=== PATIENT | female | born 1945 | race Caucasian/White ===

== ENCOUNTER → 2016-05-03 | Day surgery (SDC) | payer BC ==
[2016-04-20 14:40] VITALS: Ht 162.6 cm; Wt 65.9 kg
[~2016-05-03] VITALS: Ht 162.6 cm; Wt 65.9 kg
[~2016-05-03] MED LIST: ATOR-22 PO; DIPH-437 PO; ESTR10TA PV; LIDOCAINE HCL 2% 2 ML VIAL (20MG/ML) ONE; MIDAZOLAM HCL 1 MG/ML 2ML VIAL ONE; MULT-506 PO; PROPOFOL IV EMULSION 10 MG/ML 20 ML VIAL IV ONE; SODIUM CHLORIDE 0.9% 500ML 500 ML IV ONE
[2016-05-03 09:54] VITALS: TEMP 36.5
--- NOTE | 2016-05-03 10:01 | Endo History and Physical ---
History & Physical Date of Service: May 03, 2016. Chief Complaint: Hx of benign neoplasm Referring Physician: Dr Jules Velarde History of Present Illness 71 yo CF who presents for colonoscopy secondary to history of colon polyps. Past Surgical History Hx Cardiac Surgery: No Hx Internal Defibrillator: No Hx Pacemaker: No Hx Abdominal Surgery: Yes (TUBAL LIGATION) Hx of Implantable Prosthesis: No Hx Post-Op Nausea and Vomiting: No Hx Cancer Surgery: No Hx Thoracic Surgery: No Hx Orthopedic: Yes (LEFT KNEE SX) Hx Urinary Tract Surgery: No Family History Polyp Social History Smoking Status: Former Smoker Hx Substance Use: No Hx Alcohol Use: Yes (OCCASSIONALLY) Allergies Coded Allergies: No Known Allergies (Unverified , 04/20/16) Current Medications Reported Home Medications Medications Dose Route/Sig Max Daily Dose Days Date Category Tylenol Pm (Acetaminophen/Diphenhydramine HCl) 500 Mg/25 Mg Tab 2 Tab PO HS 04/20/16 Reported Multivitamin (Multivitamins) Tab 1 Tab PO QAM 04/20/16 Reported Lipitor (Atorvastatin Calcium) 20 Mg Tab 20 Mg PO QPM 04/20/16 Reported Vagifem (Estradiol Vaginal) 10 Mcg Tab 1 Tab PV 2XWK 28 04/20/16 Reported Vital Signs Weight (Kilograms): 65.91 Height (Feet): 5 Height (Inches): 4 Date Time Temp Pulse Resp B/P Pulse Ox O2 Delivery O2 Flow Rate FiO2 05/03/16 09:54 36.5 78 22 167/107 98 Room Air Physical Exam General Appearance: WD/WN, no apparent distress Respiratory/Chest: Auscultation: breath sounds normal Cardiovascular: Heart Auscultation: RRR Abdomen: Bowel Sounds: normal Inspection & Palpation: soft, non-distended, no tenderness, guarding & rebound Assessment and Plan Assessment: 71 yo CF who presents for colonoscopy secondary to history of colon polyps. Plan: Proceed with colonoscopy.
--- NOTE | 2016-05-03 10:37 | GI REPORT ---
Procedure Date: 05/03/2016 9:50 AM Procedure: Colonoscopy Indications: High risk colon cancer surveillance: Personal history of colonic polyps Medicines: Monitored Anesthesia Care Complications: No immediate complications. Estimated Blood Loss: Estimated blood loss: none. Procedure: Pre-Anesthesia Assessment: - Prior to the procedure, a History and Physical was performed, and patient medications and allergies were reviewed. The patient's tolerance of previous anesthesia was also reviewed. The risks and benefits of the procedure and the sedation options and risks were discussed with the patient. All questions were answered, and informed consent was obtained. Prior Anticoagulants: The patient has taken no previous anticoagulant or antiplatelet agents. ASA Grade Assessment: II - A patient with mild systemic disease. After reviewing the risks and benefits, the patient was deemed in satisfactory condition to undergo the procedure. After I obtained informed consent, the scope was passed under direct vision. Throughout the procedure, the patient's blood pressure, pulse, and oxygen saturations were monitored continuously. The scope was introduced through the anus and advanced to the terminal ileum. The colonoscopy was performed without difficulty. The patient tolerated the procedure well. The quality of the bowel preparation was good. The terminal ileum, ileocecal valve, appendiceal orifice, and rectum were photographed. Findings: Two sessile polyps were found in the ascending colon. The polyps were 5 to 7 mm in size. These polyps were removed with a hot snare. Resection and retrieval were complete. Non-bleeding internal hemorrhoids were found during retroflexion. The hemorrhoids were small. Impression: - Two 5 to 7 mm polyps in the ascending colon, removed with a hot snare. Resected and retrieved. - Non-bleeding internal hemorrhoids. Recommendation: - Resume previous diet. - Continue present medications. - Await pathology results. - Repeat colonoscopy for surveillance based on pathology results. - Return to primary care physician as previously scheduled. Nick Sánchez DO 05/03/2016 10:36:11 AM This report has been signed electronically. Note Initiated On: 05/03/2016 9:50 AM I attest to the content of the Intraoperative Record and orders documented therein, exceptions below
[2016-05-03 10:49] VITALS: BP 133/63; PULSE 58; O2SAT 100
--- NOTE | 2016-05-03 11:08 | Discharge Instructions ---
Endoscopy Patient Instructions Date / Procedure(s) Performed May 03, 2016. Colonoscopy Allergy Information Coded Allergies: No Known Allergies (Unverified , 04/20/16) Discharge Date / Findings May 03, 2016. Colon polyps Internal hemorrhoids Medication Instructions OK to resume all medications today as prescribed. Reported Home Medications Medications Dose Route/Sig Max Daily Dose Days Date Category Tylenol Pm (Acetaminophen/Diphenhydramine HCl) 500 Mg/25 Mg Tab 2 Tab PO HS 04/20/16 Reported Multivitamin (Multivitamins) Tab 1 Tab PO QAM 04/20/16 Reported Lipitor (Atorvastatin Calcium) 20 Mg Tab 20 Mg PO QPM 04/20/16 Reported Vagifem (Estradiol Vaginal) 10 Mcg Tab 1 Tab PV 2XWK 28 04/20/16 Reported Provider Instructions Activity Restrictions - No exercising or heavy lifting for 24 hours. - Do not drink alcohol the day of the procedure. - Do not drive a car or operate machinery until the day after the procedure. - Do not make any important decisions or sign important papers in 24 hours after the procedure. Following Day: - Return to full activity which may include returning to work/school. Diet Start your diet with liquids and light foods (jello, soup, juice, toast). Then eat your usual diet if not nauseated. Treatment For Common After Affects For mild abdominal pain, bloating, or excessive gas: - Rest - Eat lightly - Lie on right side Follow-Up Information Follow-up with Dr Jules Velarde as scheduled Anesthesia Information What You Should Know You have had a procedure that required some medicine to reduce anxiety and discomfort. This treatment is called moderate sedation. After receiving the treatment, you may be sleepy, but you will be able to breathe on your own. The effects of the treatment may last for several hours. Follow these instructions along with Activity/Diet recommendations noted above: * Do NOT do anything where dizziness or clumsiness would be dangerous. * Rest quietly at home today, then you can be up and about tomorrow. * Have a responsible person stay with you the rest of today. * You may have had an I.V. today. If so, you may take the dressing off later today. Recommendations Call your doctor if: * Trouble breathing * Continuous vomiting for more than 24 hours * Temperature above 101 degrees * Severe abdominal pain or bloating * Pain not relieved by pain medicine ordered * There is increased drainage or redness from any incision * A large amount of rectal bleeding greater than 2-3 tablespoons. (If you had a polyp/s removed or have hemorrhoids, a small amount of blood - from the rectum is to be expected.) * You have any unanswered questions or concerns. IN THE EVENT OF A SERIOUS EMERGENCY, GO TO THE NEAREST EMERGENCY ROOM Your discharge instructions were prepared by provider Nick Sánchez. Patient Instructions Signature Page Anni Gore Patient (or Guardian) Signature/Date: I have read and understand the instructions given to me by my caregivers. Caregiver/RN/Doctor Signature/Date: The above-named patient and/or guardian has received patient instructions on this date. + Original Patient Signature Page (only) stays with chart. Please make copy for patient.
--- NOTE | 2016-05-03 15:23 | Anesthesiology Progress Note ---
Anesthesia Post Op Note Date & Time May 03, 2016 at 15:22 Vital Signs Pain Intensity: 0 Vital Signs Past 12 Hours Date Time Temp Pulse Resp B/P Pulse Ox O2 Delivery O2 Flow Rate FiO2 05/03/16 10:49 58 20 133/63 100 Room Air 05/03/16 10:35 53 20 94/55 100 Room Air 05/03/16 09:54 36.5 78 22 167/107 98 Room Air Notes Mental Status: alert / awake / arousable, participated in evaluation Pt Amnestic to Procedure: Yes Nausea / Vomiting: adequately controlled Pain: adequately controlled Airway Patency, RR, SpO2: stable & adequate BP & HR: stable & adequate Hydration State: stable & adequate Anesthetic Complications: no major complications apparent
== END | disposition home or self-care (01) ==
LOC: C.GI 09:31
PROVIDERS: ATTEND Internal Medicine
DX: Z12.11 Encounter for screening for malignant neoplasm of colon (principal); Z86.010 Personal history of colon polyps; D12.2 Benign neoplasm of ascending colon; K64.8 Other hemorrhoids; Z98.51 Tubal ligation status; Z87.891 Personal history of nicotine dependence

== ENCOUNTER → 2016-09-15 | Outpatient (CLI) | payer BC ==
[~2016-09-15] MED LIST changes: -LIDOCAINE HCL 2% 2 ML VIAL (20MG/ML) ONE; -MIDAZOLAM HCL 1 MG/ML 2ML VIAL ONE; -PROPOFOL IV EMULSION 10 MG/ML 20 ML VIAL IV ONE; -SODIUM CHLORIDE 0.9% 500ML 500 ML IV ONE
[2016-09-15 10:53] LABS: BASO % 0.2 %; BASO ABS # 0.01 K/uL (0-0.2); COMPLETE YES; EOS % 1.2 %; HEMATOCRIT 45.1 % (37-47); IG% 0.2 %; LYMPH % 48.2 %; LYMPH ABS # 2.89 K/uL (1.2-3.4); MEAN CELL VOLUME 93.4 fL (80-100); MEAN CORPUSCULAR HEMOGLOBIN 31.3 pg (25-34); MEAN CORPUSCULAR HGB CONC 33.5 g/dl (32-36); MEAN PLATELET VOLUME 10.4 fL (7.4-10.4); MONO % 7.8 %; NEUT % 42.4 %; PLATELET COUNT 239 K/uL (130-400); RED BLOOD COUNT 4.83 M/uL (4.2-5.4); WHITE BLOOD COUNT 5.99 K/uL (4.8-10.8)
[2016-09-15 11:06] LABS: ALKALINE PHOSPHATASE 90 U/L (45-117); ALT/SGPT 57 U/L (12-78); AST/SGOT 32 U/L (15-37); BLOOD UREA NITROGEN 16 mg/dl (7-18); CALCIUM 8.9 mg/dl (8.5-10.1); CARBON DIOXIDE 27 mmol/L (21-32); CHLORIDE 109 mmol/L (98-107); CREATININE 0.78 mg/dl (0.60-1.20); GLUCOSE 91 mg/dl (70-99); HDL CHOLESTEROL 33 mg/dl; POTASSIUM 4.2 mmol/L (3.5-5.1); SODIUM 141 mmol/L (136-145)
[2016-09-15 11:08] LABS: ALB/GLOB RATIO 0.9 (0.9-2); CHOLESTEROL 191 mg/dl (0-200); CHOLESTEROL/HDL RATIO 5.8; LDL CHOLESTEROL CALCULATED 81 mg/dl; TRIGLYCERIDES 387 mg/dl (0-150); VERY LOW DENSITY LIPOPROT CALC 77 mg/dl
== END | disposition home or self-care (01) ==
LOC: C.LABBC 07:40
PROVIDERS: ATTEND Internal Medicine
DX: Z01.419 Encounter for gynecological examination (general) (routine) without abnormal findings (principal)

== ENCOUNTER → 2016-12-01 | Outpatient (CLI) | payer BC ==
--- NOTE | 2016-12-06 13:25 | CODING QUERY MEDICAL NECESSITY ---
SUPPORTING DIAGNOSIS NEEDED Dr. Velarde, A supporting diagnosis is required for the test/procedure performed on this patient in order for us to be reimbursed by the patient's insurance. Please provide a supporting diagnosis for the following test/procedure listed below next to the test name along with your signature. *If there is no additional diagnosis for this patient that would support the following test/procedure please document that below next to the test/procedure. Test(s)/Procedure(s) that require a supporting diagnosis: * ([id number]) DXA BONE DENSITY, AXIAL DIAGNOSIS: DATE OF SERVICE: 12/01/16 Provider Signature: Date: Thank you Rachid Hays [facility] Information Management Once completed, please kindly fax back to [phone] For questions please call [phone]
== END | disposition home or self-care (01) ==
LOC: C.MAMM 10:17
PROVIDERS: ATTEND Internal Medicine
DX: Z00.00 Encounter for general adult medical examination without abnormal findings (principal); M85.80 Other specified disorders of bone density and structure, unspecified site

== ENCOUNTER → 2016-12-22 | Outpatient (CLI) | payer BC ==
--- NOTE | 2016-12-22 14:35 | MAMMOGRAPHY REPORT ---
BILATERAL DIGITAL SCREENING MAMMOGRAM TOMOSYNTHESIS WITH CAD: 12/22/2016 CLINICAL HISTORY: Routine screening. Patient has no complaints. TECHNIQUE: Breast tomosynthesis in addition to standard 2D mammography was performed. Current study was also evaluated with a Computer Aided Detection (CAD) system. COMPARISON: Comparison is made to exams dated: 12/22/2015 mammogram, 12/18/2014 mammogram, 4 mammogram, 12/14/2012 mammogram, 12/14/2011 mammogram, and 12/10/2010 mammogram - [facility]. BREAST COMPOSITION: There are scattered areas of fibroglandular density in both breasts. FINDINGS: No suspicious masses, calcifications, or areas of architectural distortion are noted in ei ther breast. There has been no significant interval change compared to prior exams. Scattered bilater al benign-appearing calcifications are not significantly changed. IMPRESSION: ACR BI-RADS CATEGORY 2: BENIGN There is no mammographic evidence of malignancy. A 1 year screening mammogram is recommended. The pa tient will receive written notification of the results. Approximately 10% of breast cancers are not detected with mammography. A negative mammographic report should not delay biopsy if a clinically suggestive mass is present. Danni Feldman M.D. ah/:12/22/2016 12:01:54 Straw Baler: Mana SANTANA)(M), [facility] letter sent: Normal 1/2 BI-RADS Code: ACR BI-RADS Category 2: Benign
== END | disposition home or self-care (01) ==
LOC: C.MAMM 09:29
PROVIDERS: ATTEND Obstetrics & Gynecology
DX: Z12.31 Encounter for screening mammogram for malignant neoplasm of breast (principal)

== ENCOUNTER 2017-04-20 17:44 | Inpatient (IN) | payer BC, OTHER ==
[~2017-04-20] VITALS: Ht 162.6 cm; Wt 70.1 kg
--- NOTE | 2017-04-20 17:58 | EMERGENCY ROOM VISIT NOTE ---
History Report prepared by Kelly: Ubaldo Tran Under the Supervision of: Dr. Les oD D.O. First contact with patient: 17:45 Stated Complaint: CHEST PAIN History of Present Illness The patient is a 72 year old female who presents to the Emergency Room via EMS with complaints of resolving centralized chest pain that started prior to arrival today. The patient states that she felt weird yesterday with pain above her left eye, which usually indicates that she has high blood pressure. She notes that she took her blood pressure yesterday and it was high. The patient says that she felt fine last night before bed, and felt fine earlier this morning. She notes that she went to [facility] earlier today for the high blood pressure because Dr. Velarde told the patient to go there for evaluation of the high blood pressure, and while there, she started to have chest pain that she describes as a pressure. She rated the pain as a 7 or 8 out of 10 in severity. The patient was given Aspirin and Nitro at [facility], and was given 2 Nitro by EMS. The patient noted that her chest pain went down to a 2 out of 10. She says that she currently does not have the headache. The patient denies any shortness of breath. She states that she has a history of a stress test but no history of heart catheterizations. The patient adds that she does not take any medications for the high blood pressure, but follows up with Dr. Velarde for it. 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 Review of Systems See HPI for pertinent positives & negatives. A total of 10 systems reviewed and were otherwise negative. Past Medical & Surgical Medical Problems: (1) Kidney stone Family History Cancer Heart disease Hypertension Kidney disease Social History Smoking Status: Former Smoker Marital Status: Housing Status: lives with significant other Occupation Status: retired Current/Historical Medications Scheduled Acetaminophen/Diphenhydramine (Tylenol Pm), 2 TAB PO HS Atorvastatin (Lipitor), 20 MG PO QPM Estradiol Vaginal (Vagifem), 1 TAB PV 2XWK Multivitamin (Multivitamin), 1 TAB PO QAM Allergies Coded Allergies: No Known Allergies (Unverified , 04/20/17) Physical Exam Vital Signs Date Time Temp Pulse Resp B/P (MAP) Pulse Ox O2 Delivery O2 Flow Rate FiO2 04/20/17 20:15 74 18 160/94 97 Room Air 04/20/17 19:48 76 18 154/79 98 Room Air 04/20/17 19:45 87 163/102 04/20/17 18:42 83 04/20/17 18:09 98 Room Air 04/20/17 18:09 36.7 82 19 166/100 99 Room Air 04/20/17 18:07 166/100 04/20/17 18:04 80 20 98 04/20/17 17:59 84 17 98 04/20/17 17:58 97 Room Air 04/20/17 17:57 174/89 Physical Exam GENERAL: Patient is awake, alert, and in no acute distress. Patient is resting comfortably and showing no signs of anxiety EYES: The conjunctivae are clear. The pupils are round and reactive. EARS, NOSE, MOUTH AND THROAT: The nose is without any evidence of any deformity. Mucous membranes are moist tongue is midline NECK: The neck is nontender and supple. RESPIRATORY: Normal respiratory effort is noted there is no evidence of wheezing rhonchi or rales CARDIOVASCULAR: Regular rate and rhythm noted there no murmurs rubs or gallops normal S1 normal S2 GASTROINTESTINAL: The abdomen is soft. Bowel sounds are present in all quadrants. Abdomen is nontender MUSCULOSKELETAL/EXTREMITIES: There is no evidence of gross deformity full range of motion is noted in the hips and shoulders SKIN: There is no obvious evidence of any rash. There are no petechiae, pallor or cyanosis noted. NEUROLOGIC: Patient is awake alert and oriented x3. Medical Decision & Procedures ER Provider Diagnostic Interpretation: X-ray results as stated below per interpretation by me and the radiologist. CHEST ONE VIEW PORTABLE CLINICAL HISTORY: CHEST PAIN dyspnea COMPARISON STUDY: No previous studies for comparison. FINDINGS: The bones soft tissues and hemidiaphragms are normal. The cardiomediastinal silhouette is normal. The lungs are clear. The pulmonary vasculature is normal. IMPRESSION: Negative chest. The above report was generated using voice recognition software. It may contain grammatical, syntax or spelling errors. Electronically signed by: Rivera Ogden M.D. 04/20/2017 6:23 PM Dictated Date/Time: 04/20/2017 6:18 PM Laboratory Results Test 04/20/17 18:00 Prothrombin Time 10.3 SECONDS (9.0-12.0) Prothromb Time International Ratio 1.0 (0.9-1.1) Activated Partial Thromboplast Time 28.3 SECONDS (21.0-31.0) Partial Thromboplastin Ratio 1.1 Direct Bilirubin 0.1 mg/dl (0-0.2) Total Creatine Kinase 154 U/L (26-192) Creatine Kinase MB 2.7 ng/ml (0.5-3.6) Creatine Kinase MB Ratio 1.8 (0-3.0) Lipase 222 U/L (73-393) Laboratory results per my review. Medications Administered Medications (Trade) Dose Ordered Sig/Eb Route Start Time Stop Time Status Last Admin Dose Admin Nitroglycerin (Nitroglycerin 2% Oint) 0.5 inch NOW ONCE EXT 04/20/17 18:00 04/20/17 23:28 DC 04/20/17 18:09 0.5 INCH Metoprolol Tartrate (Lopressor Iv) 5 mg NOW STAT IV 04/20/17 19:37 04/20/17 19:38 DC 04/20/17 19:45 5 MG Nitroglycerin/ Dextrose 500 ml @ 0 mls/hr Q0M STAT IV 04/20/17 20:35 04/21/17 13:20 DC 04/20/17 21:06 3 MLS/HR Ondansetron HCl (Zofran Inj) 4 mg NOW STAT IV 04/20/17 20:35 04/20/17 20:36 DC 04/20/17 21:13 4 MG Acetaminophen (Tylenol Tab) 650 mg Q4H PRN PO 04/20/17 20:45 04/21/17 00:20 DC 04/20/17 23:57 650 MG ECG Per My Interpretation Indication: chest pain Rate (beats per minute): 85 Rhythm: normal sinus Findings: LBBB, no ectopy Comparison ECG Date: no prior available Change: ECG from [facility]: Sinus rhythm 92 bpm, frequent PVC's noted, underlying LBBB pattern noted, diffuse ST segment abnormalities. Prehospital 12-Lead: Normal sinus rhythm 88 bpm, LBBB pattern noted, resolution of previously noted PVC's, no previous for comparison. ED Course 1746: The patient was evaluated in room A3. A complete history and physical examination were performed. 1800: Ordered Nitroglycerin 2% Oint 0.5 inch EXT. 1935: Upon reevaluation, the patient is resting comfortably. I discussed results and treatment plan with her. She verbalizes agreement and understanding. The patient will be evaluated for further management and care. 1936: Ordered Lopressor IV 5 mg. 1950: I discussed the patient with Dr. Kalina Thompson [facility] resident hospitalist. The patient will be evaluated for further treatment. 2032: I discussed the [facility] - he recommended Morphine, Nitro drip, and some Lovenox, and treating symptomatically with pain. 2044: Ordered Levenox Inj 80 mg SQ, Morphine Sulfate Inj 4 mg IV PRN. Medical Decision Differential diagnosis: Etiologies such as cardiac ischemia, aortic dissection, pulmonary embolism, pneumonia, pneumothorax, musculoskeletal, infections, pericarditis, myocarditis , esophageal rupture, gastrointestinal, as well as others were entertained. Nursing notes reviewed. Additional history was obtained from the prehospital personnel. The patient is a 72-year-old female who presented to the emergency department for chest pain and an abnormal EKG. The patient started having headache and elevated blood pressure recently. She went to follow up with her primary care physician but was instructed to either go to the emergency department or to the [facility]. The patient went [facility] while she was very developed chest pain. She had an EKG which appeared to show a left bundle branch block pattern. She was given aspirin and nitroglycerin with some resolution of her pain. The patient was further treated with nitroglycerin prior to arrival by the prehospital personnel. The patient was reevaluated multiple times. I discussed the patient's laboratory and radiographic studies with her. I also discussed the limitations of the emergency department workup for chest pain especially with a left bundle branch block pattern. I discussed her case with the on-call [facility] home therapy clinician. I also discussed this case with the on- call [facility] hospitalist. They recommended that the patient be evaluated by the interventionalist. He recommended cardiac catheterization. A CT of the chest was also obtained to rule out dissection. The patient was treated with nitroglycerin in the emergency department. She was also ordered heparin but this was held until after the CT was obtained. Medication Reconcilliation Current Medication List: was personally reviewed by me Blood Pressure Screening Patient's blood pressure: Elevated blood pressure Treated. Consults Time Called: 1939 Consulting Physician: Dr. Kalina LINDSEY resident hospitalist Returned Call: 1950 I discussed the patient with Dr. Kalina LINDSEY resident hospitalist. The patient will be evaluated for further treatment. Additional Consults: Time Called: 2029 Consulted Physician: Dr. Grace LINDSEY cardiology Returned Call: 2032 Additional Comments: I discussed the patient with Dr. Grace LINDSEY cardiology - he recommended Morphine, Nitro drip, and some Lovenox, and treating symptomatically with pain. Impression Primary Impression: Chest pain Additional Impressions: EKG, abnormal Elevated troponin Ang[facility] Critical Care I have personally spent greater than 45 minutes of critical care time in the direct management of this patient. This includes bedside care, interpretation of diagnostic studies, and testing, discussion with consultants, patient, and family members, and other required patient management activities. This 45 minutes is in excess of all separately billable procedures. Scribe Attestation The scribe's documentation has been prepared under my direction and personally reviewed by me in its entirety. I confirm that the note above accurately reflects all work, treatment, procedures, and medical decision making performed by me. Departure Information Dispostion Being Evaluated By Hospitalist Referrals Jules Velarde M.D. (PCP) Problem Qualifiers Primary Impression: Chest pain Chest pain type: unspecified Qualified Codes: R07.9 - Chest pain, unspecified
[2017-04-20] MEDS ORDERED: NITROGLYCERIN 2% OINTMENT 30GM TUBE EXT ONE (18:00)
[2017-04-20 18:19] LABS: BASO % 0.2 %; BASO ABS # 0.02 K/uL (0-0.2); EOS % 0.1 %; EOS ABS # 0.01 K/uL (0-0.5); HEMOGLOBIN 15.4 g/dL (12.0-16.0); IG# 0.02 K/uL (0.00-0.02); LYMPH % 26.8 %; LYMPH ABS # 2.39 K/uL (1.2-3.4); MEAN CELL VOLUME 91.9 fL (80-100); MEAN CORPUSCULAR HEMOGLOBIN 32.9 pg (25-34); MEAN CORPUSCULAR HGB CONC 35.8 g/dl (32-36); MEAN PLATELET VOLUME 10.4 fL (7.4-10.4); MONO % 4.9 %; MONO ABS # 0.44 K/uL (0.11-0.59); NEUT % 67.8 %; NEUT ABS # 6.03 K/uL (1.4-6.5); PLATELET COUNT 225 K/uL (130-400); RED CELL DISTRIBUTION WIDTH CV 13.4 % (11.5-14.5); RED CELL DISTRIBUTION WIDTH SD 44.8 fL (36.4-46.3); WHITE BLOOD COUNT 8.91 K/uL (4.8-10.8)
--- NOTE | 2017-04-20 18:24 | DIAGNOSTIC IMAGING REPORT ---
CHEST ONE VIEW PORTABLE CLINICAL HISTORY: CHEST PAIN dyspnea COMPARISON STUDY: No previous studies for comparison. FINDINGS: The bones soft tissues and hemidiaphragms are normal. The cardiomediastinal silhouette is normal. The lungs are clear. The pulmonary vasculature is normal. IMPRESSION: Negative chest. The above report was generated using voice recognition software. It may contain grammatical, syntax or spelling errors. Electronically signed by: Rivera Ogden M.D. 04/20/2017 6:23 PM Dictated Date/Time: 04/20/2017 6:18 PM
[2017-04-20 18:32] LABS: PTT PATIENT 28.3 SECONDS (21.0-31.0)
[2017-04-20 19:04] LABS: ALBUMIN 3.9 gm/dl (3.4-5.0); CALCIUM 9.4 mg/dl (8.5-10.1); CREATININE 0.82 mg/dl (0.60-1.20); POTASSIUM 3.9 mmol/L (3.5-5.1)
[2017-04-20 19:14] LABS: CKMB 2.7 ng/ml (0.5-3.6)
[2017-04-20] MEDS ORDERED: METOPROLOL TARTRATE 1 MG/ML VIAL IV STA (19:37)
[2017-04-20] MEDS ORDERED: ONDANSETRON INJ 2 MG/ML 2 ML VIAL IV STA (20:35)
[2017-04-20] MEDS ORDERED: NITROGLYCERIN/D5W 100 MCG/ML 500 ML IV STA (20:35)
[2017-04-20] MEDS ORDERED: POLYETHYLENE (MIRALAX) 17 GM PACK PO PRN (20:45)
[2017-04-20] MEDS ORDERED: MoRPHine SULFATE 4 MG/ML 1 ML CARP\\VIAL IV PRN (20:45)
[2017-04-20] MEDS ORDERED: NITROGLYCERIN 0.4 MG SL PER TAB CHARGE SL PRN (20:45)
[2017-04-20] MEDS ORDERED: ONDANSETRON INJ 2 MG/ML 2 ML VIAL IV PRN (20:45)
[2017-04-20] MEDS ORDERED: ALUMINUM/MAGNESIUM/SIMETH (MAALOX MAX) 30 ML UDC PO PRN (20:45)
[2017-04-20] MEDS ORDERED: ACETAMINOPHEN 325 MG TAB PO PRN ×2 (20:45→23:30)
[2017-04-20] MEDS ORDERED: ENOXAPARIN 80 MG/0.8 ML SYR SQ ONE (20:45)
[2017-04-20] MEDS ORDERED: MAGNESIUM HYDROXIDE SUSP 30 ML UDC PO PRN (20:45)
[2017-04-20] MEDS ORDERED: MoRPHine SULFATE 4 MG/ML 1 ML CARP\\VIAL IV STA (20:57)
--- NOTE | 2017-04-20 20:57 | History and Physical ---
History & Physical Date & Time of Service: Apr 20, 2017 at 20:33 Chief Complaint: Chest Pain Primary Care Physician: Jules Velarde M.D. History of Present Illness Source: patient 72 yo F yesterday had Left sided ROBLES, BP at home was 197/101. She had no history of HTN. Today she took her BP today at it was 213/127. She denies visual changes. She called PCP and was subsequently sent to Urgent care. At [facility], she felt new onset chest pain. Chest was non-exertional, Left sided pressure sensation radiating to shoulder. Pain has been intermittent since then and typically lasts minutes and goes away. She reports no aggravating factors. Pain was relieved by Nitro at ASA 81 mg x 4 at [facility] prior to coming to ED. She reports no previous non-exertional chest pain. She has says she has has chest pain with exertion. She denies SOB, paroxysmal nocturnal dyspnea, orthopnea, palpitation. In the ED, Troponin was elevated at .169 . EKG showed LBBB however no previous EKG was available. Cardiology was alerted Past Medical/Surgical History Medical Problems: (1) Kidney stone Status: Chronic Family History Cancer Heart disease Hypertension Kidney disease Father SD, at 78 Mother : of CVA at 80 Brother: cancer Social History Smoking Status: Former Smoker Alcohol Use: occasionally Drug Use: none Marital Status: Housing status: lives with family Occupational Status: retired Multi-Drug Resistant Organisms History of MDRO: No Allergies Coded Allergies: No Known Allergies (Unverified , 04/20/17) Home Medications Scheduled Acetaminophen/Diphenhydramine (Tylenol Pm), 2 TAB PO HS Atorvastatin (Lipitor), 20 MG PO QPM Estradiol Vaginal (Vagifem), 1 TAB PV 2XWK Multivitamin (Multivitamin), 1 TAB PO QAM Review of Systems Constitutional: No fever, No chills Respiratory: No cough, No shortness of breath Cardiovascular: + chest pain, No edema, No claudication, No palpitations Abdomen: No pain, No nausea, No vomiting Genitourinary - Female: No dysuria, No urinary urgency, No hematuria Integumentary: No rash, No itch Physical Exam Vital Signs Date Time Temp Pulse Resp B/P (MAP) Pulse Ox O2 Delivery O2 Flow Rate FiO2 04/20/17 20:15 74 18 160/94 97 Room Air 2/15/18 19:48 76 18 154/79 98 Room Air 04/20/17 19:45 87 163/102 04/20/17 18:42 83 04/20/17 18:09 98 Room Air 04/20/17 18:09 36.7 82 19 166/100 99 Room Air 04/20/17 18:07 166/100 04/20/17 18:04 80 20 98 04/20/17 17:59 84 17 98 04/20/17 17:58 97 Room Air 04/20/17 17:57 174/89 GENERAL: alert, well appearing, no distress EYE EXAM: normal conjunctiva, PERRL and EOM's grossly intact OROPHARYNX: no exudate, no erythema, lips, buccal mucosa, and tongue normal and mucous membranes are moist NECK: supple no adenopathy, non-tender LUNGS: Clear to auscultation. Normal chest wall mechanics HEART: no murmurs, S1 normal and S2 normal ABDOMEN: abdomen soft, non-tender, normo-active bowel sounds, no masses, no rebound or guarding. UPPER EXTREMITIES: upper extremities are grossly normal. LOWER EXTREMITIES: No pitting edema. NEURO EXAM: Normal sensorium, cranial nerves II-XII grossly intact, normal speech Diagnostics Laboratory Results Results Past 24 Hours Test 04/20/17 18:00 Range/Units White Blood Count 8.91 4.8-10.8 K/uL Red Blood Count 4.68 4.2-5.4 M/uL Hemoglobin 15.4 12.0-16.0 g/dL Hematocrit 43.0 37-47 % Mean Corpuscular Volume 91.9 80-100 fL Mean Corpuscular Hemoglobin 32.9 25-34 pg Mean Corpuscular Hemoglobin Concent 35.8 32-36 g/dl Platelet Count 225 130-400 K/uL Mean Platelet Volume 10.4 7.4-10.4 fL Neutrophils (%) (Auto) 67.8 % Lymphocytes (%) (Auto) 26.8 % Monocytes (%) (Auto) 4.9 % Eosinophils (%) (Auto) 0.1 % Basophils (%) (Auto) 0.2 % Neutrophils # (Auto) 6.03 1.4-6.5 K/uL Lymphocytes # (Auto) 2.39 1.2-3.4 K/uL Monocytes # (Auto) 0.44 0.11-0.59 K/uL Eosinophils # (Auto) 0.01 0-0.5 K/uL Basophils # (Auto) 0.02 0-0.2 K/uL RDW Standard Deviation 44.8 36.4-46.3 fL RDW Coefficient of Variation 13.4 11.5-14.5 % Immature Granulocyte % (Auto) 0.2 % Immature Granulocyte # (Auto) 0.02 0.00-0.02 K/uL Prothrombin Time 10.3 9.0-12.0 SECONDS Prothromb Time International Ratio 1.0 0.9-1.1 Activated Partial Thromboplast Time 28.3 21.0-31.0 SECONDS Partial Thromboplastin Ratio 1.1 Sodium Level 139 136-145 mmol/L Potassium Level 3.9 3.5-5.1 mmol/L Chloride Level 105 98-107 mmol/L Carbon Dioxide Level 24 21-32 mmol/L Anion Gap 10.0 3-11 mmol/L Blood Urea Nitrogen 14 7-18 mg/dl Creatinine 0.82 0.60-1.20 mg/dl Est Creatinine Clear Calc Drug Dose 62.1 ml/min Estimated GFR () 83.4 Estimated GFR (Non- 72.0 BUN/Creatinine Ratio 17.4 10-20 Random Glucose 138 70-99 mg/dl Calcium Level 9.4 8.5-10.1 mg/dl Total Bilirubin 0.4 0.2-1 mg/dl Direct Bilirubin 0.1 0-0.2 mg/dl Aspartate Amino Transf (AST/SGOT) 27 15-37 U/L Alanine Aminotransferase (ALT/SGPT) 52 12-78 U/L Alkaline Phosphatase 100 45-117 U/L Total Creatine Kinase 154 26-192 U/L Creatine Kinase MB 2.7 0.5-3.6 ng/ml Creatine Kinase MB Ratio 1.8 0-3.0 Troponin I 0.169 0-0.045 ng/ml Total Protein 8.0 6.4-8.2 gm/dl Albumin 3.9 3.4-5.0 gm/dl Lipase 222 73-393 U/L Diagnostic Radiology CHEST ONE VIEW PORTABLE CLINICAL HISTORY: CHEST PAIN dyspnea COMPARISON STUDY: No previous studies for comparison. FINDINGS: The bones soft tissues and hemidiaphragms are normal. The cardiomediastinal silhouette is normal. The lungs are clear. The pulmonary vasculature is normal. IMPRESSION: Negative chest. EKG EKG: My interpretation of the EKG is the following: Indication: Chest Pain. See EKG tracing for digital print out of ventricular rate, AL interval, QRS duration and P-R-T axes. I have reviewed these measurements and agree with them. Rhythm: Normal sinus rhythm Other findings: LBBB No prior EKG available Impression Assessment and Plan 72 yo F presenting with history of elevated BP x 2 days and new onset chest pain to day radiating to left shoulder, troponin elevated at .169 with ekg showing new LBBB Chest pain, new LBBB, Elevated Troponin - Differential diagnoses includes but is not limited to acute coronary syndrome , myocardial infarction, pericarditis, pulmonary embolus, aortic dissection - new onset chest pain with new onset EKG changes (LBBB) concerning for acute SD and elevated troponin - Discussed case with Cardiology, Dr Jara - CT Angio to rule out Dissection, possibly followed by seed laboratory technician Elevated Blood Pressure -no history of diagnosed HTN -elevated BP x 2 days with Headaches -BP 174/89 on arrival to ED -Given 5 mg Metoprolol x2 - Placed on Nitroglycerine drip DVT Prophylaxis - Hold anticoagulation until CT Angio rules out Aortic Dissection Disposition: Admit to Tele Code status Full Resus Resident Physician Supervision Note: I was present with Dr. Gilman during the history and exam. I discussed the case with the resident and agree with the findings and plan as documented in the note. Any exceptions or clarifications are listed here: 72 y/o F with no significant medical Hx. Over the past few days she developed a ROBLES and noted that her BP was exceptionally high. She presented to an urgent care center where she developed CP and was referred directly to the hospital. Initial trop was marginally elevated and an EKG showed a LBBB of indeterminate age. No EKGs were available for comparison. She denied any history of abnormal EKGs. OE AAO x 3 S1,2 R CTAB NT, ND No CCE No deficits P: As the pts CP was ongoing, her EKG was abnormal and her trop was elevated, she was referred to the boarding machine operator concession supervisor. She underwent a CTA to R/O a dissection and then proceeded to the catheter builder. She is in the catheter builder at the time of this amendment to the resident note. Her HTN was relatively controlled after she received NTG and Cardene. Full-dose anticoagulation was ordered. We await the results of the catheterization. I have discussed the above personally with the boarding machine operator, resident and the pt and at bedside. Documented By: Kris Jacques Level of Care Telemetry Resuscitation Status FULL RESUSCITATION VTE Prophylaxis VTE Risk Assessment Done? Y/N: Yes Risk Level: Moderate Given or contraindicated: Other Anticoagulation Note Total Time: Critical Care 30 - 74 minutes Resident Tracking Resident Involvement: Resident Care Provided Care Provided: Adult Hospital Medicine
[2017-04-20] MEDS ORDERED: NURSING VERBAL MED ORDER ONE (21:26)
[2017-04-20] MEDS ORDERED: OPTIRAY 320 IV PRN (21:30)
--- NOTE | 2017-04-20 22:02 | DIAGNOSTIC IMAGING REPORT ---
CHEST CTA for AORTIC DISSECTION CT DOSE: 543.17 mGy.cm HISTORY: Atypical chest pain. TECHNIQUE: Multiaxial CT images of the chest were performed both before and after the intravenous administration of contrast to evaluate the aorta. Maximal intensity projection images were also obtained. A dose lowering technique was utilized adhering to the principles of ALARA. COMPARISON STUDY: Chest 04/20/2017. FINDINGS: Noncontrast imaging through the thoracic aorta shows no evidence for an intramural hematoma. The aorta is normal in course and caliber with no evidence for dissection. No filling defects within the central pulmonary arteries. The heart is normal in size. No pleural or pericardial effusions. No fractures within the visualized osseous structures. Mild nodular thickening within the bilateral adrenal glands. The visualized liver and spleen are unremarkable. No significant mediastinal or hilar lymphadenopathy. No pneumothorax. The central airways are patent. Subtle groundglass nodule within the left lung apex on image 46 which measures 1.3 cm. There are approximately 3 subtle groundglass nodules within the right upper lobe with the largest measuring 5 mm. IMPRESSION: 1. No evidence for an aortic dissection. 2. The central pulmonary arteries are patent. 3. Subtle groundglass nodules within the lung apices as described above with the largest on the left measuring 1.3 cm. This could be due to mild inflammatory/infectious change. However, recommend [address] follow-up to ensure resolution and to exclude the possibility of a low-grade neoplasm. Electronically signed by: Heber Castellano M.D. 04/20/2017 10:00 PM Dictated Date/Time: 04/20/2017 9:52 PM
[2017-04-20] MEDS ORDERED: HEPARIN SOD (PORCINE) 1000 UNIT/ML 10 ML VIAL ONE (22:07)
[2017-04-20] MEDS ORDERED: MIDAZOLAM HCL 1 MG/ML 2ML VIAL ONE (22:07)
[2017-04-20] MEDS ORDERED: FENTANYL CITRATE INJ 50 MCG/1 ML 2 ML VIAL ONE (22:07)
[2017-04-20] MEDS ORDERED: NiCARDipine HCL INJ 2.5 MG/ML 10 ML AMP ONE (22:07)
--- NOTE | 2017-04-20 23:28 | Pre Sedation Assessment ---
Pre Sedation Assessment General Date of Sedation: Apr 20, 2017. Vital Signs Past 12 Hours Date Time Temp Pulse Resp B/P (MAP) Pulse Ox O2 Delivery O2 Flow Rate FiO2 04/20/17 23:08 71 16 121/72 (88) 96 Room Air 04/20/17 22:15 81 151/99 96 Room Air 04/20/17 21:42 75 18 158/109 96 Room Air 04/20/17 21:20 87 18 173/96 95 Room Air 04/20/17 20:15 74 18 160/94 97 Room Air 04/20/17 19:48 76 18 154/79 98 Room Air 04/20/17 19:45 87 163/102 04/20/17 18:42 83 04/20/17 18:09 98 Room Air 04/20/17 18:09 36.7 82 19 166/100 99 Room Air 04/20/17 18:07 166/100 04/20/17 18:04 80 20 98 04/20/17 17:59 84 17 98 04/20/17 17:58 97 Room Air 04/20/17 17:57 174/89 Review Cardiovascular: regular rate, rhythm, no edema Lungs: chest non-tender, lungs clear Pre-Sedation Airway Assessment Smoking Status: Former Smoker Hx of Sleep Apnea: No Hx of difficult intubation: No Short Thick Neck: No Thyro-mental Distance: > 3 Finger Breadths Oral Cavity: WNL Mallampati Classification: Class II Procedure Planning Contraindications for Sedation: None Current Medications Reviewed: Yes Notes The planned sedation has been discussed with the patient. Informed Consent was obtained. I have identified the patient, determined the appropriateness of sedation and have assessed the patient immediately prior to the procedure. All medicine(s) and interventions are by my order.
--- NOTE | 2017-04-20 23:28 | Post Sedation Assessment ---
Post Sedation Assessment General Date of Sedation Apr 20, 2017. Vital Signs: Vital Signs Past 12 Hours Date Time Temp Pulse Resp B/P (MAP) Pulse Ox O2 Delivery O2 Flow Rate FiO2 04/20/17 23:08 71 16 121/72 (88) 96 Room Air 04/20/17 22:15 81 151/99 96 Room Air 04/20/17 21:42 75 18 158/109 96 Room Air 04/20/17 21:20 87 18 173/96 95 Room Air 04/20/17 20:15 74 18 160/94 97 Room Air 04/20/17 19:48 76 18 154/79 98 Room Air 04/20/17 19:45 87 163/102 04/20/17 18:42 83 04/20/17 18:09 98 Room Air 04/20/17 18:09 36.7 82 19 166/100 99 Room Air 04/20/17 18:07 166/100 04/20/17 18:04 80 20 98 04/20/17 17:59 84 17 98 04/20/17 17:58 97 Room Air 04/20/17 17:57 174/89 Post Procedure Recovery Score Activity: (2) Moves 4 extremities * Respiration: (2) Deep breath/cough Circulation: (2) +/-20% PreAnes Value Consciousness: (2) Fully Awake Oxygen Saturation: (2) > 92% On Room Air Post Anesthesia Score: 10 Discharge Sedation Level of Care: Fast Track Phase II Post Sedation Plan On clinical assessment, the patient appears to have tolerated the sedation without complications. Patient is recovering as anticipated. Patient will continue to be monitored by nursing and may be discharged when sedation discharge criteria are met per below protocol. Upon Completions of procedure and additional 15 minutes continue every 5 minute vital signs and the P.A.R. score; then discharge to a Phase I or Fast Track to Phase II per the following guidelines: * Discharge Patient to appropriate Phase II area if PAR is 8 or greater or return to pre- procedure baseline. The post - procedure orders will be as directed. * If PAR score is less than 8 or not return to pre-procedure baseline then patient will follow Phase I monitoring till PAR is reached for Phase II. The Phase I may be done in procedure room or may call to secure a Phase I area. * If naloxone or flumazenil are used for reversal, hold in Phase I for an additional 60 -120 minutes before discharge to Phase II. Please call the Sedation Physician to re-evaluate and complete post-note for discharge to Phase II area. Do NOT discharge from procedure sedation or Phase 1 until post- sedation evaluation note is complete by procedure /sedation MD Sedation Discharge Instructions to be given to the patient at discharge to home.
[2017-04-20] MEDS ORDERED: NITROGLYCERIN/D5W 100 MCG/ML IV PRN (23:30)
[2017-04-20 23:32] VITALS: BP 129/83; PULSE 74; TEMP 36.5; O2SAT 96; Ht 162.6 cm; Wt 70.1 kg
[2017-04-20 23:43] VITALS: BP 129/83; PULSE 71; O2SAT 96
--- NOTE | 2017-04-20 23:43 | Cardiac Catheterization ---
Procedure Note Procedure Date Apr 20, 2017. Pre-Procedure Diagnosis Non STEMI AUC Score 8 Post-Procedure Diagnosis Moderate CAD, Decreased LV Systolic Function, Normal Intracardiac Pressures Procedure(s) Performed Coronary Angiography, Left Heart Cath, LV Angiography Comptometer Operator Marek Lens Cementer(s) David Estimated Blood Loss 10 Medication(s) Fentanyl, Heparin, Nitroglycerin, Versed, Lidocaine 1% Summary of Findings Indication: High-risk NSTEMI Access: 6Fr right radial artery Catheters: [place]; pigtail Findings: LM - 20% distal stenosis LAD - Moderately calcified, 20-30% ostial stenosis; diffuse 20% proximal disease ; 40-50% focal mid stenosis after take-off of 2nd diagonal; small distal vessel tapers to apex. - 1st diagonal small with diffuse disease; 2nd diagonal with 20% ostial stenosis Circumflex - 30-40% ostial stenosis; gives off large angiographically normal OM2 RCA - Dominant, 20% diffuse proximal disease, distal luminal irregularities. LVEDP - 16 LV gram - LVEF 30% with hyperdynamic basal segments; akinetic mid-apical anterior, apex and apical inferior armstrong consistent with takotsubo cardiomyopathy. Arterial Closure: TR band Summary: 1. Mild to moderate non-obstructive coronary artery disease 2. Moderate to severe LV dysfunction. LVEF 30% with apical akinesis consistent with takotsubo cardiomyopathy 3. Borderline intracardiac filling pressure Recommendations: Admit to telemetry Trend troponins until peak, check Echo in AM Start MONICA/Beta-jean pierre and wean off nitroglycerin drip ASCVD risk factor modification including ASA, and high-intensity statin. Hemodynamics Rest Ao: 159/96 Final Ao: 150/80 LV: 108/16 Recommendations Medical therapy and/or Counseling Specimens None Radiation Exposure (mGy) 1009 Contrast (mls) 55 Fluids (cc crystalloids) 69 Drains None Anesthesia Moderate Procedural Complication(s) None Disposition PCU ACC Data Cardiac Status Clinical evaluation leading to the procedure CAD Presntation: Non STEMI Anginal Classification: CCS IV Heart Failure: No, NYHA Class: CCS I Cardiogenic Shock w/in 24Hrs: No Cardiac Arrest w/in 24Hrs: No Imaging studies past 6 months: No Stress studies past 6 months: No Left Ventricular Angiography EF (%): 30 Wall Motion: Apical (Akinetic) Closure Device Percutaneous Entry Location: Radial Closure Device: Radial Band Recommendations: Medical therapy and/or Counseling Intraprocedure Events Significant Dissection: No Perforation: No
[2017-04-20 23:55] VITALS: BP 132/80; PULSE 71; O2SAT 96
[2017-04-21] VITALS (27 sets, daily range): BP systolic 89–139; BP diastolic 43–77; PULSE 59–76; TEMP 36.4–37.1; O2SAT 90–97
[2017-04-21] MEDS ORDERED: NURSING VERBAL MED ORDER ONE ×2 (00:15→05:30)
[2017-04-21] MEDS ORDERED: SODIUM CHLORIDE 0.9% 500ML 500 ML IV SCH (00:15)
[2017-04-21] MEDS ORDERED: LISINOPRIL 10 MG TAB PO ONE (00:15)
[2017-04-21] MEDS: METOPROLOL TARTRATE 25 MG TAB PO SCH ×3 (00:37→20:25)
[2017-04-21 02:36] LABS: BASO % 0.1 %; BASO ABS # 0.01 K/uL (0-0.2); EOS % 0.1 %; EOS ABS # 0.01 K/uL (0-0.5); HEMATOCRIT 37.4 % (37-47); HEMOGLOBIN 13.5 g/dL (12.0-16.0); IG# 0.02 K/uL (0.00-0.02); LYMPH % 16.1 %; LYMPH ABS # 1.85 K/uL (1.2-3.4); MEAN CELL VOLUME 90.8 fL (80-100); MEAN CORPUSCULAR HEMOGLOBIN 32.8 pg (25-34); MEAN CORPUSCULAR HGB CONC 36.1 g/dl (32-36); MEAN PLATELET VOLUME 9.7 fL (7.4-10.4); MONO % 5.3 %; MONO ABS # 0.61 K/uL (0.11-0.59); NEUT % 78.2 %; NEUT ABS # 8.98 K/uL (1.4-6.5); PLATELET COUNT 202 K/uL (130-400); RED CELL DISTRIBUTION WIDTH CV 13.5 % (11.5-14.5); RED CELL DISTRIBUTION WIDTH SD 44.7 fL (36.4-46.3); WHITE BLOOD COUNT 11.48 K/uL (4.8-10.8)
[2017-04-21 02:55] LABS: ALBUMIN 3.2 gm/dl (3.4-5.0); CALCIUM 8.5 mg/dl (8.5-10.1); CREATININE 0.76 mg/dl (0.60-1.20); POTASSIUM 3.9 mmol/L (3.5-5.1)
--- NOTE | 2017-04-21 03:50 | CARDIOLOGY CONSULTATION ---
DATE OF CONSULTATION: 04/20/2017 CONSULTATION REQUESTED BY: Dr. Jacques. REASON FOR CONSULTATION: NSTEMI. HISTORY OF PRESENT ILLNESS: Mrs. Gore is a very pleasant 72-year-old woman with a history of hyperlipidemia but no other significant cardiac risk factors, who was in her usual state of health up until the last several days when developed new high blood pressure up into the 190s to 200s. The patient has no prior history of hypertension. These elevated blood pressures were initially associated with headaches and then later this afternoon she developed chest pain which she described as a dull ache intermittently radiating to her back. Denies any significant shortness of breath. Denies any palpitations or presyncope. She has never had chest pain like this in the past. She presented to the Emergency Department where initial pressures were up into the 180s. Her initial EKG showed left bundle-branch block for which no prior EKG was available for comparison. Her initial [id number] troponin was positive at 0.169. Plan was for admission to telemetry. However, in the setting of active chest pain, interventional cardiology was contacted. At time of interview, the patient was still having dull chest pressure which she rated at 3/10. PAST MEDICAL HISTORY: 1. Dyslipidemia. 2. Osteoarthritis. 3. Pancreatic cyst. 4. Nephrolithiasis. SURGICAL HISTORY: Prior history of knee surgery and tubal ligation. FAMILY HISTORY: No prior history of coronary artery disease or sudden cardiac . SOCIAL HISTORY: She is a rare drinker. Denies ever smoking tobacco. She exercises regularly including frequent skiing. She is , with 2 grown children. HOME MEDICATIONS: Include atorvastatin 20 mg, biotin caps, multivitamin, nystatin/triamcinolone cream, Tylenol and estradiol vaginal tablet. ALLERGIES: No known drug allergies. REVIEW OF SYSTEMS: Ten-point review of systems is completed and otherwise negative unless stated in HPI. PHYSICAL EXAMINATION: VITAL SIGNS: Blood pressure initially was 174/89, at the time of interview was 173/96, she was satting 95% on room air, heart rate was 87, temperature is 36.7. GENERAL: The patient appears comfortable, in no acute distress. HEENT: Sclerae are anicteric. Oropharynx is clear. Mucous membranes are moist. NECK: Supple with no lymphadenopathy. She has no jugular venous distention. LUNGS: Clear to auscultation bilaterally. CARDIAC: Regular rate and rhythm with no murmurs, rubs or gallops. ABDOMEN: Soft, nontender, nondistended, with positive bowel sounds. EXTREMITIES: Warm with no significant lower extremity edema. SKIN: Shows no rashes or lesions. NEUROLOGIC: Nonfocal. LABORATORY DATA: White blood cell count was 8.9, hemoglobin was 15.4, platelets of 225. Sodium was 139, potassium of 3.9, BUN 14, creatinine of 0.8. LFTs within normal limits. Initial troponin was 0.169. Her lipase was 222. Chest x-ray showed no acute cardiopulmonary process. EKG showed sinus rhythm at a ventricular rate of 85. She had left bundle-branch block. There were subtle concordant ST-segment elevations in aVL but no other criteria for acute infarct. IMPRESSION AND PLAN: 1. [id number] elevation myocardial infarction. 2. Hypertension. 3. Dyslipidemia. Mrs. Gore is here with new hypertensive urgency with blood pressures up into the 180s to 200s at home. With this, she has mildly elevated troponin and left bundle-branch block which is not known to be old. Her chest pain is remarkable for radiation to her back, and in that setting we will rule out aortic dissection. Assuming no evidence of dissection, would plan to take urgently to the cardiac catheterization lab to evaluate for acute coronary disease. In the interim, recommend improved blood pressure control. She has been started on nitroglycerin drip which we will titrate up. We will give 5 of IV metoprolol. Hold heparin infusion until after CT scan and has been given aspirin already. Thank you for allowing us to participate in the care of this patient. JOSE M
[2017-04-21] MEDS ORDERED: ASPIRIN 325 MG ECTAB PO SCH (09:00)
[2017-04-21] MEDS ORDERED: LISINOPRIL 10 MG TAB PO SCH (09:00)
[2017-04-21] MEDS: ATORVASTATIN 40 MG TAB PO SCH (09:16)
[2017-04-21] MEDS: ASPIRIN 81 MG ECTAB PO SCH (09:16)
[2017-04-21] MEDS ORDERED: PERFLUTREN LIPID MICROSPHERE (DEFINITY) IV ONE (10:39)
--- NOTE | 2017-04-21 14:40 | ECHOCARDIOGRAM REPORT ---
*NOTICE TO RECEIVING LIBERTARIAN AGENCY This information is strictly Confidential and protected under [place] law. [place] law prohibits you from making any further disclosure of this information unless further disclosure is expressly permitted by the written consent of the person to whom it pertains or is authorized by law. A general authorization for the release of medical or other information is not sufficient for this purpose. Hospital accepts no responsibility if the information is made available to any other person, INCLUDING THE PATIENT. Interpretation Summary * Name: PARAMJIT SIMEON Study Date: 04/21/2017 09:24 AM BP: 100/52 mmHg * Patient Location: .MSICU\S\E108\S\1 HR: 61 * : 1945 (M/d/yyyy) Gender: Female Height: 64 in * Age: 72 yrs Ethnicity: [place] Weight: 158 lb * Ordering Physician: William Jara * Referring Physician: Self, Referred * Performed By: Abi Tavares RDCS * * Reason For Study: Acute Myocardial Infarction * BSA: 1.8 m2 * -- Conclusions -- * Left ventricular systolic function is moderately reduced. * Grade I diastolic dysfunction, (abnormal relaxation pattern). * There are regional wall motion abnormalities as specified. * There is mild mitral regurgitation. * Right ventricular systolic pressure is elevated at 30-40mmHg. * The inferior vena cava is mildly dilated. * Abnormal wall motion is consistent with takotsubo cardiomyopathy Procedure Details * A complete two-dimensional transthoracic echocardiogram was performed (2D, M-mode, Doppler and color flow Doppler). * A contrast injection of Definity was performed to improve assessment of LV function. * Contrast was injected into an intravenous site in the right arm. * One vial of Definity ultrasound contrast was diluted in normal saline to a total volume of 10 ml. A total of '2' ml of solution was administered during imaging. * Lot # [id number] of Definity utilized for procedure. * Expiration date . * The attending nurse who injected the contrast agent was Katelin Pierce RN. Left Ventricle * The left ventricle is grossly normal size. * There is normal left ventricular wall thickness. * Ejection Fraction = 30-35%. * Left ventricular systolic function is moderately reduced. * Grade I diastolic dysfunction, (abnormal relaxation pattern). * There are regional wall motion abnormalities as specified. * Basal segments contract normally with general akinesis of the entire apex. In some views there is an element of dyskinesis at the apex, more pronounced in the anterolateral wall Right Ventricle * The right ventricle is grossly normal size. * The right ventricular systolic function is normal as assessed by tricuspid annular plane systolic excursion (TAPSE) (normal >1.5 cm). Atria * The left atrial size is normal. * Right atrial size is normal. Mitral Valve * The mitral valve anatomy is normal. * There is mild mitral regurgitation. Tricuspid Valve * The tricuspid valve is not well visualized, but is grossly normal. * There is mild tricuspid regurgitation. * Right ventricular systolic pressure is elevated at 30-40mmHg. Aortic Valve * The aortic valve is not well visualized. * No hemodynamically significant valvular aortic stenosis. * There is no significant aortic regurgitation. Great Vessels * The aortic root is normal size. Pericardium/Pleural * There is no pericardial effusion. Great Vessels * The inferior vena cava is mildly dilated. MMode 2D Measurements and Calculations IVSd 1.1 cm IVSs 1.3 cm LVIDd 4.0 cm LVIDs 2.4 cm LVPWd 0.92 cm LVPWs 1.5 cm IVS/LVPW 1.2 FS 39.9 % EDV(Teich) 71.4 ml ESV(Teich) 20.6 ml EF(Teich) 71.1 % EDV(cubed) 65.6 ml ESV(cubed) 14.2 ml EF(cubed) 78.3 % % IVS thick 18.7 % % LVPW thick 66.4 % LV mass(C)d 132.1 grams LV mass(C)dI 74.6 grams/m\S\2 LV mass(C)s 111.1 grams LV mass(C)sI 62.8 grams/m\S\2 SV(Teich) 50.7 ml SI(Teich) 28.7 ml/m\S\2 SV(cubed) 51.4 ml SI(cubed) 29.0 ml/m\S\2 Ao root diam 2.5 cm Ao root area 5.1 cm\S\2 ACS 1.7 cm LA dimension 2.6 cm LA/Ao 1.0 LVAd ap4 22.8 cm\S\2 LVLd ap4 7.8 cm EDV(MOD-sp4) 55.1 ml EDV(sp4-el) 56.9 ml LVAs ap4 17.2 cm\S\2 LVLs ap4 6.9 cm ESV(MOD-sp4) 34.8 ml ESV(sp4-el) 36.6 ml EF(MOD-sp4) 36.8 % EF(sp4-el) 35.6 % LVAd ap2 27.3 cm\S\2 LVLd ap2 7.8 cm EDV(MOD-sp2) 78.5 ml EDV(sp2-el) 81.2 ml LVAs ap2 21.6 cm\S\2 LVLs ap2 7.2 cm ESV(MOD-sp2) 51.9 ml ESV(sp2-el) 54.9 ml EF(MOD-sp2) 33.9 % EF(sp2-el) 32.4 % LVLd %diff 0.46 % EDV(MOD-bp) 65.9 ml LVLs %diff 4.4 % ESV(MOD-bp) 43.3 ml EF(MOD-bp) 34.2 % SV(MOD-sp4) 20.3 ml SI(MOD-sp4) 11.5 ml/m\S\2 SV(MOD-sp2) 26.6 ml SI(MOD-sp2) 15.0 ml/m\S\2 SV(MOD-bp) 22.5 ml SI(MOD-bp) 12.7 ml/m\S\2 SV(sp4-el) 20.3 ml SI(sp4-el) 11.4 ml/m\S\2 SV(sp2-el) 26.3 ml SI(sp2-el) 14.9 ml/m\S\2 Doppler Measurements and Calculations MV E max gonzalez 59.7 cm/sec MV A max gonzalez 61.6 cm/sec MV E/A 0.97 MV dec time 0.23 sec Ao V2 max 127.6 cm/sec Ao max PG 6.5 mmHg Ao max PG (full) 3.0 mmHg LV V1 max PG 3.5 mmHg LV V1 max 94.1 cm/sec PA V2 max 116.1 cm/sec PA max PG 5.4 mmHg TR max gonzalez 241.2 cm/sec
--- NOTE | 2017-04-21 15:31 | Cardiology Follow-Up ---
Subjective Subjective Date of Service: Apr 21, 2017. Pt evaluation today including: conversation w/ patient, conversation w/ family , physical exam, chart review, lab review, review of studies, review of inpatient medication list Additional Details: Feeling well. No chest pain this morning. No significant shortness of breath. No other new concerns. Tele reviewed -- questionable brief episode of SVT, self-terminating. Problem List Medical Problems: (1) Chest pain Status: Acute (2) EKG, abnormal Status: Acute (3) Elevated troponin Status: Acute Review of Systems Constitutional: No fever, No chills Respiratory: No cough, No sputum Cardiac: No chest pain Abdomen: No pain Heme: No abnormal bleeding/bruising Skin: No rash Objective Vital Signs Last Vital Signs Documentation Date Time Temp Pulse Resp B/P (MAP) Pulse Ox O2 Delivery O2 Flow Rate FiO2 04/21/17 12:31 36.7 59 21 96/43 (60) 96 Room Air Physical Exam: General Appearance: no apparent distress ENT: hearing grossly normal Neck: no JVD Respiratory/Chest: lungs clear Cardiovascular: regular rate, rhythm, no edema, no JVD Abdomen: normal bowel sounds, non tender, soft Extremities: no pedal edema, no calf tenderness, + pertinent finding (right radial artery -- no ecchymosis or hematoma. intact distal sensation) Skin: normal color, warm/dry, no rash Assessment and Plan 1. Takotsubo Cardiomyopathy 2. Non-obstructive coronary artery disease 3. Hypertension 4. Dyslipidemia Chest pain free. Hemodynamically stable overnight. No signs of heart failure on exam. Echo reviewed - again consistent with takotsubo. No apical thrombus. -- Continue to monitor on telemetry overnight. -- Nitro weaned off. -- Plan to titrate up beta-jean pierre as able. Continue current MONICA. -- Continue current aspirin -- continue statin -- Possibly home tomorrow pending clinical course. Medications: Current Inpatient Medications Medications (Trade) Dose Ordered Sig/Eb Route Start Time Stop Time Status Last Admin Dose Admin Al Hydrox/Mg Hydrox/Simethicone (Maalox Max Susp) 15 ml Q4H PRN PO 04/20/17 20:45 05/20/17 20:44 Magnesium Hydroxide (Milk Of Magnesia Susp) 30 ml Q12H PRN PO 04/20/17 20:45 05/20/17 20:44 Ondansetron HCl (Zofran Inj) 4 mg Q6H PRN IV 04/20/17 20:45 05/20/17 20:44 Nitroglycerin (Nitrostat Tab) 0.4 mg UD PRN SL 04/20/17 20:45 05/20/17 20:44 Polyethylene (Miralax Powder Packet) 17 gm DAILY PRN PO 04/20/17 20:45 05/20/17 20:44 Ioversol (Optiray 320) 100 ml UD PRN IV 04/20/17 21:30 04/24/17 21:29 Acetaminophen (Tylenol Tab) 650 mg Q4H PRN PO 04/20/17 23:30 05/20/17 23:29 04/21/17 05:45 650 MG Atorvastatin Calcium (Lipitor Tab) 40 mg QAM PO 04/21/17 09:00 05/21/17 08:59 04/21/17 09:16 40 MG Aspirin (Ecotrin Tab) 81 mg QAM PO 04/21/17 09:00 05/21/17 08:59 04/21/17 09:16 81 MG Metoprolol Tartrate (Lopressor Tab) 25 mg Q12 PO 04/20/17 23:30 05/20/17 23:29 04/21/17 09:16 25 MG Lisinopril (Zestril Tab) 5 mg QAM PO 04/22/17 09:00 05/21/17 08:59 Lab Results: 04/21/17 02:28 Red Blood Count 4.12, Mean Corpuscular Volume 90.8, Mean Corpuscular Hemoglobin 32.8, Mean Corpuscular Hemoglobin Concent 36.1, Mean Platelet Volume 9.7, Neutrophils (%) (Auto) 78.2, Lymphocytes (%) (Auto) 16.1, Monocytes (%) (Auto) 5.3, Eosinophils (%) (Auto) 0.1, Basophils (%) (Auto) 0.1, Neutrophils # (Auto) 8.98, Lymphocytes # (Auto) 1.85, Monocytes # (Auto) 0.61, Eosinophils # (Auto) 0.01, Basophils # (Auto) 0.01 04/21/17 02:28 Test 04/20/17 18:00 04/21/17 02:28 04/21/17 14:43 Prothrombin Time 10.3 SECONDS (9.0-12.0) Prothromb Time International Ratio 1.0 (0.9-1.1) Activated Partial Thromboplast Time 28.3 SECONDS (21.0-31.0) Partial Thromboplastin Ratio 1.1 Direct Bilirubin 0.1 mg/dl (0-0.2) Total Creatine Kinase 154 U/L (26-192) Creatine Kinase MB 2.7 ng/ml (0.5-3.6) Creatine Kinase MB Ratio 1.8 (0-3.0) Lipase 222 U/L (73-393) White Blood Count 11.48 K/uL (4.8-10.8) Red Blood Count 4.12 M/uL (4.2-5.4) Hemoglobin 13.5 g/dL (12.0-16.0) Hematocrit 37.4 % (37-47) Mean Corpuscular Volume 90.8 fL (80-100) Mean Corpuscular Hemoglobin 32.8 pg (25-34) Mean Corpuscular Hemoglobin Concent 36.1 g/dl (32-36) Platelet Count 202 K/uL (130-400) Mean Platelet Volume 9.7 fL (7.4-10.4) Neutrophils (%) (Auto) 78.2 % Lymphocytes (%) (Auto) 16.1 % Monocytes (%) (Auto) 5.3 % Eosinophils (%) (Auto) 0.1 % Basophils (%) (Auto) 0.1 % Neutrophils # (Auto) 8.98 K/uL (1.4-6.5) Lymphocytes # (Auto) 1.85 K/uL (1.2-3.4) Monocytes # (Auto) 0.61 K/uL (0.11-0.59) Eosinophils # (Auto) 0.01 K/uL (0-0.5) Basophils # (Auto) 0.01 K/uL (0-0.2) RDW Standard Deviation 44.7 fL (36.4-46.3) RDW Coefficient of Variation 13.5 % (11.5-14.5) Immature Granulocyte % (Auto) 0.2 % Immature Granulocyte # (Auto) 0.02 K/uL (0.00-0.02) Anion Gap 7.0 mmol/L (3-11) Est Creatinine Clear Calc Drug Dose 65.9 ml/min Estimated GFR () 91.5 Estimated GFR (Non- 78.9 BUN/Creatinine Ratio 15.4 (10-20) Calcium Level 8.5 mg/dl (8.5-10.1) Total Bilirubin 0.6 mg/dl (0.2-1) Aspartate Amino Transf (AST/SGOT) 36 U/L (15-37) Alanine Aminotransferase (ALT/SGPT) 43 U/L (12-78) Alkaline Phosphatase 86 U/L (45-117) Total Protein 7.0 gm/dl (6.4-8.2) Albumin 3.2 gm/dl (3.4-5.0) Globulin 3.8 gm/dl (2.5-4.0) Albumin/Globulin Ratio 0.8 (0.9-2) Triglycerides Level 219 mg/dl (0-150) Cholesterol Level 152 mg/dl (0-200) HDL Cholesterol 38 mg/dl LDL Cholesterol, Calculated 70 mg/dl VLDL Cholesterol, Calculated 44 mg/dl Cholesterol/HDL Ratio 4.0 Troponin I 5.090 ng/ml (0-0.045) Date/Time Source Procedure Growth Status 04/20/17 23:58 Nasal MRSA DNA Surveillance Screen - Final Specimen Negative for MRSA by DNA Probe Complete
--- NOTE | 2017-04-21 19:38 | Family Medicine Progress Note ---
Progress Note Date of Service Apr 21, 2017. Subjective Pt evaluation today including: conversation w/ patient, physical exam, chart review, lab review, review of studies Pain: No pain reported this morning Voiding: no voiding problems, no incontinence Patient resting comfortably in bed this morning after undergoing a cardiac catheterization early this morning. The patient denies any acute complaints this morning, denies any pain in her right wrist, any chest pain, shortness of breath, abdominal pain, fever, chills, or any other acute complaints. Additional Comments: See HPI for pertinent positives and negatives. A total of ten systems were reviewed and were otherwise negative. Medications Current Inpatient Medications Medications (Trade) Dose Ordered Sig/Eb Route Start Time Stop Time Status Last Admin Dose Admin Al Hydrox/Mg Hydrox/Simethicone (Maalox Max Susp) 15 ml Q4H PRN PO 04/20/17 20:45 05/20/17 20:44 Magnesium Hydroxide (Milk Of Magnesia Susp) 30 ml Q12H PRN PO 04/20/17 20:45 05/20/17 20:44 Ondansetron HCl (Zofran Inj) 4 mg Q6H PRN IV 04/20/17 20:45 05/20/17 20:44 Nitroglycerin (Nitrostat Tab) 0.4 mg UD PRN SL 04/20/17 20:45 05/20/17 20:44 Polyethylene (Miralax Powder Packet) 17 gm DAILY PRN PO 04/20/17 20:45 05/20/17 20:44 Ioversol (Optiray 320) 100 ml UD PRN IV 04/20/17 21:30 04/24/17 21:29 Acetaminophen (Tylenol Tab) 650 mg Q4H PRN PO 04/20/17 23:30 05/20/17 23:29 04/21/17 05:45 650 MG Atorvastatin Calcium (Lipitor Tab) 40 mg QAM PO 04/21/17 09:00 05/21/17 08:59 04/21/17 09:16 40 MG Aspirin (Ecotrin Tab) 81 mg QAM PO 04/21/17 09:00 05/21/17 08:59 04/21/17 09:16 81 MG Metoprolol Tartrate (Lopressor Tab) 25 mg Q12 PO 04/20/17 23:30 3/17/18 23:29 04/21/17 09:16 25 MG Lisinopril (Zestril Tab) 5 mg QAM PO 04/22/17 09:00 05/21/17 08:59 Objective Vital Signs Date Time Temp Pulse Resp B/P (MAP) Pulse Ox O2 Delivery O2 Flow Rate FiO2 04/21/17 16:00 95 Room Air 04/21/17 15:38 37.0 62 23 102/59 (73) 95 Room Air 04/21/17 12:31 36.7 59 21 96/43 (60) 96 Room Air 04/21/17 12:00 Room Air 04/21/17 09:17 36.4 61 16 100/52 (68) 97 Room Air 04/21/17 09:01 65 14 92/54 (67) 04/21/17 08:01 59 15 91/52 (65) 04/21/17 08:00 Room Air 04/21/17 07:01 67 14 90/47 (61) 04/21/17 06:02 63 18 99/49 (66) 96 Room Air 04/21/17 05:31 59 18 100/52 (68) 96 04/21/17 05:01 60 13 102/52 (69) 94 04/21/17 05:01 60 13 102/52 (69) 94 04/21/17 04:31 63 18 101/52 (68) 93 04/21/17 04:31 63 18 101/52 (68) 93 04/21/17 04:01 60 15 89/58 (68) 93 04/21/17 04:01 36.8 60 15 89/58 (68) 93 Room Air 04/21/17 04:00 59 16 91 04/21/17 04:00 Room Air 04/21/17 03:31 63 19 121/64 (83) 93 04/21/17 03:31 63 19 121/64 (83) 93 04/21/17 03:01 71 109/58 (75) 94 04/21/17 03:01 71 109/58 (75) 94 04/21/17 03:00 67 15 93 04/21/17 02:01 73 24 125/70 (88) 94 04/21/17 02:01 73 24 125/70 (88) 94 04/21/17 02:00 76 20 94 04/21/17 01:01 69 17 112/61 (78) 92 04/21/17 01:01 69 17 112/61 (78) 92 04/21/17 01:01 69 17 112/61 (78) 92 04/21/17 01:00 66 16 90 04/21/17 00:54 67 15 139/77 (97) 91 04/21/17 00:54 67 15 139/77 (97) 91 Room Air 04/21/17 00:35 76 24 139/77 (97) 96 04/21/17 00:35 76 24 139/77 (97) 96 04/21/17 00:02 73 12 121/62 (81) 96 04/21/17 00:02 73 12 121/62 (81) 96 04/21/17 00:00 70 19 96 04/20/17 23:55 71 18 132/80 (97) 96 04/20/17 23:43 71 15 129/83 (98) 96 Room Air 04/20/17 23:32 36.5 74 14 129/83 96 Room Air 04/20/17 23:08 71 16 121/72 (88) 96 Room Air 04/20/17 22:15 81 151/99 96 Room Air 04/20/17 21:42 75 18 158/109 96 Room Air 04/20/17 21:20 87 18 173/96 95 Room Air 04/20/17 20:15 74 18 160/94 97 Room Air 04/20/17 19:48 76 18 154/79 98 Room Air 04/20/17 19:45 87 163/102 04/20/17 18:42 83 Physical Exam General Appearance: WD/WN, no apparent distress Eyes: normal inspection, sclerae normal Neck: supple, no carotid bruits Respiratory/Chest: chest non-tender, lungs clear, normal breath sounds Cardiovascular: regular rate, rhythm, no edema, no gallop Abdomen: normal bowel sounds, non tender, soft Extremities: non-tender, no calf tenderness, + pertinent finding (Dressing over right wrist clean dry intact, nontender to palpation) Neurologic/Psychiatric: alert, normal mood/affect, oriented x 3 Laboratory Results Results Past 24 Hours Test 04/21/17 02:28 04/21/17 08:32 04/21/17 14:43 Range/Units White Blood Count 11.48 4.8-10.8 K/uL Red Blood Count 4.12 4.2-5.4 M/uL Hemoglobin 13.5 12.0-16.0 g/dL Hematocrit 37.4 37-47 % Mean Corpuscular Volume 90.8 80-100 fL Mean Corpuscular Hemoglobin 32.8 25-34 pg Mean Corpuscular Hemoglobin Concent 36.1 32-36 g/dl Platelet Count 202 130-400 K/uL Mean Platelet Volume 9.7 7.4-10.4 fL Neutrophils (%) (Auto) 78.2 % Lymphocytes (%) (Auto) 16.1 % Monocytes (%) (Auto) 5.3 % Eosinophils (%) (Auto) 0.1 % Basophils (%) (Auto) 0.1 % Neutrophils # (Auto) 8.98 1.4-6.5 K/uL Lymphocytes # (Auto) 1.85 1.2-3.4 K/uL Monocytes # (Auto) 0.61 0.11-0.59 K/uL Eosinophils # (Auto) 0.01 0-0.5 K/uL Basophils # (Auto) 0.01 0-0.2 K/uL RDW Standard Deviation 44.7 36.4-46.3 fL RDW Coefficient of Variation 13.5 11.5-14.5 % Immature Granulocyte % (Auto) 0.2 % Immature Granulocyte # (Auto) 0.02 0.00-0.02 K/uL Sodium Level 137 136-145 mmol/L Potassium Level 3.9 3.5-5.1 mmol/L Chloride Level 106 98-107 mmol/L Carbon Dioxide Level 24 21-32 mmol/L Anion Gap 7.0 3-11 mmol/L Blood Urea Nitrogen 12 7-18 mg/dl Creatinine 0.76 0.60-1.20 mg/dl Est Creatinine Clear Calc Drug Dose 65.9 ml/min Estimated GFR () 91.5 Estimated GFR (Non- 78.9 BUN/Creatinine Ratio 15.4 10-20 Random Glucose 131 70-99 mg/dl Calcium Level 8.5 8.5-10.1 mg/dl Total Bilirubin 0.6 0.2-1 mg/dl Aspartate Amino Transf (AST/SGOT) 36 15-37 U/L Alanine Aminotransferase (ALT/SGPT) 43 12-78 U/L Alkaline Phosphatase 86 45-117 U/L Troponin I 5.790 5.860 5.090 0-0.045 ng/ml Total Protein 7.0 6.4-8.2 gm/dl Albumin 3.2 3.4-5.0 gm/dl Globulin 3.8 2.5-4.0 gm/dl Albumin/Globulin Ratio 0.8 0.9-2 Triglycerides Level 219 0-150 mg/dl Cholesterol Level 152 0-200 mg/dl HDL Cholesterol 38 mg/dl LDL Cholesterol, Calculated 70 mg/dl VLDL Cholesterol, Calculated 44 mg/dl Cholesterol/HDL Ratio 4.0 Microbiology Results 04/20/17 MRSA DNA Surveillance Screen - Final, Complete Specimen Negative for MRSA by DNA Probe Assessment and Plan The patient is a 72-year-old female with a past medical history of hypertension that presented last night with chest pains and elevated blood pressure Takotsubo Cardiomyopathy/ Hypertensive episode - EKG: NSR, new onset LBBB - Troponin now falling 0.169 --> 5.79 --> 5.86 --> 5.09 - Cardiac Catheterization: 1. Mild to moderate non-obstructive coronary artery disease 2. Moderate to severe LV dysfunction. - Lisinopril 5mg - Aspirin 81mg - Metoprolol 25mg BID - Increase Lipitor to 40mg - ECHO: - Left ventricular systolic function is moderately reduced. - Grade I diastolic dysfunction, (abnormal relaxation pattern). - There are regional wall motion abnormalities - Abnormal wall motion is consistent with takotsubo cardiomyopathy - Monitor on Telemetry - Discontinued Nitro Drip this morning Hyperlipidemia - Lipitor DVT - SCDs Code Status - Full Code Resident Tracking Resident Involvement: Resident Care Provided Care Provided: Adult Hospital Medicine
[2017-04-22 04:00] VITALS: BP 84/38; PULSE 67; TEMP 36.8; O2SAT 96
[2017-04-22 05:55] LABS: PTT PATIENT 27.1 SECONDS (21.0-31.0)
[2017-04-22 07:21] VITALS: BP 94/39; PULSE 66; TEMP 36.6; O2SAT 97
[2017-04-22 07:30] VITALS: O2SAT 97
[2017-04-22] MEDS: ATORVASTATIN 40 MG TAB PO SCH (08:36)
[2017-04-22] MEDS: ASPIRIN 81 MG ECTAB PO SCH (08:36)
[2017-04-22] MEDS: METOPROLOL TARTRATE 25 MG TAB PO SCH (08:36)
[2017-04-22] MEDS ORDERED: LISINOPRIL 5 MG TAB PO SCH (09:00)
[2017-04-22] MEDS ORDERED: LSN5 PO (09:27)
[2017-04-22] MEDS ORDERED: LPT40 PO (09:27)
[2017-04-22] MEDS ORDERED: LPR25 PO (09:27)
--- NOTE | 2017-04-22 09:35 | Discharge Instructions ---
Discharge Instructions Date of Service Apr 22, 2017. Admission Reason for Admission: Chest Pain, Elevated Troponin Discharge Discharge Diagnosis / Problem: Chest pain Discharge Goals Goal(s): Decrease discomfort, Learn about illness, Diagnostic testing, Prevent Disease Progression Activity Recommendations Activity Limitations: as noted below Lifting Limitations: gradually increase as tolerated Exercise/Sports Limitations: gradually increase as tolerated May Resume Sexual Activity: when tolerated Shower/Bathe: no limitations Driving or Machine Use: no limitations . Instructions / Follow-Up Instructions / Follow-Up Mrs. Gore You were admitted due to chest pains. 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 You have been started on medications that protect your heart. Please see below for recommendations. Please follow up with your PCP and Cfo Controller in the next 1 week. If you experience any shortness of breath or chest pain, please call your PCP or come back to the ER. DR. MONTERO MEDICATION RECOMMENDATIONS: On discharge weigh yourself daily and record values. Limit salt to less 2000 mg daily Take and record home blood pressures/heart rates every morning. If BP less than 95 --> hold lisinopril If BP less than 90 --> hold lisinopril and toprol xl If HR less than 55 --> hold toprol xl ACTIVITY RECOMMENDATIONS: Limit to light activity around home for next 48 hours. Avoid strenuous activities for next 1 week then resume activities gradually. Excess manipulation of the wrist should be avoided for the next 24-48 hours. * No lifting over 2 pounds (approximately a 1/2 gallon of milk) with the utilized arm for 24 hours. * No strenuous activity such as bowling or tennis for 3 days. * Keep the site of the procedure covered with a bandage for 24 hours. *You may shower the day after the procedure. Do not take a tub bath or submerge the puncture site in water for the next 3 days. SPECIAL CARE INSTRUCTIONS: The site may be slightly bruised and sore following your procedure. Should any of the following occur, contact the DrAddie who performed your procedure. 1. Redness/inflammation, swelling, chills, or fever, or colored drainage at procedure site within 3-7 days after your procedure. 2. Coldness, discoloration, ongoing numbness, severe pain, or swelling. Expect mild tingling of hand and tenderness at the puncture site for up to three days. If this persists beyond three days, or other symptoms develop, notify the Dr. who performed your procedure. BLEEDING: If the procedure site on your wrist begins to bleed, do not panic 1. Place 1 or 2 fingers firmly just slightly above the insertion site to stop the bleeding. You may be able to feel your pulse as you hold pressure. 2. Lift your finger after 5 minutes to see if the bleeding has stopped. 3. Once the bleeding has stopped, gently wipe the wrist area clean with a bandage. * If the bleeding from your wrist does not stop after 10 minutes, or if there is a large amount of bleeding or spurting, call 911 (do not drive yourself to the hospital). SKIN IRRITATION: * You may experience some redness and/or swelling in the area where radiation was administered. If any skin irritation occurs, please contact your family physician. FOLLOW UP VISIT: Keep any scheduled doctor appointments. Current Hospital Diet Patient's current hospital diet: AHA Diet (Heart Healthy) Discharge Diet Recommended Diet: Low Sodium Diet (2gm Na) Pending Studies Studies pending at discharge: no Laboratory Results Lipid Panel Test 04/21/17 02:28 Range/Units Triglycerides Level 219 H 0-150 mg/dl Cholesterol Level 152 0-200 mg/dl HDL Cholesterol 38 mg/dl Cholesterol/HDL Ratio 4.0 LDL Cholesterol, Calculated 70 mg/dl Medical Emergencies . Who to Call and When: Medical Emergencies: If at any time you feel your situation is an emergency, please call 911 immediately. . Non-Emergent Contact Non-Emergency issues call your: Primary Care Provider, Cfo Controller Call Non-Emergent contact if: you have a fever, your pain is worsening . . "Provider Documentation" section prepared by Isidra Evangelista. . VTE Core Measure Inpt VTE Proph given/why not?: Other Anticoagulation
--- NOTE | 2017-04-22 11:01 | Cardiology Follow-Up ---
Subjective Subjective Date of Service: Apr 22, 2017. Pt evaluation today including: conversation w/ patient, conversation w/ family , physical exam, lab review, review of studies, review of inpatient medication list Additional Details: Feeling well. No chest pain, shortness of breath. BP borderline. No dizziness or orthostasis. Tele reviewed -- sinus bradycardia to 40s while sleeping. Problem List Medical Problems: (1) Chest pain Status: Acute (2) EKG, abnormal Status: Acute (3) Elevated troponin Status: Acute Review of Systems Constitutional: No fever, No chills Respiratory: No cough, No sputum Cardiac: No chest pain Abdomen: No pain Heme: No abnormal bleeding/bruising Skin: No rash Objective Vital Signs Last Vital Signs Documentation Date Time Temp Pulse Resp B/P (MAP) Pulse Ox O2 Delivery O2 Flow Rate FiO2 04/22/17 07:30 97 Room Air 04/22/17 07:21 36.6 66 18 94/39 (57) Physical Exam: General Appearance: no apparent distress ENT: hearing grossly normal Neck: supple Respiratory/Chest: chest non-tender, lungs clear, normal breath sounds Cardiovascular: no edema, no gallop, + bradycardia Abdomen: normal bowel sounds, non tender, soft Extremities: no pedal edema, no calf tenderness, + pertinent finding (right radial artery -- no ecchymosis/hematoma; intact distal pulse/sensation) Neurologic/Psychiatric: alert, normal mood/affect, oriented x 3 Skin: normal color, warm/dry, no rash Assessment and Plan 1. Takotsubo Cardiomyopathy 2. Non-obstructive coronary artery disease 3. Hypertension 4. Dyslipidemia Chest pain free. Troponin peaked No signs of heart failure on exam. From a cardiac standpoint OK for discharge to home. CARDIAC MEDS ON DISCHARGE: - TOPROL XL 25 MG DAILY - LISINOPRIL 5 MG DAILY - ATORVASTATIN 40MG DAILY - ASPIRIN 81 MG DAILY On discharge patient instructed to weight herself daily and record values. Take and record home blood pressures/heart rates every morning. If BP less than 95 --> hold lisinopril If BP less than 90 --> hold lisinopril and toprol xl If HR less than 55 --> hold toprol xl Follow-up with Dr. Velarde next week. Follow-up with me in 2-3 weeks. Medications: Current Inpatient Medications Medications (Trade) Dose Ordered Sig/Eb Route Start Time Stop Time Status Last Admin Dose Admin Al Hydrox/Mg Hydrox/Simethicone (Maalox Max Susp) 15 ml Q4H PRN PO 04/20/17 20:45 05/20/17 20:44 Magnesium Hydroxide (Milk Of Magnesia Susp) 30 ml Q12H PRN PO 04/20/17 20:45 05/20/17 20:44 Ondansetron HCl (Zofran Inj) 4 mg Q6H PRN IV 04/20/17 20:45 05/20/17 20:44 Nitroglycerin (Nitrostat Tab) 0.4 mg UD PRN SL 04/20/17 20:45 05/20/17 20:44 Polyethylene (Miralax Powder Packet) 17 gm DAILY PRN PO 04/20/17 20:45 05/20/17 20:44 Ioversol (Optiray 320) 100 ml UD PRN IV 04/20/17 21:30 04/24/17 21:29 Acetaminophen (Tylenol Tab) 650 mg Q4H PRN PO 04/20/17 23:30 05/20/17 23:29 04/21/17 05:45 650 MG Atorvastatin Calcium (Lipitor Tab) 40 mg QAM PO 04/21/17 09:00 05/21/17 08:59 04/22/17 08:36 40 MG Aspirin (Ecotrin Tab) 81 mg QAM PO 04/21/17 09:00 05/21/17 08:59 04/22/17 08:36 81 MG Lisinopril (Zestril Tab) 5 mg QAM PO 04/22/17 09:00 05/21/17 08:59 Metoprolol Tartrate (Lopressor Tab) 12.5 mg Q12 PO 04/22/17 21:00 05/20/17 23:29 UNV Lab Results: Test 04/21/17 20:26 04/22/17 05:04 Troponin I 3.540 ng/ml (0-0.045) Activated Partial Thromboplast Time 27.1 SECONDS (21.0-31.0) Partial Thromboplastin Ratio 1.0
--- NOTE | 2017-04-22 11:05 | Consultant Recommendations ---
Welder Fitter Helper Recommendations Date of Service Apr 22, 2017. Welder Fitter Helper Recommendations DR. MONTERO MEDICATION RECOMMENDATIONS: On discharge weigh yourself daily and record values. Limit salt to less 2000 mg daily Take and record home blood pressures/heart rates every morning. If BP less than 95 --> hold lisinopril If BP less than 90 --> hold lisinopril and toprol xl If HR less than 55 --> hold toprol xl ACTIVITY RECOMMENDATIONS: Limit to light activity around home for next 48 hours. Avoid strenuous activities for next 1 week then resume activities gradually. Excess manipulation of the wrist should be avoided for the next 24-48 hours. * No lifting over 2 pounds (approximately a 1/2 gallon of milk) with the utilized arm for 24 hours. * No strenuous activity such as bowling or tennis for 3 days. * Keep the site of the procedure covered with a bandage for 24 hours. *You may shower the day after the procedure. Do not take a tub bath or submerge the puncture site in water for the next 3 days. SPECIAL CARE INSTRUCTIONS: The site may be slightly bruised and sore following your procedure. Should any of the following occur, contact the Dr. who performed your procedure. 1. Redness/inflammation, swelling, chills, or fever, or colored drainage at procedure site within 3-7 days after your procedure. 2. Coldness, discoloration, ongoing numbness, severe pain, or swelling. Expect mild tingling of hand and tenderness at the puncture site for up to three days. If this persists beyond three days, or other symptoms develop, notify the Dr. who performed your procedure. BLEEDING: If the procedure site on your wrist begins to bleed, do not panic 1. Place 1 or 2 fingers firmly just slightly above the insertion site to stop the bleeding. You may be able to feel your pulse as you hold pressure. 2. Lift your finger after 5 minutes to see if the bleeding has stopped. 3. Once the bleeding has stopped, gently wipe the wrist area clean with a bandage. * If the bleeding from your wrist does not stop after 10 minutes, or if there is a large amount of bleeding or spurting, call 911 (do not drive yourself to the hospital). SKIN IRRITATION: * You may experience some redness and/or swelling in the area where radiation was administered. If any skin irritation occurs, please contact your family physician. FOLLOW UP VISIT: Keep any scheduled doctor appointments.
--- NOTE | 2017-04-22 12:46 | Discharge Summary ---
Discharge Summary Date of Service Apr 22, 2017. Discharge Summary Admission Date: Apr 20, 2017 at 20:47 Discharge Disposition: Home Principal Diagnosis: Takotsubo cardiomyopathy Problems/Secondary Diagnoses: coronary artery disease Procedures: CT chest dissection: 1. No evidence for an aortic dissection. 2. The central pulmonary arteries are patent. 3. Subtle groundglass nodules within the lung apices as described above with the largest on the left measuring 1.3 cm. This could be due to mild inflammatory/infectious change. However, recommend [address] follow-up to ensure resolution and to exclude the possibility of a low-grade neoplasm. Echocardiogram * -- Conclusions -- * Left ventricular systolic function is moderately reduced. * Grade I diastolic dysfunction, (abnormal relaxation pattern). * There are regional wall motion abnormalities as specified. * There is mild mitral regurgitation. * Right ventricular systolic pressure is elevated at 30-40mmHg. * The inferior vena cava is mildly dilated. * Abnormal wall motion is consistent with takotsubo cardiomyopathy Cardiac catheterization Summary: 1. Mild to moderate non-obstructive coronary artery disease 2. Moderate to severe LV dysfunction. LVEF 30% with apical akinesis consistent with takotsubo cardiomyopathy 3. Borderline intracardiac filling pressure Chest Xray: CLINICAL HISTORY: CHEST PAIN dyspnea COMPARISON STUDY: No previous studies for comparison. FINDINGS: The bones soft tissues and hemidiaphragms are normal. The cardiomediastinal silhouette is normal. The lungs are clear. The pulmonary vasculature is normal. IMPRESSION: Negative chest. Consultations: Cardiology Medication Reconciliation New Medications: Atorvastatin (Lipitor) 40 Mg Tab 40 MG PO QAM for 30 Days, #30 TAB Lisinopril (Lisinopril) 5 Mg Tab 5 MG PO QAM for 30 Days, #30 TAB Metoprolol Tartrate (Lopressor) 25 Mg Tab 12.5 MG PO Q12 for 30 Days, #30 TAB Continued Medications: Acetaminophen/Diphenhydramine (Tylenol Pm) 500 Mg/25 Mg Tab 2 TAB PO HS, TAB Estradiol Vaginal (Vagifem) 10 Mcg Tab 1 TAB PV 2XWK for 28 Days, #8 TAB 11 Refills Multivitamin (Multivitamin) Tab 1 TAB PO QAM, TAB Discontinued Medications: Atorvastatin (Lipitor) 20 Mg Tab 20 MG PO QPM, TAB Discharge Exam This is a pleasant 72 y/o F with a h/o of dyslipidemia who presented with elevated blood pressures as well chest pain. Her initial troponin was 0.169 and EKG with [address]. [address] angio was done and ruled out dissection. Interventional cardiology was consulted and the patient was taken for cardiac cath emergently which revealed findings consistent with takotsubo's cardiomyopathy. Troponins trended down. She was started on lisinopril, metoprolol and her atorvastatin was increased to 40 mg. She did become slightly hypotensive. Her medications were adjusted accordingly and she was given hold parameters at discharge. At discharge, the patient was asymptomatic. Review of Systems: Constitutional: No fever, No chills Respiratory: No cough, No sputum, No wheezing, No shortness of breath, No dyspnea on exertion, No dyspnea at rest Cardiovascular: No chest pain Abdomen: No pain, No nausea, No vomiting, No diarrhea, No constipation Genitourinary - Female: No dysuria, No urinary frequency Physical Exam: General Appearance: no apparent distress Eyes: PERRL, EOMI ENT: hearing grossly normal Neck: supple, no JVD Respiratory/Chest: lungs clear, normal breath sounds, no respiratory distress, no accessory muscle use Cardiovascular: regular rate, rhythm, no edema Abdomen / GI: normal bowel sounds, non tender, soft Extremities: no calf tenderness, no pedal edema Neurologic/Psychiatric: no motor/sensory deficits, alert, normal mood/affect , oriented x 3 Hospital Course Total Time Spent: Greater than 30 minutes This includes examination of the patient, discharge planning, medication reconciliation, and communication with other providers. Discharge Instructions Please refer to the electronic Patient Visit Report (Discharge Instructions) for additional information. Follow-Up Cardiology 1 week PCP 3-5 days
[2017-04-22 12:47] VITALS: BP 94/39; PULSE 66; TEMP 36.6; O2SAT 97
[2017-04-22] MEDS ORDERED: METOPROLOL TARTRATE 25 MG TAB PO SCH (21:00)
== END 2017-04-22 13:10 | disposition home or self-care (01) | DRG 287 ==
LOC: EDBD 17:44 → C.EDA 17:45 → C.MSICU 20:47 → CANRESERV 21:05 → ENRESERV 21:05 → CANBEDREQ 22:29
PROVIDERS: ADMIT Internal Medicine; ATTEND Hospitalist
PROC: B201YZZ Plain Radiography of Multiple Coronary Arteries using Other Contrast (ICD-10-PCS; principal; 2017-04-20 22:23)
PROC: 4A023N7 Measurement of Cardiac Sampling and Pressure, Left Heart, Percutaneous Approach (ICD-10-PCS; principal; 2017-04-20 22:23)
DX: I51.81 Takotsubo syndrome (principal); I25.10 Atherosclerotic heart disease of native coronary artery without angina pectoris; I44.7 Left bundle-branch block, unspecified; I11.9 Hypertensive heart disease without heart failure; R51 Headache; E78.5 Hyperlipidemia, unspecified; Z79.899 Other long term (current) drug therapy; Z87.442 Personal history of urinary calculi; Z87.891 Personal history of nicotine dependence; Z82.49 Family history of ischemic heart disease and other diseases of the circulatory system; Z82.3 Family history of stroke

== ENCOUNTER → 2017-07-24 | Outpatient (CLI) | payer BC ==
[~2017-07-24] MED LIST changes: -ATOR-22 PO; +LPR25 PO; +LPT40 PO; +LSN5 PO
--- NOTE | 2017-07-24 13:57 | DIAGNOSTIC IMAGING REPORT ---
(CHEST) THORAX WITHOUT CLINICAL HISTORY: 72 years-old Female presenting with R93.[address] of chestCT. TECHNIQUE: Multidetector CT imaging of the chest was performed without the use of intravenous contrast. IV contrast: None. A dose lowering technique was used consistent with the principles of ALARA (as low as reasonably achievable). COMPARISON: 04/20/2017. CT DOSE (mGy.cm): The estimated cumulative dose is 276.21 mGy.cm. FINDINGS: Tufter topogram: Unremarkable. On soft tissue windows, normal thyroid and thoracic inlet. No axillary, supraclavicular, or mediastinal lymphadenopathy. Evaluation of the omi limited without intravenous contrast. Atherosclerosis of the aorta. Normal heart size. Coronary artery and aortic valve calcification. No pericardial or pleural effusion. Upper abdomen normal. On lung windows, ovoid groundglass poorly delineated nodule at the left apex measures up to 19 mm. Previously this measured 13 mm though measurement is difficult. Multiple groundglass nodules at the right apex, several of these marked on images. Minimal mosaic attenuation at the lung bases. No solid nodule or new infiltrate. On bone windows, degenerative changes of the spine. IMPRESSION: 1. Multiple groundglass nodules in the right upper lobe persist as well as the single dominant groundglass nodule at the left apex. The lesion at the left apex is most concerning for an adenomatous lesion, on the spectrum of adenomatous hyperplasia to adenocarcinoma in situ, which is stable to slightly increased in size from prior. However, the lesions in the lower right upper lobe are more characteristic of respiratory bronchiolitis as manifestation of smoking related lung injury though the asymmetry would be atypical. Follow-up should be obtained as per the most suspicious lesion in the left apex by Neeraj Society 2017 recommendations below. Please refer to below summary of Fleischner Society 2017 recommendations for follow-up of incidental CT nodules (H Bo et al. Guidelines for management of incidental pulmonary nodules detected on CT images: From the Fleischner Society 2017. Radiology 2017; 284: 228-243.) SOLID NODULES Single nodule; size < 6 mm * Low risk patients: No routine follow-up * High risk patients: Optional CT at 12 months Single nodule; size 6-8 mm * Low risk patients: CT at 6-12 months, then consider CT at 18-24 months * High risk patients: CT at 6-12 months, then at 18-24 months Single nodule; size > 8 mm * Either low or high risk patients: Considered CT at 3 months, PET/CT, or tissue sampling Multiple nodules; size < 6 mm * Low risk patients: No routine follow up * High risk patients: Optional CT at 12 months Multiple nodules; size 6-8 mm * Low risk patients: CT at 3-6 months, then consider CT at 18-24 months * High risk patients: CT at 3-6 months, then at 18-24 months Multiple nodules; size > 8 mm * Low risk patients: CT at 3-6 months, then consider at 18-24 months * High risk patients: CT at 3-6 months, then at 18-24 months SUBSOLID NODULES Single ground-glass nodule * Nodule size < 6 mm: No routine follow-up * Nodule size > or = 6 mm: CT at 6-12 months to confirm persistence, then CT every 2 years until 5 years Single part-solid nodule * Nodule size < 6 mm: No routine follow-up * Nodules size > or = 6 mm: CT at 3-6 months to confirm persistence. If unchanged and solid component remains < 6 mm, annual CT should be performed for 5 years Multiple nodules * Nodule size < 6 mm: CT at 3-6 months. If stable, consider CT at 2 and 4 years. * Nodules size > or = 6 mm: CT at 3-6 months. Subsequent management based on the most suspicious nodule(s) NOTE: 1) These guidelines apply to incidental nodules. These guidelines do NOT apply to patients younger than 35 years, immunocompromised patients, or patients with cancer. 2) Risk categories: * Low risk patients: Minimal or absent history of smoking and/or other known risk factors * High risk patients: History of smoking, exposure to other carcinogens, emphysema, fibrosis, upper lobe location, family history of lung cancer, etc. 3) If a nodule up to 8 mm is partly solid or is ground glass, further follow-up is required after 24 months to exclude possible slow growing adenocarcinoma. Electronically signed by: Jules Smith M.D. 07/24/2017 1:56 PM Dictated Date/Time: 07/24/2017 1:45 PM
== END | disposition home or self-care (01) ==
LOC: C.CTS 13:11
PROVIDERS: ATTEND Internal Medicine
DX: R93.8 Abnormal findings on diagnostic imaging of other specified body structures (principal)

== ENCOUNTER → 2017-10-25 | Outpatient (CLI) | payer BC ==
[~2017-10-25] MED LIST changes: +LISI-730 PO; -LSN5 PO
[2017-10-25 10:37] LABS: BASO % 0.8 %; BASO ABS # 0.04 K/uL (0-0.2); EOS % 2.2 %; EOS ABS # 0.11 K/uL (0-0.5); HEMATOCRIT 42.9 % (37-47); HEMOGLOBIN 14.5 g/dL (12.0-16.0); LYMPH % 43.5 %; LYMPH ABS # 2.14 K/uL (1.2-3.4); MEAN CORPUSCULAR HEMOGLOBIN 32.4 pg (25-34); MEAN CORPUSCULAR HGB CONC 33.8 g/dl (32-36); MONO % 7.9 %; MONO ABS # 0.39 K/uL (0.11-0.59); NEUT % 45.6 %; NEUT ABS # 2.24 K/uL (1.4-6.5); PLATELET COUNT 232 K/uL (130-400); RED CELL DISTRIBUTION WIDTH CV 13.4 % (11.5-14.5); RED CELL DISTRIBUTION WIDTH SD 47.7 fL (36.4-46.3); WHITE BLOOD COUNT 4.92 K/uL (4.8-10.8)
[2017-10-25 10:59] LABS: ALBUMIN 3.5 gm/dl (3.4-5.0); ALKALINE PHOSPHATASE 87 U/L (45-117); ALT/SGPT 50 U/L (12-78); AST/SGOT 30 U/L (15-37); BLOOD UREA NITROGEN 16 mg/dl (7-18); CALCIUM 9.1 mg/dl (8.5-10.1); CARBON DIOXIDE 25 mmol/L (21-32); CHOLESTEROL 188 mg/dl (0-200); CREATININE 0.85 mg/dl (0.60-1.20); GLUCOSE 103 mg/dl (70-99); POTASSIUM 4.3 mmol/L (3.5-5.1); SODIUM 141 mmol/L (136-145); TOTAL PROTEIN 7.6 gm/dl (6.4-8.2)
== END | disposition home or self-care (01) ==
LOC: C.LABBC 07:59
PROVIDERS: ATTEND Internal Medicine
DX: N20.0 Calculus of kidney (principal); R03.0 Elevated blood-pressure reading, without diagnosis of hypertension; E78.6 Lipoprotein deficiency; E78.1 Pure hyperglyceridemia; I25.10 Atherosclerotic heart disease of native coronary artery without angina pectoris; R91.1 Solitary pulmonary nodule; R91.8 Other nonspecific abnormal finding of lung field

== ENCOUNTER 2018-08-29 09:28 | Inpatient (IN) ==
--- NOTE | 2018-08-24 11:27 | PAT Medication Instructions ---
Medication Instructions Date of Service August 24, 2018 Home Medications aspirin [Aspir-81] 81 mg PO QPM atorvastatin 40 mg PO PM cholecalciferol (vitamin D3) [Vitamin D3] 1,000 unit PO DAILY [Tylenol PM Extra Strength] 1 tab PO HS PRN estradiol 10 mcg VAGINAL 3XWK losartan 50 mg PO QPM multivitamin 1 cap PO QAM diphenhydramine HCl [Sleep Aid] 50 mg PO HS Continue as directed estradiol 10 mcg VAGINAL 3XWK DO NOT take the morning of surgery cholecalciferol (vitamin D3) [Vitamin D3] 1,000 unit PO DAILY multivitamin 1 cap PO QAM Take evening before surgery aspirin [Aspir-81] 81 mg PO QPM atorvastatin 40 mg PO PM [Tylenol PM Extra Strength] 1 tab PO HS PRN (if needed) losartan 50 mg PO QPM diphenhydramine HCl [Sleep Aid] 50 mg PO HS Other Notes If you have any questions please call us at [phone] or [phone] or [phone] or [phone]
--- NOTE | 2018-08-24 11:40 | Anesthesiology Consultation ---
Date of Service August 24, 2018 Assessment & Plan (1) Encounter for pre-operative examination: Cardiology Office Visit 07/24/2018: "Patient continues to do well from a cardiac standpoint. She remains extremely active with no limiting symptoms. On exam today appears well perfused with no signs of heart failure or any significant peripheral vascular disease. Her blood pressures have been well controlled at home and no change made to current losartan." Chart Review Chart Review: Acceptable Risk for Surgery and Patient seen in Pre Admission Testing Teaching & Discussion Instructed NPO after midnight before surgery, except medications with 15 cc of water. Medication instructions provided according to the PAT guidelines. History Surgery Operation Date: 08/29/18 11:30 Proposed Procedures p Left Robotic Video Assisted Thoracoscopy with Left Upper Lobe Wedge Resection, Possible Left Upper Lobectomy with Mediastinal Lymphadenectomy - Michael Phillips MD, FACS s Navigational Bronchoscopy with ICG Marking - Michael Phillips MD, FACS Height/Weight Height: 5 ft 4 in Weight: 74.4 kg Allergies Allergy/AdvReac Type Severity Reaction Status Date / Time No Known Allergies Allergy Verified 08/29/18 09:50 Medications Home Medications Medication Instructions Recorded Confirmed Last Taken aspirin [Aspir-81] 81 mg PO QPM 02/21/18 08/23/18 08/28/18 22:00 atorvastatin 40 mg PO PM 02/21/18 08/23/18 08/28/18 22:00 cholecalciferol (vitamin D3) 1,000 unit PO DAILY 02/21/18 08/29/18 08/28/18 22:00 [Vitamin D3] estradiol 10 mcg VAGINAL 3XWK 02/21/18 08/29/18 08/26/18 22:00 losartan 50 mg PO QPM 02/21/18 08/23/18 08/28/18 22:00 multivitamin 1 cap PO QAM 02/21/18 08/23/18 08/28/18 08:00 diphenhydramine HCl [Sleep Aid 50 mg PO HS PRN 08/23/18 08/23/18 08/28/18 22:00 (diphenhydramine)] Active Medications Generic Name Dose Route Start Last Admin Trade Name Freq PRN Reason Stop Dose Admin Lactated Ringer's 1,000 mls @ 15 mls/hr 08/29/18 06:00 08/29/18 09:54 Lr IV 08/30/18 05:59 15 mls/hr .Q24H MICHAEL Administration Past Medical History Medical History Chronic cough Lung nodule Incidental finding on chest CT during workup for cardiomyopathy. Now for mong e resection. Torn rotator cuff RIGHT Hyperlipidemia Hypertension Kidney stones hx of Osteoarthritis Takotsubo cardiomyopathy 04/2017, moderate LV dysfunction, now resolved. Follows with [facility] [place] cardiology. Exercise / Class Metabolic Activity 1 > 8 Run/Swim/Ski/Tennis (Rides horses, does elliptical weekly, occasional SOB with activity but no CP) Past Family History Family History Sister Family history of colon cancer Brother Family history of bladder cancer Other Family history of cancer in brother Past Surgical History Surgical History History of arthroscopy of left knee History of right cataract extraction History of tubal ligation History of cardiac cath 04/2017 for Takotsubo cardiomyopathy. Mild-moderate nonobstructive CAD. No intervention. History of colonoscopy History of left cataract extraction Past Anesthesia History No Hx of Anesthesia Complications and No Family Hx of Anesthesia Complications History of PONV No Hx of PONV and Hx of Motion Sickness Social History Smoking Status: Former smoker tobacco type: cigarettes Do You Dip or Chew Tobacco: No Smoking End Date: 1981 Hx Alcohol Use: Yes Alcohol type: wine alcohol intake frequency: a few times a week Hx Substance Use: No substance use type: does not use Review of Systems Pt denies any recent chest pain, shortness of breath, fever or URI. +chronic cough, +palpitations with caffeine intake Physical Exam Vital Signs Last Vital Signs Temp 36.6 C 08/29/18 09:55 Pulse 83 08/29/18 09:55 Resp 20 08/29/18 09:55 BP 185/89 H 08/29/18 09:55 Pulse Ox 97 08/29/18 09:55 BP: 178/80 (pt is visibly anxious, took BP at home this AM and it was 120s systolic) P: 73bpm SPO2: 97% RA T: 97.7 F R: 16 ENMT Mouth: + dental restorations (implants, caps, crowns); no chipped teeth and no loose teeth Thyromental Distance: < 3.5 Finger Breadths (3) Mallampati Class: I Neck normal visual inspection; neck extension not limited Respiratory normal respiratory effort Auscultation: lungs clear to auscultation bilaterally Cardiovascular Rate/Rhythm: regular rate and regular rhythm Heart Sounds: + murmur (I/ systolic) Vessels: no carotid bruit Extremities: no edema Testing Laboratory Results 08/24/18 11:13 08/24/18 11:13 Blood Type A Positive 08/24/18 11:13 Antibody Screen NEGATIVE 08/24/18 11:13 Electrocardiogram Date: 08/24/18 Findings: + NSR @ (78) and + LBBB Echocardiogram Date: 07/13/17 EF: 55-60% Normal LV size. Borderline concentric LVH. Normal LV systolic function with no regional wall motion abnormality's. Normal RV size and function. Mild MR. Normal estimated PA and RA pressures. Grade 1 diastolic dysfunction. Compared to the prior study on 05/01/2017, LV function now normal. Cardiac Catheterization Date: 04/20/17 Intervention: + none Mild to moderate nonobstructive coronary artery disease. Moderate to severe LV dysfunction. LVEF 30% with apical akinesis consistent with Dr. Stephan aleman myopathy. Borderline intracardiac filling pressure.
[2018-08-24 14:16] LABS: Basophils # (auto) 0.03 K/uL (0-0.2); Basophils % (auto) 0.4 %; Eosinophils # (auto) 0.09 K/uL (0-0.5); Eosinophils % (auto) 1.2 %; Hematocrit (blood only) 42.1 % (37-47); Hemoglobin 14.6 g/dL (12.0-16.0); Immature Granulocytes # (auto) 0.01 K/uL (0.00-0.02); Immature Granulocytes % (auto) 0.1 %; Lymphocytes # (auto) 3.06 K/uL (1.2-3.4); Lymphocytes % (auto) 39.7 %; Mean Corpuscular Hgb Conc 34.7 g/dL (32-36); Mean Corpuscular Volume 92.7 fL (80-100); Monocytes # (auto) 0.47 K/uL (0.11-0.59); Monocytes % (auto) 6.1 %; Neutrophils # (auto) 4.04 K/uL (1.4-6.5); Neutrophils % (auto) 52.5 %; Platelet Count 247 K/uL (130-400); RDW Coefficient of Variation 13.8 % (11.5-14.5); RDW Standard Deviation 46.6 fL (36.4-46.3); Red Blood Count 4.54 M/uL (4.2-5.4)
[2018-08-24 14:38] LABS: BUN Creatinine Ratio 18.9 (10-20); Calcium 9.4 mg/dl (8.5-10.1); Creatinine Clr Calc Pharmacy 59.8 ml/min; Est GFR (African American) 80.5; Est GFR (Non-African American) 69.4
[~2018-08-29 09:28] MED LIST changes: -DIPH-437 PO; -ESTR10TA PV; +LIDOCAINE HCL 2% 2 ML VIAL/AMP(20MG/ML) INFIL ONE; -LISI-730 PO; -LPR25 PO; -LPT40 PO; +LR 15ML/HR IV SCH; +MIDAZOLAM HCL 1 MG/ML 2ML VIAL ONE; -MULT-506 PO; +ONDANSETRON INJ 2 MG/ML 2 ML VIAL ONE; +PROPOFOL IV EMULSION 10 MG/ML 20 ML VIAL IV ONE; +ROCURONIUM BROMIDE 10 MG/ML 5 ML VIAL ONE; +fentaNYL citrate 100 MCG/2 ML VIAL ONE
[2018-08-29] MEDS ORDERED: BUPIVACAINE 0.5 % 5 MG/1 ML MPF 30ML VIAL ONE (09:48)
[2018-08-29] MEDS ORDERED: SODIUM CHLORIDE 0.9% PF 50 ML VIAL ONE (09:49)
[2018-08-29] MEDS ORDERED: BUPIVACAINE LIPOSOME 1.3% 266 MG/20 ML VIAL ONE ×2 (09:49→11:28)
--- NOTE | 2018-08-29 09:51 | History & Physical Bridge Note ---
Date of Service August 29, 2018 History & Physical Bridge Note I have examined the patient, reviewed the History & Physical and in the interval since the performance of the History & Physical I have noted the following changes of clinical significance: no changes noted
[2018-08-29] MEDS ORDERED: ATROPINE SULFATE 0.1 MG/ML 10ML SYR IV PRN (10:27)
[2018-08-29] MEDS ORDERED: ONDANSETRON INJ 2 MG/ML 2 ML VIAL IV PRN (10:27)
[2018-08-29] MEDS ORDERED: ePHEDrine sulfate 50 MG/ML AMP IV PRN (10:27)
[2018-08-29] MEDS ORDERED: HYDROmorphone INJ 1 MG/ML SYRINGE IV PRN (10:27)
[2018-08-29] MEDS ORDERED: fentaNYL citrate 100 MCG/2 ML VIAL IV PRN (10:27)
[2018-08-29] MEDS ORDERED: PROMETHAZINE HCL 12.5 MG in SODIUM CHLORIDE 0.9% 50 ML IV PRN (10:27)
[2018-08-29] MEDS ORDERED: CEFAZOLIN 250 MG/ML 1 GM VIAL ONE (10:47)
--- NOTE | 2018-08-29 11:03 | Fluoroscopy Report ---
FL chest 1V frontal CLINICAL HISTORY: NAVIGATIONAL BRONCH IN OR COMPARISON STUDY: 08/01/2018 FLUOROSCOPY TIME: 27 seconds NUMBER OF FLUOROSCOPIC IMAGES: 1 FINDINGS: Image intensifier utilized for navigational bronchoscopy IMPRESSION: Image intensifier support for navigational bronchoscopy. The above report was generated using voice recognition software. It may contain grammatical, syntax or spelling errors. Electronically signed by: Rivera Ogden M.D. 08/29/2018 11:01 AM
[2018-08-29] MEDS ORDERED: fentaNYL citrate 100 MCG/2 ML VIAL ONE (11:45)
[2018-08-29] MEDS ORDERED: ROCURONIUM BROMIDE 10 MG/ML 5 ML VIAL ONE ×2 (11:48→11:49)
[2018-08-29] MEDS ORDERED: ePHEDrine sulfate 50 MG/ML SYR ONE (11:49)
[2018-08-29] MEDS ORDERED: CEFAZOLIN 2000MG 2,000 MG/15 ML SYR IV ONE (12:00)
--- NOTE | 2018-08-29 12:04 | Procedure Note ---
Procedure Note Date of Service August 29, 2018 Radial arterial line placed in OR 11 after induction in preparation for left robotic VATs with Dr. Phillips. Right wrist prepped with chlorhexidine and draped with sterile towels. 20 G angiocath placed under sterile technique utilizing sterile gloves, surgical hats and masks. Catheter threaded using seldinger technique with return of pulsatile, bright red blood. Site covered with occlusive dressing and taped in place. Waveform consistent with correct arterial placement. After placement, fingers of procedural hand had normal perfusion. Patient tolerated procedure well without complications. Coding
--- NOTE | 2018-08-29 13:59 | Post Operative Brief Note ---
Immediate Post Op Note v1 Date of Surgery August 29, 2018 Pre & Post Diagnosis Operation Date: 08/29/18 11:30 Pre-Op Diagnosis: Left Upper Lobe Mass Post-Op Diagnosis: Adenocarcinoma Left Upper Lobe Procedure Operation Date: 08/29/18 11:30 Actual Procedures p Left Robotic Video Assisted Thoracoscopy with Left Upper Lobectomy with Mediastinal Lymphadenectomy(Left) - Michael Phillips MD, FACS s Navigational Bronchoscopy with ICG Marking(Left) - Michael Phillips MD, FACS Surgeon Michael Phillips MD, FACS [employer] Julissa KUNZ Estimated Blood Loss 50 Findings Consistent with Post-Op Diagnosis Drains Chest Tube and Vazquez Catheter (removed at end of procedure)
[2018-08-29] MEDS ORDERED: METOCLOPRAMIDE HCL INJ 5 MG/ML 2 ML VIAL IV ONE (14:15)
--- NOTE | 2018-08-29 15:35 | Anesthesiology Progress Note ---
Date of Service August 29, 2018 Anesthesia Post Procedure Vital Signs Vital Signs: Temp Pulse Pulse Resp BP Pulse Ox 08/29/18 15:25 36.2 C L 85 16 171/89 H 100 08/29/18 15:15 36.2 C L 84 18 164/76 H 100 08/29/18 15:05 36.2 C L 87 15 168/73 H 99 08/29/18 14:55 36.2 C L 88 16 161/93 H 99 08/29/18 14:45 36.2 C L 84 16 162/76 H 100 08/29/18 14:35 36.1 C L 70 23 148/64 H 96 08/29/18 14:25 36.1 C L 78 17 147/80 H 100 08/29/18 14:18 36.1 C L 82 16 160/87 H 98 08/29/18 09:55 36.6 C 83 20 185/89 H 97 Pain Intensity Left Lateral Chest: Pain Intensity: 3 Transfer of Care Handoff Completed per policy Notes Mental Status: alert / awake / arousable and participated in evaluation Patient Amnestic to Procedure: Yes Nausea / Vomiting: adequately controlled Pain: adequately controlled Airway Patency, RR, SpO2: stable & adequate BP & HR: stable & adequate Hydration State: stable & adequate Anesthetic Complications: no major complications apparent and Pt Satisfied with anesthetic care
[2018-08-29] MEDS ORDERED: OXYCODONE HCL IR 5 MG TAB (IMMEDIATE RELEASE) PO PRN (15:40)
[2018-08-29] MEDS: D5W AND 1/2NSS 1,000 ML IV SCH (16:03)
[2018-08-29] MEDS: ACETAMINOPHEN 1,000 MG/100 ML VIAL IV SCH (16:06)
--- NOTE | 2018-08-29 16:41 | XRay Report ---
SINGLE VIEW CHEST CLINICAL HISTORY: Status post left upper lobe resection. FINDINGS: An AP, portable, upright chest radiograph is compared to study dated 04/20/2017 and correlat ed with chest CT dated 07/24/2017. The cardiomediastinal silhouette is unremarkable noting atheroscle rotic calcification of the thoracic aorta. There is volume loss in the left upper lobe consistent wit h left upper lobe resection. A left apical chest tube is in place. Chronic interstitial thickening i s similar to previous. There is bibasilar atelectasis. No airspace consolidation or large pleural eff usion is identified. No pneumothorax is seen. The skeletal structures are osteopenic. The bony thorax is grossly intact. IMPRESSION: 1. There is volume loss in the left lung consistent with the reported history of left upper lobe rese ction. 2. A left apical chest tube is in place. No pneumothorax is seen. Electronically signed by: Raj Virk M.D. 08/29/2018 4:40 PM
[2018-08-29] MEDS: MoRPHine SULFATE 2 MG/ML CARP IV PRN (17:35)
[2018-08-29] MEDS: LOSARTAN POTASSIUM 50 MG TAB PO SCH (20:47)
[2018-08-29] MEDS: ASPIRIN 81 MG ECTAB PO SCH (20:47)
[2018-08-29] MEDS: DOCUSATE SODIUM 100 MG CAP PO SCH (20:47)
[2018-08-29] MEDS: ATORVASTATIN 40 MG TAB PO SCH (20:47)
[2018-08-29] MEDS: METOCLOPRAMIDE HCL INJ 5 MG/ML 2 ML VIAL IV SCH (21:40)
[2018-08-30] MEDS: ACETAMINOPHEN 1,000 MG/100 ML VIAL IV SCH (00:01)
[2018-08-30] MEDS: D5W AND 1/2NSS 1,000 ML IV SCH (01:43)
--- NOTE | 2018-08-30 01:51 | Operative Report ---
DATE OF OPERATION: 08/29/2018 PREOPERATIVE DIAGNOSIS: Ground-glass opacity left upper lobe. 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 PROCEDURES: 1. Electromagnetic navigational bronchoscopy with marking of left upper lobe lesion with indocyanine green dye. 2. Robot-assisted thoracoscopic wedge resection using fluorescence to locate ground-glass opacity and perform a wedge resection. 3. Robot-assisted thoracoscopic left upper lobectomy. 4. Robot-assisted thoracoscopic mediastinal lymphadenectomy. SURGEON: Michael Phillips MD SOLAR ELECTRIC PRACTITIONER: JOAQUINA Choi. ( Sheba was present for the entire case at the patient's bedside while I was at the console). ANESTHESIA: General anesthesia with endotracheal intubation. SPECIFICS OF PROCEDURE AND FINDINGS: This patient is a 73-year-old female is much more youthful in appearance, who has a ground-glass opacity in the superior segment of the left upper lobe. This was persistent although it had not grown much over the last year. She came to see me and I told her that I felt we were probably dealing with an adenocarcinoma. We had a long talk about this and she asked that this be resected with frozen section and possible lobectomy if necessary. On 08/29/2018, the patient was brought to the Operating Room and underwent an uncomplicated electromagnetic navigational bronchoscopy after she had been intubated. We easily came to the mass although we did not see much with our radial ultrasound. We did see that indocyanine green was injected and we wedged this out robotically. Frozen section showed this to be an adenocarcinoma. I performed an uncomplicated thoracoscopic left upper lobectomy with mediastinal lymphadenectomy with the robot. She tolerated it well, was extubated in the room with negligible blood loss. DESCRIPTION OF PROCEDURE: The patient was brought to Operating Room and laid in supine position. General anesthesia induced and endotracheal intubation performed with single lumen tube. After appropriate timeout had been called and prophylactic antibiotics given, the fiberoptic bronchoscope was placed through the endotracheal tube and I closely inspected the airways and saw no evidence of any abnormalities. She had no sputum either. Going into the left upper lobe apically, we came upon the mass quite nicely with the SuperDimension navigational bronchoscopy platform. We had registered the airways and then we used the navigational probe, we went right at the mass although we did not really delineate much of it on a radial ultrasound. Under fluoroscopic guidance, I injected 1 mL of indocyanine green with 1 mL of air into this area. We then removed this and we put the patient in right lateral decubitus position and entered her left chest. Upon entering the left chest, we went ahead and put all of our 4 robotic ports in. These were all done in about the seventh interspace. Just above the diaphragm anteriorly, an assistance port was created immediately upon going into the chest. Exparel 266 mg in 20 mL of solution was mixed with 30 mL of 0.5% Marcaine without epinephrine and 250 mL of normal saline. The solution was used to inject each of 5 port sites. The camera port was 12 mm port and then on either side, we put 8 mm ports and then more posteriorly closer to the spine put 5 mm port. These were all done under thoracoscopic guidance after the initial camera port had been put in. There were no adhesions. We had fairly developed fissures. The robot was then docked and upon using the fluorescence, we could see easily where we had done the injection. A generous wedge resection was performed, removed from the field in a small Endobag. While this was sent for frozen section, I took down the inferior pulmonary ligament and dissected out the level 9, level 8 and level 5 and 6 and multiple 10, 11 and 12 nodes. Frozen sections came back as an adenocarcinoma. We started off by taking the arterial branches actually moving distally to proximally. The lingula was taken as well as the branches to the upper lobe moving in a mediolateral position in the fissure. These arteries were divided sequentially. This freed up things nicely and the fissures were almost developed and we had completed. I then the vein from the artery. The lingual vein was a bit small, so I clipped this with Hemoclips proximally, distally and divided it. This allowed us to get an Endo-TAMMY stapler around the bronchus just after its takeoff from the mainstem bronchus and we divided this. We then were able to divide the vein without difficulty. We delivered this off the field in an Endobag. It should be noted that I searched for level 7 node and came down to the papi nicely and really there was not much there. I went anteriorly and posteriorly and actually identified the mainstem bronchus quite nicely. At any rate, we did biopsy of multiple other lymph nodes. The chest was filled with warm saline. We saw no evidence of a leak. We also performed an intercostal nerve block with Exparel solution, going from 2nd to 11th rib and also I used it for each of our port sites before making an incision. The patient awakened with essentially no pain. She was extubated in the room with negligible blood loss. Our bronchial margins were negative for carcinoma. She tolerated it very well. She was transported to the Postanesthesia Care Unit in a stable condition. I attest to the content of the Intraoperative Record and any orders documented therein. Any exception s are noted below.
[2018-08-30] MEDS: ONDANSETRON INJ 2 MG/ML 2 ML VIAL IV PRN (01:56)
[2018-08-30] MEDS: MoRPHine SULFATE 2 MG/ML CARP IV PRN ×2 (01:56→05:52)
[2018-08-30] MEDS: METOCLOPRAMIDE HCL INJ 5 MG/ML 2 ML VIAL IV SCH (05:52)
[2018-08-30 06:21] LABS: Basophils # (auto) 0.01 K/uL (0-0.2); Basophils % (auto) 0.1 %; Eosinophils # (auto) 0.02 K/uL (0-0.5); Eosinophils % (auto) 0.2 %; Hematocrit (blood only) 37.5 % (37-47); Hemoglobin 13.1 g/dL (12.0-16.0); Immature Granulocytes # (auto) 0.02 K/uL (0.00-0.02); Immature Granulocytes % (auto) 0.2 %; Lymphocytes # (auto) 1.61 K/uL (1.2-3.4); Lymphocytes % (auto) 14.4 %; Mean Platelet Volume 9.9 fL (7.4-10.4); Monocytes # (auto) 0.73 K/uL (0.11-0.59); Monocytes % (auto) 6.5 %; Neutrophils # (auto) 8.82 K/uL (1.4-6.5); Neutrophils % (auto) 78.6 %; Platelet Count 191 K/uL (130-400); RDW Coefficient of Variation 13.9 % (11.5-14.5); RDW Standard Deviation 48.2 fL (36.4-46.3); Red Blood Count 3.99 M/uL (4.2-5.4); White Blood Count 11.21 K/uL (4.8-10.8)
[2018-08-30 06:22] LABS: Mean Corpuscular Hgb Conc 34.9 g/dL (32-36)
[2018-08-30 06:31] LABS: Partial Thromboplastin Time 26.3 Seconds (21.0-31.0); Prothrombin Time 10.7 Seconds (9.0-12.0)
[2018-08-30 06:40] LABS: BUN Creatinine Ratio 14.1 (10-20); Calcium 8.2 mg/dl (8.5-10.1); Creatinine Clr Calc Pharmacy 65.8 ml/min; Est GFR (African American) 90.8; Est GFR (Non-African American) 78.4; Potassium 3.9 mmol/L (3.5-5.1)
--- NOTE | 2018-08-30 06:56 | XRay Report ---
XR chest 1V portable CLINICAL HISTORY: CARTER chest tube position COMPARISON STUDY: 08/29/2018 FINDINGS: Stable postoperative changes left hemithorax. Left-sided chest tube has been pulled back somewhat. No postprocedural pneumothorax. Lungs are grossl y clear. IMPRESSION: 1. No significant postprocedural pneumothorax. 2. Left-sided chest tube has been pulled back several centimeters. The above report was generated using voice recognition software. It may contain grammatical, syntax or spelling errors. Electronically signed by: Rivera Odgen M.D. 08/30/2018 6:54 AM
[2018-08-30] MEDS: CHOLECALCIFEROL 1,000 UNITS TAB PO SCH (07:49)
[2018-08-30] MEDS: DOCUSATE SODIUM 100 MG CAP PO SCH ×2 (07:49→20:07)
[2018-08-30] MEDS: MULTIVITAMIN TAB PO SCH (07:49)
[2018-08-30] MEDS: ENOXAPARIN INJ 40 MG/0.4 ML SYR SQ SCH (07:49)
[2018-08-30] MEDS: ACETAMINOPHEN 325 MG TAB PO SCH ×3 (07:49→20:06)
[2018-08-30] MEDS ORDERED: ESTRADIOL 10 MCG PV SCH (09:00)
[2018-08-30] MEDS ORDERED: HydrALAZINE HCL 20 MG/ML VIAL ONE (11:51)
[2018-08-30] MEDS: HydrALAZINE HCL 20 MG/ML VIAL IV PRN (11:52)
--- NOTE | 2018-08-30 16:03 | Progress Note ---
DATE: 08/30/2018 Anni Gore is 1 day out from her lobectomy for an apparent early stage carcinoma. She has no air leak and has drained very little fluid from her chest tube. A chest tube has rotated back posteriorly a bit. She has no pneumothorax, no effusions. We will remove this chest tube in the morning. The patient and her daughter are both very concerned about her problem with swallowing. She tells me that she has trouble swallowing and chokes for "a long, long time" before surgery. I have explained to her that intubation with a double lumen tube can sometimes exacerbate the problem. I am going to have speech and swallowing see her. They are very concerned about this and I tried to allay their fears. I think she is going to be fine.
--- NOTE | 2018-08-30 17:18 | Cardiology Consultation ---
Date of Consultation August 30, 2018 Assessment & Plan (1) Atrial fibrillation with rapid ventricular response: This may represent postop AFib, however she has had intermittent palpitations as an outpatient. As an outpatient her palpitations have demonstrated heart rates less than 100, and may not represent atrial fibrillation. For now, start amiodarone drip to try to convert her to sinus rhythm during this postoperative phase. Long-term treatment will be determined based on response and if there are recurrent episodes and this will be done by her primary vp information technology, Dr. Jara. Anticoagulation therapy would be optimal, however currently contraindicated as per Dr. Phillips given her recent surgery. Atrial fibrillation was both symptomatic and noted on vitals earlier today and therefore is well within 48 hours. We discussed the diagnosis in detail with the help of a diagram. Treatment strategies were discussed. (2) Chest pain: Likely due to the AFib with RVR. Will check serial troponins however it would not be surprising if there is some low level elevation given her elevated heart rate and blood pressure. Currently no chest pain. (3) CAD (coronary artery disease): Nonobstructive CAD documented. She is on aspirin and high-intensity statin therapy. Chest pain as above but not definitely angina and may be related to the atrial fibrillation verses recent surgical procedure. (4) Hypertension: Blood pressure has been elevated throughout the hospital stay, significantly so at times. Will give additional losartan 25 mg this evening while scheduled to have another 50 mg later this evening. If blood pressure remains elevated, could consider adjusting her outpatient regimen however outpatient records indicate that her blood pressure is better controlled at home. (5) Disposition: Cardiology will continue to follow. Dr. Jara, her primary vp information technology, will resume her cardiology care tomorrow. Patient care discussed with Dr. Phillips. Thank you for allowing me to participate in the care of your patient. Please call for any other questions or concerns. Sincerely, Osiel Mendoza M.D. History of Present Illness Reason for Consultation: Atrial fibrillation Requesting Physician: Dr. Phillips Attending Physician: Michael Phillips MD, [facility] History of Present Illness Mrs. Gore is a very pleasant 73-year-old female with a history significant for nonobstructive CAD, resolved stress induced cardiomyopathy, hypertension, dyslipidemia, and LBBB, who is at [facility] after undergoing robotic assisted thoracoscopic left upper lobectomy and mediastinal lymphadenectomy for suspected adenocarcinoma. Dr. Jara is her primary vp information technology. Dr. Phillips consult Cardiology for new onset atrial fibrillation. She states that earlier this afternoon, after lunch, she felt a left-sided chest pressure and palpitations as though her heart was racing. There was also associated shortness of breath. Since then, she has intermittently felt palpitations. Prior to this, she was feeling well this morning and this was an abrupt change. Her vital signs also changed with abrupt increase in her pulse. She was not on telemetry at that time as she was on the third floor. She was noted to be in atrial fibrillation on ECG and was transferred to PCU. Currently, she is chest pain-free. She denies shortness of breath but continues to have intermittent palpitations. She admits that she was told at the age of 35 that she has irregular heartbeat and sometimes she would notice faster heart rate at home on her blood pressure cuff and her watch. She reports heart rates up to the 90s bpm, but nothing as tachycardic as noted now on telemetry with heart rates in the 130s to 140s. She has felt palpitations at the base of her neck prior to this hospitalization, intermittently. She has not been diagnosed with atrial fibrillation prior to today. She denies abdominal pain, nausea, vomiting, syncope, orthopnea, exertional chest discomfort, edema, or bleeding such as melena, hematochezia, or hematuria. Review of systems: As above. Review of systems otherwise negative/unremarkable. Family history: Father with GA. Mother with stroke and Parkinson's. Social history: She quit smoking in 1982 after 18 years of smoking 1.5-2 packs per day. She has 4 glasses of wine on average per week. She lives at home with her . She has 3 children including a daughter named Sharon who works at [employer] in the [employer], Jackie who works at [employer], and Selwyn who lives in [place]. Her and 2 daughters were present at the bedside. Allergies Allergy/AdvReac Type Severity Reaction Status Date / Time No Known Allergies Allergy Verified 08/29/18 09:50 Home Medications Home Medications Medication Instructions Recorded Confirmed Type aspirin [Aspir-81] 81 mg PO QPM 02/21/18 08/23/18 History atorvastatin 40 mg PO PM 02/21/18 08/23/18 History cholecalciferol (vitamin D3) 1,000 unit PO DAILY 02/21/18 08/29/18 History [Vitamin D3] estradiol 10 mcg VAGINAL 3XWK 02/21/18 08/29/18 History losartan 50 mg PO QPM 02/21/18 08/23/18 History multivitamin 1 cap PO QAM 02/21/18 08/23/18 History diphenhydramine HCl [Sleep Aid 50 mg PO HS PRN 08/23/18 08/23/18 History (diphenhydramine)] Patient History Medical History Chronic cough Lung nodule Incidental finding on chest CT during workup for cardiomyopathy. Now for wedge resection. Torn rotator cuff RIGHT Hyperlipidemia Hypertension Kidney stones hx of Osteoarthritis Takotsubo cardiomyopathy 04/2017, moderate LV dysfunction, now resolved. Follows with [facility] cardiology. Surgical History History of arthroscopy of left knee History of right cataract extraction History of tubal ligation History of cardiac cath 04/2017 for Takotsubo cardiomyopathy. Mild-moderate nonobstructive CAD. No intervention. History of colonoscopy History of left cataract extraction Family History Sister Family history of colon cancer Brother Family history of bladder cancer Other Family history of cancer in brother Social History Preferred Language: Guamanian Communication Ability: Effective Electronics Utility Worker Required: No Beliefs That Will Affect Care: Hoahaoism Hoahaoism Beliefs: CHRISTIAN, ADVENTIST Current Living Situation: Spouse Other Information That Helps Us Care for You: No Feels Safe at Home: Yes Smoking Status: Former smoker Tobacco Type: cigarettes Do You Dip or Chew Tobacco: No Smoking End Date: 1981 Second Hand Exposure: No Hx Alcohol Use: Yes Alcohol type: wine Hx Substance Use: No Physical Exam Physical Exam: Gen.: No acute distress. Alert and oriented. HEENT: Anicteric sclera. Neck: No JVD. No bruits. Normal carotid upstrokes bilaterally. Cardiac: PMI was nonpalpable. No ventricular heave. Irregularly irregular and tachycardic. Normal S1-S2. No murmurs, rubs, or gallops. Pulmonary: Crackles at the right base, otherwise clear. Abdomen: Soft, nontender, nondistended, with normoactive bowel sounds. No bruits noted. Extremities: 2+ radial pulses bilaterally. 2+ posterior tibialis pulses bilaterally. No edema or cyanosis. No palpable cords. Psychiatric: Affect appears appropriate. Results & Data Vital Signs (Past 12 Hours) Vital Signs Temp Pulse Pulse Pulse Resp BP BP 08/30/18 16:06 104 H 131 H 08/30/18 15:50 36.8 C 126 H 18 159/81 H 08/30/18 13:12 36.6 C 76 18 169/76 H 08/30/18 08:40 08/30/18 07:42 36.8 C 81 19 192/77 H Pulse Ox Pulse Ox 08/30/18 16:06 08/30/18 15:50 94 08/30/18 13:12 95 08/30/18 08:40 96 08/30/18 07:42 91 Laboratory Results Laboratory Results - last 24 hr 08/30/18 08/30/18 08/30/18 06:10 06:10 06:10 WBC 11.21 H RBC 3.99 L Hgb 13.1 Hct 37.5 MCV 94.0 MCH 32.8 MCHC 34.9 RDW Std Deviation 48.2 H RDW Coeff of Glen 13.9 Plt Count 191 MPV 9.9 Immature Gran % (Auto) 0.2 Neut % (Auto) 78.6 Lymph % (Auto) 14.4 Stokes % (Auto) 6.5 Eos % (Auto) 0.2 Baso % (Auto) 0.1 Immature Gran # (Auto) 0.02 Neut # (Auto) 8.82 H Lymph # (Auto) 1.61 Stokes # (Auto) 0.73 H Eos # (Auto) 0.02 Baso # (Auto) 0.01 PT 10.7 INR 1.0 APTT 26.3 PTT Ratio 1.0 Sodium 138 Potassium 3.9 Chloride 107 Carbon Dioxide 25 Anion Gap 6.0 BUN 11 Creatinine 0.76 Est Cr Clr Drug Dosing 65.8 Est GFR ( Amer) 90.8 Est GFR (Non-Af Amer) 78.4 BUN/Creatinine Ratio 14.1 Glucose 123 H Calcium 8.2 L Magnesium Pending TSH Pending Urine Color Urine Appearance Urine pH Ur Specific [place] Urine Protein Urine Glucose (UA) Urine Ketones Urine Blood Urine Nitrite Urine Bilirubin Urine Urobilinogen Ur Leukocyte Esterase Urine WBC (Auto) Urine RBC (Auto) U Hyaline Cast (Auto) U Epithel Cells (Auto) Urine Bacteria (Auto) 08/30/18 16:24 WBC RBC Hgb Hct MCV MCH MCHC RDW Std Deviation RDW Coeff of [place] Plt Count MPV Immature Gran % (Auto) Neut % (Auto) Lymph % (Auto) Stokes % (Auto) Eos % (Auto) Baso % (Auto) Immature Gran # (Auto) Neut # (Auto) Lymph # (Auto) Stokes # (Auto) Eos # (Auto) Baso # (Auto) PT INR APTT PTT Ratio Sodium Potassium Chloride Carbon Dioxide Anion Gap BUN Creatinine Est Cr Clr Drug Dosing Est GFR ( Amer) Est GFR (Non-Af Amer) BUN/Creatinine Ratio Glucose Calcium Magnesium TSH Urine Color Yellow Urine Appearance Clear Urine pH 7.0 Ur Specific [place] 1.010 Urine Protein Negative Urine Glucose (UA) Negative Urine Ketones Negative Urine Blood 1+ H Urine Nitrite Negative Urine Bilirubin Negative Urine Urobilinogen Negative Ur Leukocyte Esterase Negative Urine WBC (Auto) 1-5 Urine RBC (Auto) 0-4 U Hyaline Cast (Auto) 0 U Epithel Cells (Auto) 0-5 Urine Bacteria (Auto) Negative Diagnostic Findings Telemetry personally reviewed: Atrial fibrillation with rapid ventricular response. ECG personally reviewed. ECG 08/30/2018: AFib with RVR 149 bpm. LBBB. Echo 07/13/2017: Normal LV size, wall motion, systolic function. EF 55-60%. Mild MR. Medications Administered Current Inpatient Medications Acetaminophen (Tylenol) 650 mg PO Q6H MICHAEL Stop: 09/29/18 07:29 Last Admin: 08/30/18 13:15 Dose: 650 mg Documented by: Aspirin (Ecotrin Ectab) 81 mg PO QPM MICHAEL Stop: 09/28/18 20:59 Last Admin: 08/29/18 20:47 Dose: 81 mg Documented by: Atorvastatin Calcium (Lipitor) 40 mg PO PM MICHAEL Stop: 09/28/18 20:59 Last Admin: 08/29/18 20:47 Dose: 40 mg Documented by: Docusate Sodium (Colace) 100 mg PO BID MICHAEL Stop: 09/28/18 20:59 Last Admin: 08/30/18 07:49 Dose: 100 mg Documented by: Enoxaparin Sodium (Lovenox) 40 mg SQ QAM [facility] Stop: 09/29/18 08:59 Last Admin: 08/30/18 07:49 Dose: 40 mg Documented by: Hydralazine HCl (Hydralazine Hcl) 5 mg IV Q6H PRN PRN Reason: sbp >170 Stop: 09/29/18 11:04 Last Admin: 08/30/18 11:52 Dose: 5 mg Documented by: Amiodarone HCl/Dextrose (Nexterone / D5w) 360 mg in 200 mls @ 33.333 mls/hr IV .Q6H [facility] Stop: 08/30/18 23:59 Last Admin: 08/30/18 18:19 Dose: 1 mg/min, 33.3 mls/hr Documented by: Amiodarone HCl/Dextrose (Nexterone / D5w) 360 mg in 200 mls @ 16.667 mls/hr IV .Q12H [facility] Stop: 09/29/18 23:45 Losartan Potassium (Cozaar) 50 mg PO QPM [facility] Stop: 09/28/18 20:59 Last Admin: 08/29/18 20:47 Dose: 50 mg Documented by: Morphine Sulfate (Morphine Sulfate) 1 - 2 mg IV Q1H PRN PRN Reason: Pain Stop: 09/12/18 15:39 Last Admin: 08/30/18 05:52 Dose: 1 mg Documented by: Multivitamins (Multivitamin Tab) [facility] Stop: 09/29/18 08:59 Last Admin: 08/30/18 07:49 Dose: 1 tab Documented by: Estradiol 10mcg~Non- Formulary Patient's Own Med 1 ea PV Andrew@0900 [facility] Stop: 09/29/18 08:59 Last Admin: 08/30/18 07:49 Dose: 1 dose Documented by: Ondansetron HCl (Zofran) 4 mg IV Q4H PRN PRN Reason: Nausea And Vomiting Stop: 09/28/18 15:39 Last Admin: 08/30/18 01:56 Dose: 4 mg Documented by: Oxycodone HCl (Roxicodone Immediate Rel) 5 mg PO Q6H PRN PRN Reason: Pain Stop: 09/12/18 15:39 Vitamin D (Vitamin D3) 1,000 units PO DAILY MICHAEL Stop: 09/29/18 08:59 Last Admin: 08/30/18 07:49 Dose: 1,000 units Documented by:
[2018-08-30 17:33] LABS: Appearance Urine Clear (Clear); Bacteria Urine Automated Negative (Negative); Bilirubin Urine Negative (Negative); Blood Urine 1+ (Negative); Cast Urine Automated 0 /lpf (0-5); Color Urine Yellow; Epithelial Cell Urine Auto 0-5 /lpf (0-5); Glucose Urine UA Negative (Negative); Ketones Urine Negative (Negative); Leukocyte Esterase Urine Negative (Negative); Nitrite Urine Negative (Negative); Protein Urine Negative (Negative); RBC Urine Automated 0-4 /hpf (0-4); Urobilinogen Urine Negative (Negative)
[2018-08-30] MEDS ORDERED: AMIODARONE / D5W 150 MG/100 ML BAG IV STA (17:46)
[2018-08-30] MEDS ORDERED: AMIODARONE IV BOLUS / DRIP IV STA (17:46)
[2018-08-30] MEDS: AMIODARONE / D5W 360 MG/200 ML BAG IV SCH ×3 (18:19→23:38)
[2018-08-30 19:07] LABS: Magnesium 1.9 mg/dl (1.8-2.4)
[2018-08-30] MEDS: LOSARTAN POTASSIUM 50 MG TAB PO SCH (20:07)
[2018-08-30] MEDS: ASPIRIN 81 MG ECTAB PO SCH (20:07)
[2018-08-30] MEDS: ATORVASTATIN 40 MG TAB PO SCH (20:07)
[2018-08-31] MEDS: ACETAMINOPHEN 325 MG TAB PO SCH ×4 (05:38→20:00)
[2018-08-31] MEDS: AMIODARONE / D5W 360 MG/200 ML BAG IV SCH (05:39)
--- NOTE | 2018-08-31 07:28 | XRay Report ---
XR chest 1V portable CLINICAL HISTORY: CARTER COMPARISON STUDY: Chest radiograph August 30, 2018 FINDINGS: Left chest tube is in place. Lung volumes are normal. Lungs are clear. There is no pneumoth orax or pleural effusion. Cardiac size is normal. Mediastinal contours are normal. There is no eviden ce for pulmonary edema. Minimal left basilar opacity favors atelectasis. IMPRESSION: No pneumothorax. Left chest tube in place. Electronically signed by: Dajuan Suarez M.D. 08/31/2018 7:27 AM
--- NOTE | 2018-08-31 08:44 | XRay Report ---
XR chest 1V portable CLINICAL HISTORY: 73 years-old Female presenting with tube removal. TECHNIQUE: Portable upright AP view of the chest was obtained. COMPARISON: 08/31/2018 at 6:38 AM. FINDINGS: There has been interval removal of the left pleural drain. Atherosclerosis of the aortic arch. Cardia c silhouette normal in size. Minimal left basilar opacity similar to prior. Remainder of the left elizabeth g is clear. No demonstrable pneumothorax for portable technique. No large pleural effusion though a t race left pleural effusion may be present. Degenerative changes of the thoracic spine. Upper abdomen normal. IMPRESSION: 1. Removal of the left pleural drain. No pneumothorax. 2. Minimal left basilar atelectasis or architectural distortion. Electronically signed by: Jules Smith M.D. 08/31/2018 8:43 AM
[2018-08-31] MEDS ORDERED: ESTRADIOL 10 MCG PV SCH (09:00)
[2018-08-31] MEDS ORDERED: PERFLUTREN LIPID MICROSPHERE (DEFINITY) IV ONE (09:25)
--- NOTE | 2018-08-31 09:44 | Progress Note ---
DATE: 08/31/2018 SUBJECTIVE: Ms. Gore was seen today on postop day #2 status post a thoracoscopic lobectomy for an early stage lung cancer. She looks great. We removed her chest tube as she had no air leak and her chest x-ray after removal looks quite good. She is on room air. She developed atrial fibrillation yesterday afternoon. We moved her down to telemetry and Dr. Osiel Mendoza evaluated her yesterday and Dr. Tim Jara today. She is placed on an amiodarone drip. It will be converted to p.o. medications. She has been in a sinus rhythm since 10:30 last night. OBJECTIVE: Her vital signs were stable. Her incisions were clean. Her lungs are clear. ASSESSMENT AND PLAN: I discussed this with the patient's and daughter. She looks quite good. Of course, the pathology is not back yet. I would anticipate that she will be discharged in the next 24-48 hours. She will have to be kept to be monitored for her atrial fib. I will discuss the anticoagulation with Dr. Jara, but I would hold off at least for another couple of days.
[2018-08-31] MEDS: DOCUSATE SODIUM 100 MG CAP PO SCH ×2 (09:45→20:01)
[2018-08-31] MEDS: CHOLECALCIFEROL 1,000 UNITS TAB PO SCH (09:45)
[2018-08-31] MEDS: ENOXAPARIN INJ 40 MG/0.4 ML SYR SQ SCH (09:45)
[2018-08-31] MEDS: MULTIVITAMIN TAB PO SCH (09:45)
--- NOTE | 2018-08-31 10:13 | Cardiology Progress Note ---
Date of Service August 31, 2018 Assessment & Plan (1) Atrial fibrillation with rapid ventricular response: 2. Lung mass post resection 3. Nonobstructive coronary artery disease 4. Hypertension Patient converted to sinus rhythm overnight. Asymptomatic this morning from a cardiac standpoint. Blood pressures remain mildly elevated. Going forward: Transition IV amiodarone to p.o. amiodarone 400 mg twice daily for next week Start low-dose beta-jean pierre, metoprolol 25 twice daily Continue home losartan Continue home aspirin, atorvastatin For now hold off on anticoagulation. We will plan on outpatient ambulatory monitoring to further assess for recurrent atrial fibrillation outside the setting of thoracic surgery. From a cardiac standpoint if remains stable overnight okay for discharge tomorrow. (2) Chest pain: (3) CAD (coronary artery disease): (4) Hypertension: Subjective Patient feeling well this morning. Converted to sinus rhythm at approximately 10 PM last night. This morning denies any chest pain, palpitations or significant shortness of breath. Plan per thoracic surgery for removal of chest tubes later today. Next Telemetry reviewedno recurrent atrial fibrillation since 10 PM last night Review of Systems Review of Systems: All systems reviewed & are unremarkable except as noted in HPI & below Physical Exam Physical Exam: General: Comfortable, no acute distress HEENT: Sclerae anicteric, mucous membranes moist Lungs: Clear to auscultation bilaterally, no rhonchi or wheezes, chest tube in place with serosanguineous fluid Cardiac: Regular rate and rhythm, no murmurs. No JVD. Abdomen: Soft, nontender, nondistended, positive bowel sounds. Extremities: Warm, well perfused, no edema. 2+ radial pulses Skin: No rashes or lesions. Neuro: Nonfocal Psych: Alert orient x3, normal affect and mood Results & Data Vital Signs (Past 12 Hours) Vital Signs Temp Pulse Pulse Pulse Resp BP Pulse Ox 08/31/18 07:35 75 08/31/18 07:23 36.8 C 75 23 166/75 H 92 08/31/18 03:43 37 C 80 16 166/84 H 94 08/31/18 00:00 08/30/18 22:57 37.1 C 84 20 151/80 H 97 Pulse Ox 08/31/18 07:35 08/31/18 07:23 08/31/18 03:43 08/31/18 00:00 97 08/30/18 22:57
[2018-08-31] MEDS: AMIODARONE 200 MG TAB PO SCH ×2 (10:44→19:53)
[2018-08-31] MEDS: HydrALAZINE HCL 20 MG/ML VIAL IV PRN (16:14)
[2018-08-31] MEDS ORDERED: LOSARTAN POTASSIUM 25 MG TAB PO ONE (19:02)
[2018-08-31] MEDS: METOPROLOL TARTRATE 25 MG TAB PO SCH (19:49)
[2018-08-31] MEDS: ATORVASTATIN 40 MG TAB PO SCH (19:52)
[2018-08-31] MEDS: LOSARTAN POTASSIUM 50 MG TAB PO SCH (19:52)
[2018-08-31] MEDS: ASPIRIN 81 MG ECTAB PO SCH (19:52)
[2018-08-31] MEDS ORDERED: AMIODARONE / D5W 150 MG/100 ML BAG IV STA (22:32)
[2018-08-31] MEDS ORDERED: AMIODARONE IV BOLUS / DRIP IV STA (22:32)
[2018-08-31] MEDS ORDERED: AMIODARONE / D5W 360 MG/200 ML BAG IV SCH (22:45)
[2018-09-01] MEDS: ONDANSETRON INJ 2 MG/ML 2 ML VIAL IV PRN (01:38)
[2018-09-01] MEDS: ACETAMINOPHEN 325 MG TAB PO SCH ×2 (04:24→08:47)
[2018-09-01] MEDS ORDERED: AMIODARONE / D5W 360 MG/200 ML BAG IV SCH (04:32)
[2018-09-01] MEDS: MULTIVITAMIN TAB PO SCH (08:47)
[2018-09-01] MEDS: CHOLECALCIFEROL 1,000 UNITS TAB PO SCH (08:47)
[2018-09-01] MEDS: METOPROLOL TARTRATE 25 MG TAB PO SCH (08:47)
[2018-09-01] MEDS: ENOXAPARIN INJ 40 MG/0.4 ML SYR SQ SCH (08:48)
[2018-09-01] MEDS: DOCUSATE SODIUM 100 MG CAP PO SCH (08:49)
--- NOTE | 2018-09-01 09:34 | Cardiology Progress Note ---
Date of Service September 01, 2018 Assessment & Plan (1) Atrial fibrillation with rapid ventricular response: 2. Lung mass post resection 3. Nonobstructive coronary artery disease 4. Hypertension Recurrent AF overnight, reasonably rate controlled. Symptomatic with palpitations. Converted with IV amio. Going forward: Continue PO amiodarone at 400mg BID -- Can discontinue IV infusion after 8 hrs. Increase metoprolol to 50mg bid -- Continue home losartan, atorvastatin -- Would favor starting anticoagulation with eliquis 5 mg BID if OK from a surgical standpoint. -- From a cardiac standpoint Ok with discharge this afternoon or tomorrow with cardiology follow-up in next 1-2 weeks. (2) Chest pain: (3) CAD (coronary artery disease): (4) Hypertension: Subjective Sinus tachycardia yesterday evening. Around 10pm flipped back into AF with HR to 100 to 110s. Patient aware of switch. Mild nausea. No chest pain, shortness of breath, presyncope. Started back on amio infusion. Converted to sinus rhythm around 4 AM. This morning feeling well. No other new complaints. Review of Systems Review of Systems: All systems reviewed & are unremarkable except as noted in HPI & below Physical Exam Constitutional: WD/WN, vitals as above Eyes: + anicteric sclerae Respiratory: normal respiratory effort, lungs clear to auscultation surgical incision dressed. No surrounding erythema/induration Cardiovascular: RRR, no murmur, no edema Gastrointestinal (Abdomen): Inspection/Auscultation: normal bowel sounds Percussion/Palpation: abdomen nontender Skin: no rashes, warm and dry Neurologic: moves all extremities Psychiatric: A+Ox3, euthymic affect Results & Data Vital Signs (Past 12 Hours) Vital Signs Temp Pulse Pulse Resp BP BP Pulse Ox 09/01/18 07:06 36.8 C 62 20 138/69 95 09/01/18 03:14 37.0 C 100 H 19 142/78 H 94 08/31/18 23:50 36.9 C 102 H 19 131/89 95 08/31/18 22:26 114 H 120/91
--- NOTE | 2018-09-01 10:38 | Discharge Summary ---
DISCHARGE DIAGNOSES: 1. Adenocarcinoma of left upper lobe. 2. Postoperative atrial fibrillation. 3. History of cigarette smoking. HOSPITAL COURSE: This is a very nice 73-year-old female who was found to have a ground-glass opacity in her left upper lobe which persisted on subsequent CT scans. For this reason, she was referred to see me and we elected to proceed with a navigational bronchoscopy with marking with indocyanine green dye and then a wedge resection with frozen section. On 08/29/2018, this was done without difficulty and the frozen section came back as an adenocarcinoma. She then had a robot-assisted thoracoscopic left upper lobectomy with mediastinal lymphadenectomy without difficulty. She did not lose blood. She did not have an air leak. We are quite pleased with her. However, on the first postoperative day, the patient developed atrial fibrillation. Her rate was a bit high, but she tolerated it well hemodynamically. We started the amiodarone drip and moved her to the intensive care unit. She converted quickly to a sinus rhythm. We kept her monitor and removed her chest tube on postop day 2 and she was quite stable on room air, ambulating in the hallway, tolerating a house diet. Unfortunately, she developed atrial fibrillation again for a few hours. Again, she tolerated it well and her rate was not quite as high as she was now on Lopressor and amiodarone. We rebolused her and started on amiodarone drip. She is being loaded with amiodarone now at 400 mg p.o. b.i.d. I discussed this with Dr. Tim Jara from cardiology. I am going to start the patient on Eliquis and discharge her today on postop day #3. She will follow up with me in 72 hours with an x-ray. She is to call me if she runs in any problems. We are going to send her home on Lopressor, Eliquis and amiodarone. I discussed this in detail with the patient's and her two daughters as well as the patient. The patient has a stage IA adenocarcinoma of the lung. We are quite pleased with her pathology results and all of her lymph nodes and her margins were negative. She certainly looks quite good on the day of her discharge. I will see her back in the office in 3 days.
== END 2018-09-01 10:43 | disposition home or self-care (01) | DRG 165 ==
LOC: ASU 09:28 → 3W 14:09 → 2E 08-30 16:44

== ENCOUNTER 2018-09-12 22:14 | Observation (INO) ==
[2018-09-12] MEDS ORDERED: LORazepam 1 MG/2 ML VIAL IV STA (22:39)
[2018-09-12 23:37] LABS: Basophils # (auto) 0.03 K/uL (0-0.2); Basophils % (auto) 0.3 %; Eosinophils % (auto) 0.8 %; Hematocrit (blood only) 41.5 % (37-47); Hemoglobin 14.3 g/dL (12.0-16.0); Immature Granulocytes # (auto) 0.03 K/uL (0.00-0.02); Immature Granulocytes % (auto) 0.3 %; Lymphocytes # (auto) 1.71 K/uL (1.2-3.4); Lymphocytes % (auto) 14.5 %; Mean Corpuscular Hgb Conc 34.5 g/dL (32-36); Mean Corpuscular Volume 94.7 fL (80-100); Monocytes # (auto) 0.78 K/uL (0.11-0.59); Monocytes % (auto) 6.6 %; Neutrophils # (auto) 9.12 K/uL (1.4-6.5); Neutrophils % (auto) 77.5 %; Platelet Count 333 K/uL (130-400); RDW Coefficient of Variation 13.3 % (11.5-14.5); Red Blood Count 4.38 M/uL (4.2-5.4); White Blood Count 11.77 K/uL (4.8-10.8)
[2018-09-12 23:54] LABS: Albumin Level 3.2 gm/dl (3.4-5.0); BUN Creatinine Ratio 17.9 (10-20); Calcium 9.6 mg/dl (8.5-10.1); Creatinine Clr Calc Pharmacy 47.1 ml/min; Est GFR (African American) 62.2; Est GFR (Non-African American) 53.6; Potassium 4.1 mmol/L (3.5-5.1)
[2018-09-13 00:04] LABS: Albumin Globulin Ratio 0.8 (0.9-2); Bilirubin,Total 0.4 mg/dl (0.2-1); Total Protein 7.2 gm/dl (6.4-8.2); Troponin I 0.518 ng/ml (0-0.045)
--- NOTE | 2018-09-13 01:24 | Emergency Department Note ---
History of Present Illness General Chief complaint: Hypertension Stated complaint: HTN History of Present Illness This 73-year-old presents to the ER complaining of high blood pressure, headache and feeling shaky Location: Generalized Quality: Shaky Severity: Moderate Duration: Tonight Timing: Started after she checked her blood pressure and was high Context: Patient was concerned and came in Modifying factors: better with nothing; worse with worrying over this Patient texted her director of philanthropy and was advised to go to the ER. Dr. Jara is her director of philanthropy. Patient had a partial lobectomy last week for lung cancer. She was doing fine a week until tonight. Patient states she had a slight head ache and felt kind of shaky and then came in. She noticed her blood pressure was 200/100. Normally is 130/80. She has not missed her blood pressure medicine. Patient denies chest pain, dyspnea, abdominal pain, numbness, tingling, localized weakness. Home Medications Home Medications Medication Instructions Recorded Confirmed Type aspirin [Aspir-81] 81 mg PO QPM 02/21/18 09/12/18 History atorvastatin 40 mg PO PM 02/21/18 09/12/18 History cholecalciferol (vitamin D3) 1,000 unit PO DAILY 02/21/18 09/12/18 History [Vitamin D3] estradiol 10 mcg VAGINAL 3XWK 02/21/18 09/12/18 History diphenhydramine HCl [Sleep Aid 50 mg PO HS PRN 08/23/18 09/12/18 History (diphenhydramine)] apixaban [Eliquis] 5 mg PO Q12H #60 tab MDD 10 09/01/18 09/12/18 Rx ondansetron HCl [Zofran] 4 mg PO Q8H PRN #10 tab 09/01/18 09/12/18 Rx amiodarone 200 mg PO QAM 09/12/18 09/12/18 History losartan 100 mg PO QAM 09/12/18 09/12/18 History metoprolol tartrate 12.5 mg PO BID 09/12/18 09/12/18 History Allergies Allergy/AdvReac Type Severity Reaction Status Date / Time No Known Allergies Allergy Verified 09/12/18 23:38 Past Med/Surg History Medical History Chronic cough Hyperlipidemia Hypertension Kidney stones hx of Lung nodule Incidental finding on chest CT during workup for cardiomyopathy. Now for wedge resection. Osteoarthritis Takotsubo cardiomyopathy 04/2017, moderate LV dysfunction, now resolved. Follows with [facility] [place] cardiology. Torn rotator cuff RIGHT Surgical History History of arthroscopy of left knee History of cardiac cath 04/2017 for Takotsubo cardiomyopathy. Mild-moderate nonobstructive CAD. No intervention. History of colonoscopy History of left cataract extraction History of right cataract extraction History of tubal ligation Family History Sister Family history of colon cancer Brother Family history of bladder cancer Other Family history of cancer in brother Social History Preferred Language: Pashto Communication Ability: Effective Beliefs That Will Affect Care: Shinto Shinto Beliefs: ROMAN CATHOLIC, CHURCH Current Living Situation: Spouse Feels Safe at Home: Yes Smoking Status: Former smoker Tobacco Type: cigarettes Second Hand Exposure: No Hx Alcohol Use: Yes Alcohol type: wine Hx Substance Use: No Review of Systems All systems reviewed & are unremarkable except as noted in HPI & below Physical Exam Vital Signs Vital Signs - 24 hr 09/12/18 22:23 09/12/18 23:31 09/13/18 00:43 Temperature 36.9 C Temperature Source Oral Sepsis Recent Fever Within 48 Hours No Sepsis Action Taken by Nursing No Action Required Pulse Rate 72 Pulse Rate [Left Finger] 63 57 L Pulse Rhythm [Left Finger] Regular Respiratory Rate 18 18 20 Respiratory Effort / Characteristics Non-Labored Non-Labored Respiratory Depth Normal Normal Normal Respiratory Pattern Regular Regular Blood Pressure 221/130 H Blood Pressure [Right Arm] 175/84 H 125/61 Blood Pressure Mean 160 Blood Pressure Mean [Right Arm] 114 82 Pulse Oximetry 96 96 96 Oxygen Delivery Method Room Air Room Air Room Air VITALS: Vitals are noted on the nurse's note and reviewed by myself. Vital signs hypertensive. GENERAL: Pleasant anxious appearing female, in no acute distress, nondiaphoretic, well-developed well-nourished. SKIN: The skin was without rashes, erythema, edema, or bruising. There is no tenting of the skin. Capillary reflex less than 2 seconds. HEAD: Normocephalic atraumatic. EARS: External auditory canals clear, tympanic membranes pearly jasmine without erythema or effusion bilaterally. EYES: Pupils equal round and reactive to light and accommodation. Conjunctivae without injection, sclerae without icterus. Extraocular movements intact. NOSE: Patent, turbinates without inflammation or discharge. MOUTH: Mucous membranes moist. Pharynx without erythema or exudate. Uvula midline. Airway patent. Tongue does not deviate. NECK: Supple without nuchal rigidity. No lymphadenopathy. No thyromegaly. Cervical spine is nontender. No JVD. HEART: Regular rate and rhythm LUNGS: Clear to auscultation bilaterally without wheezes, rales or rhonchi. No retractions or accessory muscle use. ABDOMEN: Positive bowel sounds x 4. Normal tympanic percussion. Soft, nontender, without masses or organomegaly. Puri sign negative. No guarding or rebound tenderness. No CVA tenderness MUSCULOSKELETAL: No muscle atrophy, erythema, or edema noted. NEURO: Patient was alert and oriented to person place and time. Normal sensation to light and sharp touch. No focal neurological deficits. Course Administered Medications Discontinued Medications Lorazepam (Ativan) 1 mg in 2 mls @ 2 mls/min IV NOW STA Stop: 09/12/18 22:40 Last Admin: 09/12/18 23:31 Dose: 2 mls/min Documented by: [id number] Medical Decision Making Medical Records Attestation: I reviewed the patient's medical records. Home Medications Current Medication List: was personally reviewed by me Laboratory Data Attestation: I reviewed the patient's lab results. Result diagrams: 09/12/18 23:25 09/12/18 23:25 Lab Results 09/12/18 09/12/18 Range/Units 23:25 23:25 WBC 11.77 H (4.8-10.8) K/uL RBC 4.38 (4.2-5.4) M/uL Hgb 14.3 (12.0-16.0) g/dL Hct 41.5 (37-47) % MCV 94.7 (80-100) fL MCH 32.6 (25-34) pg MCHC 34.5 (32-36) g/dL RDW Std Deviation 46.0 (36.4-46.3) fL RDW Coeff of Glen 13.3 (11.5-14.5) % Plt Count 333 (130-400) K/uL MPV 10.0 (7.4-10.4) fL Immature Gran % (Auto) 0.3 % Neut % (Auto) 77.5 % Lymph % (Auto) 14.5 % Dickey % (Auto) 6.6 % Eos % (Auto) 0.8 % Baso % (Auto) 0.3 % Immature Gran # (Auto) 0.03 H (0.00-0.02) K/uL Neut # (Auto) 9.12 H (1.4-6.5) K/uL Lymph # (Auto) 1.71 (1.2-3.4) K/uL Dickey # (Auto) 0.78 H (0.11-0.59) K/uL Eos # (Auto) 0.10 (0-0.5) K/uL Baso # (Auto) 0.03 (0-0.2) K/uL Sodium 140 (136-145) mmol/L Potassium 4.1 (3.5-5.1) mmol/L Chloride 108 H (98-107) mmol/L Carbon Dioxide 25 (21-32) mmol/L Anion Gap 7.0 (3-11) BUN 19 H (7-18) mg/dl Creatinine 1.04 (0.6-1.2) mg/dl Est Cr Clr Drug Dosing 47.1 ml/min Est GFR ( Amer) 62.2 Est GFR (Non-Af Amer) 53.6 BUN/Creatinine Ratio 17.9 (10-20) Glucose 133 H (70-99) mg/dl Calcium 9.6 (8.5-10.1) mg/dl Total Bilirubin 0.4 (0.2-1) mg/dl AST 22 (15-37) U/L ALT 39 (12-78) U/L Alkaline Phosphatase 141 H (45-117) U/L Troponin I 0.518 H* (0-0.045) ng/ml Total Protein 7.2 (6.4-8.2) gm/dl Albumin 3.2 L (3.4-5.0) gm/dl Globulin 4.0 (2.5-4.0) gm/dl Albumin/Globulin Ratio 0.8 L (0.9-2) Imaging Data Attestation: I personally reviewed and interpreted this imaging study as follows: Blood Pressure Blood Pressure Findings: Elevated blood pressure Blood Pressure Disposition: Referred to patients primary care provider [facility] Narrative Prior records/ancillary studies reviewed regarding the history above. Triage Nursing notes reviewed. Additional history obtained from the family. The patient's history was concerning for hypertension. Differential diagnosis: Etiologies such as benign hypertension, hypertensive emergency, cardiovascular pathology, pheochromocytoma, electrolyte abnormality, renal disease, endorgan damage, as well as others were entertained. Physical examination: As above. No signs of end organ damage. ER treatment provided: Ativan On reassessment the patient felt better. Diagnostic interpretation by me: The electrocardiogram was Left bundle branch block, no acute ST-T changes, rate of 71. EKG compared to prior EKG with no acute changes noted. Impression left bundle branch block interpreted by myself. Repeat EKG is unchanged I think arrhythmia is unlikely. EKG shows normal sinus rhythm with no interval abnormalities such as QT prolongation or WPW. There are no findings to suggest Brugada syndrome. Cardiac monitoring in the emergency department reveals no tachycardic or bradycardic dysrhythmia. Hypertrophic cardiomyopathy was considered but there are no clear historical elements pointing toward this. EKG is not suggestive. The QRS voltage is not extremely large and there are no suggestive Q waves. The labs revealed elevated troponin. Imaging studies: CT HEAD: No acute intracranial hemorrhage, mass effect, midline shift, hydrocephalus or infarct. Bony structures are intact. Soft tissues are unremarkable. Radiologist: Ari Mchugh MD Consultation: A consultation was placed with Dr. Jara and recommends medical admission and he will evaluate patient in the morning. Dr. Dunham hospitalist was consulted and will evaluate the patient. The case was discussed and diagnostics were reviewed. The patient was evaluated in the ER for further treatment. This appears to be consistent with hypertensive urgency most likely from anxiety with an elevated troponin. Repeat EKG is unchanged. Medicine was consulted and asked to speak to cardiology as he sent the patient in. Dr. Jara recommends medical admission and serial troponins and he will see the patient in the morning. Medicine accepts. By the evaluation outlined above emergent etiologies such as hypertensive emergency, pheochromocytoma, endorgan damage, aortic dissection, pulmonary embolism, pneumonia, pneumothorax, infections, gastrointestinal, as well as others were deemed relatively unlikely. The pt informed about the findings as listed above. All questions were answered and pleased with the treatment. Case reviewed with my attending The chart was completed utilizing [employer] Speech voice recognition software. Grammatical errors, random word insertions, pronoun errors, and incomplete sentences are an occassional consequence of this system due to software limitations, ambient noise, and hardware issues. Any formal questions or concerns about the content, text, or information contained within the body of this dictation should be directly addressed to the physician assistant center director for clarification. Impression & Plan Hypertensive urgency, Elevated troponin Discharge Plan Visit Data Chief Complaint: Hypertension Stated Complaint: HTN ED Provider: Les Do ED Midlevel Provider: Mary Irvin Discharge Problem: Hypertensive urgency, Elevated troponin Patient Disposition: Being Evaluated by Hospitalist Condition: Fair Forms Stand Alone Forms: My [facility] Prescriptions Prescriptions: No Action atorvastatin 40 mg Tablet 40 mg PO PM RF: 0 aspirin [Aspir-81] 81 mg Tablet,Delayed Release (Dr/Ec) 81 mg PO QPM RF: 0 cholecalciferol (vitamin D3) [Vitamin D3] 1,000 unit Capsule 1,000 unit PO DAILY RF: 0 estradiol 10 mcg Tablet 10 mcg vaginal 3XWK RF: 0 diphenhydramine HCl [Sleep Aid (diphenhydramine)] 50 mg Capsule 50 mg PO HS PRN (Reason: Sleep) RF: 0 Eliquis 5 mg tablet 5 mg PO Q12H MDD 10 Qty: 60 RF: 0 ondansetron HCl [Zofran] 4 mg tablet 4 mg PO Q8H PRN (Reason: nausea and vomiting) Qty: 10 RF: 0 amiodarone 200 mg Tablet 200 mg PO QAM RF: 0 losartan 100 mg Tablet 100 mg PO QAM RF: 0 metoprolol tartrate 25 mg tablet 12.5 mg PO BID RF: 0 Referrals Referrals: Jules Velarde MD [Primary Care Provider] -
--- NOTE | 2018-09-13 01:31 | Emergency Department Note ---
ED Visit Note This Patient was discussed with the physician carpenter assistant installer, Mary Irvin PA-C. The pertinent historical and physical exam findings were confirmed. I agree with the studies ordered and with the interpretations of these studies. I agree with the disposition and care plan. .
[2018-09-13] MEDS ORDERED: APIXABAN 5 MG TABLET PO STA (02:19)
--- NOTE | 2018-09-13 02:25 | History & Physical Report ---
Date of Service September 13, 2018 Assessment & Plan (1) Hypertension: 73-year-old female was admitted on 13 September 2018 for transient hypertension and elevated troponin. Hypertension, anxiety, elevated troponin: Patient notes at home BP 209/97 after missing her evening metoprolol dose. Becker quite anxious and tremulous after this. Patient reports she spoke with Dr. Jara (cardiology) who recommended ED evaluation. Transient "slight" headache now resolved. No other concurrent symptoms to include CP or SOB. - In ED, afebrile, borderline bradycardic, highest BP 221/130, with normal room SpO2. WBC 11. TnI 0.518. EKG x2 notes NSR and then sinus bradycardia with known LBBB. CT head shows no acute findings. - In ED, treated with a single dose of Ativan. Blood pressure came down to 125/61. They spoke with Dr. Jara. He recommended serial TnI overnight. - Will keep on home meds. 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 Ongoing medical issues: - Hyperlipidemia, non-obstructive coronary artery disease, postoperative atrial fibrillation, history of Takotsubo's cardiomyopathy: Seen by cardiology on (see related note). Treated with an amiodarone infusion. See echo report that is rather normal. Sent home on amiodarone, Eliquis, and metoprolol. Continue home losartan and atorvastatin as well. - Left upper lobe adenocarcinoma: S/p resection on by Dr. Phillips (thoracic surgery). Has developed a recent cough and was started on Claritin by Dr. Phillips. Will continue here. Code status: Full code. Diet: Heart healthy. DVT prophy: Eliquis. PT/OT: Deferred. Disbo: Admit to [facility] telemetry for observation. (2) Anxiety: (3) Elevated troponin: (4) Hyperlipidemia: (5) CAD (coronary artery disease): (6) Atrial fibrillation: (7) Primary adenocarcinoma of upper lobe of left lung: History of Present Illness Primary Care Provider: Jules Velarde MD 73-year-old female is accompanied by her after EMS arrival for hypertension. Patient states that she successfully underwent a left upper lobe lobectomy (for adenocarcinoma) by Dr. Phillips (thoracic surgery) back on August 29. At that time she developed postoperative atrial fibrillation, seen by cardiology and placed on associated medications, and has since followed up with both Dr. Jara (cardiology) as well as Dr. Phillips in their respective clinics. She says she now takes her blood pressure twice a day. This evening she noted a home blood pressure of 209/97. She says this made her quite nervous and she quickly developed a bilateral hand tremor. She also noticed at that time a "slight headache". EMS was called and per patient's report her blood pressure was 235/109 en route. She denies any chest pain, new shortness of breath, abdominal pain, nausea or vomiting, or any other associated symptoms throughout this time. In the ED, she was noted to be quite anxious and was given a single dose of Ativan. Patient says this completely resolved her anxiousness and tremulousness. At the time of this H&P, patient has no physical concerns, including any headache. She does mention that she missed both her metoprolol and Eliquis doses earlier this evening. - Past medical history includes hypertension, hyperlipidemia, coronary disease, Takotsubo's cardiomyopathy s/p cath, bilateral cataracts, left upper lobe adenocarcinoma, kidney stones. - Past surgical history includes left upper lobe lobectomy and mediastinal lymphadenectomy, bilateral cataract, left knee arthroscopy. - Social history includes smoked 1-1.5 packs/day from age [age] yo. Drinks about 3 glasses of wine per week. Lives at home with . Allergies Allergy/AdvReac Type Severity Reaction Status Date / Time No Known Allergies Allergy Verified 09/12/18 23:38 Home Medications Home Medications Medication Instructions Recorded Confirmed Type aspirin [Aspir-81] 81 mg PO QPM 02/21/18 09/12/18 History atorvastatin 40 mg PO PM 02/21/18 09/12/18 History cholecalciferol (vitamin D3) 1,000 unit PO DAILY 02/21/18 09/12/18 History [Vitamin D3] estradiol 10 mcg VAGINAL 3XWK 02/21/18 09/12/18 History diphenhydramine HCl [Sleep Aid 50 mg PO HS PRN 08/23/18 09/12/18 History (diphenhydramine)] Eliquis 5 mg PO Q12H #60 tab MDD 10 09/01/18 09/12/18 Rx ondansetron HCl [Zofran] 4 mg PO Q8H PRN #10 tab 09/01/18 09/12/18 Rx amiodarone 200 mg PO QAM 09/12/18 09/12/18 History losartan 100 mg PO QAM 09/12/18 09/12/18 History metoprolol succinate [Toprol XL] 25 mg PO DAILY #30 tab 09/13/18 Rx spironolactone 25 mg PO QAM #30 tab 09/13/18 Rx Past Med/Surg History Medical History Chronic cough Hyperlipidemia Hypertension Kidney stones hx of Lung nodule Incidental finding on chest CT during workup for cardiomyopathy. Now for wedge resection. Osteoarthritis Takotsubo cardiomyopathy 04/2017, moderate LV dysfunction, now resolved. [place] [facility] [place] Torn rotator cuff RIGHT Surgical History History of arthroscopy of left knee History of cardiac cath 04/2017 for Takotsubo cardiomyopathy. Mild-moderate nonobstructive CAD. No intervention. History of colonoscopy History of left cataract extraction History of right cataract extraction History of tubal ligation Family History Sister Family history of colon cancer Brother Family history of bladder cancer Other Family history of cancer in brother Social History Preferred Language: Thai Communication Ability: Effective Beliefs That Will Affect Care: None Current Living Situation: Spouse Feels Safe at Home: Yes Smoking Status: Former smoker Tobacco Type: cigarettes Second Hand Exposure: No Hx Alcohol Use: Yes Alcohol type: wine Hx Substance Use: No Review of Systems Review of Systems: Constitutional: Denies fevers, chills, focal weakness Eyes: Denies any visual loss or diplopia ENT: Denies any ear/nose/throat pain or difficulty speaking or swallowing Respiratory: Denies any dyspnea, cough, hemoptysis Cardiovascular: Denies any chest pain or feeling of edema Gastrointestinal: Denies any abdominal pain, nausea/vomiting/diarrhea Musculoskeletal: Denies any acute extremity pains, myalgias, or focal weakness Skin: Denies any known acute rashes or lesions Neuro: Positive transient headache and tremulousness. Denies difficulty with extremity movement Physical Exam Physical Exam: GENERAL: Awake, alert, well-appearing and pleasantly conversational, in no acute distress. HENT: Normocephalic, atraumatic. Oropharynx mildly dry. EYES: Normal conjunctiva. Sclera non-icteric. NECK: Inspection normal. Supple and full ROM. No nuchal rigidity. CARDIAC: +S1S2 regular bradycardia, no murmurs. Multiple well-healing left ch est wall scars consistent with prior laparoscopy. RESPIRATORY: Clear to auscultation. No wheezes or rales. Normal respiratory effort. GI: +BS, soft, non-distended. No tenderness to palpation. No rebound or guarding. EXTREMITIES: No pedal edema or calf tenderness. Moving all extremities naturally and easily. NEURO: No gross neuro deficits. No present tremor. Results & Data Vital Signs (Past 12 Hours) Vital Signs Temp Pulse Pulse Resp BP BP Pulse Ox 09/13/18 02:00 54 L 18 147/67 H 96 09/13/18 00:43 57 L 20 125/61 96 09/12/18 23:31 63 18 175/84 H 96 09/12/18 22:23 36.9 C 72 18 221/130 H 96 Laboratory Results 09/12/18 09/12/18 Range/Units 23:25 23:25 WBC 11.77 H (4.8-10.8) K/uL RBC 4.38 (4.2-5.4) M/uL Hgb 14.3 (12.0-16.0) g/dL Hct 41.5 (37-47) % MCV 94.7 (80-100) fL MCH 32.6 (25-34) pg MCHC 34.5 (32-36) g/dL RDW Std Deviation 46.0 (36.4-46.3) fL RDW Coeff of [place] 13.3 (11.5-14.5) % Plt Count 333 (130-400) K/uL MPV 10.0 (7.4-10.4) fL Immature Gran % (Auto) 0.3 % Neut % (Auto) 77.5 % Lymph % (Auto) 14.5 % [place] % (Auto) 6.6 % Eos % (Auto) 0.8 % Baso % (Auto) 0.3 % Immature Gran # (Auto) 0.03 H (0.00-0.02) K/uL Neut # (Auto) 9.12 H (1.4-6.5) K/uL Lymph # (Auto) 1.71 (1.2-3.4) K/uL [place] # (Auto) 0.78 H (0.11-0.59) K/uL Eos # (Auto) 0.10 (0-0.5) K/uL Baso # (Auto) 0.03 (0-0.2) K/uL Sodium 140 (136-145) mmol/L Potassium 4.1 (3.5-5.1) mmol/L Chloride 108 H (98-107) mmol/L Carbon Dioxide 25 (21-32) mmol/L Anion Gap 7.0 (3-11) BUN 19 H (7-18) mg/dl Creatinine 1.04 (0.6-1.2) mg/dl Est Cr Clr Drug Dosing 47.1 ml/min Est GFR ( Amer) 62.2 Est GFR (Non-Af Amer) 53.6 BUN/Creatinine Ratio 17.9 (10-20) Glucose 133 H (70-99) mg/dl Calcium 9.6 (8.5-10.1) mg/dl Total Bilirubin 0.4 (0.2-1) mg/dl AST 22 (15-37) U/L ALT 39 (12-78) U/L Alkaline Phosphatase 141 H (45-117) U/L Troponin I 0.518 H* (0-0.045) ng/ml Total Protein 7.2 (6.4-8.2) gm/dl Albumin 3.2 L (3.4-5.0) gm/dl Globulin 4.0 (2.5-4.0) gm/dl Albumin/Globulin Ratio 0.8 L (0.9-2) Medications Administered Discontinued Medications Lorazepam (Ativan) 1 mg in 2 mls @ 2 mls/min IV NOW STA Stop: 09/12/18 22:40 Last Admin: 09/12/18 23:31 Dose: 2 mls/min Documented by: [id number] Code Status & VTE Plan Code Status Full code VTE Prophylaxis Plan VTE Prophylaxis will be ordered: Yes Supervising Physician Co-Signing Physician Notes Attending addendum: I have physically seen this patient, have supervised the medical residents activities, and agree with the H&P unless as otherwise noted. Assessment and Plan: NSTEMI/CAD/hypertension/atrial fibrillation- The patient will be admitted to telemetry for serial cardiac enzymes, serial EKG's, cardiac rhythm monitoring and a 2-D echocardiogram with Dopplers. Continue amiodarone, aspirin, Eliquis, metoprolol succinate, losartan and spironolactone. Consult her mica patcher Dr. Jara, who is aware of her present admission. Status post resection left upper lobe adenocarcinoma 08/29/2018- Performed by Dr. Phillips. Consult if needed. Hyperlipidemia- Continue atorvastatin 40 mg every evening. Remainder of orders and notations as noted. PG Care Time/CCT Total # of Minutes Spent Total Time Spent with Patient: Total time spent is greater than 50% in coordination of care (as documented) at patient's floor/unit and/or counseling patient: Resident Activity Tracking Resident Involvement: Resident Care Provided Care Provided: Adult Hospital Medicine
[2018-09-13] MEDS ORDERED: ACETAMINOPHEN 325 MG TAB PO PRN (03:32)
[2018-09-13] MEDS ORDERED: ONDANSETRON 4 MG TAB PO PRN (03:32)
--- NOTE | 2018-09-13 07:20 | CT Scan Report ---
CT SCAN OF THE BRAIN WITHOUT IV CONTRAST CLINICAL HISTORY: Headache. Hypertension. COMPARISON STUDY: No priors. TECHNIQUE: Unenhanced axial CT scan of the brain is performed from the vertex to the skull base. A do se lowering technique was utilized adhering to the principles of ALARA. CT DOSE: 537.48 mGy.cm FINDINGS: Brain parenchyma: There is minimal subcortical and periventricular microangiopathic change. There is no hemorrhage, mass effect, or evidence of acute territorial ischemia by CT criteria. Murphy-white pilo er differentiation is preserved. No extra-axial fluid collection is seen. Ventricles, sulci, cisterns: Normal in configuration. Intracranial vasculature: There is mild atherosclerotic calcification of the cavernous carotid arteri es. Calvarium: Unremarkable. Sinuses and mastoids: The visualized paranasal sinuses are clear. The mastoid air cells are well pneu matized. Orbits: The bony orbits are grossly intact. There are bilateral ocular lens implants. IMPRESSION: There is no hemorrhage, mass effect, or evidence of acute territorial ischemia by CT crit radhaia. Electronically signed by: Raj Virk M.D. 09/13/2018 7:19 AM
[2018-09-13] MEDS: ESTRACE~ORDER AWAITING ACTION SCH ×2 (07:32→16:19)
[2018-09-13] MEDS ORDERED: APIXABAN 5 MG TABLET PO SCH (09:00)
[2018-09-13] MEDS ORDERED: LOSARTAN POTASSIUM 50 MG TAB PO SCH (09:00)
[2018-09-13] MEDS ORDERED: LORATADINE 10 MG TAB PO SCH (09:00)
[2018-09-13] MEDS ORDERED: METOPROLOL TARTRATE 25 MG TAB PO SCH (09:00)
[2018-09-13] MEDS ORDERED: AMIODARONE 200 MG TAB PO SCH (09:00)
[2018-09-13] MEDS ORDERED: CHOLECALCIFEROL 1,000 UNITS TAB PO SCH (09:00)
--- NOTE | 2018-09-13 09:14 | Cardiology Consultation ---
Date of Consultation September 13, 2018 Assessment & Plan (1) Hypertensive urgency: 2. Elevated troponin/suspected recurrent stress-induced heart myopathy 3. Mild to moderate nonobstructive coronary artery disease 4. Recently diagnosed early stages lung adenocarcinoma 5. Postoperative atrial fibrillation 6. Chronic left bundle branch block 7. Anxiety Current presentation very similar to episode of Takotsubo/stress-induced cardiomyopathy back in April 2017. At that time again significantly hypertensive with elevated troponin to 5.8. Reviewed coronary angiography from that time which showed really only mild disease. Suspicion that current troponin elevation represents ACS is relatively low and would defer on further invasive evaluation at this time. Going forward recommend: -- continue to monitor on telemetry -- follow serial troponins until peak. -- Repeat echocardiogramsuspect recurrent apical wall motion abnormality -- Will consider repeat stress test, could potentially be done as an outpatient -- Continue home losartan 100 m -- Switch Toprol tartrate to Toprol-XL 25 mg daily. -- spironolactone 25 mg daily. -- Continue amiodarone 200mg daily -- Continue Eliquis -- Feel anxiety playing a role and recurrent episodes and additional anxiolytics as needed. Will follow History of Present Illness Attending Physician: Troy Pillai, DO History of Present Illness Mrs. Gore is a very pleasant 73-year-old woman with a history of prior stress- induced cardiomyopathy with resolved LV dysfunction, hypertension dyslipidemia, mild to moderate non-obstructive coronary artery disease, recent admission for left upper lobe wedge resection and mediastinal lymphadenectomy complicated by postoperative atrial fibrillation readmitted yesterday in the setting of uncontrolled hypertension and headache. Patient underwent wedge resection on 08/29/2018. Found to have early stage adenocarcinoma without lymph node involvement. Has been managed with amiodarone and started on Eliquis for post procedure atrial fibrillation. Since being home has had intermittent high blood pressures up in the 180s 90s and occasional 200s. Was seen by cardiology 2 days ago and losartan was increased to 100 mg daily, continued on metoprolol 12.5 twice daily. Amiodarone reduced to 200 mg daily. Yesterday states had a normal day. No new symptoms other than slight increase in cough. No fevers or chills. No chest pain. No recurrent palpitations. Checked her blood pressure yesterday evening per routine and noted to have systolic pressures in the 210s. States just felt funny, slightly shaky. Checked her blood pressure half an hour later with systolic pressures in the 230s questionable mild headache and called EMS. Upon arrival again hypertensive to the 210s. Was given 1 of Ativan and blood pressure trended down overnight. EKG/telemetry has shown sinus rhythm, sinus bradycardia with prior left bundle branch block. Troponin elevated at 0.5, up to 2.5 this morning. Allergies Allergy/AdvReac Type Severity Reaction Status Date / Time No Known Allergies Allergy Verified 09/12/18 23:38 Home Medications Home Medications Medication Instructions Recorded Confirmed Type aspirin [Aspir-81] 81 mg PO QPM 02/21/18 09/12/18 History atorvastatin 40 mg PO PM 02/21/18 09/12/18 History cholecalciferol (vitamin D3) 1,000 unit PO DAILY 02/21/18 09/12/18 History [Vitamin D3] estradiol 10 mcg VAGINAL 3XWK 02/21/18 09/12/18 History diphenhydramine HCl [Sleep Aid 50 mg PO HS PRN 08/23/18 09/12/18 History (diphenhydramine)] apixaban [Eliquis] 5 mg PO Q12H #60 tab MDD 10 09/01/18 09/12/18 Rx ondansetron HCl [Zofran] 4 mg PO Q8H PRN #10 tab 09/01/18 09/12/18 Rx amiodarone 200 mg PO QAM 09/12/18 09/12/18 History losartan 100 mg PO QAM 09/12/18 09/12/18 History metoprolol tartrate 12.5 mg PO BID 09/12/18 09/12/18 History Patient History Medical History Chronic cough Hyperlipidemia Hypertension Kidney stones hx of Lung nodule Incidental finding on chest CT during workup for cardiomyopathy. Now for wedge resection. Osteoarthritis Takotsubo cardiomyopathy 04/2017, moderate LV dysfunction, now resolved. Follows with [facility] [place] [place] cardiology. Torn rotator cuff RIGHT Surgical History History of arthroscopy of left knee History of cardiac cath 04/2017 for Takotsubo cardiomyopathy. Mild-moderate nonobstructive CAD. No intervention. History of colonoscopy History of left cataract extraction History of right cataract extraction History of tubal ligation Family History Sister Family history of colon cancer Brother Family history of bladder cancer Other Family history of cancer in brother Social History Preferred Language: Citizen Of [place] Communication Ability: Effective Hvac Tech Required: No Beliefs That Will Affect Care: None Current Living Situation: Spouse Other Information That Helps Us Care for You: No Feels Safe at Home: Yes Safety Concerns: Feels Safe At This Time Smoking Status: Former smoker Tobacco Type: cigarettes Second Hand Exposure: No Hx Alcohol Use: Yes Alcohol type: wine Hx Substance Use: No Review of Systems Review of Systems: All systems reviewed & are unremarkable except as noted in HPI & below Physical Exam Physical Exam: General: Comfortable, no acute distress Eyes: Sclerae anicteric, extraocular movements intact HENT: Oropharynx clear mucous membranes moist Neck: No JVD. Lungs: Clear to auscultation bilaterally, no rhonchi or wheezes. Left chest wall incisions well-healed Cardiac: Regular rate and rhythm, no murmurs, rubs or gallops. Vascular: 2+ radial bilaterally Abdomen: Soft, nontender, nondistended, positive bowel sounds. Extremities: Well perfused, no peripheral edema Skin: No rashes or lesions. Neuro: Nonfocal Psych: Alert orient x3, normal affect and mood Results & Data Vital Signs (Past 12 Hours) Vital Signs Temp Pulse Pulse Resp BP BP BP 09/13/18 07:42 36.5 C 60 18 146/73 H 09/13/18 04:00 36.8 C 56 L 20 121/75 09/13/18 03:18 54 L 20 129/73 09/13/18 03:00 36.9 C 52 L 66 18 123/73 09/13/18 02:00 54 L 18 147/67 H 09/13/18 00:43 57 L 20 125/61 09/12/18 23:31 63 18 175/84 H 09/12/18 22:23 36.9 C 72 18 221/130 H Pulse Ox 09/13/18 07:42 97 09/13/18 04:00 96 09/13/18 03:18 94 09/13/18 03:00 95 09/13/18 02:00 96 09/13/18 00:43 96 09/12/18 23:31 96 09/12/18 22:23 96
[2018-09-13] MEDS ORDERED: PERFLUTREN LIPID MICROSPHERE (DEFINITY) IV ONE (09:31)
[2018-09-13] MEDS ORDERED: SPIRONOLACTONE 25 MG TAB PO SCH (10:00)
--- NOTE | 2018-09-13 11:10 | Family Medicine Progress Note ---
Date of Service September 13, 2018 Assessment & Plan (1) Hypertension: Ms. Gore is a 73-year-old female with a past medical history of left upper lobe adenocarcinoma, hyperlipidemia, non-obstructive coronary artery disease, postoperative atrial fibrillation, history of Takotsubo's cardiomyopath y who was admitted on 13 September 2018 for transient hypertension and elevated troponin. Elevated Troponin, history of Takotsubo's cardiomyopathy -asymptomatic, never had chest pain or SOB. -EKG w/prior known LBBB -trop elevated at 2.5 this AM -Elevated troponin likely secondary to stress response in setting of prior Takotsubo CM and elevated BP causing increased afterload -recent cardiac cath in 04/23 showed mild - moderate nonobstructive CAD -Cardiology consulted, thank you for recommendations -> trend trops q6h until peak -> change metoprolol tartrate to succinate -> addition of spironolactone 25mg daily for optimum BP control -ECHO ordered -> shows new akinesis of mid-distal septum and mid anteroseptum, as well as hypokinesis to akinesis of mid anterior wall segment. New from prior ECHO on August 31, 2018 -will continue to monitor on telemetry overnight HTN/Hyperlipidemia/non-obstructive coronary artery disease -continue home losartan and atorvastatin Postoperative atrial fibrillation - continue home amiodarone, Eliquis, and metoprolol Left upper lobe adenocarcinoma: - S/p resection on by Dr. Phillips (thoracic surgery) - no planned chemo/radiation - Has developed a recent cough and was started on Claritin by Dr. Phillips. Likely allergies given rhinorrhea & post-nasal drip. Symptoms improving on Claritin Code status: Full code. Diet: Heart healthy. DVT prophylaxis: Eliquis. Disposition: Continue to monitor on med/surg with telemetry (2) Anxiety: (3) Elevated troponin: (4) Hyperlipidemia: (5) CAD (coronary artery disease): (6) Atrial fibrillation: (7) Primary adenocarcinoma of upper lobe of left lung: Supervising Physician Co-Signing Physician Notes I personally examined the patient and verified all welch points of history and exam, discussed case, and agree with decision making with Dr Quiros. feeling better, wants to go home vitals noted nad breathing unlabored case discussed with cardiology input appreciated stress cardiomyopathy - stable for home, adjust BP regimen. otherwise as above Subjective See Dr. Gillespie's H&P for details on history and physical examination Results & Data Vital Signs (Past 12 Hours) Vital Signs Temp Pulse Pulse Resp BP BP BP 09/13/18 09:08 51 L 09/13/18 07:42 36.5 C 60 18 146/73 H 09/13/18 04:00 36.8 C 56 L 20 121/75 09/13/18 03:18 54 L 20 129/73 09/13/18 03:00 36.9 C 52 L 66 18 123/73 09/13/18 02:00 54 L 18 147/67 H 09/13/18 00:43 57 L 20 125/61 09/12/18 23:31 63 18 175/84 H Pulse Ox 09/13/18 09:08 09/13/18 07:42 97 09/13/18 04:00 96 09/13/18 03:18 94 09/13/18 03:00 95 09/13/18 02:00 96 09/13/18 00:43 96 09/12/18 23:31 96 PG Care Time/CCT Total # of Minutes Spent Total Time Spent with Patient: Total time spent is greater than 50% in coordination of care (as documented) at patient's floor/unit and/or counseling patient: Resident Activity Tracking Resident Involvement: Resident Care Provided Care Provided: Adult Hospital Medicine
--- NOTE | 2018-09-13 18:50 | Discharge Summary ---
Date of Service September 13, 2018 Admission HPI Per Admitting Provider 73-year-old female is accompanied by her after EMS arrival for hypertension. Patient states that she successfully underwent a left upper lobe lobectomy (for adenocarcinoma) by Dr. Phillips (thoracic surgery) back on August 29. At that time she developed postoperative atrial fibrillation, seen by cardiology and placed on associated medications, and has since followed up with both Dr. Jara (cardiology) as well as Dr. Phillips in their respective clinics. She says she now takes her blood pressure twice a day. This evening she noted a home blood pressure of 209/97. She says this made her quite nervous and she quickly developed a bilateral hand tremor. She also noticed at that time a "slight headache". EMS was called and per patient's report her blood pressure was 235/109 en route. She denies any chest pain, new shortness of breath, abdominal pain, nausea or vomiting, or any other associated symptoms throughout this time. In the ED, she was noted to be quite anxious and was given a single dose of Ativan. Patient says this completely resolved her anxiousness and tremulousness. At the time of this H&P, patient has no physical concerns, including any headache. She does mention that she missed both her metoprolol and Eliquis doses earlier this evening. - Past medical history includes hypertension, hyperlipidemia, coronary disease, Takotsubo's cardiomyopathy s/p cath, bilateral cataracts, left upper lobe adenocarcinoma, kidney stones. - Past surgical history includes left upper lobe lobectomy and mediastinal lymphadenectomy, bilateral cataract, left knee arthroscopy. - Social history includes smoked 1-1.5 packs/day from age [age] yo. Drinks about 3 glasses of wine per week. Lives at home with . Admission Exam Per Admitting Provider GENERAL: Awake, alert, well-appearing and pleasantly conversational, in no acute distress. HENT: Normocephalic, atraumatic. Oropharynx mildly dry. EYES: Normal conjunctiva. Sclera non-icteric. NECK: Inspection normal. Supple and full ROM. No nuchal rigidity. CARDIAC: +S1S2 regular bradycardia, no murmurs. Multiple well-healing left chest wall scars consistent with prior laparoscopy. RESPIRATORY: Clear to auscultation. No wheezes or rales. Normal respiratory effort. GI: +BS, soft, non-distended. No tenderness to palpation. No rebound or guarding. EXTREMITIES: No pedal edema or calf tenderness. Moving all extremities naturally and easily. NEURO: No gross neuro deficits. No present tremor. Principal Diagnosis Takotsubo Cardiomyopathy, HTN Discharge Exam Constitutional WD/WN, vitals as above cooperative and comfortable Eyes PERRL, conjunctivae normal, anicteric sclerae Respiratory normal respiratory effort, lungs clear to auscultation Cardiovascular RRR, no murmur, no edema Gastrointestinal (Abdomen) normal bowel sounds, soft, nontender, no hepatosplenomegaly Skin no rashes, warm and dry Psychiatric A+Ox3, euthymic affect Discharge Data Allergies Allergy/AdvReac Type Severity Reaction Status Date / Time No Known Allergies Allergy Verified 09/12/18 23:38 Consultations 09/13/18 01:17 ED Decision to Admit Stat 09/13/18 06:58 Consult Cardiology Routine Ordered Studies 09/12/18 22:40 CT head/brain wo con Urgent Hospital Course (1) Hypertension: Ms. Gore is a 73-year-old female with a past medical history of left upper lobe adenocarcinoma, hyperlipidemia, non-obstructive coronary artery disease, postoperative atrial fibrillation, history of Takotsubo's cardiomyopathy who was admitted on 13 September 2018 for transient hypertension and elevated troponin. Elevated Troponin, history of Takotsubo's cardiomyopathy -pt took her BP at home, found it to be >200/100 and subsequently called EMS -apart from a mild headache, she was asymptomatic, never had chest pain or SOB. -BP improved to normal with one dose of IV ativan (pt was quite anxious about elevated BP) -EKG w/prior known LBBB -trop peaked at at 2.5 -Elevated troponin likely secondary to stress response in setting of prior Takotsubo CM and elevated BP causing increased afterload -recent cardiac cath in 04/23 showed mild - moderate nonobstructive CAD -Cardiology consulted -> recommended changing metoprolol tartrate to succinate -> addition of spironolactone 25mg daily for optimum BP control -> outpatient stress test -ECHO on 09/13 -> new akinesis of mid-distal septum and mid anteroseptum, as well as hypokinesis to akinesis of mid anterior wall segment. New from prior ECHO on August 31, 2018 -recommend pt have labs drawn w/PCP next week to ensure there are no electrolyte abnormalities w/the addition of spironolactone HTN/Hyperlipidemia/non-obstructive coronary artery disease -continue home losartan and atorvastatin Postoperative atrial fibrillation - continue home amiodarone, Eliquis, and metoprolol Left upper lobe adenocarcinoma: - S/p resection on by Dr. Phillips (thoracic surgery) - no planned chemo/radiation - Has developed a recent cough and was started on Claritin by Dr. Phillips. Likely allergies given rhinorrhea & post-nasal drip. Symptoms improving on Claritin (2) Anxiety: (3) Elevated troponin: (4) Hyperlipidemia: (5) CAD (coronary artery disease): (6) Atrial fibrillation: (7) Primary adenocarcinoma of upper lobe of left lung: Total Time Total Time Spent Total Time Spent (In Minutes): >30 Discharge Plan Discharge Items Patient Disposition: Home - Self-Care Reason For Visit: HYPERTENSION,ELEVATED TROPONIN Discharge Diagnosis: Elevated blood pressure, Takotsubo/stress-induced card iomyopathy Condition: Fair Discharge Goals: Decrease discomfort and Improve disease control Activity: Resume your previous activity Non-emergency contact: Primary Care Provider Call non-emergency contact if: you have any medication questions and your symptoms worsen Follow-up/Referrals: Jules Velarde MD [Primary Care Provider] - 09/20/18 4:15 pm (Please, follow up with Dr. Jules Velarde on September 20 at 4:15 pm. *If you need to change this appointment, call the office at [phone].) Diet: Heart Healthy Add Provider Instructions: Ms. Gore, you were admitted to [facility] due to elevated blood pressure and elevated troponin (enzyme that measures damage to your heart). Your EKG, the electrical tracing of your heart, did not show any abnormalities. You were seen by your usual heart doctor, Dr. Jara, who felt that your elevated troponin was caused by some increased stress. He ordered an ultrasound of your heart, which showed a pattern consistent with a recurrence of Takutsobo's syndrome - where the bottom part of the heart is weaker due to a transient lack of blood flow from spasm of the blood vessels. Because you're feeling good, have shown nothing worrisome on cardiac rhythm monitoring, and cardiac enzymes are trending downward, it is safe to let you go home. We will ask to get you set up with Dr Jara for the near future in the office, and he'll also be having you do a stress test in the near future. Due to the fact that your blood pressure continues to remain elevated despite being on medication for this, he recommended the addition of another medication to treat your blood pressure. This medication is called spironolactone. We will also be changing your metoprolol, which controls your heart rate and blood pressure, to a longer acting once a day medication, instead of twice a day. The spironolactone does a nice job of taking strain off your heart, but can sometimes cause you to retain potassium - because of this, we'd ask that you get labwork (basic metabolic panel, BMP) drawn at either Dr Jara' office or your PCP's office next week. If you have any episodes of chest pain, shortness of breath, palpitations, please seek medical attention. Otherwise, you can follow-up with your family doctor. Continue to take all of your other medications as prescribed. Prescriptions: New spironolactone 25 mg Tablet 25 mg PO QAM Qty: 30 RF: 3 metoprolol succinate [Toprol XL] 25 mg tablet extended release 24 hr 25 mg PO DAILY Qty: 30 RF: 3 Continued atorvastatin 40 mg Tablet 40 mg PO PM RF: 0 aspirin [Aspir-81] 81 mg Tablet,Delayed Release (Dr/Ec) 81 mg PO QPM RF: 0 cholecalciferol (vitamin D3) [Vitamin D3] 1,000 unit Capsule 1,000 unit PO DAILY RF: 0 estradiol 10 mcg Tablet 10 mcg vaginal 3XWK RF: 0 diphenhydramine HCl [Sleep Aid (diphenhydramine)] 50 mg Capsule 50 mg PO HS PRN (Reason: Sleep) RF: 0 Eliquis 5 mg tablet 5 mg PO Q12H MDD 10 Qty: 60 RF: 0 ondansetron HCl [Zofran] 4 mg tablet 4 mg PO Q8H PRN (Reason: nausea and vomiting) Qty: 10 RF: 0 amiodarone 200 mg Tablet 200 mg PO QAM RF: 0 losartan 100 mg Tablet 100 mg PO QAM RF: 0 Discontinued metoprolol tartrate 25 mg tablet 12.5 mg PO BID RF: 0 Stand-Alone Forms: My [facility] Discharge Orders: Discharge Order (Routine); Ordered 09/13/18 Ordered By: Troy Pillai Admission Data Admit Date/Time: 09/13/18 02:18 Attending Provider: Troy Pillai Admit Provider: Brody Gillespie Primary Care Provider: Jules Velarde Other Providers: Lele Forte ; Josiah Jara Service: Telemetry Medical Other Interventions: Discharge Summary Assessment (RN) Last Done: 09/13/18 18:14 DC Date/Time DO NOT enter until pt leaves facility: 09/13/18 18:52 Supervising Physician Co-Signing Physician Notes I personally examined the patient and verified all welch points of history and exam, discussed case, and agree with decision making with Dr Quiros. feeling better would like to go home. cardiology input appreciated. vitals noted nad breathing unlabored echo and troponins noted hypertensive emergency/recurrent takutsobo's - stable for home otherwise as above
[2018-09-13] MEDS ORDERED: ASPIRIN 81 MG ECTAB PO SCH (21:00)
[2018-09-13] MEDS ORDERED: ATORVASTATIN 40 MG TAB PO SCH (21:00)
[2018-09-14] MEDS ORDERED: METOPROLOL SUCC 25MG EXT REL TAB PO SCH (09:00)
== END 2018-09-13 18:52 | disposition home or self-care (01) ==
LOC: ED 22:14 → 2N 22:14 → SUATTDRO 09-13 02:18 → 2N 09-13 03:18

== ENCOUNTER 2023-10-09 08:41 | Observation (INO) ==
[2023-10-09] MEDS: METOPROLOL TARTRATE 1 MG/ML VIAL IV STA (09:18)
[2023-10-09 09:34] LABS: Basophils # (auto) 0.01 K/uL (0.00-0.20); Basophils % (auto) 0.1 %; Eosinophils # (auto) 0.01 K/uL (0.00-0.50); Eosinophils % (auto) 0.1 %; Hematocrit (blood only) 28.8 % (37.0-47.0); Hemoglobin 9.8 g/dl (12.0-16.0); Immature Granulocytes # (auto) 0.03 K/uL (0.01-0.20); Immature Granulocytes % (auto) 0.3 %; Lymphocytes # (auto) 1.61 K/uL (1.20-3.40); Lymphocytes % (auto) 17.6 %; Mean Corpuscular Volume 94.1 fL (80.0-100.0); Mean Platelet Volume 11.2 fL (9.4-12.4); Monocytes # (auto) 0.33 K/uL (0.11-0.59); Monocytes % (auto) 3.6 %; Neutrophils # (auto) 7.17 K/uL (1.40-6.50); Neutrophils % (auto) 78.3 %; Platelet Count 234 K/uL (130-400); RDW Coefficient of Variation 18.1 % (11.5-14.5); RDW Standard Deviation 60.9 fL (36.4-46.3); Red Blood Count 3.06 M/uL (4.20-5.40); White Blood Count 9.16 K/ul (4.8-10.8)
--- NOTE | 2023-10-09 09:48 | Emergency Department Note ---
Impression & Plan Syncope, cardiogenic, Atrial fibrillation with rapid ventricular response, Elevated troponin ED Provider Note NAME: PARAMJIT SIMEON AGE: 78 SEX: F : 1945 ARRIVES VIA: Ambulance INFORMANT: Patient, ED PROVIDER(S): Arturo Mcgrath MD CHIEF COMPLAINT: Syncopal episode HPI: This is a 78-year-old female presenting for syncopal episode. Patient notes that she thought she had to be diagnosed with A-fib about 2 weeks ago. Put on metoprolol but not blood thinners. Patient notes that she has not been sure if he is been in A-fib this entire time as she cannot feel her heart racing at this time. She has been having diarrhea and vomiting over the past few days as well. She has history of bladder cancer and on chemotherapy. She notes that last night she had a syncopal episode while on the toilet. She was urinating when she syncopized. Not hit the ground or injure anything. Today she woke up and attempted to use the bathroom again urinating/now having a bowel movement. She syncopized again was called by her . Her heart rate upon arrival is in the 130s again in A-fib rhythm. She notes no nausea, vomiting at this time. No chest pain at this time. No shortness of breath. ROS: See above HPI for pertinent positives & negatives. A total of 10 systems reviewed and were otherwise negative. PHYSICAL EXAMINATION: General: resting comfortably in no acute distress Head: Normocephalic and atraumatic Eyes: Normal inspection, extraocular muscles intact Ear, nose, throat: Normal external exam Neck: Normal range of motion Respiratory: lungs clear to auscultation bilaterally Cardiovascular: Irregularly irregular rate/rhythm, no murmur GI: soft, nontender, no guarding or rebound Extremities: nontender, moves all extremities Neuro: The patient awake and alert, appropriately conversive, no focal deficits, symmetric faces Skin: Warm, dry, and intact MEDICAL DECISION MAKING: This is a [id number]-year-old female presenting for syncopal episode patient is feeling A-fib with RVR with rates in the 120s to 130s. Blood pressure is stable around 130s to 160s at this time. Will give metoprolol IV to help elucidate. Otherwise patient does have episodes of slight sinus pauses between 2 and [address] patient on monitor as well as crash cart. Will continue observe. With patient's multiple syncopal episodes, A-fib with RVR, no anticoagulation, will require admission ultimately. Will get troponin and EKG in the meantime. -Patient phone is elevated to over 40 at this time -Patient's rhythm has changed to a sinus rhythm after the IV metoprolol. Despite this with patient stable episodes, troponin elevation, will admit for further workup including ischemic cardiac disease -Patient family made aware of this and comfortable with plan Differential diagnosis: ACS, A-fib with RVR, tacky bradycardia syndrome, cardiogenic syncope ER treatment provided: See below Diagnostics interpreted by me: ECG: ECG independently interpreted by me with atrial fibrillation with RVR, rate of 130, normal CA, normal QRS, normal QTc, no ST segment elevations consistent with STEMI criteria Cardiac Monitoring: An order was placed for continuous cardiac monitoring. The monitor shows a rate of 133 with atrial fibrillation rhythm. Laboratory studies: As stated above and show below. Imaging studies: See below. Critical Care Note: I have personally spent 32 minutes of critical care time in the direct management of this patient. This includes bedside care, interpretation of diagnostic studies, and testing, discussion with consultants, patient, and family members, and other required patient management activities. This 32 minutes is in excess of all separately billable procedures. Past Med/Surg History Problem List (Updated 10/09/23 @ 14:11 by Arturo Mcgrath MD) Elevated troponin (Acute) Atrial fibrillation with rapid ventricular response (Acute) Syncope, cardiogenic (Acute) Syncope Shortness of breath Ureteral stent present H/O transurethral resection of bladder tumor (TURBT) Transurethral Resection of Bladder Tumor (medium)- Asim Reynolds MD s Left Retrograde Pyelogram,Left Ureteral Stent Placement (Left) Urothelial carcinoma of bladder s/p TURBT and following with urology for BCG treatments Encounter for pre-operative examination Health care maintenance Hydronephrosis, left Multiple pulmonary nodules determined by computed tomography of lung Seasonal allergies Status post lobectomy of lung Abdominal aortic atherosclerosis History of colon polyps Impaired glucose metabolism PCP monitoring- A1C 6.6 in 04/2023 Postmenopausal atrophic vaginitis Indeterminate pulmonary nodules Arthritis of knee, degenerative (Chronic) Anxiety (Chronic) Chronic cough (Chronic) Pancreatic cyst (Chronic) Takotsubo cardiomyopathy (Chronic) Dyslipidemia (Chronic) HTN (hypertension) (Chronic) Non-occlusive coronary artery disease (Chronic) Per 2018 cath per cardio records Lung nodule Incidental finding on chest CT during workup for cardiomyopathy. Now for wedge resection. Medical History Arthritis Bladder cancer current dx>plans for port for chemo tx Restless leg syndrome History of kidney stones Hx of cancer of lung dx 2018 - s/p left upper lobectomy LBBB (left bundle branch block) History of COVID-19 05/2020--mild symptoms, resolved History of atrial fibrillation 2018- post op lung lobectomy - converted with medication - no known recurrence (cardiac event monitor revealed no a fib) - no longer on AC therapy Anxiety Eczema Takotsubo cardiomyopathy Recurrent per records. 04/2017, moderate LV dysfunction, now resolved. [place] [facility] [place]. Torn rotator cuff RIGHT--per pt "had stem cell injection for this and states it is 99% better" Hyperlipidemia Hypertension Surgical History Port-A-Cath in place (08/09/23) Insertion of Access Port with Fluoroscopy, Right Internal Jugular(Right) - Nick Wood, , FACS H/O transurethral resection of bladder tumor (TURBT) x 3 *last one 06/2023 History of nasal cauterization History of tooth extraction History of cystoscopy History of stem cell transplant 2021 History of lobectomy of lung CARTER History of right cataract extraction History of tubal ligation History of arthroscopy of left knee History of left cataract extraction History of colonoscopy History of cardiac cath 04/2017 for Takotsubo cardiomyopathy. Mild-moderate nonobstructive CAD. No intervention. Family History Sister Family history of colon cancer Colorectal cancer Brother Family history of bladder cancer Unknown Pure hypercholesterolemia Mother Hypertension Father Hypertension Aunt Diabetes Other Allergies Cancer Heart disease No family history of adverse response to anesthesia No family history of bleeding disorder Stroke Denies family history of Ovarian cancer Prostate cancer Myocardial infarction Breast cancer Lung cancer Social History Smoking Status: Unknown if ever smoked Tobacco Type: Cigarettes Age Started Using Tobacco: 19; Age Quit Using Tobacco: 37; packs per day: 1.5; Second Hand Exposure: Yes (father smoked); Do You Dip or Chew Tobacco: No; Hx Alcohol Use: Yes Alcohol type: wine Alcohol Intake Frequency: 4 or More x per/Week Alcohol Intake Frequency Comment: one glass a day Preferred Language: [place]an Communication Ability: Effective Visual Impairment: Limited Hearing Ability: Normal Agile Coach Required: No Beliefs That Will Affect Care: None marital status: Current Living Situation: Spouse current occupational status: retired How many Children do You have: 3 Feels Safe at Home: Yes Childhood Exposure to Second-Hand Smoke: Yes Diet: regular caffeine: Yes during the past year weight has: remained stable Dental Care, Regularly: Yes Physical Activity Frequency: Does not Exercise Seatbelt Use: always Sunscreen Use: Yes Assistive Devices: Glasses Allergies Allergies Allergy/AdvReac Type Severity Reaction Status Date / Time MONICA Inhibitors AdvReac Intermediate Cough Verified 09/28/23 16:09 diltiazem AdvReac Intermediate Cough Verified 09/28/23 16:09 PABA derivatives Allergy Mild Rash Uncoded 09/28/23 16:09 Home Meds Home Medications Medication Instructions Recorded Confirmed cholecalciferol (vitamin D3) 25 1,000 unit PO QPM 02/21/18 10/09/23 mcg (1,000 unit) capsule (Vitamin D3) losartan 25 mg tablet 25 - 50 mg PO BID 12/26/22 10/09/23 cetirizine 10 mg tablet (Zyrtec) 10 mg PO DAILY 10/09/23 10/09/23 Previous Rx's Medication Instructions Recorded albuterol sulfate 90 mcg/actuation 2 inh inhalation QID PRN shortness 12/08/21 aerosol inhaler of breath or wheezing #8.5 grams sertraline 50 mg tablet 50 mg PO HS #90 tabs 03/03/23 estradiol 10 mcg vaginal tablet 10 mcg vaginal 3XWK #36 tabs 06/12/23 (Vagifem) hydralazine 10 mg tablet 10 mg PO TID #270 tabs 08/15/23 lorazepam 0.5 mg tablet 0.5 mg PO Q12H PRN anxiety #30 tabs 08/21/23 atorvastatin 80 mg tablet 80 mg PO HS #90 tabs 09/14/23 metoprolol tartrate 25 mg tablet 25 mg PO BID #60 tabs 09/22/23 Results & Data (ED) Vital Signs Vital Signs - 24 hr 10/09/23 08:36 10/09/23 08:36 10/09/23 08:48 Temperature 36.7 C Temperature Source Oral Pulse Rate 134 H 137 H Pulse Rate [Apical] Pulse Rate from SpO2 Sensor Respiratory Rate 20 23 Respiratory Effort / Characteristics Non-Labored Spontaneous Respiratory Depth Normal Blood Pressure 103/85 Blood Pressure [Right Arm] Blood Pressure Mean 91 Blood Pressure Mean [Right Arm] Pulse Oximetry 96 96 Oxygen Delivery Method Room Air Room Air Sepsis Recent Fever Within 48 Hours No Sepsis New/Unexplained Change in Mental Status N/A Sepsis Action Taken by Nursing No Action Required 10/09/23 08:48 10/09/23 08:50 10/09/23 08:54 Temperature Temperature Source Pulse Rate 136 H 117 H Pulse Rate [Apical] Pulse Rate from SpO2 Sensor 114 H Respiratory Rate 21 Respiratory Effort / Characteristics Respiratory Depth Blood Pressure 103/85 Blood Pressure [Right Arm] Blood Pressure Mean 93 Blood Pressure Mean [Right Arm] Pulse Oximetry 95 Oxygen Delivery Method Sepsis Recent Fever Within 48 Hours Sepsis New/Unexplained Change in Mental Status Sepsis Action Taken by Nursing 10/09/23 08:54 10/09/23 09:00 10/09/23 09:06 Temperature Temperature Source Pulse Rate 113 H 121 H Pulse Rate [Apical] Pulse Rate from SpO2 Sensor 132 H 127 H Respiratory Rate 18 15 Respiratory Effort / Characteristics Respiratory Depth Blood Pressure 161/99 H Blood Pressure [Right Arm] Blood Pressure Mean 136 Blood Pressure Mean [Right Arm] Pulse Oximetry 96 95 Oxygen Delivery Method Sepsis Recent Fever Within 48 Hours Sepsis New/Unexplained Change in Mental Status Sepsis Action Taken by Nursing 10/09/23 09:17 10/09/23 09:18 10/09/23 09:21 Temperature Temperature Source Pulse Rate 122 H 115 H Pulse Rate [Apical] Pulse Rate from SpO2 Sensor 110 H Respiratory Rate 23 Respiratory Effort / Characteristics Respiratory Depth Blood Pressure 138/96 138/96 Blood Pressure [Right Arm] Blood Pressure Mean 106 Blood Pressure Mean [Right Arm] Pulse Oximetry 96 Oxygen Delivery Method Sepsis Recent Fever Within 48 Hours Sepsis New/Unexplained Change in Mental Status Sepsis Action Taken by Nursing 10/09/23 09:33 10/09/23 09:42 10/09/23 09:43 Temperature Temperature Source Pulse Rate 111 H 112 H 104 H Pulse Rate [Apical] Pulse Rate from SpO2 Sensor 107 H 118 H Respiratory Rate 16 18 Respiratory Effort / Characteristics Respiratory Depth Blood Pressure 131/106 H Blood Pressure [Right Arm] Blood Pressure Mean Blood Pressure Mean [Right Arm] Pulse Oximetry 95 95 Oxygen Delivery Method Sepsis Recent Fever Within 48 Hours Sepsis New/Unexplained Change in Mental Status Sepsis Action Taken by Nursing 10/09/23 09:44 10/09/23 10:00 10/09/23 10:15 Temperature Temperature Source Pulse Rate 107 H 80 Pulse Rate [Apical] Pulse Rate from SpO2 Sensor 115 H 74 Respiratory Rate 16 15 Respiratory Effort / Characteristics Respiratory Depth Blood Pressure 131/106 H Blood Pressure [Right Arm] Blood Pressure Mean 122 Blood Pressure Mean [Right Arm] Pulse Oximetry 97 95 Oxygen Delivery Method Sepsis Recent Fever Within 48 Hours Sepsis New/Unexplained Change in Mental Status Sepsis Action Taken by Nursing 10/09/23 10:21 10/09/23 10:27 10/09/23 10:36 Temperature Temperature Source Pulse Rate 70 67 Pulse Rate [Apical] 64 Pulse Rate from SpO2 Sensor 65 69 Respiratory Rate 22 18 20 Respiratory Effort / Characteristics Respiratory Depth Blood Pressure Blood Pressure [Right Arm] 120/57 L Blood Pressure Mean Blood Pressure Mean [Right Arm] 78 Pulse Oximetry 94 94 96 Oxygen Delivery Method Room Air Sepsis Recent Fever Within 48 Hours Sepsis New/Unexplained Change in Mental Status Sepsis Action Taken by Nursing 10/09/23 10:37 10/09/23 10:37 10/09/23 10:39 Temperature Temperature Source Pulse Rate 68 Pulse Rate [Apical] Pulse Rate from SpO2 Sensor 68 Respiratory Rate 23 Respiratory Effort / Characteristics Respiratory Depth Blood Pressure 120/57 L 120/57 L Blood Pressure [Right Arm] Blood Pressure Mean 74 74 Blood Pressure Mean [Right Arm] Pulse Oximetry 95 Oxygen Delivery Method Sepsis Recent Fever Within 48 Hours Sepsis New/Unexplained Change in Mental Status Sepsis Action Taken by Nursing 10/09/23 10:48 10/09/23 10:57 10/09/23 11:00 Temperature Temperature Source Pulse Rate 67 67 Pulse Rate [Apical] Pulse Rate from SpO2 Sensor 65 67 Respiratory Rate 25 H 15 Respiratory Effort / Characteristics Respiratory Depth Blood Pressure 140/70 Blood Pressure [Right Arm] Blood Pressure Mean 112 Blood Pressure Mean [Right Arm] Pulse Oximetry 95 95 Oxygen Delivery Method Sepsis Recent Fever Within 48 Hours Sepsis New/Unexplained Change in Mental Status Sepsis Action Taken by Nursing 10/09/23 11:00 10/09/23 11:06 10/09/23 11:12 Temperature Temperature Source Pulse Rate 70 68 Pulse Rate [Apical] Pulse Rate from SpO2 Sensor 69 68 Respiratory Rate 28 H 19 Respiratory Effort / Characteristics Respiratory Depth Blood Pressure 140/70 Blood Pressure [Right Arm] Blood Pressure Mean 112 Blood Pressure Mean [Right Arm] Pulse Oximetry 96 96 Oxygen Delivery Method Sepsis Recent Fever Within 48 Hours Sepsis New/Unexplained Change in Mental Status Sepsis Action Taken by Nursing 10/09/23 11:36 10/09/23 11:45 10/09/23 11:51 Temperature Temperature Source Pulse Rate 70 68 69 Pulse Rate [Apical] Pulse Rate from SpO2 Sensor 70 68 69 Respiratory Rate 21 22 18 Respiratory Effort / Characteristics Respiratory Depth Blood Pressure Blood Pressure [Right Arm] Blood Pressure Mean Blood Pressure Mean [Right Arm] Pulse Oximetry 95 97 95 Oxygen Delivery Method Sepsis Recent Fever Within 48 Hours Sepsis New/Unexplained Change in Mental Status Sepsis Action Taken by Nursing 10/09/23 12:03 10/09/23 12:12 10/09/23 12:21 Temperature Temperature Source Pulse Rate 69 68 68 Pulse Rate [Apical] Pulse Rate from SpO2 Sensor 69 68 68 Respiratory Rate 18 19 18 Respiratory Effort / Characteristics Respiratory Depth Blood Pressure Blood Pressure [Right Arm] Blood Pressure Mean Blood Pressure Mean [Right Arm] Pulse Oximetry 95 95 94 Oxygen Delivery Method Sepsis Recent Fever Within 48 Hours Sepsis New/Unexplained Change in Mental Status Sepsis Action Taken by Nursing 10/09/23 12:30 10/09/23 12:47 10/09/23 12:48 Temperature Temperature Source Pulse Rate 67 68 Pulse Rate [Apical] 68 Pulse Rate from SpO2 Sensor 67 64 Respiratory Rate 22 20 20 Respiratory Effort / Characteristics Respiratory Depth Blood Pressure Blood Pressure [Right Arm] 150/76 H Blood Pressure Mean Blood Pressure Mean [Right Arm] 100 Pulse Oximetry 94 97 97 Oxygen Delivery Method Room Air Sepsis Recent Fever Within 48 Hours Sepsis New/Unexplained Change in Mental Status Sepsis Action Taken by Nursing 10/09/23 12:48 10/09/23 12:48 10/09/23 12:57 Temperature Temperature Source Pulse Rate 69 Pulse Rate [Apical] Pulse Rate from SpO2 Sensor Respiratory Rate 20 Respiratory Effort / Characteristics Respiratory Depth Blood Pressure 150/76 H 150/76 H Blood Pressure [Right Arm] Blood Pressure Mean 115 115 Blood Pressure Mean [Right Arm] Pulse Oximetry Oxygen Delivery Method Sepsis Recent Fever Within 48 Hours Sepsis New/Unexplained Change in Mental Status Sepsis Action Taken by Nursing 10/09/23 13:03 Temperature Temperature Source Pulse Rate 67 Pulse Rate [Apical] Pulse Rate from SpO2 Sensor Respiratory Rate 18 Respiratory Effort / Characteristics Respiratory Depth Blood Pressure Blood Pressure [Right Arm] Blood Pressure Mean Blood Pressure Mean [Right Arm] Pulse Oximetry Oxygen Delivery Method Sepsis Recent Fever Within 48 Hours Sepsis New/Unexplained Change in Mental Status Sepsis Action Taken by Nursing Laboratory Data 10/09/23 08:50 10/09/23 08:50 Lab Results 10/09/23 Range/Units 08:50 WBC 9.16 (4.8-10.8) K/ul RBC 3.06 L (4.20-5.40) M/uL Hgb 9.8 L (12.0-16.0) g/dl Hct 28.8 L (37.0-47.0) % MCV 94.1 (80.0-100.0) fL MCH 32.0 (25.0-34.0) pg MCHC 34.0 (32.0-36.0) g/dL RDW Std Deviation 60.9 H (36.4-46.3) fL RDW Coeff of [place] 18.1 H (11.5-14.5) % Plt Count 234 (130-400) K/uL MPV 11.2 (9.4-12.4) fL Immature Gran % (Auto) 0.3 % Neut % (Auto) 78.3 % Lymph % (Auto) 17.6 % [place] % (Auto) 3.6 % Eos % (Auto) 0.1 % Baso % (Auto) 0.1 % Neut # (Auto) 7.17 H (1.40-6.50) K/uL Lymph # (Auto) 1.61 (1.20-3.40) K/uL [place] # (Auto) 0.33 (0.11-0.59) K/uL Eos # (Auto) 0.01 (0.00-0.50) K/uL Baso # (Auto) 0.01 (0.00-0.20) K/uL Immature Gran # (Auto) 0.03 (0.01-0.20) K/uL PT 11.3 (9.0-12.0) Seconds INR 1.0 (0.9-1.1) APTT 24 (21-31) Seconds PTT Ratio 0.9 Sodium 136 (136-145) mmol/L Potassium 3.2 L (3.5-5.1) mmol/L Chloride 102 (98-107) mmol/L Carbon Dioxide 24 (21-32) mmol/L Anion Gap 10 (3-11) BUN 26 H (6-23) mg/dl Creatinine 1.15 (0.6-1.2) mg/dl Est Cr Clr Drug Dosing 39.9 ml/min Est GFR ( Amer) 53.2 ml/min Est GFR (Non-Af Amer) 45.9 ml/min BUN/Creatinine Ratio 22.6 H (10-20) Glucose 160 H (70-99(Fasting)) mg/dl Calcium 8.4 L (8.6-10.3) mg/dl Magnesium 1.2 L (1.7-2.4) mg/dl Total Bilirubin 1.0 (0.2-1.0) mg/dl AST 15 (13-39) U/L ALT 19 (7-52) U/L Alkaline Phosphatase 96 (34-104) U/L Troponin I High Sens 40.8 H (0-14) pg/ml Total Protein 6.7 (6.0-8.3) gm/dl Albumin 3.7 (3.4-5.0) gm/dl Globulin 3.0 (2.5-4.0) gm/dl Albumin/Globulin Ratio 1.2 (0.9-2) TSH 2.225 (0.300-4.500) uIu/ml Administered Medications Heparin Sodium/Dextrose (Heparin Sodium/Dextrose) 25,000 units in 500 mls @ 15 mls/hr IV .Q24H [facility]; Protocol Stop: 10/10/23 10:00 Last Admin: 10/09/23 10:26 Dose: 750 units/hr, 15 mls/hr Documented By: NEREYDA Co-signed By: SHANTELL Magnesium Sulfate/Dextrose (Magnesium Sulfate / D5w) 1 gm in 100 mls @ 50 mls/hr IV Q2H MICHAEL Stop: 10/09/23 14:44 Last Infusion: 10/09/23 13:12 Dose: Infused Documented By: Admin: 10/09/23 11:29 Dose: 50 mls/hr Documented By: Infusion: 10/09/23 11:29 Dose: Infused Documented By: Admin: 10/09/23 11:29 Dose: 50 mls/hr Documented By: BARRIE Discontinued Medications Heparin Sodium (Porcine) (Heparin Sod (Porcine) 1000 Unit/Ml) 1 units IV NOW ONE Stop: 10/09/23 09:44 Last Admin: 10/09/23 10:33 Dose: 4,000 units Documented By: NEREYDA Co-signed By: CELESTE Heparin Sodium/Dextrose (Heparin Iv Adult Wt-Based Low-Dose W/ Initial Bolus Protocol) 1 each IV NOW STA; Protocol Stop: 10/09/23 09:29 Last Admin: 10/09/23 10:35 Dose: Not Given Documented By: NEREYDA Metoprolol Tartrate (Metoprolol Tartrate 1 Mg/Ml Vial) 5 mg IV NOW STA Stop: 10/09/23 09:05 Last Admin: 10/09/23 09:18 Dose: 5 mg Documented By: NEREYDA Potassium Chloride (Potassium Chloride Crtab 20 Meq Tabcr) 40 meq PO NOW STA Stop: 10/09/23 11:54 Last Admin: 10/09/23 12:46 Dose: 40 meq Documented By: NEREYDA Imaging Data Radiologist's Impression: Chest X-Ray 10/09/23 11:20 XR chest 1V portable CLINICAL HISTORY: dyspnea, pleural effusions COMPARISON STUDY: Chest radiograph September 14, 2023. Chest CT October 05, 2023. FINDINGS: A right internal jugular [id number] is unchanged in position. Is no pneumothorax. A trace left pleural effusion has decreased in size since prior chest CT. Right pleural effusion is no longer identified. There is no evidence for pulmonary edema. Minimal left basilar opacity persists. Cardiomediastinal silhouette is stable. IMPRESSION: 1. Trace left pleural effusion, decreased in size since prior exam. No right pleural effusion identified by radiography. 2. No significant change in mild left basilar opacity which can be assessed on follow-up exams. ACT 112: Negative or not required by law. Electronically signed by: Dajuan Suarez M.D. 10/09/2023 11:46 AM Discharge Plan Visit Data Chief Complaint: Cardiac Assessment ED Provider: Arturo Mcgrath Discharge Problem: Syncope, cardiogenic, Atrial fibrillation with rapid ventricular response, Elevated troponin Patient Disposition: Admitted As Inpatient Discharge Instructions Interventions: ED Discharge Assessment Last Done: 10/09/23 13:36
[2023-10-09 09:53] LABS: Albumin Level 3.7 gm/dl (3.4-5.0); Calcium 8.4 mg/dl (8.6-10.3); Magnesium 1.2 mg/dl (1.7-2.4); Potassium 3.2 mmol/L (3.5-5.1)
[2023-10-09 09:58] LABS: Troponin I High Sensitivity 40.8 pg/ml (0-14)
[2023-10-09 09:59] LABS: Albumin Globulin Ratio 1.2 (0.9-2); BUN Creatinine Ratio 22.6 (10-20); Creatinine Clr Calc Pharmacy 39.9 ml/min; Est GFR (African American) 53.2 ml/min; Est GFR (Non-African American) 45.9 ml/min; Total Protein 6.7 gm/dl (6.0-8.3)
[2023-10-09 10:07] LABS: Thyroid Stimulating Hormone 2.225 uIu/ml (0.300-4.500)
[2023-10-09 10:09] LABS: Partial Thromboplastin Ratio 0.9; Partial Thromboplastin Time 24 Seconds (21-31); Prothrombin Time 11.3 Seconds (9.0-12.0)
[2023-10-09] MEDS: HEPARIN SODIUM/DEXTROSE 25,000 UNITS/500 ML BAG IV SCH (10:26)
[2023-10-09] MEDS: HEPARIN SOD (PORCINE) 1000 UNIT/ML IV ONE ×2 (10:33→17:05)
[2023-10-09] MEDS: Heparin IV Adult Wt-Based Low-Dose w/ INITIAL Bolus Protocol IV STA (10:35)
--- NOTE | 2023-10-09 11:00 | History & Physical Report ---
Date of Service October 09, 2023 Assessment & Plan (1) Syncope: Plan: Syncope x 2 Both episodes occurred while on the toilet, patient had had a heart rate in the 1001 30s with exertional fatigue and dyspnea the week before suspicious for A-fib recurrence Episodes occurring on the toilet are spacious for vasovagal episode on top of A-fib RVR; however patient did not have any presyncopal symptoms whatsoever and notes that she does not remember passing out at all, her found her slumped over. She did not hit the ground or have head strike. She has had intermittent pauses 2 to 3 seconds on telemetry. Cardiogenic syncope is not excluded. She has a history of bradycardia and poor tolerance to beta-blockers, started on this for tachycardia and bigeminy and they are in a week. Beta- jean pierre has been held on admission. Had not had orthostatic sx, passedout on the toilet while sitting not standing and notes most of her recent sx were exercise intolerance. Converted to NSR following 5 mg metoprolol push mL in the ER. Will follow on telemetry overnight. A-fib management as below including magnesium repletion. Given A-fib recurrence patient has been started on heparin gtt. Will transition to Eliquis for stroke prophylaxis, and may have a 30-day monitor to reassess A-fib burden (2) Atrial fibrillation with rapid ventricular response: Plan: Atrial fibrillation A-fib RVR, with symptoms in the last week. Patient did have an EKG which showed bigeminy last week however is not in bigeminy and is with suspected RVR on presentation to the ER - Converted to sinus after 5mg IV MTP Has been on chemo as noted. Suspect A-fib provoked in the setting of stress, chemotherapy, and hypomagnesemia with levels of 1.2 on admission. Repleted; goal 2.0. She has been hypomagnesic before, will start on oral supplementation as well. Potassium 3.2, optimized to 4.0. 40meq x1, then 20meq TID x3 total doses. BMP daily Patient has had a history of bradycardia with beta-jean pierre therapy in the past. Converted after single dose of metoprolol 5 mg IV push. Patient was recently put on metoprolol 25 mg p.o. twice daily, and had poor tolerance to this in the past. Held due to syncope with short pauses on monitor Did have new pleural effusions on last CTA. This may be related to weight related congestion/cardiomyopathy, exudative process from underlying lung disease noted. Was bilateral, suspect transudative most likely. Chest x-ray ordered on admission to reevaluate. - [id number] 4, +active maliganancy. Anticoagulation is indicated. Hep gtt --> eliquis transition for outpt tomorrow AM (3) Non-occlusive coronary artery disease: Plan: CAD, elevated troponin History of nonobstructive coronary disease on last cath 04/2018 History of recurrent Takotsubo's last 2017, subsequent EF normalized. Mild troponin elevations, subsequently downtrending at 33.9 Suspect elevated troponin due to demand with tachycardia. She has had no chest pain or exertional chest pain at any point Has been undergoing chemotherapy and is with history of Takotsubo's. Limited echo for wall motion ordered - Former smoker quit 1982, previously with around [id number] history tobacco - Last echo 09/2018: EF 60 to 65%. Mid to distal septum and mid anteroseptal akinesis. Hypokinesis to akinesis of the mid anterior wall section. Cardiac catheterization 04/2017: 20% LM distal stenosis, LAD moderately calcified 20 to 30% ostial stenosis, diffuse 20% proximal disease, 40-50% focal mid stenosis after takeoff of second diagonal, small distal vessel. First diagonal small with diffuse disease, second diagonal with 20% ostial stenosis. Circumflex 30-40% ostial stenosis large normal OM 2. RCA dominant, 20% diffuse proximal disease distal luminal irregularities. Overall mild to moderate nonobstructive coronary disease, LVEF 30% at that time consistent with Takotsubo cardiomyopathy rather than ischemic cardiomyopathy. 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 Patient has chronic shortness of breath multifactorial with history of chemotherapy treatment, lung restriction, bladder cancer, and cardiac disease - [id number] CARTER. PET scan 09/06/2023 showed uptake at the deep left pelvis and left aspect of the vagina which could represent residual disease. Left lower lobe subpleural opacity was decreasing, not FDG avid, and was decreasing in size CTA 10/04 with slow enlargement in left lung base density for which underlying mass cannot be excluded. Will have follow-up with pulmonology (5) Urothelial carcinoma of bladder: Plan: Urothelial carcinoma of the bladder - cT2 on gemcitabine/cisplain, started neoadjuvant chemo gemcitabine/cisplatin 08/14/23. S/p TURBT at [facility] which did not show deep invasion. Was started on BCG induction but was unable to complete this due to infection/hematuria. Stent removal and repeat TURBT 06/2023, muscle-invasive high-grade bladder cancer No acute change in management while inpatient Plan Prophylaxis: Anticoagulated Disposition: PCU CODE STATUS: DNR/DNI Diet: Heart healthy History of Present Illness Primary Care Provider: Lj Barbosa MD Anni is a 78yo F with past medical history of lung cancer, bladder cancer, postoperative A-fib, Takotsubo cardiomyopathy, nonocclusive coronary disease, arthritis, hypertension who presents with 2 episodes of syncope and A-fib. Per ER Presented to the ER with 2 episodes of syncope. She had previously been on metoprolol but this was stopped for bradycardia in the past. Had recurrent episode of A-fib around 2 weeks ago and was put back on metoprolol which has not anticoagulated. She does not typically feel her A-fib. Simple episode last night while on the toilet, and again this morning. No head strike. A-fib RVR on arrival to the ER. While on monitor in the ER was having sinus pauses 2-3 seconds, following 1 dose of metoprolol IV patient converted to a regular rhythm rate of 60s. Last EKG: Sinus with bigeminy, left bundle branch block EKG on ER arrival: A-fib RVR, rate 135. Repeat EKG: Poor baseline tracing, regular, sinus Anni is seen at the bedside. Had chemotherapty on Monday for bladder cancer. [place] terrible yesterday and stayed on the couch all day. Luis t to bed and heart rate was 121bmp. At midnight went to the toilet and passed on on the toilet. Passed on while using not after standing. This morning same thing happened. No prodrome, no warning. Did not feel lightheaded or dizzy. Kaley found her slumpted back on the commode. 'Completely out and incoherant'. Lasted about a minute or so. Anni does not remember passing out.Aftering coming back felt normal. NO chest pain at any point. Does not get palpitations. Does have significant increased exercise fatigue in the last week or so. Had dyspnea ~x1 week. Had an EKG which showed bigemey. CTA at that time no PE. Did show enlargement ofpreviously noted density. bilateral pleural effusion Was on eliquis. No afib on 30 day heart monitor Dec 2018, no recurrent so d/sharonda anticoagulation. Medical History: Reviewed Medications: Reviewed Surgical History: Reviewed Family history: Reviewed Allergies: Reviewed Social History: Former tobacco. No ETOH since starting chemo. Had a medical marijuana card, does not use and got rid of the card. Code Status: DNR/DNI Allergies Allergy/AdvReac Type Severity Reaction Status Date / Time MONICA Inhibitors AdvReac Intermediate Cough Verified 09/28/23 16:09 diltiazem AdvReac Intermediate Cough Verified 09/28/23 16:09 PABA derivatives Allergy Mild Rash Uncoded 09/28/23 16:09 Home Medications Medication Instructions Recorded Confirmed Type cholecalciferol (vitamin D3) 25 1,000 unit PO QPM 02/21/18 10/09/23 History mcg (1,000 unit) capsule (Vitamin D3) albuterol sulfate 90 mcg/actuation 2 inh inhalation QID PRN shortness 12/08/21 10/09/23 Rx aerosol inhaler of breath or wheezing #8.5 grams losartan 25 mg tablet 25 - 50 mg PO BID 12/26/22 10/09/23 History sertraline 50 mg tablet 50 mg PO HS #90 tabs 03/03/23 10/09/23 Rx estradiol 10 mcg vaginal tablet 10 mcg vaginal 3XWK #36 tabs 06/12/23 10/09/23 Rx (Vagifem) hydralazine 10 mg tablet 10 mg PO TID #270 tabs 08/15/23 10/09/23 Rx lorazepam 0.5 mg tablet 0.5 mg PO Q12H PRN anxiety #30 tabs 08/21/23 10/09/23 Rx atorvastatin 80 mg tablet 80 mg PO HS #90 tabs 09/14/23 10/09/23 Rx metoprolol tartrate 25 mg tablet 25 mg PO BID #60 tabs 09/22/23 10/09/23 Rx cetirizine 10 mg tablet (Zyrtec) 10 mg PO DAILY 10/09/23 10/09/23 History Past Med/Surg History Problem List (Updated 10/09/23 @ 14:11 by Arturo Mcgrath MD) Elevated troponin (Acute) Atrial fibrillation with rapid ventricular response (Acute) Syncope, cardiogenic (Acute) Syncope Shortness of breath Ureteral stent present H/O transurethral resection of bladder tumor (TURBT) Transurethral Resection of Bladder Tumor (medium)- Asim Reynolds MD s Left Retrograde Pyelogram,Left Ureteral Stent Placement (Left) Urothelial carcinoma of bladder s/p TURBT and following with urology for BCG treatments Encounter for pre-operative examination Health care maintenance Hydronephrosis, left Multiple pulmonary nodules determined by computed tomography of lung Seasonal allergies Status post lobectomy of lung Abdominal aortic atherosclerosis History of colon polyps Impaired glucose metabolism PCP monitoring- A1C 6.6 in 04/2023 Postmenopausal atrophic vaginitis Indeterminate pulmonary nodules Arthritis of knee, degenerative (Chronic) Anxiety (Chronic) Chronic cough (Chronic) Pancreatic cyst (Chronic) Takotsubo cardiomyopathy (Chronic) Dyslipidemia (Chronic) HTN (hypertension) (Chronic) Non-occlusive coronary artery disease (Chronic) Per 2018 cath per cardio records Lung nodule Incidental finding on chest CT during workup for cardiomyopathy. Now for wedge resection. Medical History Arthritis Bladder cancer current dx>plans for port for chemo tx Restless leg syndrome History of kidney stones Hx of cancer of lung dx 2018 - s/p left upper lobectomy LBBB (left bundle branch block) History of COVID-19 05/2020--mild symptoms, resolved History of atrial fibrillation 2018- post op lung lobectomy - converted with medication - no known recurrence (cardiac event monitor revealed no a fib) - no longer on AC therapy Anxiety Eczema Takotsubo cardiomyopathy Recurrent per records. 04/2017, moderate LV dysfunction, now resolved. Follows with [facility] cardiology. Torn rotator cuff RIGHT--per pt "had stem cell injection for this and states it is 99% better" Hyperlipidemia Hypertension Surgical History Port-A-Cath in place (08/09/23) Insertion of Access Port with Fluoroscopy, Right Internal Jugular(Right) - Nick Wood, DO, FACS H/O transurethral resection of bladder tumor (TURBT) x 3 *last one 06/2023 History of nasal cauterization History of tooth extraction History of cystoscopy History of stem cell transplant 2021 History of lobectomy of lung CARTER History of right cataract extraction History of tubal ligation History of arthroscopy of left knee History of left cataract extraction History of colonoscopy History of cardiac cath 04/2017 for Takotsubo cardiomyopathy. Mild-moderate nonobstructive CAD. No intervention. Family History Sister Family history of colon cancer Colorectal cancer Brother Family history of bladder cancer Unknown Pure hypercholesterolemia Mother Hypertension Father Hypertension Aunt Diabetes Other Allergies Cancer Heart disease No family history of adverse response to anesthesia No family history of bleeding disorder Stroke Denies family history of Ovarian cancer Prostate cancer Myocardial infarction Breast cancer Lung cancer Social History Smoking Status: Unknown if ever smoked Tobacco Type: Cigarettes Age Started Using Tobacco: 19; Age Quit Using Tobacco: 37; packs per day: 1.5; Second Hand Exposure: Yes (father smoked); Do You Dip or Chew Tobacco: No; Hx Alcohol Use: Yes Alcohol type: wine Alcohol Intake Frequency: 4 or More x per/Week Alcohol Intake Frequency Comment: one glass a day Preferred Language: Sinhala Communication Ability: Effective Visual Impairment: Limited Hearing Ability: Normal Tube Winder Required: No Beliefs That Will Affect Care: None marital status: Current Living Situation: Spouse current occupational status: retired How many Children do You have: 3 Feels Safe at Home: Yes Childhood Exposure to Second-Hand Smoke: Yes Diet: regular caffeine: Yes during the past year weight has: remained stable Dental Care, Regularly: Yes Physical Activity Frequency: Does not Exercise Seatbelt Use: always Sunscreen Use: Yes Assistive Devices: Glasses Physical Exam Physical Exam: General: A&Ox3. NAD. Cooperative. HEENT: Atraumatic, normocephalic. Vision and hearing grossly intact. Pupils equal and reactive to light. Pulm: Slightly diminished in the bases but otherwise CTAB A&P. -wheezes, -rales, -rhonchi. Symmetrical chest rise. No increased work of breathing. No respiratory distress. No crackles Chest: Right port in place no overlying warmth, tenderness, erythema Cardiac: RRR, -mrg. Radial pulses intact and symmetrical. No JVD Abdominal: Nontender, nondistended, soft. BS present. Extremities: Moves all extremities equally. Warm and dry. No pitting edema of the lower extremities Results & Data Results & Data Vital Signs (Past 12 Hours) Vital Signs Temp Pulse Pulse Resp BP BP Pulse Ox 10/09/23 10:36 64 20 120/57 L 96 10/09/23 09:43 104 H 131/106 H 10/09/23 09:18 122 H 138/96 10/09/23 08:50 136 H 10/09/23 08:36 96 10/09/23 08:36 36.7 C 134 H 20 103/85 96 O2 Del Method 10/09/23 10:36 Room Air 10/09/23 09:43 10/09/23 09:18 10/09/23 08:50 10/09/23 08:36 Room Air 10/09/23 08:36 Room Air PG Care Time/CCT Total # of Minutes Spent Total Time Spent with Patient: Total time spent is greater than 50% in coordination of care (as documented) at patient's floor/unit and/or counseling patient: Coding Level of Care Code 36243 INT INP/OBS CARE 3/75MIN Diagnoses Syncope R55 Atrial fibrillation with rapid ventricular response I48.91 Non-occlusive coronary artery disease I25.10 Hx of cancer of lung Z85.118 Urothelial carcinoma of bladder C67.9
[2023-10-09] MEDS: MAGNESIUM SULFATE / D5W 1 GM/100 ML BAG IV SCH (11:29)
--- NOTE | 2023-10-09 11:47 | XRay Report ---
XR chest 1V portable CLINICAL HISTORY: dyspnea, pleural effusions COMPARISON STUDY: Chest radiograph September 14, 2023. Chest CT October 05, 2023. FINDINGS: A right internal jugular [id number] is unchanged in position. Is no pneumothorax. A trac e left pleural effusion has decreased in size since prior chest CT. Right pleural effusion is no long er identified. There is no evidence for pulmonary edema. Minimal left basilar opacity persists. Cardi omediastinal silhouette is stable. IMPRESSION: 1. Trace left pleural effusion, decreased in size since prior exam. No right pleural effusion identif ied by radiography. 2. No significant change in mild left basilar opacity which can be assessed on follow-up exams. ACT 112: Negative or not required by law. Electronically signed by: Dajuan Suarez M.D. 10/09/2023 11:46 AM
[2023-10-09] MEDS: POTASSIUM CHLORIDE CRTAB 20 MEQ TABCR PO STA (12:46)
[2023-10-09] MEDS ORDERED: ACETAMINOPHEN 325 MG TAB PO PRN (13:35)
[2023-10-09] MEDS ORDERED: ALBUTEROL HFA 8 GM INHALER INH PRN (13:54)
[2023-10-09] MEDS ORDERED: LORazepam 0.5 MG TAB PO PRN (13:54)
[2023-10-09] MEDS: CETIRIZINE HCL 10 MG TABLET PO SCH (14:53)
[2023-10-09] MEDS: hydrALAZINE 10 MG TAB PO SCH (16:16)
[2023-10-09 16:17] LABS: ANTI-Xa, UFH(UnfractionatedHep 0.16 IU/ml (0.3-0.7)
[2023-10-09] MEDS: HEPARIN SOD (PORCINE) 1000 UNIT/ML ONE (17:00)
[2023-10-09] MEDS: MAGNESIUM OXIDE 400 MG TAB PO SCH (20:27)
[2023-10-09] MEDS: CHOLECALCIFEROL 25 MCG (1000 UNITS) TAB PO SCH (20:29)
[2023-10-09] MEDS: ATORVASTATIN 40 MG TAB PO SCH (20:29)
[2023-10-09] MEDS: LOSARTAN POTASSIUM 25 MG TAB PO SCH (20:30)
[2023-10-09] MEDS: SERTRALINE HCL 50 MG TABLET PO SCH (20:30)
[2023-10-09] MEDS: POTASSIUM CHLORIDE CRTAB 20 MEQ TABCR PO SCH (21:04)
[2023-10-09] MEDS: POTASSIUM CHLORIDE 20 MEQ/15 ML UDC PO STA (21:11)
[2023-10-09 23:38] LABS: ANTI-Xa, UFH(UnfractionatedHep 0.15 IU/ml (0.3-0.7)
[2023-10-10] MEDS: HEPARIN SOD (PORCINE) 1000 UNIT/ML IV ONE (00:32)
[2023-10-10 07:55] LABS: Basophils # (auto) 0.02 K/uL (0.00-0.20); Basophils % (auto) 0.4 %; Eosinophils # (auto) 0.03 K/uL (0.00-0.50); Eosinophils % (auto) 0.6 %; Hematocrit (blood only) 25.3 % (37.0-47.0); Hemoglobin 8.6 g/dl (12.0-16.0); Immature Granulocytes # (auto) 0.02 K/uL (0.01-0.20); Immature Granulocytes % (auto) 0.4 %; Lymphocytes # (auto) 1.15 K/uL (1.20-3.40); Lymphocytes % (auto) 23.3 %; Mean Corpuscular Volume 94.1 fL (80.0-100.0); Mean Platelet Volume 10.6 fL (9.4-12.4); Monocytes # (auto) 0.18 K/uL (0.11-0.59); Monocytes % (auto) 3.7 %; Neutrophils # (auto) 3.53 K/uL (1.40-6.50); Neutrophils % (auto) 71.6 %; Platelet Count 162 K/uL (130-400); RDW Coefficient of Variation 18.3 % (11.5-14.5); RDW Standard Deviation 61.7 fL (36.4-46.3); Red Blood Count 2.69 M/uL (4.20-5.40); White Blood Count 4.93 K/ul (4.8-10.8)
[2023-10-10 08:21] LABS: BUN Creatinine Ratio 22.7 (10-20); Calcium 8.3 mg/dl (8.6-10.3); Creatinine Clr Calc Pharmacy 39.9 ml/min; Est GFR (African American) 56.1 ml/min; Est GFR (Non-African American) 48.4 ml/min; Magnesium 1.8 mg/dl (1.7-2.4); Potassium 3.5 mmol/L (3.5-5.1)
[2023-10-10 08:26] LABS: ANTI-Xa, UFH(UnfractionatedHep 0.24 IU/ml (0.3-0.7)
[2023-10-10] MEDS: APIXABAN 5 MG TABLET PO SCH (09:21)
[2023-10-10] MEDS: POTASSIUM CHLORIDE 20 MEQ/15 ML UDC PO STA (09:34)
[2023-10-10] MEDS ORDERED: hydrALAZINE 10 MG TAB PO PRN (09:42)
[2023-10-10 10:44] VITALS: RESP 19
[2023-10-10 15:23] VITALS: BP 158/70; PULSE 57; TEMP 97.9; O2SAT 96
--- NOTE | 2023-10-10 15:52 | Discharge Summary ---
Date of Service October 10, 2023 Admission HPI Per Admitting Provider Anni is a 78yo F with past medical history of lung cancer, bladder cancer, postoperative A-fib, Takotsubo cardiomyopathy, nonocclusive coronary disease, arthritis, hypertension who presents with 2 episodes of syncope and A-fib. Per ER Presented to the ER with 2 episodes of syncope. She had previously been on metoprolol but this was stopped for bradycardia in the past. Had recurrent episode of A-fib around 2 weeks ago and was put back on metoprolol which has not anticoagulated. She does not typically feel her A-fib. Simple episode last night while on the toilet, and again this morning. No head strike. A-fib RVR on arrival to the ER. While on monitor in the ER was having sinus pauses 2-3 seconds, following 1 dose of metoprolol IV patient converted to a regular rhythm rate of 60s. Last EKG: Sinus with bigeminy, left bundle branch block EKG on ER arrival: A-fib RVR, rate 135. Repeat EKG: Poor baseline tracing, regular, sinus Anni is seen at the bedside. Had chemotherapty on Monday for bladder cancer. [place] terrible yesterday and stayed on the couch all day. Luis t to bed and heart rate was 121bmp. At midnight went to the toilet and passed on on the toilet. Passed on while using not after standing. This morning same thing happened. No prodrome, no warning. Did not feel lightheaded or dizzy. [place]n found her slumpted back on the commode. 'Completely out and incoherant'. Lasted about a minute or so. Anni does not remember passing out.Aftering coming back felt normal. NO chest pain at any point. Does not get palpitations. Does have significant increased exercise fatigue in the last week or so. Had dyspnea ~x1 week. Had an EKG which showed bigemey. CTA at that time no PE. Did show enlargement ofpreviously noted density. bilateral pleural effusion Was on eliquis. No afib on 30 day heart monitor Dec 2018, no recurrent so d/sharonda anticoagulation. Medical History: Reviewed Medications: Reviewed Surgical History: Reviewed Family history: Reviewed Allergies: Reviewed Social History: Former tobacco. No ETOH since starting chemo. Had a medical marijuana card, does not use and got rid of the card. Code Status: DNR/DNI Discharge Data Consultations 10/09/23 11:05 ED Decision to Admit Stat Hospital Course (1) Syncope: Anni is a 78-year-old female with an episode of provoked A-fib no longer on anticoagulation,Nonocclusive coronary disease, adenocarcinoma of the left upper lung s/p VATS 2018, urothelial carcinoma of the bladder undergoing chemotherapy who presented to the ER after 2 episodes of syncope while on the toilet. She was noted to be in A-fib RVR on admission. Both episodes of syncope occurred while on the toilet, however patient had had increased fatigue exertional dyspnea for the preceding week and with a heart rate 1001 30s and has likely been in A-fib. She had a minimal troponin elevation which downtrended and was likely due to demand. Magnesium and potassium were both low. Suspect her A-fib was provoked by stress, chemo, and low magnesium/potassium which was contributing to fatigue and orthostasis and likely her syncopal episodes +/- vasovagal effect while toileting. Did also recently been restarted on metoprolol. She has had presyncopal and bradycardic response to this in the past and has poorly tolerated this. This was discontinued during admission. Following magnesium and potassium repletion, and IV fluids, and 1 5 mg metoprolol tartrate IV push in the ER patient felt greatly improved and converted to a normal sinus rhythm. She had no further syncopal or presyncopal events. She was not orthostatic at bedside evaluation. Risk/benefits of ongoing anticoagulation for A-fib prophylaxis were discussed. She is at high [id number] risk, and this does not include active underlying malignancy. Risk of bleeding, increase of bleeding with falls especially given her history of syncope, was reviewed. On shared decision making patient would like to resume Eliquis for prophylaxis and have an outpatient 30-day monitor to reevaluate her A-fib burden. She was started on Eliquis during admission and continued on 5 mg twice daily, and 30-day outpatient monitor was ordered. She has not had any bleeding and tolerated Eliquis well in the past. She was prescribed magnesium and potassium supplementation to help maintain a goal of magnesium 2.0, potassium 4.0. She will have follow-up blood work with her PCP or oncology within 1 week. Case was discussed with oncology while inpatient, she will keep [facility] appointment for 10/12/2023 and may skip her blood work 10/11/2023. She felt well and at her normal baseline at time of discharge, no additional questions or concerns. To do as outpatient: 1. Continue potassium 20 mEq daily, and magnesium oxide 40 mg daily. Recheck BMP and magnesium within 1 week, and adjust supplementation as needed to maintain potassium goal 4.0 and magnesium goal of 2.0 2. Discontinue metoprolol. This should be avoided in the future as patient has very poor tolerance to this. 3. Continue Eliquis 5 mg twice daily for A-fib stroke prophylaxis. Reassess A- fib burden with 30-day monitor, and risk/benefits of ongoing anticoagulation at that time. 4. Follow-up blood pressure checks. Hydralazine was changed from 3 times daily scheduled to as needed for SBP greater than 175. *Additional note: Patient has been followed for pulmonary adenocarcinoma in the past. CT nodule which have been followed as outpatient and was decreasing, and had not been avid on PET scan was initially read and is increasing slowly in size. This was reviewed by pulmonology, and on independent review is not increasing and is low risk. Can continue routine follow-up with pulmonology as outpatient. At time of discharge exam was with a regular rate and rhythm, lungs were slightly diminished in the bases, limbs were warm and well-perfused. No respiratory distress. Patient well-appearing. Time spent day of discharge including direct patient care, counseling, documen tation, and review of labs and images approximately 45 minutes Last progress note copied below for completion Syncope x 2 Both episodes occurred while on the toilet, patient had had a heart rate in the 1001 30s with exertional fatigue and dyspnea the week before suspicious for A-fib recurrence Episodes occurring on the toilet are spacious for vasovagal episode on top of A-fib RVR; however patient did not have any presyncopal symptoms whatsoever and notes that she does not remember passing out at all, her found her slumped over. She did not hit the ground or have head strike. She has had intermittent pauses 2 to 3 seconds on telemetry. Cardiogenic syncope is not excluded. She has a history of bradycardia and poor tolerance to beta-blockers, started on this for tachycardia and bigeminy and they are in a week. Beta- jean pierre has been held on admission. Had not had orthostatic sx, passedout on the toilet while sitting not standing and notes most of her recent sx were exercise intolerance. Converted to NSR following 5 mg metoprolol push mL in the ER. Will follow on telemetry overnight. A-fib management as below including magnesium repletion. Given A-fib recurrence patient has been started on heparin gtt. Will transition to Eliquis for stroke prophylaxis, and may have a 30-day monitor to r eassess A-fib burden (2) Atrial fibrillation with rapid ventricular response: Atrial fibrillation A-fib RVR, with symptoms in the last week. Patient did have an EKG which showed bigeminy last week however is not in bigeminy and is with suspected RVR on presentation to the ER - Converted to sinus after 5mg IV MTP Has been on chemo as noted. Suspect A-fib provoked in the setting of stress, chemotherapy, and hypomagnesemia with levels of 1.2 on admission. Repleted; goal 2.0. She has been hypomagnesic before, will start on oral supplementation as well. Potassium 3.2, optimized to 4.0. 40meq x1, then 20meq TID x3 total doses. BMP daily Patient has had a history of bradycardia with beta-jean pierre therapy in the past. Converted after single dose of metoprolol 5 mg IV push. Patient was recently put on metoprolol 25 mg p.o. twice daily, and had poor tolerance to this in the past. Held due to syncope with short pauses on monitor Did have new pleural effusions on last CTA. This may be related to weight related congestion/cardiomyopathy, exudative process from underlying lung disease noted. Was bilateral, suspect transudative most likely. Chest x-ray ordered on admission to reevaluate. - [id number], +active maliganancy. Anticoagulation is indicated. Hep gtt --> eliquis transition for outpt tomorrow AM (3) Non-occlusive coronary artery disease: CAD, elevated troponin History of nonobstructive coronary disease on last cath 04/2018 History of recurrent Takotsubo's last 2017, subsequent EF normalized. Mild troponin elevations, subsequently downtrending at 33.9 Suspect elevated troponin due to demand with tachycardia. She has had no chest pain or exertional chest pain at any point Has been undergoing chemotherapy and is with history of Takotsubo's. Limited echo for wall motion ordered - Former smoker quit 1982, previously with around [id number] history tobacco - Last echo 09/2018: EF 60 to 65%. Mid to distal septum and mid anteroseptal akinesis. Hypokinesis to akinesis of the mid anterior wall section. Cardiac catheterization 04/2017: 20% LM distal stenosis, LAD moderately calcified 20 to 30% ostial stenosis, diffuse 20% proximal disease, 40-50% focal mid stenosis after takeoff of second diagonal, small distal vessel. First diagonal small with diffuse disease, second diagonal with 20% ostial stenosis. Circumflex 30-40% ostial stenosis large normal OM 2. RCA dominant, 20% diffuse proximal disease distal luminal irregularities. Overall mild to moderate nonobstructive coronary disease, LVEF 30% at that time consistent with Takotsubo cardiomyopathy rather than ischemic cardiomyopathy. HTN Continue amlodipinecontinue losartan Continue hydralazine Beta-jean pierre held as noted (4) Hx of cancer of lung: Stage Ia adenocarcinoma of left upper lung -s/p VATS left upper lobe 2019 Q every [address] scans, last PET/CT 09/2023showed left lower lobe subpleural opacity was not avid. Patient has chronic shortness of breath multifactorial with history of chemotherapy treatment, lung restriction, bladder cancer, and cardiac disease - [id number] CARTER. PET scan 09/06/2023 showed uptake at the deep left pelvis and left aspect of the vagina which could represent residual disease. Left lower lobe subpleural opacity was decreasing, not FDG avid, and was decreasing in size CTA 10/04 with slow enlargement in left lung base density for which underlying mass cannot be excluded. Will have follow-up with pulmonology (5) Urothelial carcinoma of bladder: Urothelial carcinoma of the bladder - cT2 on gemcitabine/cisplain, started neoadjuvant chemo gemcitabine/cisplatin 08/14/23. S/p [facility] at [facility] which did not show deep invasion. Was started on BCG induction but was unable to complete this due to infection/hematuria. Stent removal and repeat TURBT 06/2023, muscle-invasive high-grade bladder cancer No acute change in management while inpatient Plan Prophylaxis: Anticoagulated Disposition: PCU CODE STATUS: DNR/DNI Diet: Heart healthy Coding Level of Care Code 53025 INP/OBS DISCH >30 MIN Diagnoses Syncope R55 Atrial fibrillation with rapid ventricular response I48.91 Non-occlusive coronary artery disease I25.10 Hx of cancer of lung Z85.118 Urothelial carcinoma of bladder C67.9
--- NOTE | 2023-10-11 15:30 | Electrocardiogram Report ---
Test Reason : Blood Pressure : */* mmHG Vent. Rate : 66 BPM Atrial Rate : 66 BPM P-R Int : 80 ms QRS Dur : 118 ms QT Int : 464 ms P-R-T Axes : * 29 113 degrees QTcB Int : 486 ms Junctional rhythm Minimal voltage criteria for LVH, may be normal variant Poor R wave progression, consider anterior TX vs. lead placement vs. LVH Abnormal ECG Confirmed by William Edwards ([id number]) on 10/11/2023 3:30:25 PM Referred By: REFERRED SELF Confirmed By: William Edwards
--- NOTE | 2023-10-13 17:01 | Electrocardiogram Report ---
Test Reason : Blood Pressure : */* mmHG Vent. Rate : 135 BPM Atrial Rate : 90 BPM P-R Int : * ms QRS Dur : 118 ms QT Int : 354 ms P-R-T Axes : * 22 146 degrees QTcB Int : 531 ms Atrial flutter Minimal voltage criteria for LVH, may be normal variant Poor R wave progression, consider anterior NM vs. lead placement vs. LVH Marked ST abnormality, possible lateral subendocardial injury Abnormal ECG When compared with ECG of 05-Oct-2023 10:10, Left bundle branch block is no longer Present Confirmed by William Edwards ([id number] on 10/13/2023 5:00:55 PM Referred By: REFERRED SELF Confirmed By: William Edwards
--- NOTE | 2023-10-14 11:22 | XCELERA ---
[id number] \\[id number]
== END 2023-10-10 17:52 | disposition home or self-care (01) ==
LOC: ED 08:41 → EDINP 08:41 → 2S 13:36

== ENCOUNTER 2024-04-29 15:48 | Inpatient (IN) ==
[2024-04-29 16:35] LABS: Basophils # (auto) 0.02 K/uL (0.00-0.20); Basophils % (auto) 0.2 %; Eosinophils # (auto) 0.01 K/uL (0.00-0.50); Eosinophils % (auto) 0.1 %; Hematocrit (blood only) 34.3 % (37.0-47.0); Hemoglobin 11.3 g/dl (12.0-16.0); Immature Granulocytes # (auto) 0.05 K/uL (0.01-0.20); Immature Granulocytes % (auto) 0.4 %; Mean Corpuscular Hemoglobin 30.8 pg (25.0-34.0); Mean Corpuscular Hgb Conc 32.9 g/dL (32.0-36.0); Mean Corpuscular Volume 93.5 fL (80.0-100.0); Mean Platelet Volume 9.9 fL (9.4-12.4); Monocytes # (auto) 1.12 K/uL (0.11-0.59); Monocytes % (auto) 9.6 %; Neutrophils # (auto) 9.06 K/uL (1.40-6.50); Neutrophils % (auto) 77.7 %; Platelet Count 206 K/uL (130-400); RDW Coefficient of Variation 15.1 % (11.5-14.5); RDW Standard Deviation 51.9 fL (36.4-46.3); Red Blood Count 3.67 M/uL (4.20-5.40); White Blood Count 11.66 K/ul (4.8-10.8)
[2024-04-29 16:52] LABS: Alanine Aminotransferase 10 U/L (7-52); Albumin Globulin Ratio 1.1 (0.9-2); Albumin Level 3.8 gm/dl (3.4-5.0); Alkaline Phosphatase 99 U/L (34-104); Anion Gap 7 (3-11); Aspartate Aminotransferase 16 U/L (13-39); BUN Creatinine Ratio 22.6 (10-20); Bilirubin,Total 0.6 mg/dl (0.2-1.0); Blood Urea Nitrogen 28 mg/dl (6-23); Calcium 9.5 mg/dl (8.6-10.3); Carbon Dioxide 25 mmol/L (21-32); Chloride 102 mmol/L (98-107); Globulin 3.4 gm/dl (2.5-4.0); Glucose 150 mg/dl (70-99(Fasting)); Potassium 4.3 mmol/L (3.5-5.1); Sodium 134 mmol/L (136-145); Total Protein 7.2 gm/dl (6.0-8.3)
[2024-04-29 16:54] LABS: Appearance Urine Turbid (Clear); Bacteria Urine Automated 4+ (None Seen); Bilirubin Urine Negative (Negative); Blood Urine 2+ (Negative); Cast Urine Automated >20 /lpf (0-2); Color Urine Yellow; Epithelial Cell Urine Auto 0-2 /hpf (0-2); Glucose Urine UA Negative (Negative); Ketones Urine Negative (Negative); Leukocyte Esterase Urine 3+ (Negative); Nitrite Urine Positive (Negative); Protein Urine 1+ (Negative); Specific Gravity Urine 1.013 (1.000-1.030); Urobilinogen Urine Negative (Negative); WBC Urine Automated >50 /hpf (0-5)
[2024-04-29] MEDS: SODIUM CHLORIDE 0.9% 1,000 ML IV ONE (17:19)
[2024-04-29] MEDS: CEFEPIME 2000MG 2,000 MG/20 ML SYR IV STA (17:19)
--- NOTE | 2024-04-29 17:22 | Emergency Department Note ---
Impression & Plan Acute pyelitis, Leukocytosis, History of urostomy, Fever ED Provider Note NAME: PARAMIJT SIMEON AGE: 79 SEX: F : 1945 ARRIVES VIA: Ambulance INFORMANT: [Patient] ED PROVIDER(S): [Raj Perez MD] CHIEF COMPLAINT: Fever, infection HISTORY OF PRESENT ILLNESS: The patient is a 79-year-old female who states that has had a few days of cloudy urine and some back pain, more so on the left. Today, she had a temperature of 102.9. The patient does have a urostomy. She was concerned that she may have a UTI and she spoke with urology, she was referred to the ER. The patient been weak and dizzy, she did not lose consciousness. There is no chest pain, no anterior abdominal pain. She has not had respiratory complaints. The patient did have a bladder resection surgery done about 2 and half months ago. She currently has a urostomy. PMHx/PSHx/Social Hx: See Below PHYSICAL EXAM: GENERAL: Patient is in no acute distress. HEENT: No acute trauma, normocephalic atraumatic, mucous membranes moist, no nasal congestion. NECK: No stridor, no adenopathy, no meningismus, trachea is midline. LUNGS: Clear to auscultation bilaterally, no wheeze, no rhonchi, breath sounds equal. HEART: Without murmurs gallops or rubs, regular rate and rhythm. ABDOMEN: Soft, nontender, no peritonitis. Right sided urostomy noted. EXTREMITIES: No cyanosis, full range of motion of all the joints without pain or difficulty. NEUROLOGIC: Oriented x 3, no acute motor or sensory deficits, no focal weakness. SKIN: No jaundice, no diaphoresis. Back: Left flank discomfort with percussion. DIFFERENTIAL DIAGNOSIS: Pyelonephritis, UTI, bacteremia or sepsis, renal failure, urinary obstruction, among others. EMERGENCY DEPARTMENT PROCEDURES: MEDICAL DECISION MAKING: There is a mild leukocytosis, this would be consistent with infection. A very subtle anemia was noted. There was a normal platelet count. Creatinine was mildly elevated, this appears baseline looking back at previous testing. Lactic acid level was not elevated making severe sepsis unlikely. There was no concerning liver enzyme elevation. Procalcitonin level was not elevated making serious bacterial infection less likely. Urinalysis did show findings of infection. CT imaging shows pyelitis with some air in the urinary system. There was left-sided hydronephrosis. On exam, the patient was not febrile or toxic. She did have left flank discomfort with percussion. Patient was aggressively managed given the findings and presentation. She received IV saline for induration, IV cefepime as antibiotic coverage. I did speak with urology. They initially recommended potential transfer to a tertiary Center. I spoke with Dr. Shoemaker at [facility]. He felt the patient could stay at our facility and that urology should attempt stenting to relieve the left-sided hydronephrosis. If the urology stenting was unsuccessful at our hospital, transfer could be then considered. I again spoke with [facility] urology, Dr. Garza has agreed to attempt left ureteral stenting. I spoke with the patient and family. I did speak with case management, the on- call hospitalist has been consulted. In short, the patient is soon to be transferred to the OR for attempts at left ureteral stenting. She will ultimately require hospitalization. Prior/Outside records/notes reviewed: None Imaging/x-ray results per my interpretation: Chronic Medical/Social conditions affecting care: Advanced age, history of urostomy. Care/Management discussed with: Case management, the on-call hospitalist. Urology at [facility]-Dr. Garza. Urology at [facility]-Dr. Shoemaker. Level of care consideration(s): After review of the information above and other included data: --I believe the patient requires escalation of care to admission Critical Care Note: I have personally spent 44 minutes of critical care time in the direct management of this patient. This includes bedside care, interpretation of diagnostic studies, and testing, discussion with consultants, patient, and family members, and other required patient management activities. This 44 minutes is in excess of all separately billable procedures. DISPOSITION: Admission Past Med/Surg History Problem List (Updated 04/29/24 @ 19:59 by Raj Perez MD) Fever (Acute) History of urostomy (Acute) Leukocytosis (Acute) Acute pyelitis (Acute) History of urinary diversion procedure Emphysematous pyelitis Low hemoglobin Atrial fibrillation Hypomagnesemia Syncope, cardiogenic (Acute) Ureteral stent present H/O transurethral resection of bladder tumor (TURBT) Transurethral Resection of Bladder Tumor (medium)- Asim Reynolds MD s Left Retrograde Pyelogram,Left Ureteral Stent Placement (Left) Urothelial carcinoma of bladder s/p TURBT and following with urology for BCG treatments Health care maintenance Hydronephrosis, left Multiple pulmonary nodules determined by computed tomography of lung Seasonal allergies Status post lobectomy of lung Abdominal aortic atherosclerosis History of colon polyps Impaired glucose metabolism PCP monitoring- A1C 6.6 in 04/2023 Postmenopausal atrophic vaginitis Indeterminate pulmonary nodules Arthritis of knee, degenerative (Chronic) Anxiety (Chronic) Chronic cough (Chronic) Pancreatic cyst (Chronic) Takotsubo cardiomyopathy (Chronic) Dyslipidemia (Chronic) HTN (hypertension) (Chronic) Non-occlusive coronary artery disease (Chronic) Per 2018 cath per cardio records Lung nodule Incidental finding on chest CT during workup for cardiomyopathy. Now for wedge resection. Medical History Hypokalemia Syncope Shortness of breath Elevated troponin Atrial fibrillation with rapid ventricular response Arthritis Bladder cancer current dx>plans for port for chemo tx Restless leg syndrome History of kidney stones Hx of cancer of lung dx 2019 - s/p left upper lobectomy LBBB (left bundle branch block) History of COVID-19 05/2020--mild symptoms, resolved History of atrial fibrillation 2018- post op lung lobectomy - converted with medication - no known recurrence (cardiac event monitor revealed no a fib) - no longer on AC therapy Anxiety Eczema Takotsubo cardiomyopathy Recurrent per records. 04/2017, moderate LV dysfunction, now resolved. [place] [facility] [place]. Torn rotator cuff RIGHT--per pt "had stem cell injection for this and states it is 99% better" Hyperlipidemia Hypertension Surgical History H/O total cystectomy Port-A-Cath in place (08/09/23) Insertion of Access Port with Fluoroscopy, Right Internal Jugular(Right) - Nick Wood, , FACS H/O transurethral resection of bladder tumor (TURBT) x 3 *last one 06/2023 History of nasal cauterization History of tooth extraction History of cystoscopy History of stem cell transplant 2021 History of lobectomy of lung CARTER History of right cataract extraction History of tubal ligation History of arthroscopy of left knee History of left cataract extraction History of colonoscopy History of cardiac cath 04/2017 for Takotsubo cardiomyopathy. Mild-moderate nonobstructive CAD. No intervention. Family History Sister Family history of colon cancer Colorectal cancer Brother Family history of bladder cancer Unknown Pure hypercholesterolemia Mother Hypertension Father Hypertension Aunt Diabetes Other Allergies Cancer Heart disease No family history of adverse response to anesthesia No family history of bleeding disorder Stroke Denies family history of Ovarian cancer Prostate cancer Myocardial infarction Breast cancer Lung cancer Social History Smoking Status: Never smoker Tobacco Type: Cigarettes Age Started Using Tobacco: 19; Age Quit Using Tobacco: 37; packs per day: 1.5; Second Hand Exposure: Yes (father smoked); Do You Dip or Chew Tobacco: No; Hx Alcohol Use: No Hx Substance Use: No Preferred Language: Irish Communication Ability: Effective Visual Impairment: Limited Hearing Ability: Normal 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 Beliefs That Will Affect Care: None marital status: Current Living Situation: Spouse current occupational status: retired How many Children do You have: 3 Feels Safe at Home: Yes Childhood Exposure to Second-Hand Smoke: Yes Diet: regular caffeine: Yes during the past year weight has: remained stable Dental Care, Regularly: Yes Physical Activity Frequency: Does not Exercise Seatbelt Use: always Sunscreen Use: Yes Assistive Devices: None Allergies Allergies Allergy/AdvReac Type Severity Reaction Status Date / Time MONICA Inhibitors AdvReac Intermediate Cough Verified 04/25/24 10:06 diltiazem AdvReac Intermediate Cough Verified 04/25/24 10:06 PABA derivatives Allergy Mild Rash Uncoded 04/25/24 10:06 Home Meds Home Medications Medication Instructions Recorded Confirmed cholecalciferol (vitamin D3) 25 1,000 unit PO QPM 02/21/18 04/29/24 mcg (1,000 unit) capsule (Vitamin D3) cetirizine 10 mg tablet (Zyrtec) 10 mg PO DAILY 10/09/23 04/29/24 cyanocobalamin (vitamin B-12) 1,000 mcg PO DAILY 04/29/24 04/29/24 1,000 mcg tablet (Vitamin B-12) losartan 25 mg tablet 25 mg PO QPM 04/29/24 04/29/24 losartan 25 mg tablet 50 mg PO QAM 04/29/24 04/29/24 Previous Rx's Medication Instructions Recorded atorvastatin 80 mg tablet 80 mg PO HS #90 tabs 09/14/23 lorazepam 0.5 mg tablet 0.5 mg PO Q12H PRN anxiety #60 tabs 11/01/23 apixaban 5 mg tablet (Eliquis) 5 mg PO Q12H #180 tabs 01/19/24 metoprolol tartrate 25 mg tablet 25 mg PO BID #60 tabs 02/29/24 sertraline 50 mg tablet 50 mg PO HS #90 tabs 03/14/24 Results & Data (ED) Vital Signs Vital Signs - 24 hr 04/29/24 16:03 04/29/24 17:42 04/29/24 17:43 Temperature 37.2 C Temperature Source Oral Pulse Rate 104 H 84 Pulse Rate [Apical] Pulse Rate from SpO2 Sensor 82 Pulse Rhythm [Apical] Pulse Strength [Apical] Respiratory Rate 17 20 Respiratory Effort / Characteristics Respiratory Depth Respiratory Pattern Blood Pressure 132/65 151/55 H Blood Pressure [Left Arm] Blood Pressure Mean 87 105 Blood Pressure Mean [Left Arm] Blood Pressure Position [Left Arm] Pulse Oximetry 96 93 Oxygen Delivery Method Room Air Room Air Sepsis Recent Fever Within 48 Hours Yes Sepsis New/Unexplained Change in Mental Status N/A Sepsis Action Taken by Nursing No Action Required 04/29/24 18:09 04/29/24 18:53 04/29/24 19:15 Temperature Temperature Source Pulse Rate 79 78 Pulse Rate [Apical] 79 Pulse Rate from SpO2 Sensor 80 Pulse Rhythm [Apical] Regular Pulse Strength [Apical] Normal Respiratory Rate 19 15 Respiratory Effort / Characteristics Non-Labored Spontaneous Respiratory Depth Normal Respiratory Pattern Regular Blood Pressure Blood Pressure [Left Arm] 163/55 H Blood Pressure Mean Blood Pressure Mean [Left Arm] 91 Blood Pressure Position [Left Arm] Pulse Oximetry 96 96 Oxygen Delivery Method Room Air Room Air Sepsis Recent Fever Within 48 Hours Sepsis New/Unexplained Change in Mental Status Sepsis Action Taken by Nursing 04/29/24 19:30 Temperature Temperature Source Oral Pulse Rate Pulse Rate [Apical] 80 Pulse Rate from SpO2 Sensor Pulse Rhythm [Apical] Pulse Strength [Apical] Respiratory Rate 18 Respiratory Effort / Characteristics Non-Labored Spontaneous Respiratory Depth Normal Respiratory Pattern Regular Blood Pressure Blood Pressure [Left Arm] 170/55 H Blood Pressure Mean Blood Pressure Mean [Left Arm] 93 Blood Pressure Position [Left Arm] Semi-fowlers Pulse Oximetry 98 Oxygen Delivery Method Room Air Sepsis Recent Fever Within 48 Hours Sepsis New/Unexplained Change in Mental Status Sepsis Action Taken by Prison Medications Current Medication List: was personally reviewed by me Laboratory Data Attestation: I reviewed the patient's lab results. 04/29/24 16:17 04/29/24 16:17 Lab Results 04/29/24 04/29/24 Range/Units 16:17 17:21 WBC 11.66 H (4.8-10.8) K/ul RBC 3.67 L (4.20-5.40) M/uL Hgb 11.3 L (12.0-16.0) g/dl Hct 34.3 L (37.0-47.0) % MCV 93.5 (80.0-100.0) fL MCH 30.8 (25.0-34.0) pg MCHC 32.9 (32.0-36.0) g/dL RDW Std Deviation 51.9 H (36.4-46.3) fL RDW Coeff of [place] 15.1 H (11.5-14.5) % Plt Count 206 (130-400) K/uL MPV 9.9 (9.4-12.4) fL Immature Gran % (Auto) 0.4 % Neut % (Auto) 77.7 % Lymph % (Auto) 12.0 % [place] % (Auto) 9.6 % Eos % (Auto) 0.1 % Baso % (Auto) 0.2 % Neut # (Auto) 9.06 H (1.40-6.50) K/uL Lymph # (Auto) 1.40 (1.20-3.40) K/uL [place] # (Auto) 1.12 H (0.11-0.59) K/uL Eos # (Auto) 0.01 (0.00-0.50) K/uL Baso # (Auto) 0.02 (0.00-0.20) K/uL Immature Gran # (Auto) 0.05 (0.01-0.20) K/uL Sodium 134 L (136-145) mmol/L Potassium 4.3 (3.5-5.1) mmol/L Chloride 102 (98-107) mmol/L Carbon Dioxide 25 (21-32) mmol/L Anion Gap 7 (3-11) BUN 28 H (6-23) mg/dl Creatinine 1.24 H (0.6-1.2) mg/dl Est Cr Clr Drug Dosing Not Reportable eGFR 44.54 BUN/Creatinine Ratio 22.6 H (10-20) Glucose 150 H (70-99(Fasting)) mg/dl Lactate 1.6 (0.4-2.0) mmol/L Calcium 9.5 (8.6-10.3) mg/dl Total Bilirubin 0.6 (0.2-1.0) mg/dl AST 16 (13-39) U/L ALT 10 (7-52) U/L Alkaline Phosphatase 99 (34-104) U/L Total Protein 7.2 (6.0-8.3) gm/dl Albumin 3.8 (3.4-5.0) gm/dl Globulin 3.4 (2.5-4.0) gm/dl Albumin/Globulin Ratio 1.1 (0.9-2) Procalcitonin 0.24 (0-0.5) ng/ml Urine Color Yellow Urine Appearance Turbid A (Clear) Urine pH 7.0 (4.5-7.5) Ur Specific [place] 1.013 (1.000-1.030) Urine Protein 1+ H (Negative) Urine Glucose (UA) Negative (Negative) Urine Ketones Negative (Negative) Urine Blood 2+ H (Negative) Urine Nitrite Positive A (Negative) Urine Bilirubin Negative (Negative) Urine Urobilinogen Negative (Negative) Ur Leukocyte Esterase 3+ H (Negative) Urine WBC (Auto) >50 H (0-5) /hpf Urine RBC (Auto) 6-10 H (0-2) /hpf U Hyaline Cast (Auto) >20 H (0-2) /lpf U Epithel Cells (Auto) 0-2 (0-2) /hpf Urine Bacteria (Auto) 4+ H (None Seen) Administered Medications Discontinued Medications Cefepime HCl (Maxipime 2000mg) 2,000 mg in 20 mls @ 5 mls/min IV NOW STA; Protocol Stop: 04/29/24 17:07 Last Admin: 04/29/24 17:19 Dose: 5 mls/min Documented By: TISH Sodium Chloride (Nss) 1,000 mls @ 999 mls/hr IV .Q1H1M ONE Stop: 04/29/24 18:04 Last Infusion: 04/29/24 18:56 Dose: Infused Documented By: Admin: 04/29/24 17:19 Dose: 999 mls/hr Documented By: TISH Imaging Data Radiologist's Impression: Abdomen/Pelvis CT 04/29/24 17:06 /EXAM: CT Abdomen and Pelvis Without Intravenous Contrast INDICATION: Fever. Cloudy urine post cystectomy. TECHNIQUE: Axial computed tomography images of the abdomen and pelvis without intravenous contrast. Sagittal and coronal reformatted images were created and reviewed. This CT exam was performed using one or more of the following dose reduction techniques: automated exposure control, adjustment of the mA and/or kV according to patient size, and/or use of iterative reconstruction technique. COMPARISON: 04/19/2024 FINDINGS: Limitations: None. Lung bases: Stable subpleural scarring in the left lateral lower lung. Pleural space: No visualized pleural effusion or pneumothorax. Heart: No abnormality noted. Mediastinum: No abnormality noted. ABDOMEN: Liver: Lack of intravenous contrast limits detection of some masses. No abnormality noted. Gallbladder and bile ducts: No calcified stones or surrounding fluid. Pancreas: No pancreatic mass, calcification, inflammation or ductal dilation noted. Spleen: No significant abnormality noted. Adrenals: No significant abnormality noted. Kidneys and ureters: There is increased left hydroureteronephrosis with new gas in the renal pelvis. Urothelial thickening is less pronounced although this could reflect technical differences as the current study is performed without contrast. Stable right mild hydroureteronephrosis and urothelial thickening. No stones. Slight increased bilateral perinephric edema. Stomach and bowel: Moderate amounts of stool in the colon. Prominent fluid in nondilated small bowel loops. No obstruction. No intestinal thickening. PELVIS: Appendix: No findings to suggest acute appendicitis. Bladder: Cystectomy. Right lower quadrant patent ureterostomy. Reproductive: No abnormalities noted. ABDOMEN and PELVIS: Intraperitoneal space: No free air. No significant fluid collection. Bones/joints: Degenerative changes noted in the scoliotic spine. No acute osseous abnormality noted. Soft tissues: No significant abnormality noted. Vasculature: No abdominal aortic aneurysm. Lymph nodes: No pathologically enlarged lymph nodes. IMPRESSION: 1. Worsening left hydroureteronephrosis with new urinary gas in the left kidney. Findings consistent with worsening pyelonephritis. If there has been interval interventional procedure, air could be introduced in this matter. Ureteral stricture at the body wall is not completely excluded. Stable inflammation of the right urinary tract. 2. Mild ileus. No obstruction. ACT 112: Negative or not required by law. Electronically signed by Larissa Sylvester 04-29-2024 6:04 PM Discharge Plan Visit Data Chief Complaint: Flu Like Symptoms Stated Complaint: FLU LIKE SYMTOMS, WEAKNESS ED Provider: Raj Perez Discharge Problem: Acute pyelitis, Leukocytosis, History of urostomy, Fever Patient Disposition: Admitted As Inpatient Condition: Serious Discharge Instructions Interventions: ED Discharge Assessment Last Done: 04/29/24 19:17 Discharge Problem: Leukocytosis Qualifiers: Leukocytosis type: unspecified Qualified Code(s): D72.829 - Elevated white blood cell count, unspecified Fever Qualifiers: Fever type: unspecified Qualified Code(s): R50.9 - Fever, unspecified
--- NOTE | 2024-04-29 18:05 | CT Scan Report ---
/EXAM: CT Abdomen and Pelvis Without Intravenous Contrast INDICATION: Fever. Cloudy urine post cystectomy. TECHNIQUE: Axial computed tomography images of the abdomen and pelvis without intravenous contrast. Sagittal and coronal reformatted images were created and reviewed. This CT exam was performed using one or more of the following dose reduction techniques: automated exposure control, adjustment of the mA and/or kV according to patient size, and/or use of iterative reconstruction technique. COMPARISON: 04/19/2024 FINDINGS: Limitations: None. Lung bases: Stable subpleural scarring in the left lateral lower lung. Pleural space: No visualized pleural effusion or pneumothorax. Heart: No abnormality noted. Mediastinum: No abnormality noted. ABDOMEN: Liver: Lack of intravenous contrast limits detection of some masses. No abnormality noted. Gallbladder and bile ducts: No calcified stones or surrounding fluid. Pancreas: No pancreatic mass, calcification, inflammation or ductal dilation noted. Spleen: No significant abnormality noted. Adrenals: No significant abnormality noted. Kidneys and ureters: There is increased left hydroureteronephrosis with new gas in the renal pelvis. Urothelial thickening is less pronounced although this could reflect technical differences as the current study is performed without contrast. Stable right mild hydroureteronephrosis and urothelial thickening. No stones. Slight increased bilateral perinephric edema. Stomach and bowel: Moderate amounts of stool in the colon. Prominent fluid in nondilated small bowel loops. No obstruction. No intestinal thickening. PELVIS: Appendix: No findings to suggest acute appendicitis. Bladder: Cystectomy. Right lower quadrant patent ureterostomy. Reproductive: No abnormalities noted. ABDOMEN and PELVIS: Intraperitoneal space: No free air. No significant fluid collection. Bones/joints: Degenerative changes noted in the scoliotic spine. No acute osseous abnormality noted. Soft tissues: No significant abnormality noted. Vasculature: No abdominal aortic aneurysm. Lymph nodes: No pathologically enlarged lymph nodes. IMPRESSION: 1. Worsening left hydroureteronephrosis with new urinary gas in the left kidney. Findings consistent with worsening pyelonephritis. If there has been interval interventional procedure, air could be introduced in this matter. Ureteral stricture at the body wall is not completely excluded. Stable inflammation of the right urinary tract. 2. Mild ileus. No obstruction. ACT 112: Negative or not required by law. Electronically signed by Larissa Sylvester 04-29-2024 6:04 PM
[2024-04-29] MEDS ORDERED: fentaNYL citrate PF 100 MCG/2 ML VIAL ONE (19:13)
[2024-04-29] MEDS ORDERED: LIDOCAINE 2% 2 ML VIAL/AMP(20MG/ML) INFIL ONE (19:13)
[2024-04-29] MEDS ORDERED: PROPOFOL IV EMULSION 10 MG/ML 20 ML VIAL IV ONE ×2 (19:13→20:28)
--- NOTE | 2024-04-29 19:14 | Anesthesiology Consultation ---
Date of Service April 29, 2024 Assessment & Plan (1) Encounter for pre-operative examination: Chart Review Chart Review: Patient NOT seen in Pre Admission Testing Consults Requested none Additional Notes emergent case History Surgery Operation Date: 04/29/24 20:00 Proposed Procedures p Ureteral Stent Insertion/Removal - Kaleb Garza DO Height/Weight Height: 5 ft 3 in Allergies Allergy/AdvReac Type Severity Reaction Status Date / Time MONICA Inhibitors AdvReac Intermediate Cough Verified 04/25/24 10:06 diltiazem AdvReac Intermediate Cough Verified 04/25/24 10:06 PABA derivatives Allergy Mild Rash Uncoded 04/25/24 10:06 Medications Home Medications Medication Instructions Recorded Confirmed Last Taken cholecalciferol (vitamin D3) 25 1,000 unit PO QPM 02/21/18 04/25/24 08/08/23 21:00 mcg (1,000 unit) capsule (Vitamin D3) atorvastatin 80 mg tablet 80 mg PO HS #90 tabs 09/14/23 04/25/24 Unknown cetirizine 10 mg tablet (Zyrtec) 10 mg PO DAILY 10/09/23 04/25/24 Unknown hydralazine 10 mg tablet 10 mg PO TID PRN BP >175 #270 tabs 10/10/23 04/25/24 Unknown mecobalamin (vitamin B12) 1,000 mcg PO DAILY 10/17/23 04/25/24 Unknown lorazepam 0.5 mg tablet 0.5 mg PO Q12H PRN anxiety #60 tabs 11/01/23 04/25/24 Unknown apixaban 5 mg tablet (Eliquis) 5 mg PO Q12H #180 tabs 01/19/24 04/25/24 Unknown metoprolol tartrate 25 mg tablet 25 mg PO BID #60 tabs 02/29/24 04/25/24 Unknown sertraline 50 mg tablet 50 mg PO HS #90 tabs 03/14/24 04/25/24 Unknown losartan 25 mg tablet 25 mg PO QPM 04/29/24 04/29/24 Unknown losartan 25 mg tablet 50 mg PO QAM 04/29/24 04/29/24 Unknown Past Medical History Medical History Hypokalemia Syncope Shortness of breath Elevated troponin Atrial fibrillation with rapid ventricular response Arthritis Bladder cancer current dx>plans for port for chemo tx Restless leg syndrome History of kidney stones Hx of cancer of lung dx 2019 - s/p left upper lobectomy LBBB (left bundle branch block) History of COVID-19 05/2020--mild symptoms, resolved History of atrial fibrillation 2018- post op lung lobectomy - converted with medication - no known recurrence (cardiac event monitor revealed no a fib) - no longer on AC therapy Anxiety Eczema Takotsubo cardiomyopathy Recurrent per records. 04/2017, moderate LV dysfunction, now resolved. Follows with [facility] cardiology. Torn rotator cuff RIGHT--per pt "had stem cell injection for this and states it is 99% better" Hyperlipidemia Hypertension Past Family History Family History Sister Family history of colon cancer Colorectal cancer Brother Family history of bladder cancer Unknown Pure hypercholesterolemia Mother Hypertension Father Hypertension Aunt Diabetes Other Allergies Cancer Heart disease No family history of adverse response to anesthesia No family history of bleeding disorder Stroke Denies family history of Ovarian cancer Prostate cancer Myocardial infarction Breast cancer Lung cancer Past Surgical History Surgical History H/O total cystectomy Port-A-Cath in place (08/09/23) Insertion of Access Port with Fluoroscopy, Right Internal Jugular(Right) - Nick Wood DO, FACS H/O transurethral resection of bladder tumor (TURBT) x 3 *last one 06/2023 History of nasal cauterization History of tooth extraction History of cystoscopy History of stem cell transplant 2021 History of lobectomy of lung CARTER History of right cataract extraction History of tubal ligation History of arthroscopy of left knee History of left cataract extraction History of colonoscopy History of cardiac cath 04/2017 for Takotsubo cardiomyopathy. Mild-moderate nonobstructive CAD. No intervention. Social History Smoking Status: Never smoker tobacco type: cigarettes Do You Dip or Chew Tobacco: No Hx Alcohol Use: No Alcohol type: wine alcohol intake frequency: 0-2 drinks per day Hx Substance Use: No substance use type: does not use Substance Use Type Other:: medical marijuana Physical Exam Vital Signs Last Vital Signs Temp 99.0 F 04/29/24 16:03 Pulse 78 04/29/24 18:53 Resp 19 04/29/24 18:09 BP 151/55 H 04/29/24 17:43 Pulse Ox 96 04/29/24 18:09 O2 Del Method Room Air 04/29/24 18:09 Testing Laboratory Results 04/29/24 16:17 04/29/24 16:17 Urine Color Yellow 04/29/24 16:17 Urine Appearance Turbid (Clear) A 04/29/24 16:17 Urine pH 7.0 (4.5-7.5) 04/29/24 16:17 Ur Specific [place] 1.013 (1.000-1.030) 04/29/24 16:17 Urine Protein 1+ (Negative) H 04/29/24 16:17 Urine Glucose (UA) Negative (Negative) 04/29/24 16:17 Urine Ketones Negative (Negative) 04/29/24 16:17 Urine Nitrite Positive (Negative) A 04/29/24 16:17 Ur Leukocyte Esterase 3+ (Negative) H 04/29/24 16:17 Urine WBC (Auto) >50 /hpf (0-5) H 04/29/24 16:17 Urine RBC (Auto) 6-10 /hpf (0-2) H 04/29/24 16:17 U Hyaline Cast (Auto) >20 /lpf (0-2) H 04/29/24 16:17 U Epithel Cells (Auto) 0-2 /hpf (0-2) 04/29/24 16:17 Urine Bacteria (Auto) 4+ (None Seen) H 04/29/24 16:17
--- NOTE | 2024-04-29 19:30 | History & Physical Report ---
Date of Service April 29, 2024 Assessment & Plan (1) Emphysematous pyelitis: (2) Hydronephrosis, left: (3) Urothelial carcinoma of bladder: (4) History of atrial fibrillation: (5) Iron deficiency anemia: Plan Patient is a 79-year-old female with past medical history of A-fib on Eliquis, left bundle branch block, hypertension, hyperlipidemia, anxiety. She had a bladder resection and urostomy placed by [facility] Esteves in February due to urothelial carcinoma. She came into the ED due to 2 days of cloudy urine and fever. She was found to have left-sided pyelonephritis and is being taken to the OR for stent placement on admission by urology. #emphysematous pyelitis/hydronephrosis/urothelial carinoma of bladder history of urothelial carcinoma bladder s/p cystectomy with ileal conduit at [facility] 02/2024 and chemotherapy completed 10/2023 UA appears infectious with 1+ protein, 2+ blood, positive for nitrates, 3+ leukocyte esterase, > 50 WBC, 6-10 RBC, > 20 hyaline cast, 4+ bacteria AP CT showed worsening left hydroureteronephrosis with no urinary gas and left kidney, consistent with worsening pyelonephritis, ureteral stricture at body wall is not completely excluded, stable inflammation of right urinary tract renal function at baseline, creatinine 1.24, BUN 28 on admission mild leukocytosis on admission 11.66 noted to have temperature of 102.9 F at home 04/29/24 not septic on admission - afebrile, VSS, lactate negative, Pro-Joseph negative - however concern for sepsis to develop given requirement of surgical intervention and urologic surgical history - follow blood cultures history of pansensitive Pseudomonas aeruginosa (02/18/2024) and Morganella morganii susceptible to cefepime (06/2023) no noted history of MRSA continue cefepime follow urine cultures 1L NSS IVF bolus in ED; continue NSS at 80 mL/hour urology following - stent placement 04/29/2024 patient may need transfer to tertiary care center for nephrostomy tube placement - to be determined by urology team, May be transferred to [facility] with Dr. Navid ibarra CBC and renal function #a-fib admitting EKG ordered, to be obtained after surgical procedure hold metoprolol 04/29 evening; resume 04/30 am hold Eliquis electrolytes stable monitor on tele #anemia 2/2 chemotherapy improving after IV Venofer in March - follows with [facility] heme/onc Hgb 11.3 on admission; trending upward throughout March Trend CBC CT AP showed mild ileus, no obstruction - Colace prn Chronic stable diagnoses: HTN - continue losartan - hold evening dose 04/29 HX adenocarcinoma lung - s/p left upper lobe lobectomy 2018 nonobstructive CAD/ history Takotsubo's cardiomyopathy - s/p cardiac cath 2017 - recent echo 03/18/2024 EF 60 to 65%, no wall abnormalities, mild mitral regurg, diastolic dysfunction grade 2 HLD - continue atorvastatin Anxiety - continue sertraline VTE ppx: SCDs; hold Eliquis Diet: increase as tolerated to regular diet postoperatively Dispo: PCU Admission and Anticipated Discharge Date Admission Date: 04/29/24 History of Present Illness Chief Complaint: Flulike symptoms Primary Care Provider: Lj Barbosa MD Patient is a 79-year-old female with past medical history of A-fib on Eliquis, left bundle branch block, hypertension, hyperlipidemia, anxiety. She had a bladder resection and urostomy placed by [facility] in February. She came into the ED due to 2 days of cloudy urine and fever. She was found to have left-sided pyelonephritis and is being taken to the OR for stent placement on admission by urology. Patient seen at bedside with and OR team present. She stated she has had 2 days of cloudy urine and a temperature that she noticed today. Along with left-sided back pain. She stated her temperature was 102.9 F at home, she did not take anything for this, denies Tylenol use. No noted fever on admission to ED. She does not use oxygen at baseline, no CPAP/BiPAP. She thinks she took her home medications today but was slightly overwhelmed on exam and cannot remember. She did not take her evening medications. She wishes to be DNR/DNI. Handoff from the ED team stated that they spoke with [facility] Dr. Shoemaker who recommended [facility] urology team to try to stent patient, if unsuccessful, [facility] to take patient in the morning as a transfer. There is no bed available this evening. Allergies Allergy/AdvReac Type Severity Reaction Status Date / Time MONICA Inhibitors AdvReac Intermediate Cough Verified 04/25/24 10:06 diltiazem AdvReac Intermediate Cough Verified 04/25/24 10:06 PABA derivatives Allergy Mild Rash Uncoded 04/25/24 10:06 Home Medications Medication Instructions Recorded Confirmed Type cholecalciferol (vitamin D3) 25 1,000 unit PO QPM 02/21/18 04/29/24 History mcg (1,000 unit) capsule (Vitamin D3) atorvastatin 80 mg tablet 80 mg PO HS #90 tabs 09/14/23 04/29/24 Rx cetirizine 10 mg tablet (Zyrtec) 10 mg PO DAILY 10/09/23 04/29/24 History lorazepam 0.5 mg tablet 0.5 mg PO Q12H PRN anxiety #60 tabs 11/01/23 04/29/24 Rx apixaban 5 mg tablet (Eliquis) 5 mg PO Q12H #180 tabs 01/19/24 04/29/24 Rx metoprolol tartrate 25 mg tablet 25 mg PO BID #60 tabs 02/29/24 04/29/24 Rx sertraline 50 mg tablet 50 mg PO HS #90 tabs 03/14/24 04/29/24 Rx cyanocobalamin (vitamin B-12) 1,000 mcg PO DAILY 04/29/24 04/29/24 History 1,000 mcg tablet (Vitamin B-12) losartan 25 mg tablet 25 mg PO QPM 04/29/24 04/29/24 History losartan 25 mg tablet 50 mg PO QAM 04/29/24 04/29/24 History Past Med/Surg History Problem List (Updated 04/29/24 @ 20:09 by Shahrzad Canada PA-C) Iron deficiency anemia History of atrial fibrillation 2018- post op lung lobectomy - converted with medication - no known recurrence (cardiac event monitor revealed no a fib) - no longer on AC therapy Fever (Acute) History of urostomy (Acute) Leukocytosis (Acute) Acute pyelitis (Acute) History of urinary diversion procedure Emphysematous pyelitis Low hemoglobin Atrial fibrillation Hypomagnesemia Syncope, cardiogenic (Acute) Ureteral stent present H/O transurethral resection of bladder tumor (TURBT) Transurethral Resection of Bladder Tumor (medium)- Asim Reynolds MD s Left Retrograde Pyelogram,Left Ureteral Stent Placement (Left) Urothelial carcinoma of bladder s/p TURBT and following with urology for BCG treatments Health care maintenance Hydronephrosis, left Multiple pulmonary nodules determined by computed tomography of lung Seasonal allergies Status post lobectomy of lung Abdominal aortic atherosclerosis History of colon polyps Impaired glucose metabolism PCP monitoring- A1C 6.6 in 04/2023 Postmenopausal atrophic vaginitis Indeterminate pulmonary nodules Arthritis of knee, degenerative (Chronic) Anxiety (Chronic) Chronic cough (Chronic) Pancreatic cyst (Chronic) Takotsubo cardiomyopathy (Chronic) Dyslipidemia (Chronic) HTN (hypertension) (Chronic) Non-occlusive coronary artery disease (Chronic) Per 2018 cath per cardio records Lung nodule Incidental finding on chest CT during workup for cardiomyopathy. Now for wedge resection. Medical History Hypokalemia Syncope Shortness of breath Elevated troponin Atrial fibrillation with rapid ventricular response Arthritis Bladder cancer current dx>plans for port for chemo tx Restless leg syndrome History of kidney stones Hx of cancer of lung dx 2018 - s/p left upper lobectomy LBBB (left bundle branch block) History of COVID-19 05/2020--mild symptoms, resolved History of atrial fibrillation 2018- post op lung lobectomy - converted with medication - no known recurrence (cardiac event monitor revealed no a fib) - no longer on AC therapy Anxiety Eczema Takotsubo cardiomyopathy Recurrent per records. 04/2017, moderate LV dysfunction, now resolved. Follows with [facility] cardiology. Torn rotator cuff RIGHT--per pt "had stem cell injection for this and states it is 99% better" Hyperlipidemia Hypertension Surgical History H/O total cystectomy Port-A-Cath in place (08/09/23) Insertion of Access Port with Fluoroscopy, Right Internal Jugular(Right) - Nick Wood, DO, FACS H/O transurethral resection of bladder tumor (TURBT) x 3 *last one 06/2023 History of nasal cauterization History of tooth extraction History of cystoscopy History of stem cell transplant 2021 History of lobectomy of lung CARTER History of right cataract extraction History of tubal ligation History of arthroscopy of left knee History of left cataract extraction History of colonoscopy History of cardiac cath 04/2017 for Takotsubo cardiomyopathy. Mild-moderate nonobstructive CAD. No intervention. Family History Sister Family history of colon cancer Colorectal cancer Brother Family history of bladder cancer Unknown Pure hypercholesterolemia Mother Hypertension Father Hypertension Aunt Diabetes Other Allergies Cancer Heart disease No family history of adverse response to anesthesia No family history of bleeding disorder Stroke Denies family history of Ovarian cancer Prostate cancer Myocardial infarction Breast cancer Lung cancer Social History Smoking Status: Former smoker Tobacco Type: Cigarettes Age Started Using Tobacco: 19; Age Quit Using Tobacco: 37; packs per day: 1.5; Cigarettes Per Day: 40; Smoking End Date: 1984; Second Hand Exposure: No; Do You Dip or Chew Tobacco: No; Tobacco Cessation Education Requested by Patient: No Hx Alcohol Use: Yes Alcohol type: wine Alcohol Intake Frequency: 4 or More x per/Week Alcohol Intake Frequency Comment: one glass a day Hx Substance Use: No Preferred Language: Greek Communication Ability: Effective Visual Impairment: Limited Hearing Ability: Normal Repair Service Dispatcher Required: No Beliefs That Will Affect Care: None marital status: Current Living Situation: Spouse current occupational status: retired How many Children do You have: 3 Feels Safe at Home: No Is there a partner from a previous relationship who is making you feel unsafe now?: No Any Concerns about Your Family Situation: No Would You Like to Speak to Someone About Your Situation: No Safety Concerns: Feels Safe At This Time Childhood Exposure to Second-Hand Smoke: Yes Diet: regular caffeine: Yes during the past year weight has: remained stable Dental Care, Regularly: Yes Physical Activity Frequency: Does not Exercise Seatbelt Use: always Sunscreen Use: Yes Assistive Devices: Cane, Contacts and Walker Review of Systems Review of Systems: see HPI Physical Exam Physical Exam: The patient is awake, alert and oriented 3, well developed and well nourished, normocephalic and atraumatic, in no acute distress. Non-toxic appearing. HEENT- EOMI, mucous membranes dry Hearing grossly intact. Heart-normal S1 and S2. No murmurs, rubs or gallops. Lungs-clear bilaterally, no respiratory distress, no accessory muscle use. Abdomen-normal bowel sounds and soft. No ascites noted. Non-tender. Extremities- no clubbing, cyanosis, or edema. Rheumatologic-normal range of motion. Psychiatric-anxious affect. Results & Data Results & Data Vital Signs (Past 12 Hours) Vital Signs Temp Pulse Pulse Resp BP BP Pulse Ox 04/29/24 19:15 79 15 163/55 H 96 04/29/24 18:53 78 04/29/24 18:09 79 19 96 04/29/24 17:43 151/55 H 04/29/24 17:42 84 20 93 04/29/24 16:03 37.2 C 104 H 17 132/65 96 O2 Del Method 04/29/24 19:15 Room Air 04/29/24 18:53 04/29/24 18:09 Room Air 04/29/24 17:43 04/29/24 17:42 Room Air 04/29/24 16:03 Room Air Laboratory Results Reviewed CBC, CMP, Pro-Joseph, lactate, UA Diagnostic Findings reviewed ap ct Medications Administered ed - 1 l nss bolus, cefepime IV ECG Additional Comments: ordered Code Status & VTE Plan Code Status dnr/dni VTE Prophylaxis Plan VTE Prophylaxis will be ordered: Yes Supervising Physician Co-Signing Physician Notes Attending addendum: I have physically seen this patient, have supervised the AMBER's activities, and agree with the H&P unless as otherwise noted. Assessment and Plan: The patient is a 79-year-old female with past medical history including A-fib on Eliquis, left bundle branch block, hypertension, hyperlipidemia, and anxiety. She has had a bladder resection and urostomy placed by [facility] in February 2024 due to urothelial carcinoma. She presented to the emergency department due to 2 days of cloudy urine and fever. CT scan of a bdomen pelvis showed worsening left hydroureteronephrosis, with new gas in the left kidney, with concerns regarding worsening pyelonephritis. [facility] #Emphysematous pyelitis/hydronephrosis/urothelial carcinoma bladder- Status post urothelial carcinoma of bladder status post cystectomy with ileal conduit [facility] 02/26 and chemotherapy completed 10/27 Follow urine culture sensitivity History of pansensitive Pseudomonas aeruginosa on 02/18/2024, and Morganella morganii susceptible to cefepime on 06/27. Continue cefepime 2 g IV every 12 hours Status post 1 L normal saline IV fluid in the ED, continue NSS at 80 mL/h Patient being seen by urology at this facility, if nephrostomy tube placement is necessary, she will be transferred to [facility] with Dr. Shoemaker, as has been discussed Atrial fibrillation- Holding metoprolol this evening, to resume on 04/30 Holding Eliquis due to present procedures Anemia- Hemoglobin is 11.3 admission Following serially Remaining orders and notations as noted PG Care Time/CCT Total # of Minutes Spent Total Time Spent with Patient: Total time spent is greater than 50% in coordination of care (as documented) at patient's floor/unit and/or counseling patient: Coding Level of Care Code 74460 INT INP/OBS CARE MIN Diagnoses Emphysematous pyelitis N12 Hydronephrosis, left N13.30 Urothelial carcinoma of bladder C67.9 History of atrial fibrillation Z86.79 Iron deficiency anemia D50.9
--- NOTE | 2024-04-29 19:49 | History & Physical Bridge Note ---
Date of Service April 29, 2024 History & Physical Bridge Note I have examined the patient, reviewed the History & Physical and in the interval since the performance of the History & Physical I have noted the following changes of clinical significance: no changes noted
--- NOTE | 2024-04-29 19:49 | Urology Consultation ---
Date of Consultation April 29, 2024 Assessment & Plan (1) Urothelial carcinoma of bladder: (2) Hydronephrosis, left: (3) Emphysematous pyelitis: (4) HTN (hypertension): (5) Non-occlusive coronary artery disease: (6) History of urinary diversion procedure: (7) Atrial fibrillation: (8) Multiple pulmonary nodules determined by computed tomography of lung: (9) Status post lobectomy of lung: Plan Patient with hydronephrosis and left-sided emphysematous pyelitis status post urinary diversion after radical cystectomy for muscle invasive bladder cancer. Patient had undergone radical cystectomy in the beginning of February 2024. Had undergone procedure at [facility]. Patient's complicated medical and surgical history is reviewed and summarized above all imaging was reviewed interpreted by myself and all labs were reviewed with pertinent positive negatives in the HPI or plan section please see medical records for full report. Patient is mildly hypertensive at a blood pressure of 170/55. Pulse is 80 respirations 18 temperature 37.2 oxygen saturation 98% on room air. Had a Tmax earlier today greater than 38.5. Patient has had significant infection issues as previously had Pseudomonas infection. Creatinine is mildly elevated 1.24. Her white count is elevated 11.66. Hemoglobin 11.3. Concern for developing sepsis with possible obstruction versus reflux of the left kidney with recent urinary diversion. Concern for possible access discussed concerns and issues extensively with family. Discussed risk of procedure. Discussed different options. Had recommended possible transfer for nephrostomy tubes however this would not be available due to all surrounding hospitals currently having a bed shortage. Patient is on broad-spectrum antibiotics will likely undergo hospitalization and close monitoring with the hospitalist team. If unable to pass stent or access to the left side may need to be more urgently transferred for nephrostomy tube placement. Did discuss this extensively with family. Discussed potential risk including possible injury or bleeding after stent placement. Discussed need for assessment and access into the urinary system and the bottom portion of the diversion. May have difficulty acting 1 side or the other. Did discuss may be difficult to determine side until either ureter is accessed. Discussed possible inflammation or swelling occurring with instrumentation of the ureters. May need to have stent placed bilaterally if either side is accessed. Reviewed this extensively. Discussed risk of intervention. Discussed risk related to ongoing infection. Discussed possible causes of gas formation within the left renal pelvis. Discussed concern and possible development of emphysematous pyelonephritis which would potentially be a severe surgical emergency. Reviewed this extensively. Imaging does show air within the collecting system this was reviewed interpreted by myself. Plan to move forward with urgent/emergent procedure. Reviewed extensively with patient and family. Discussed risk and benefits at length. Discussed concerns and issues. Discussed possible inability to access the left kidney and allow drainage. All questions were answered. Will plan to move forward with urgent intervention. Risks and benefits discussed at length for procedure. These include bleeding, infection, injury to surrounding tissues or organs, and risks associated with anesthesia. Patient states understanding and agrees to proceed. Will sign consent and schedule. Plan for cystoscopy of diversion with possible ureteroscopy bilaterally possible bilateral stent placement possible retrograde pyelogram possible dilation. Will plan to monitor patient while hospitalized. If not improving or develops more severe sepsis issues or if stents are able to be placed and fail may need to consider transfer for emergent nephrostomy tube placement History of Present Illness History of Present Illness Urgent/emergent consultation for acutely ill and septic patient with UTI/Pyelo, discomfort, and ill feelings. Patient with history of bladder cancer status post radical cystectomy with ileal conduit diversion. Had undergone diversion at [facility]. Had stent removed in the last month and a half. Patient had undergone radical cystectomy in the beginning of February 2024. Patient presented with increasing ill feelings UTI burning and irritation and increasing flank pain. Patient developed sudden onset of pain into flank going down and radiating into groin and back in waves comes and goes. Can be severe at times. Altered mental status due to acute illness Discussed and reviewed patient's personal medical, surgical, social, and family history for any history of issues, infections, and disease. Extensively reviewed previous records. Patient had undergone CT examination in the ER. Found to have severe obstruction versus reflux with air found within the left collecting system. Possible bilateral hydronephrosis. Extensive review with patient and family also, discussed patient's medical/surgery history especially related to any history of urinary issues or stone disease. Patient is undergoing emergency assessment and care with fluid and antibiotic management for acute illness and is being admitted to undergo close observation with hospitalist team. Hospitalist will be admitting and is undergoing observation with broad spectrum IV antibiotics. Due to the severe distention of the left side with air within the collecting system had discussed possible transfer for nephrostomy tube placement especially in light of recent conduit and possible damage or difficulty in accessing. Discussed possible obstruction. Unfortunately patient was unable to be transferred due to surrounding facilities not having available beds. Reviewed with the emergency room provider possible option for or attempt to place ureteral stent however also discussed difficulty. Extensively reviewed with patient and family. Allergies Allergy/AdvReac Type Severity Reaction Status Date / Time MONICA Inhibitors AdvReac Intermediate Cough Verified 04/25/24 10:06 diltiazem AdvReac Intermediate Cough Verified 04/25/24 10:06 PABA derivatives Allergy Mild Rash Uncoded 04/25/24 10:06 Home Medications Medication Instructions Recorded Confirmed Type cholecalciferol (vitamin D3) 25 1,000 unit PO QPM 02/21/18 04/29/24 History mcg (1,000 unit) capsule (Vitamin D3) atorvastatin 80 mg tablet 80 mg PO HS #90 tabs 09/14/23 04/29/24 Rx cetirizine 10 mg tablet (Zyrtec) 10 mg PO DAILY 10/09/23 04/29/24 History lorazepam 0.5 mg tablet 0.5 mg PO Q12H PRN anxiety #60 tabs 11/01/23 04/29/24 Rx apixaban 5 mg tablet (Eliquis) 5 mg PO Q12H #180 tabs 01/19/24 04/29/24 Rx metoprolol tartrate 25 mg tablet 25 mg PO BID #60 tabs 02/29/24 04/29/24 Rx sertraline 50 mg tablet 50 mg PO HS #90 tabs 03/14/24 04/29/24 Rx cyanocobalamin (vitamin B-12) 1,000 mcg PO DAILY 04/29/24 04/29/24 History 1,000 mcg tablet (Vitamin B-12) losartan 25 mg tablet 25 mg PO QPM 04/29/24 04/29/24 History losartan 25 mg tablet 50 mg PO QAM 04/29/24 04/29/24 History Patient History Medical History Hypokalemia Syncope Shortness of breath Elevated troponin Atrial fibrillation with rapid ventricular response Arthritis Bladder cancer current dx>plans for port for chemo tx Restless leg syndrome History of kidney stones Hx of cancer of lung dx 2018 - s/p left upper lobectomy LBBB (left bundle branch block) History of COVID-19 05/2020--mild symptoms, resolved History of atrial fibrillation 2018- post op lung lobectomy - converted with medication - no known recurrence (cardiac event monitor revealed no a fib) - no longer on AC therapy Anxiety Eczema Takotsubo cardiomyopathy Recurrent per records. 04/2017, moderate LV dysfunction, now resolved. Follows with [facility] cardiology. 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 Mild-moderate nonobstructive CAD. No intervention. Family History Sister Family history of colon cancer Colorectal cancer Brother Family history of bladder cancer Unknown Pure hypercholesterolemia Mother Hypertension Father Hypertension Aunt Diabetes Other Allergies Cancer Heart disease No family history of adverse response to anesthesia No family history of bleeding disorder Stroke Denies family history of Ovarian cancer Prostate cancer Myocardial infarction Breast cancer Lung cancer Social History Smoking Status: Never smoker Tobacco Type: Cigarettes Age Started Using Tobacco: 19; Age Quit Using Tobacco: 37; packs per day: 1.5; Second Hand Exposure: Yes (father smoked); Do You Dip or Chew Tobacco: No; Hx Alcohol Use: No Hx Substance Use: No Preferred Language: Mexican Communication Ability: Effective Visual Impairment: Limited Hearing Ability: Normal Legal Recovery Specialist Required: No Beliefs That Will Affect Care: None marital status: Current Living Situation: Spouse current occupational status: retired How many Children do You have: 3 Feels Safe at Home: Yes Childhood Exposure to Second-Hand Smoke: Yes Diet: regular caffeine: Yes during the past year weight has: remained stable Dental Care, Regularly: Yes Physical Activity Frequency: Does not Exercise Seatbelt Use: always Sunscreen Use: Yes Assistive Devices: None Review of Systems Review of Systems: All systems reviewed & are unremarkable except as noted in HPI & below Physical Exam Physical Exam: General: Acutely ill. Fever today of greater than 38.5. Possible developing sepsis HEENT: Normocephalic Atraumatic. Inspection normal. Cranial Nerves 2-12 Grossly intact. Nares are clear. Neck is supple. Normal inspection of face. Normal inspection of neck. Neurologic: No deficits on inspection. Baseline for motor function and sensory. Psychologic: Anxious, no significant delirium. Respiratory: Mild labored. No use of accessory muscles. No severe dyspnea. Cardiovascular: Nontachycardic. Mild hypertension Skin: [place] and Dry. No rashes or visible lesions. Febrile Extremities: Moving without issues. No motor deficits on inspection Lymphatics: Mild edema Abdomen: Mildly distended. Diversion in the right lower quadrant. No rebound or guarding. Mild suprapubic/flank tenderness Results & Data Vital Signs (Past 12 Hours) Vital Signs Temp Pulse Pulse Resp BP BP Pulse Ox 04/29/24 19:15 79 15 163/55 H 96 04/29/24 18:53 78 04/29/24 18:09 79 19 96 04/29/24 17:43 151/55 H 04/29/24 17:42 84 20 93 04/29/24 16:03 37.2 C 104 H 17 132/65 96 O2 Del Method 04/29/24 19:15 Room Air 04/29/24 18:53 04/29/24 18:09 Room Air 04/29/24 17:43 04/29/24 17:42 Room Air 04/29/24 16:03 Room Air PG Care Time/CCT Total # of Minutes Spent Total Time Spent with Patient: Total time spent is greater than 50% in coordination of care (as documented) at patient's floor/unit and/or counseling patient: Coding Level of Care Code 17489 INT INP/OBS CARE MIN Diagnoses Urothelial carcinoma of bladder C67.9 Hydronephrosis, left N13.30 Emphysematous pyelitis N12 Essential hypertension I10 Hypertension type: unspecified Non-occlusive coronary artery disease I25.10 History of urinary diversion procedure Z98.890 Atrial fibrillation I48.91 Multiple pulmonary nodules determined by computed tomography of lung R91.8 Status post lobectomy of lung Z90.2 (4) HTN (hypertension) Hypertension type: unspecified Qualified Code(s): I10 - Essential (primary) hypertension
[2024-04-29] MEDS ORDERED: ONDANSETRON INJ 2 MG/ML 2 ML VIAL ONE (19:57)
[2024-04-29] MEDS: DIATRIZOATE MEGLUMINE 30% 100ML VIAL INSTIL ONE (21:07)
--- NOTE | 2024-04-29 21:34 | Operative Report ---
PG Post Operative Report Pre & Post Diagnosis Preop - Hydronephrosis, sepsis, left emphysematous pyelitis, Bladder cancer with conduit diversion Postop - Same Operation Date: 04/29/24 20:00 <No data on this case meets the specified criteria> I identified the patient and participated in the time-out.: Yes Procedure Cystoscopy of the Ileal Conduit Diversion, Instillation of Contrast into Diversion, Bilateral Retrograde Pyelogram, Bilateral Stent placement Left Dilation, Left Aspiration of Urine. Operation Date: 04/29/24 20:00 <No data on this case meets the specified criteria> Surgeon Kaleb Garza, II, DO Briquetter Operator None Estimated Blood Loss 1 Findings Consistent with Post-Op Diagnosis Ureteral Catheter/Stents placed in good position bilaterally with good drainage. No significant obstruction of conduit. Reflux of right ureter. No significant reflux appreciated on left. Significant inflammation of the proximal end of conduit with significant inflammation at site of left ureteral implant. Inflammation of distal left ureter vs stricture - Dilated to 10 Fr with catheter. No bleeding or significant issue at implant. Bilateral hydronephrosis with possible right reflux. Cloudy purulent urine left kidney Specimens Urine Left Kidney - Culture Drains 7 Fr J catheter bilaterally City Editor on Right Stent Blue Cap on Left Stent Anesthesia Type General Complications none Disposition Disposition: Recovery Room Indications Patient with history of bladder cancer with development of sepsis and pyelitis with possible obstruction of left kidney and bilateral hydronephrosis. Patient s/p Ileal Conduit diversion. Plan for stent/catheter placement for drainage of kidneys bilaterally and identification of ureters. Risks and benefits discussed at length. Description of Procedure Patient was consented and brought back to the operating room. Patient was placed under anesthesia in the supine position. The ostomy bag was removed from the appliance which was prepped and maintained. Patient's ileal conduit ostomy was prepped and draped in the regular sterile fashion. A time out was completed. A Flexible Cystoscope was placed into the conduit and advanced slowly. The lumen was monitored and saline was used to distend the conduit. Once advanced, approx 10 cc of constrast was instilled to assess the ostomy and the conduit. The conduit did not appear to have any severe or major obstruction. With the scope in position it was hard to determine completely if there was possibly some narrowing however the scope was able to advance easily without signs of significant stricture at the ostomy opening. Reflux was noted to be going into the right ureter. It was seen advancing all the way to the right renal pelvis. The scope was able to be advanced. The scope advanced down to the base of the conduit. The staple line from the closure of the ileal conduit was appreciated. The ureteral orifice was not discovered. The scope was slowly removed backwards. A ureteral implant was identified. It appeared to be freely refluxing and with additional contrast and appeared to be the right ureter. In order to determine if there was a single implantation and versus separate implantations a 5 Togolese open-ended catheter was placed into the implant os. The 5 Togolese was able to advance easily without major issue. A wire was used to guide it into the right renal pelvis. Approximately 6 cc of contrast was were injected. It confirmed the wire in the renal pelvis. No considerable major obstruction was noted. The ureter was found to be somewhat dilated possibly secondary to reflux at the implant. No other area of contrast was seen entering onto the left side. At this point the conduit was further explored. In the more proximal segment closer to the site of the closure line of the conduit a small opening was appreciated. There was significant inflammation in this area. Utilizing a wire and under direct visualization an opening was able to be discovered. The wire was able to enter and was found to be entering into the left retroperitoneum. The 5 Togolese open-ended catheter was then advanced. The 5 Togolese open-ended catheter appeared to be going into the renal pelvis at this point a empty syringe was used to aspirate urine from the left kidney. A significant purulent urine was appreciated. Approximately 20 cc of purulent appearing urine was able to be aspirated. This was sent for analysis. A retrograde pyelogram was then completed. The left side appeared to be significantly more hydronephrotic. The ureter appeared to be much more dilated as well appearing to be likely hydroureter. The more distal segment appeared to be somewhat narrowed appeared to be possibly secondary to inflammation. No obvious stricture or other abnormality was discovered at the implantation in the conduit there was significant inflammation this appeared to be going along the distal segment of the ureter. The wire was able to be maintained in place. The area was then dilated utilizing a 10 Togolese open-ended catheter. The area was inspected after dilation and the wire was maintained the entire time. No major irregularities or problems were discovered. Both wires remained in good position. The scope was slowly removed monitoring the location and insertion the entire time. No mass tumor or other area of concern was noted. Starting on the right a 7 Togolese diversion stent/catheter was placed over the wire and into the right renal pelvis. It was found to be in good position within the renal pelvis. It was deployed and the wire removed. Urine was seen draining easily from the right side it appeared to be clear yellow with no signs of purulence or other major issue. It did appear to be draining well without major problem. This was an singh utilizing a Red end For the right side. A final retrograde pyelogram was completed on the right side and appeared to be in good position dr marinelli well without major problems with the coil of the stent in good position in the renal pelvis. I then thing was then taken onto the left side. Under visualization the 7 Togolese stent was was placed over top of the wire. It was able to advance into the renal pelvis. It appeared to be in good position. The wire was then removed and the coil deployed within the renal pelvis. The stent appeared to be in good position. The wire was completely removed and the catheter appeared to be draining well without major issue. At this point a blue and was placed on the left stent in order to singh it. Both appear to be draining well without major issue. Both stents appear to be in good position both had the coils in the renal pelvis. Confirmatory retrograde pyelograms were completed on each side and appeared to drain well without major issue. The ostomy was entered a final time with the flexible scope. It was inspected. No major areas of bleeding or other concern were noted. There was significant inflammation in the base but no major other problems or other issues. No significant drainage issues were appreciated on assessment of the lumen. A final 10 cc injection of contrast into the pouch did show no major signs of issues and appeared to drain well without major problems. The patient was cleaned with the stents held in position. The ostomy bag was reattached to the appliance. After the patient was cleaned. The ends of the stents were placed into the bag and allowed to drain and did appear to be draining well without major issue. A 12 Togolese catheter was placed into the lumen of the ostomy. No considerable retention was noted and no major drainage was appreciated with the 12 Togolese catheter. At this point it was decided to hold off on placement of the catheter within the lumen of the ostomy and allow drainage with the stents and around the stents. The patient was cleaned, the appliance was set to drainage, and the patient was transferred to the PACU in stable condition having tolerated the procedure well with no complications. I was present and participated in all aspects of this portion of the procedure. Patient will likely be admitted and monitored on broad-spectrum antibiotics until cultures are available and complete. Will plan to monitor while hospitalized. Plan to maintain the catheters with drainage into the ostomy bag. May be able to remove the right ureteral stent depending on how the patient does. May need to have further evaluation of left side to rule out developing obstructive issue or other problem versus obstruction secondary to inflammation from pyelitis. I attest to the content of the Intraoperative Record and any orders documented therein. Any exceptions are noted below.
--- NOTE | 2024-04-29 21:36 | Anesthesiology Progress Note ---
Date of Service April 29, 2024 Anesthesia Post Procedure Vital Signs Vital Signs: Temp Pulse Pulse Resp BP BP Pulse Ox 04/29/24 21:30 84 21 150/100 H 94 04/29/24 21:21 99.7 F H 88 23 171/63 H 93 04/29/24 19:30 80 18 170/55 H 98 04/29/24 19:15 79 15 163/55 H 96 04/29/24 18:53 78 04/29/24 18:09 79 19 96 04/29/24 17:43 151/55 H 04/29/24 17:42 84 20 93 04/29/24 16:03 99.0 F 104 H 17 132/65 96 O2 Del Method 04/29/24 21:30 Room Air 04/29/24 21:21 Room Air 04/29/24 19:30 Room Air 04/29/24 19:15 Room Air 04/29/24 18:53 04/29/24 18:09 Room Air 04/29/24 17:43 04/29/24 17:42 Room Air 04/29/24 16:03 Room Air Transfer of Care Handoff Completed per policy Notes Mental Status: alert / awake / arousable and participated in evaluation Patient Amnestic to Procedure: Yes Nausea / Vomiting: adequately controlled Pain: adequately controlled Airway Patency, RR, SpO2: stable & adequate BP & HR: stable & adequate Hydration State: stable & adequate Anesthetic Complications: no major complications apparent and Pt Satisfied with anesthetic care
[2024-04-29] MEDS: ACETAMINOPHEN 1,000 MG/100 ML VIAL IV STA (21:41)
[2024-04-29] MEDS ORDERED: ACETAMINOPHEN 325 MG TAB PO PRN (22:09)
[2024-04-29] MEDS ORDERED: DOCUSATE SODIUM 100 MG CAP PO PRN (22:09)
[2024-04-29] MEDS ORDERED: ONDANSETRON INJ 2 MG/ML 2 ML VIAL IV PRN (22:09)
[2024-04-29] MEDS: ACETAMINOPHEN 1000 MG/100 ML IV IV ONE (22:51)
[2024-04-29] MEDS: SODIUM CHLORIDE 0.9% 1,000 ML IV SCH (23:15)
[2024-04-29] MEDS: ATORVASTATIN 40 MG TAB PO SCH (23:56)
[2024-04-29] MEDS: SERTRALINE HCL 50 MG TABLET PO SCH (23:56)
[2024-04-30] MEDS: CEFEPIME 2000MG 2,000 MG/20 ML SYR IV SCH (06:46)
--- NOTE | 2024-04-30 07:55 | Fluoroscopy Report ---
FL retrograde includes kub CLINICAL HISTORY: RETROGRADE W/ STENT PLACEMENT COMPARISON STUDY: None FLUOROSCOPY TIME: 196 seconds FLUOROSCOPY IMAGES: 5 EXPOSURE DOSE: 41 mGy FINDINGS: Fluoroscopy was provided for ureteral stent placement. IMPRESSION: Intraoperative fluoroscopy. ACT 112: Negative or not required by law. Electronically signed by: Nick Nathan M.D. 04/30/2024 7:54 AM
[2024-04-30 07:59] LABS: Basophils # (auto) 0.02 K/uL (0.00-0.20); Basophils % (auto) 0.2 %; Hematocrit (blood only) 30.7 % (37.0-47.0); Hemoglobin 9.9 g/dl (12.0-16.0); Immature Granulocytes # (auto) 0.06 K/uL (0.01-0.20); Immature Granulocytes % (auto) 0.6 %; Lymphocytes % (auto) 12.8 %; Mean Corpuscular Hemoglobin 30.3 pg (25.0-34.0); Mean Corpuscular Hgb Conc 32.2 g/dL (32.0-36.0); Mean Corpuscular Volume 93.9 fL (80.0-100.0); Mean Platelet Volume 10.5 fL (9.4-12.4); Monocytes # (auto) 1.14 K/uL (0.11-0.59); Monocytes % (auto) 11.2 %; Neutrophils # (auto) 7.65 K/uL (1.40-6.50); Neutrophils % (auto) 75.2 %; Platelet Count 173 K/uL (130-400); RDW Coefficient of Variation 15.8 % (11.5-14.5); RDW Standard Deviation 54.4 fL (36.4-46.3); Red Blood Count 3.27 M/uL (4.20-5.40); White Blood Count 10.17 K/ul (4.8-10.8)
[2024-04-30 08:14] LABS: Albumin Globulin Ratio 0.9 (0.9-2); Albumin Level 3.1 gm/dl (3.4-5.0); BUN Creatinine Ratio 18.3 (10-20); Bilirubin,Total 0.6 mg/dl (0.2-1.0); Calcium 8.1 mg/dl (8.6-10.3); Globulin 3.3 gm/dl (2.5-4.0); Magnesium 1.5 mg/dl (1.7-2.4); Potassium 4.6 mmol/L (3.5-5.1); Total Protein 6.4 gm/dl (6.0-8.3)
[2024-04-30] MEDS: METOPROLOL TARTRATE 25 MG TAB PO SCH (09:32)
[2024-04-30] MEDS: LOSARTAN POTASSIUM 50 MG TAB PO SCH (09:33)
--- NOTE | 2024-04-30 13:23 | Urology Progress Note ---
Date of Service April 30, 2024 Assessment & Plan (1) Emphysematous pyelitis: (2) Acute pyelitis: (3) History of urinary diversion procedure: (4) History of urostomy: Plan: 79-year-old female with history of muscle invasive bladder cancer status post radical cystectomy with ileal conduit admitted for sepsis and left emphysematous pyelitis. Patient s/p cystoscopy of the ileal conduit diversion, instillation of contrast into diversion, bilateral retrograde pyelogram, bilateral stent placement, left dilation, left aspiration of urine Subjectively feeling better Afebrile overnight, temp 37.8 today, hemodynamically stable Labs reviewedcreatinine 1.15, WBC 10.17, hemoglobin 9.9 Urine culture prelim with Klebsiella oxytoca/[place] ornith Blood cultures pending Kidney aspirate pending Recommend continue with broad-spectrum antibiotics and narrow per sensitivity data when available Bilateral ureteral stents in position draining into urostomy, appear to be draining appropriately Continue supportive care, antibiotics and medical management per hospital medicine If she clinically worsens, then may require transfer for nephrostomy tube placement will follow, please contact our service with questions, concerns or changes to clinical status Admission and Anticipated Discharge Date Admission Date: April 29, 2024 Subjective Patient seen and examined at bedside this afternoon. in room. Patient awake and sitting up in bed. Feeling better today. Denies flank pain. No fever or chills at present. Urostomy intact. Review of Systems Constitutional: as per Subjective / HPI Genitourinary: as per Subjective / HPI Physical Exam Constitutional: no acute distress Respiratory: normal respiratory effort; no respiratory distress and no labored breathing Gastrointestinal (Abdomen): Inspection/Auscultation: abdomen normal to inspection Musculoskeletal: Head/Neck/Chest: normocephalic Neurologic: moves all extremities and awake Psychiatric: Orientation: alert and oriented x 3 Genitourinary: Urostomy intact, 2 stents within urostomy (credit card associate, blue cap), urine relatively clear, some sediment Results & Data Vital Signs (Past 12 Hours) Vital Signs Temp Pulse Pulse Resp BP BP Pulse Ox 04/30/24 10:38 87 04/30/24 10:28 37.8 C H 78 17 123/66 94 04/30/24 07:44 36.7 C 92 H 18 125/69 94 04/30/24 02:48 36.9 C 78 18 150/70 H 96 O2 Del Method 04/30/24 10:38 04/30/24 10:28 Room Air 04/30/24 07:44 Room Air 04/30/24 02:48 Room Air PG Care Time/CCT Total # of Minutes Spent Total Time Spent with Patient: Total time spent is greater than 50% in coordination of care (as documented) at patient's floor/unit and/or counseling patient: Coding Level of Care Code 38837 SUB INP/OBS CARE 03/30MIN Diagnoses Emphysematous pyelitis N12 Acute pyelitis N10 History of urinary diversion procedure Z98.890 History of urostomy Z98.890
[2024-04-30] MEDS: MAGNESIUM SULFATE / D5W 1 GM/100 ML BAG IV SCH (13:36)
--- NOTE | 2024-04-30 14:22 | Hospitalist Progress Note ---
Date of Service April 30, 2024 Assessment & Plan (1) Emphysematous pyelitis: Plan: 79yo female with h/o A-fib on Eliquis, left bundle branch block, hypertension, hyperlipidemia, anxiety, bladder cancer. Presented with 2 days of cloudy urine and fever. She was found to have left-sided pyelonephritis on CT a/p - report as follows: "Worsening left hydroureteronephrosis with new urinary gas in the left kidney. Findings consistent with worsening pyelonephritis. If there has been interval interventional procedure, air could be introduced in this matter. Ureteral stricture at the body wall is not completely excluded. Stable inflammation of the right urinary tract." s/p urological procedure on 04/[address] Garza -- Cystoscopy of the Ileal Conduit Diversion, Instillation of Contrast into Diversion, Bilateral Retrograde Pyelogram, Bilateral Stent placement, Left Ureteral Dilation, Left Aspiration of Urine. appreciate Dr Garza' assistance pyelitis - 2nd klebsiella oxytoca cont IV abx; change IV cefepime to IV ertapenem in the event the klebsiella is ESBL follow blood cx's (2) Hydronephrosis, left: Plan: s/p ureteral stent placement b/l see #1 above (3) Urothelial carcinoma of bladder: Plan: s/p bladder resection with urostomy creation - [facility] 02/2024 s/p completion of chemotherapy 10/2023 (4) History of atrial fibrillation: Plan: remains in NSR Eliquis on hold due to urological surgery yesterday cont metoprolol BID (5) Sepsis: Plan: 2nd to #1 cont IV abx follow blood cx's (6) URI (upper respiratory infection): Plan: check COVID/flu/RSV Plan Chronic stable diagnoses: HTN - continue losartan h/o adenocarcinoma lung - s/p left upper lobe lobectomy 2019 nonobstructive CAD/ history Takotsubo's cardiomyopathy - s/p cardiac cath 2018 - recent echo 03/18/2024 EF 60 to 65%, no regional wall motion abnormalities, mild mitral regurg, diastolic dysfunction grade 2 Hyperlipidemia - continue atorvastatin Anxiety - continue sertraline PT, OT while here family updated at bedside Admission and Anticipated Discharge Date Admission Date: April 29, 2024 Subjective patient c/o mild URI symptoms - dry cough, nasal congestion, sore throat - for about 2 days continues with fevers/chills denies any flank pain or back pain some mild abdominal discomfort no nausea/emesis feels tired denies any shortness of breath pt's and daughter were both present at bedside tele - NSR, no a.fib Review of Systems Review of Systems: gen - ongoing fevers/chills cv - no chest pain, no orthopnea pulm - no dyspnea or BRIONES; mild cough - no sputum - cloudy urine in meadows bag Physical Exam Physical Exam: gen - looks tired/ill but nontoxic appearing, NAD, lying comfortably in bed neck - no JVD mouth - MMM; mild posterior throat erythema heart - RRR, s1 s2, no murmur lungs - CTA b/l abd - soft, NT, ND, BS+, no flank tenderness to palpation b/l; urostomy present with cloudy/dark-appearing urine in collection bag; 2 stents are present entering the urostomy ext - no edema, pulses 2+ b/l Results & Data Results & Data Vital Signs (Past 12 Hours) Vital Signs Temp Pulse Pulse Resp BP BP Pulse Ox 04/30/24 10:38 87 04/30/24 10:28 37.8 C H 78 17 123/66 94 04/30/24 07:44 36.7 C 92 H 18 125/69 94 04/30/24 02:48 36.9 C 78 18 150/70 H 96 O2 Del Method 04/30/24 10:38 04/30/24 10:28 Room Air 04/30/24 07:44 Room Air 04/30/24 02:48 Room Air Laboratory Results Laboratory Results - last 24 hr 04/30/24 06:47 WBC 10.17 RBC 3.27 L Hgb 9.9 L Hct 30.7 L MCV 93.9 MCH 30.3 MCHC 32.2 RDW Std Deviation 54.4 H RDW Coeff of [place] 15.8 H Plt Count 173 MPV 10.5 Immature Gran % (Auto) 0.6 Neut % (Auto) 75.2 Lymph % (Auto) 12.8 [place] % (Auto) 11.2 Eos % (Auto) 0.0 Baso % (Auto) 0.2 Neut # (Auto) 7.65 H Lymph # (Auto) 1.30 [place] # (Auto) 1.14 H Eos # (Auto) 0.00 Baso # (Auto) 0.02 Immature Gran # (Auto) 0.06 Sodium 136 Potassium 4.6 Chloride 107 Carbon Dioxide 25 Anion Gap 4 BUN 21 Creatinine 1.15 Est Cr Clr Drug Dosing 38.0 eGFR 48.76 BUN/Creatinine Ratio 18.3 Glucose 125 H Calcium 8.1 L Magnesium 1.5 L Total Bilirubin 0.6 AST 12 L ALT 8 Alkaline Phosphatase 80 Total Protein 6.4 Albumin 3.1 L Globulin 3.3 Albumin/Globulin Ratio 0.9 PG Care Time/CCT Total # of Minutes Spent Total Time Spent with Patient: Total time spent is greater than 50% in coordination of care (as documented) at patient's floor/unit and/or counseling patient: Coding Level of Care Code 86793 SUB INP/OBS CARE 2/35MIN Diagnoses Emphysematous pyelitis N12 Hydronephrosis, left N13.30 Urothelial carcinoma of bladder C67.9 History of atrial fibrillation Z86.79 Sepsis A41.9 Sepsis acute organ dysfunction status: without acute organ dysfunction Sepsis type: sepsis due to unspecified organism URI (upper respiratory infection) J06.9 (5) Sepsis Sepsis acute organ dysfunction status: without acute organ dysfunction Sepsis type: sepsis due to unspecified organism Qualified Code(s): A41.9 - Sepsis, unspecified organism
[2024-04-30] MEDS: ERTAPENEM 1000MG 1,000 MG/10 ML SYR IV SCH (15:51)
[2024-04-30 18:47] LABS: Influenza A virus by PCR Negative (Neg); Influenza B virus by PCR Negative (Neg); RSV by PCR Negative (Neg); SARS CoV2 RNA(COVID-19) Ceph NEGATIVE (Negative)
[2024-04-30] MEDS: LOSARTAN POTASSIUM 25 MG TAB PO SCH (20:43)
[2024-05-01 08:38] LABS: BUN Creatinine Ratio 15.7 (10-20); Creatinine Clr Calc Pharmacy 42.8 ml/min; Magnesium 1.9 mg/dl (1.7-2.4); Potassium 4.2 mmol/L (3.5-5.1)
--- NOTE | 2024-05-01 11:42 | Urology Progress Note ---
Date of Service May 01, 2024 Assessment & Plan (1) Emphysematous pyelitis: (2) History of urinary diversion procedure: (3) History of urostomy: (4) Ureteral stent present: Plan: 79-year-old female with history of muscle invasive bladder cancer status post radical cystectomy with ileal conduit admitted for sepsis and left emphysematous pyelitis. Patient s/p cystoscopy of the ileal conduit diversion, instillation of contrast into diversion, bilateral retrograde pyelogram, bilateral stent placement, left dilation, left aspiration of urine on 04/29 Subjectively feeling better Afebrile, hemodynamically stable Urine culture final with Klebsiella oxytoca/[place] ornith Kidney aspirate prelim with same Blood cultures no growth to date Bilateral ureteral stents in position draining into urostomy, appear to be draining appropriately Urostomy is starting to leak and needs appliance change per patient Okay to change urostomy appliance with care not to manipulate/dislodge ureteral stents Stoma may be bruised/irritated from procedure with scopecontinue to monitor Continue supportive care, antibiotics and medical management per hospital medicine If she clinically worsens, then may require transfer for nephrostomy tube placement will follow, please contact our service with questions, concerns or changes to clinical status Admission and Anticipated Discharge Date Admission Date: April 29, 2024 Subjective Patient seen and examined at bedside this morning. Awake, alert and sitting up in bed. in room. She reports her urostomy is leaking, but not beyond dressing yet. No flank pain. No fever or chills. No nausea or vomiting. Review of Systems Constitutional: as per Subjective / HPI Genitourinary: as per Subjective / HPI Physical Exam Constitutional: well developed and well nourished; no acute distress Respiratory: normal respiratory effort; no respiratory distress and no labored breathing Gastrointestinal (Abdomen): Inspection/Auscultation: abdomen not distended Percussion/Palpation: abdomen soft Musculoskeletal: Head/Neck/Chest: normocephalic Neurologic: moves all extremities and awake Psychiatric: Orientation: alert and oriented x 3 Genitourinary: Urostomy in place, there is some leakage under the dressing but not beyond, stoma is slightly darker red than yesterday, urine is yellow with blood tinge, some mucus noted; two stents within the urostomy Results & Data Vital Signs (Past 12 Hours) Vital Signs Temp Pulse Resp BP Pulse Ox O2 Del Method 05/01/24 08:00 37.0 C 81 18 119/65 97 Room Air 05/01/24 02:40 37.4 C 70 16 134/71 94 Room Air PG Care Time/CCT Total # of Minutes Spent Total Time Spent with Patient: Total time spent is greater than 50% in coordination of care (as documented) at patient's floor/unit and/or counseling patient: Coding Level of Care Code 93011 SUB INP/OBS CARE 2/35MIN Diagnoses Emphysematous pyelitis N12 History of urinary diversion procedure Z98.890 History of urostomy Z98.890 Ureteral stent present Z96.0
--- NOTE | 2024-05-01 19:43 | Hospitalist Progress Note ---
Date of Service May 01, 2024 Assessment & Plan (1) Emphysematous pyelitis: Plan: 79yo female with h/o A-fib on Eliquis, left bundle branch block, hypertension, hyperlipidemia, anxiety, bladder cancer. Presented with 2 days of cloudy urine and fever. She was found to have left-sided pyelonephritis on CT a/p - report as follows: "Worsening left hydroureteronephrosis with new urinary gas in the left kidney. Findings consistent with worsening pyelonephritis. If there has been interval interventional procedure, air could be introduced in this matter. Ureteral stricture at the body wall is not completely excluded. Stable inflammation of the right urinary tract." s/p urological procedure on 04/[address] Garza -- Cystoscopy of the Ileal Conduit Diversion, Instillation of Contrast into Diversion, Bilateral Retrograde Pyelogram, Bilateral Stent placement, Left Ureteral Dilation, Left Aspiration of Urine. appreciate Dr Garza' assistance pyelitis - 2nd klebsiella oxytoca no ESBL cont IV ertapenem today, then change to PO cefuroxime 500mg BID should complete 14 days of Rx in total blood cultures remain negative (2) Hydronephrosis, left: Plan: s/p stent placement (3) Urothelial carcinoma of bladder: Plan: s/p bladder resection with urostomy creation - [facility] 02/2024 s/p completion of chemotherapy 10/2023 (4) History of atrial fibrillation: Plan: remains in NSR resume Eliquis tomorrow - minimal hematuria from her procedure resolved cont metoprolol BID (5) Sepsis: Plan: 2nd to #1 resolving blood cx's neg (6) URI (upper respiratory infection): Plan: COVID/flu/RSV neg mild symptoms no Rx needed Plan Chronic stable diagnoses: HTN - continue losartan h/o adenocarcinoma lung - s/p left upper lobe lobectomy 2019 nonobstructive CAD/ history Takotsubo's cardiomyopathy - s/p cardiac cath 2018 - recent echo 03/18/2024 EF 60 to 65%, no regional wall motion abnormalities, mild mitral regurg, diastolic dysfunction grade 2 Hyperlipidemia - continue atorvastatin Anxiety - continue sertraline PT, OT - passed PT eval, cleared for home left message for pt's on voicemail this evening can likely d/c home tomorrow 05/02 Admission and Anticipated Discharge Date Admission Date: April 29, 2024 Subjective patient feeling much better no abd pain, flank pain, nausea, emesis urine in [place] bag clearing up no further fevers/chills appetite is not large at baseline, but has improved thru the hospitalization tele NSR overnight Review of Systems Review of Systems: gen - no fevers or chills cv - no chest pain pulm - was tired with working with PT, but no true dyspnea GI - no N/V HENT - still with nasal congestion & mild cough from her URI Physical Exam Physical Exam: gen - looks much better today, NAD neck - no JVD mouth - MMM heart - RRR, s1 s2, no murmur lungs - CTA b/l; no rales or wheezing abd - soft, NT, ND, BS+, no flank tenderness to palpation b/l; urostomy present with yellow urine in collection bag; 2 stents are present entering the urostomy ext - no edema, pulses 2+ b/l Results & Data Results & Data Vital Signs (Past 12 Hours) Vital Signs Temp Pulse Pulse Resp BP Pulse Ox O2 Del Method 05/01/24 15:00 36.8 C 98 H 18 140/72 97 Room Air 05/01/24 11:00 36.9 C 87 16 135/68 96 Room Air 05/01/24 08:30 59 L 05/01/24 08:00 37.0 C 81 18 119/65 97 Room Air Laboratory Results Laboratory Results - last 24 hr 05/01/24 06:56 Sodium 137 Potassium 4.2 Chloride 106 Carbon Dioxide 26 Anion Gap 5 BUN 16 Creatinine 1.02 Est Cr Clr Drug Dosing 42.8 eGFR 56.31 BUN/Creatinine Ratio 15.7 Glucose 118 H Calcium 8.0 L Magnesium 1.9 Diagnostic Findings Microbiology 04/29/24 17:21 Blood Aerobic Blood Culture - Preliminary No growth in Aerobic bottle after 48 hours. 04/29/24 17:21 Blood Anaerobic Blood Culture - Preliminary No growth in Anaerobic bottle after 48 hours. 04/29/24 17:21 Blood Aerobic Blood Culture - Preliminary No growth in Aerobic bottle after 48 hours. 04/29/24 17:21 Blood Anaerobic Blood Culture - Preliminary No growth in Anaerobic bottle after 48 hours. 04/29/24 16:17 Urine,Clean Catch Urine Culture - Final Klebsiella oxytoc/[place] ornith 04/29/24 21:00 Kidney,Left Gram Stain - Final 04/29/24 21:00 Kidney,Left Aerobic and Anaerobic Culture - Preliminary Klebsiella oxytoc/[place] ornith PG Care Time/CCT Total # of Minutes Spent Total Time Spent with Patient: Total time spent is greater than 50% in coordination of care (as documented) at patient's floor/unit and/or counseling patient: Coding Level of Care Code 71687 SUB INP/OBS CARE 2/35MIN Diagnoses Emphysematous pyelitis N12 Hydronephrosis, left N13.30 Urothelial carcinoma of bladder C67.9 History of atrial fibrillation Z86.79 Sepsis A41.9 Sepsis acute organ dysfunction status: without acute organ dysfunction Sepsis type: sepsis due to unspecified organism URI (upper respiratory infection) J06.9 (5) Sepsis Sepsis acute organ dysfunction status: without acute organ dysfunction Sepsis type: sepsis due to unspecified organism Qualified Code(s): A41.9 - Sepsis, unspecified organism
[2024-05-01 20:08] VITALS: O2SAT 96
[2024-05-02 07:48] VITALS: RESP 18
[2024-05-02] MEDS: HEPARIN 100 UNIT/ML 5ML FLUSH FLUSH PRN (09:20)
--- NOTE | 2024-05-02 09:27 | Urology Progress Note ---
Date of Service May 02, 2024 Assessment & Plan (1) Ureteral stent present: Plan: 79-year-old female with history of muscle invasive bladder cancer status post radical cystectomy with ileal conduit admitted for sepsis and left emphysematous pyelitis. Patient s/p cystoscopy of the ileal conduit diversion, instillation of contrast into diversion, bilateral retrograde pyelogram, bilateral stent placement, left dilation, left aspiration of urine on 04/29 Postop day 3 Feeling significantly better No labs completed this morning Afebrile, hemodynamically stable Urine culture final with Klebsiella oxytoca/[place] ornith Kidney aspirate prelim with same Blood cultures no growth to date after 48 hours Bilateral ureteral stents in position draining into urostomy, appear to be draining appropriately-clear yellow Urostomy was changed by nursing on 05/01/2024 Continue supportive care, antibiotics and medical management per hospital medicine will sign out, please contact our service with questions, concerns or changes to clinical status (2) Emphysematous pyelitis: (3) History of urinary diversion procedure: (4) History of urostomy: Admission and Anticipated Discharge Date Admission Date: April 29, 2024 Subjective Patient resting comfortably in bed, no acute distress Urostomy draining clear yellow, small amount of mucus noted Denies fevers, chills, nausea, vomiting Overall feeling well with no complications Did disconnect urostomy from large drainage bag due to frequent BMs Review of Systems Constitutional: as per Subjective / HPI Genitourinary: as per Subjective / HPI Physical Exam Constitutional: cooperative; no acute distress Respiratory: normal respiratory effort and able to speak in complete sentences Musculoskeletal: Extremities: extremities normal to inspection Psychiatric: Orientation: alert and oriented x 3 Results & Data Vital Signs (Past 12 Hours) Vital Signs Temp Pulse Pulse Resp BP Pulse Ox O2 Del Method 05/02/24 07:47 36.8 C 59 L 18 130/65 96 Room Air 05/02/24 03:35 36.7 C 61 16 137/72 96 Room Air 05/01/24 21:55 63 PG Care Time/CCT Total # of Minutes Spent Total Time Spent with Patient: Total time spent is greater than 50% in coordination of care (as documented) at patient's floor/unit and/or counseling patient: Coding Level of Care Code 56086 SUB INP/OBS CARE 2/35MIN Diagnoses Ureteral stent present Z96.0 Emphysematous pyelitis N12 History of urinary diversion procedure Z98.890 History of urostomy Z98.890
[2024-05-02] MEDS: cefUROXime axetil 500 MG TAB PO SCH (09:50)
[2024-05-02 10:50] VITALS: TEMP 97.5
--- NOTE | 2024-05-02 12:41 | Discharge Summary ---
Discharge Summary Date of Service May 02, 2024 Principal Dx & Hospital Course #1 = Principal Diagnosis (1) Emphysematous pyelitis: 79yo female with h/o A-fib on Eliquis, left bundle branch block, hypertension, hyperlipidemia, anxiety, bladder cancer. Presented with 2 days of cloudy urine and fever. She was found to have left-sided pyelonephritis on CT a/p - report as follows: "Worsening left hydroureteronephrosis with new urinary gas in the left kidney. Findings consistent with worsening pyelonephritis. If there has been interval interventional procedure, air could be introduced in this matter. Ureteral stricture at the body wall is not completely excluded. Stable inflammation of the right urinary tract." s/p urological procedure on 04/[address] Garza -- Cystoscopy of the Ileal Conduit Diversion, Instillation of Contrast into Diversion, Bilateral Retrograde Pyelogram, Bilateral Stent placement, Left Ureteral Dilation, Left Aspiration of Urine. appreciate Dr Garza' assistance pyelitis - 2nd klebsiella oxytoca no ESBL cont IV ertapenem today, then change to PO cefuroxime 500mg BID should complete 14 days of Rx in total blood cultures remain negative (2) Hydronephrosis, left: s/p stent placement (3) Urothelial carcinoma of bladder: s/p bladder resection with urostomy creation - [facility] 02/2024 s/p completion of chemotherapy 10/2023 (4) History of atrial fibrillation: remains in NSR resume Eliquis tomorrow - minimal hematuria from her procedure resolved cont metoprolol BID (5) Sepsis: 2nd to #1 resolving blood cx's neg (6) URI (upper respiratory infection): COVID/flu/RSV neg mild symptoms no Rx needed Plan Chronic stable diagnoses: HTN - continue losartan h/o adenocarcinoma lung - s/p left upper lobe lobectomy 2019 nonobstructive CAD/ history Takotsubo's cardiomyopathy - s/p cardiac cath 2018 - recent echo 03/18/2024 EF 60 to 65%, no regional wall motion abnormalities, mild mitral regurg, diastolic dysfunction grade 2 Hyperlipidemia - continue atorvastatin Anxiety - continue sertraline PT, OT - passed PT eval, cleared for home left message for pt's on voicemail this evening can likely d/c home tomorrow 05/02 Admission HPI Per Admitting Provider Patient is a 79-year-old female with past medical history of A-fib on Eliquis, left bundle branch block, hypertension, hyperlipidemia, anxiety. She had a bladder resection and urostomy placed by Abimbola Esteves in February. She came into the ED due to 2 days of cloudy urine and fever. She was found to have left-sided pyelonephritis and is being taken to the OR for stent placement on admission by urology. Patient seen at bedside with and OR team present. She stated she has had 2 days of cloudy urine and a temperature that she noticed today. Along with left-sided back pain. She stated her temperature was 102.9 F at home, she did not take anything for this, denies Tylenol use. No noted fever on admission to ED. She does not use oxygen at baseline, no CPAP/BiPAP. She thinks she took her home medications today but was slightly overwhelmed on exam and cannot remember. She did not take her evening medications. She wishes to be DNR/DNI. Handoff from the ED team stated that they spoke with [facility] Dr. Shoemaker who recommended [facility] urology team to try to stent patient, if unsuccessful, [facility] to take patient in the morning as a transfer. There is no bed available this evening. Discharge Exam gen - looks much better today, NAD neck - no JVD mouth - MMM heart - RRR, s1 s2, no murmur lungs - CTA b/l; no rales or wheezing abd - soft, NT, ND, BS+, no flank tenderness to palpation b/l; urostomy present with yellow urine in collection bag; 2 stents are present entering the urostomy ext - no edema, pulses 2+ b/l Discharge Plan Discharge Items Patient Disposition: Home - Self-Care Reason For Visit: PYELONEPHRITIS Discharge Diagnosis: 1. left-sided kidney infection ("pyelonephritis") 2. bilateral ureteral stent placement - Dr Pratik Garza, [facility] 3. mildly low magnesium - resolved 4. urostomy status 5. history of bladder cancer 6. upper respiratory infection - COVID/influenza/RSV negative Condition on Discharge: Serious Activity: As commented below Activity Comment: gradually resume light activities over the next 7 days Lifting: No more than 10 pounds Sexual Activity: Wait until after follow-up appointment Exercise/Sports: Wait until after follow-up appointment Driving/Machine Use: Resume 1 day after discharge Non-emergency contact: Primary Care Provider and Urologist Call non-emergency contact if: you have any medication questions, your symptoms worsen, your pain is not controlled, your pain is worsening, your pain is unusual for you, your pain is concerning for you and you have a fever Follow-up/Referrals: Nika Howell MD [Other] (see Dr Howell in May 2024 as scheduled ) Lj Barbosa MD [Primary Care Provider] - (1 week ) Asim Reynolds MD [Physician] - (2 weeks) Diet: Regular Addtl Attending Provider Instructions: Mrs Gore, You were hospitalized due to urinary tract infection / left-sided kidney infection (pyelonephritis). On the first day of the hospitalization Dr Kaleb Garza from [facility] took you to the operating room and placed stents in both of your ureters. Dr Garza noted that the junction of your left ureter with the ileal conduit (urostomy) was quite inflamed and/or narrowed. Dr Garza also saw cloudy urine flowing from the left kidney consistent with kidney infection. You improved with IV antibiotics and supportive care. Fevers resolved with time. Blood cultures remained negative (no blood stream infection). Your creatinine - a marker of your kidney function - was normal while here. Recommendations - 1. antibiotics - * cefuroxime - 500mg twice daily x 10 days, first dose TONIGHT * most common side effect - diarrhea 2. continue your usual urostomy care as previous, using caution around the 2 stents that are present 3. diarrhea - this is likely from the antibiotics themselves. Feel free to take an [id number]-oekpbhh probiotic supplement daily, if desired. You can also eat some extra yogurt over the next couple of weeks. These things may help the diarrhea lessen. 4. follow-up appointments - see separate section 5. for upper respiratory infection (common cold) - you can take [id number]-[id number] medicines as needed - * mucinex for cough/sinus congestion * saline nasal spray for nasal congestion * zyrtec may help your cold * steroid nasal spray if severely congested in the nose (flonase, nasonex, etc) Return to [facility] if - * you have fevers over 100 degrees * you have worsening abdominal pain * you develop worsening/persistent diarrhea (3 or more liquid stools over a 24- hour period) * you have worsening back pain * you have any concerns about your stents or urostomy * any other concerns It was our pleasure to care for you! -Dr Falcon Pending Studies at Discharge: Yes Studies:: blood cultures, but thus far negative (no blood infection) Stand-Alone Forms: My [facility], Smoking Cessation Medications and DC Order Prescriptions: New cefuroxime axetil 500 mg Tablet 500 mg PO BID 10 Days Qty: 20 0RF Continued atorvastatin 80 mg tablet 80 mg PO HS Qty: 90 3RF Rx Instructions: TAKE 1 TABLET BY MOUTH EVERY DAY Eliquis 5 mg tablet 5 mg PO Q12H Qty: 180 3RF metoprolol tartrate 25 mg tablet 25 mg PO BID Qty: 60 3RF sertraline 50 mg tablet 50 mg PO HS Qty: 90 3RF lorazepam 0.5 mg tablet 0.5 mg PO Q12H PRN (Reason: anxiety) Qty: 60 1RF cholecalciferol (vitamin D3) [Vitamin D3] 1,000 unit Capsule 1,000 unit PO QPM losartan 25 mg tablet 50 mg PO QAM losartan 25 mg tablet 25 mg PO QPM cyanocobalamin (vitamin B-12) [Vitamin B-12] 1,000 mcg Tablet 1,000 mcg PO DAILY cetirizine [Zyrtec] 10 mg Tablet 10 mg PO DAILY Discharge Orders: Discharge Order (Routine); Ordered 05/02/24 Ordered By: Kendall Falcon Admission Data Admit Date/Time: 04/29/24 19:41 Attending Provider: Kendall Falcon Admit Provider: Lele Forte Primary Care Provider: Lj Barbosa V. Other Providers: Kaleb Garza; Lele Forte Hospital Stay Data Consultations 04/29/24 19:19 Consult Urology Stat ED Decision to Admit Stat 05/02/24 11:12 Burn CD for patient Stat Procedures Performed Operation Date: 04/29/24 20:00 Actual Procedures p Cystoscopy of Ileal Conduit, Bilateral retrograde pyelogram, Bilateral Stent Placement, Left Aspiration(Not Applicable) - Kaleb Garza DO Diagnostic Imagining Performed 04/29/24 FL retrograde includes kub Routine 04/29/24 17:06 CT abd pelvis wo con Stat Pending Results Patient Have Any Pending Studies at Discharge: Yes Discharge Instructions Given to Patient (Per Discharging Provider) Mrs Gore, You were hospitalized due to urinary tract infection / left-sided kidney infection (pyelonephritis). On the first day of the hospitalization Dr Kaleb Garza from [facility] took you to the operating room and placed stents in both of your ureters. Dr Garza noted that the junction of your left ureter with the ileal conduit (urostomy) was quite inflamed and/or narrowed. Dr Garza also saw cloudy urine flowing from the left kidney consistent with kidney infection. You improved with IV antibiotics and supportive care. Fevers resolved with time. Blood cultures remained negative (no blood stream infection). Your creatinine - a marker of your kidney function - was normal while here. Recommendations - 1. antibiotics - * cefuroxime - 500mg twice daily x 10 days, first dose TONIGHT * most common side effect - diarrhea 2. continue your usual urostomy care as previous, using caution around the 2 stents that are present 3. diarrhea - this is likely from the antibiotics themselves. Feel free to take an ynhw-ovd-qxkoatt probiotic supplement daily, if desired. You can also eat some extra yogurt over the next couple of weeks. These things may help the diarrhea lessen. 4. follow-up appointments - see separate section 5. for upper respiratory infection (common cold) - you can take mkxw-gyk-ychpolu medicines as needed - * mucinex for cough/sinus congestion * saline nasal spray for nasal congestion * zyrtec may help your cold * steroid nasal spray if severely congested in the nose (flonase, nasonex, etc) Return to [facility] if - * you have fevers over 100 degrees * you have worsening abdominal pain * you develop worsening/persistent diarrhea (3 or more liquid stools over a 24- hour period) * you have worsening back pain * you have any concerns about your stents or urostomy * any other concerns It was our pleasure to care for you! -Dr Falcon Coding Diagnoses Emphysematous pyelitis N12 Hydronephrosis, left N13.30 Urothelial carcinoma of bladder C67.9 History of atrial fibrillation Z86.79 Sepsis A41.9 Sepsis acute organ dysfunction status: without acute organ dysfunction Sepsis type: sepsis due to unspecified organism URI (upper respiratory infection) J06.9
[2024-05-02 13:40] VITALS: BP 140/72; PULSE 65
== END 2024-05-02 15:00 | disposition home or self-care (01) | DRG 854 ==
LOC: ED 15:48 → OR 19:17 → 2S 19:17 → SUATTDRO 19:41 → 2S 19:41

== ENCOUNTER 2024-06-26 20:16 | Observation (INO) ==
--- NOTE | 2024-06-26 20:40 | Emergency Department Note ---
Impression & Plan Pyelonephritis, History of recurrent urinary tract infection, History of urinary diversion procedure, Hypomagnesemia ED Provider Note NAME: PARAMJIT SIMEON AGE: 79 SEX: F : 1945 ARRIVES VIA: Walk-In INFORMANT: Patient ED PROVIDER(S): Ramiro Sifuentes MD CHIEF COMPLAINT: Fever, UTI PLAN: Disposition: Admit MEDICAL DECISION MAKING: The patient is a pleasant 79-year-old woman with a past medical history of recurrent urinary tract infection, bladder cancer, s/p cystectomy with urinary diversion ileal conduit who presents to the emergency department via walk-in, accompanied by family for evaluation of fever that began abruptly tonight after being seen Emergency Department earlier for fever and cloudy urine diagnosed with a urinary tract infection. Patient was treated with initial dose of IV ceftriaxone. She was instructed return to the emergency department if fevers were to persist. Patient reports becoming uncomfortable and warm where her took her temperature and was 102. Patient denies any nausea or vomiting. She denies any flank pain or abdominal pain. She reports she has had mild cough and congestion over the past couple of days coinciding with her feverishness and cloudy urine. Patient reports she was last treated for urinary tract infection a couple of weeks ago. On evaluation patient is no acute distress, afebrile with blood pressure 140/70s and vital signs otherwise stable. She appears clinically dry. Abdomen is nontender. EKG without overt acute ischemia. CXR negative for acute cardiopulmonary process per my personal preliminary review/interpretation. WBC within normal limits without neutrophilia or left shift. H/H 10.7/31.8, similar to prior. Platelets within normal limits. Chemistry without metabolic acidosis. Creatinine 1.2, similar to prior range of values. Magnesium 1.6, with IV repletion provided. LFTs unremarkable. Procalcitonin is not elevated. UA continues to be consistent with infection with positive nitrites, and BC and 3+ bacteria. Respiratory BioFire was negative. CT of the abdomen pelvis was performed and demonstrates evidence of ascending infection with pyelonephritis. Patient most recently grew Klebsiella on urine culture and prior to that had grown Pseudomonas. At this time patient's antibiotic coverage was broadened with cefepime following blood cultures. Patient and family at the bedside agree plan for admission for further management given complicated ascending UTI with pyelonephritis. Case was discussed with GISELE ChavezG hospitalist, who will evaluate the patient for admission. Further management per admitting team. Triage Nursing notes reviewed and agree them. Prior/external medical records reviewed Vital Signs: reviewed Differential diagnosis: Renal colic, UTI, appendicitis, diverticulitis, mesenteric ischemia, aortic pathology, infections, inflammatory bowel disease, PUD, biliary pathology, as well as other pathologies. ER treatment provided: See below. Diagnostics interpreted by me: ECG: Normal sinus rhythm, 73 bpm, no ectopy, LVH, ST abnormality, no overt ST elevation or depression, QTc 442, QRS 118. Cardiac Monitoring: An order for continuous cardiac monitoring was placed and demonstrated normal sinus rhythm, 73 bpm, no ectopy. Laboratory studies: See below Imaging studies: See below Consultation(s): Dr. Eastman [facility] hospitalist. HPI: Per MDM. ROS: See above HPI for pertinent positives & negatives. A total of 10 systems reviewed and were otherwise negative. VITALS:See Below PHYSICAL EXAMINATION: GENERAL: Awake, alert, fatigued-appearing, in no distress HENT: Normocephalic, atraumatic. Oropharynx with dry mucous membranes and otherwise unremarkable. EYES: Normal conjunctiva. Sclera non-icteric. NECK: Supple. No nuchal rigidity. FROM. No JVD. RESPIRATORY: Clear to auscultation. CARDIAC: Regular rate, normal rhythm. Extremities warm and well perfused. Pulses equal. ABDOMEN: Soft, non-distended. No tenderness to palpation. No rebound or guarding. MUSCULOSKELETAL: Chest examination reveals no tenderness. The back is symmetrical on inspection without obvious abnormality. There is no CVA tenderness to palpation. No joint edema. LOWER EXTREMITIES: Calves are equal size bilaterally and non-tender. No edema. No discoloration. NEURO: Normal sensorium. No sensory or motor deficits noted. SKIN: No rash or jaundice noted. Ramiro Sifuentes MD Past Med/Surg History Problem List (Updated 06/27/24 @ 20:37 by Ramiro Sifuentes MD) Pneumonia Bilateral hydronephrosis Pyelonephritis of left kidney Complicated UTI (urinary tract infection) History of recurrent urinary tract infection (Acute) Pyelonephritis (Acute) Cystitis (Acute) Tiredness Iron deficiency anemia History of atrial fibrillation 2018- post op lung lobectomy - converted with medication - no known recurrence (cardiac event monitor revealed no a fib) - no longer on AC therapy Fever (Acute) History of urostomy (Acute) Leukocytosis (Acute) Acute pyelitis (Acute) History of urinary diversion procedure (Acute) Emphysematous pyelitis Low hemoglobin Atrial fibrillation Hypomagnesemia (Acute) Syncope, cardiogenic (Acute) Ureteral stent present H/O transurethral resection of bladder tumor (TURBT) Transurethral Resection of Bladder Tumor (medium)- Asim Reynolds MD s Left Retrograde Pyelogram,Left Ureteral Stent Placement (Left) Urothelial carcinoma of bladder s/p TURBT and following with urology for BCG treatments Health care maintenance Hydronephrosis, left Multiple pulmonary nodules determined by computed tomography of lung Seasonal allergies Status post lobectomy of lung Abdominal aortic atherosclerosis History of colon polyps Impaired glucose metabolism PCP monitoring- A1C 6.6 in 04/2023 Postmenopausal atrophic vaginitis Indeterminate pulmonary nodules Arthritis of knee, degenerative (Chronic) Anxiety (Chronic) Chronic cough (Chronic) Pancreatic cyst (Chronic) Takotsubo cardiomyopathy (Chronic) Dyslipidemia (Chronic) HTN (hypertension) (Chronic) Lung nodule Incidental finding on chest CT during workup for cardiomyopathy. Now for wedge resection. Medical History Non-occlusive coronary artery disease Per 2018 cath per cardio records Hypokalemia Syncope Shortness of breath Elevated troponin Atrial fibrillation with rapid ventricular response Arthritis Bladder cancer current dx>plans for port for chemo tx Restless leg syndrome History of kidney stones Hx of cancer of lung dx 2019 - s/p left upper lobectomy LBBB (left bundle branch block) History of COVID-19 05/2020--mild symptoms, resolved Anxiety Eczema Takotsubo cardiomyopathy Recurrent per records. 04/2017, moderate LV dysfunction, now resolved. Follows with [facility]. Torn rotator cuff RIGHT--per pt "had stem cell injection for this and states it is 99% better" Hyperlipidemia Hypertension Surgical History H/O total cystectomy Port-A-Cath in place (08/09/23) Insertion of Access Port with Fluoroscopy, Right Internal Jugular(Right) - Nick Wood, DO, FACS H/O transurethral resection of bladder tumor (TURBT) x 3 *last one 06/2023 History of nasal cauterization History of tooth extraction History of cystoscopy History of stem cell transplant 2021 History of lobectomy of lung CARTER History of right cataract extraction History of tubal ligation History of arthroscopy of left knee History of left cataract extraction History of colonoscopy History of cardiac cath 04/2017 for Takotsubo cardiomyopathy. Mild-moderate nonobstructive CAD. No intervention. Family History Sister Family history of colon cancer Colorectal cancer Brother Family history of bladder cancer Unknown Pure hypercholesterolemia Mother Hypertension Father Hypertension Aunt Diabetes Other Allergies Cancer Heart disease No family history of adverse response to anesthesia No family history of bleeding disorder Stroke Denies family history of Ovarian cancer Prostate cancer Myocardial infarction Breast cancer Lung cancer Social History Smoking Status: Former smoker Tobacco Type: Cigarettes Age Started Using Tobacco: 19; Age Quit Using Tobacco: 37; packs per day: 1.5; Cigarettes Per Day: 40; Second Hand Exposure: No; Do You Dip or Chew Tobacco: No; Hx Alcohol Use: Yes Alcohol type: wine Alcohol Intake Frequency: 4 or More x per/Week Alcohol Intake Frequency Comment: one glass a day Hx Substance Use: No Preferred Language: Korean Communication Ability: Effective Visual Impairment: Limited Hearing Ability: Normal Business Continuity Planner Required: No Beliefs That Will Affect Care: None marital status: Current Living Situation: Spouse current occupational status: retired How many Children do You have: 3 Feels Safe at Home: Yes Safety Concerns: Feels Safe At This Time Childhood Exposure to Second-Hand Smoke: Yes Diet: regular caffeine: Yes during the past year weight has: remained stable Dental Care, Regularly: Yes Physical Activity Frequency: Does not Exercise Seatbelt Use: always Sunscreen Use: Yes Assistive Devices: Cane, Crutches and Walker Allergies Allergies Allergy/AdvReac Type Severity Reaction Status Date / Time MONICA Inhibitors AdvReac Intermediate Cough Verified 05/14/24 11:20 diltiazem AdvReac Intermediate Cough Verified 05/14/24 11:20 PABA derivatives Allergy Mild Rash Uncoded 05/14/24 11:20 Home Meds Home Medications Medication Instructions Recorded Confirmed cholecalciferol (vitamin D3) 25 1,000 unit PO QPM 02/21/18 06/26/24 mcg (1,000 unit) capsule (Vitamin D3) cetirizine 10 mg tablet (Zyrtec) 10 mg PO DAILY 10/09/23 06/26/24 cyanocobalamin (vitamin B-12) 1,000 mcg PO DAILY 04/29/24 06/26/24 1,000 mcg tablet (Vitamin B-12) losartan 25 mg tablet 25 mg PO QPM 04/29/24 06/26/24 losartan 25 mg tablet 50 mg PO QAM 04/29/24 06/26/24 Previous Rx's Medication Instructions Recorded atorvastatin 80 mg tablet 80 mg PO HS #90 tabs 09/14/23 lorazepam 0.5 mg tablet 0.5 mg PO Q12H PRN anxiety #60 tabs 11/01/23 apixaban 5 mg tablet (Eliquis) 5 mg PO Q12H #180 tabs 01/19/24 sertraline 50 mg tablet 50 mg PO HS #90 tabs 03/14/24 metoprolol tartrate 25 mg tablet 25 mg PO BID #60 tabs 06/19/24 ciprofloxacin HCl 250 mg tablet 250 mg PO BID 10 days #20 tabs 06/26/24 Results & Data (ED) Vital Signs Vital Signs - 24 hr 06/26/24 20:19 06/26/24 21:02 06/26/24 22:17 Temperature 37.2 C Temperature Source Oral Pulse Rate 81 71 Pulse Rate [Right Finger] 77 Respiratory Rate 18 18 Respiratory Effort / Characteristics Non-Labored Spontaneous Non-Labored Spontaneous Respiratory Depth Normal Normal Respiratory Pattern Regular Blood Pressure 147/71 H Blood Pressure [Right Arm] 163/67 H Blood Pressure Mean 96 Blood Pressure Mean [Right Arm] 99 Blood Pressure Position Sitting Pulse Oximetry 100 95 Oxygen Delivery Method Room Air Room Air Sepsis Recent Fever Within 48 Hours Yes Sepsis New/Unexplained Change in Mental Status N/A Sepsis Action Taken by Nursing No Action Required 06/26/24 23:10 Temperature 36.9 C Temperature Source Oral Pulse Rate Pulse Rate [Right Finger] 79 Respiratory Rate 19 Respiratory Effort / Characteristics Respiratory Depth Respiratory Pattern Blood Pressure Blood Pressure [Right Arm] 171/58 H Blood Pressure Mean Blood Pressure Mean [Right Arm] 95 Blood Pressure Position Pulse Oximetry 97 Oxygen Delivery Method Room Air Sepsis Recent Fever Within 48 Hours Sepsis New/Unexplained Change in Mental Status Sepsis Action Taken by Nursing Laboratory Data Attestation: I reviewed the patient's lab results. 06/27/24 08:26 06/27/24 08:26 Lab Results 06/26/24 06/26/24 06/26/24 Range/Units 20:52 21:14 22:40 WBC 8.12 (4.8-10.8) K/ul RBC 3.53 L (4.20-5.40) M/uL Hgb 10.7 L (12.0-16.0) g/dl Hct 31.8 L (37.0-47.0) % MCV 90.1 (80.0-100.0) fL MCH 30.3 (25.0-34.0) pg MCHC 33.6 (32.0-36.0) g/dL RDW Std Deviation 52.9 H (36.4-46.3) fL RDW Coeff of [place] 15.9 H (11.5-14.5) % Plt Count 195 (130-400) K/uL MPV 10.1 (9.4-12.4) fL Immature Gran % (Auto) 0.1 % Neut % (Auto) 66.7 % Lymph % (Auto) 22.2 % Smyth % (Auto) 9.7 % Eos % (Auto) 0.9 % Baso % (Auto) 0.4 % Neut # (Auto) 5.42 (1.40-6.50) K/uL Lymph # (Auto) 1.80 (1.20-3.40) K/uL Smyth # (Auto) 0.79 H (0.11-0.59) K/uL Eos # (Auto) 0.07 (0.00-0.50) K/uL Baso # (Auto) 0.03 (0.00-0.20) K/uL Immature Gran # (Auto) 0.01 (0.01-0.20) K/uL PT 11.6 (9.0-12.0) Seconds INR 1.1 (0.9-1.1) Sodium 136 (136-145) mmol/L Potassium 4.2 (3.5-5.1) mmol/L Chloride 109 H (98-107) mmol/L Carbon Dioxide 21 (21-32) mmol/L Anion Gap 6 (3-11) BUN 26 H (6-23) mg/dl Creatinine 1.22 H (0.6-1.2) mg/dl Est Cr Clr Drug Dosing 35.3 ml/min eGFR 45.42 BUN/Creatinine Ratio 21.3 H (10-20) Glucose 113 H (70-99(Fasting)) mg/dl Lactate 1.1 (0.4-2.0) mmol/L Calcium 8.7 (8.6-10.3) mg/dl Magnesium 1.6 L (1.7-2.4) mg/dl Total Bilirubin 0.2 (0.2-1.0) mg/dl AST 14 (13-39) U/L ALT 12 (7-52) U/L Alkaline Phosphatase 102 (34-104) U/L Total Protein 7.3 (6.0-8.3) gm/dl Albumin 3.8 (3.4-5.0) gm/dl Globulin 3.5 (2.5-4.0) gm/dl Albumin/Globulin Ratio 1.1 (0.9-2) Procalcitonin 0.23 (0-0.5) ng/ml Urine Color Yellow Urine Appearance Turbid A (Clear) Urine pH 6.5 (4.5-7.5) Ur Specific [place] 1.013 (1.000-1.030) Urine Protein 2+ H (Negative) Urine Glucose (UA) Negative (Negative) Urine Ketones Negative (Negative) Urine Blood 2+ H (Negative) Urine Nitrite Positive A (Negative) Urine Bilirubin Negative (Negative) Urine Urobilinogen Negative (Negative) Ur Leukocyte Esterase 3+ H (Negative) Urine WBC (Auto) >50 H (0-5) /hpf Urine RBC (Auto) 11-20 H (0-2) /hpf U Hyaline Cast (Auto) 11-20 H (0-2) /lpf U Epithel Cells (Auto) 0-2 (0-2) /hpf Urine Bacteria (Auto) 3+ H (None Seen) Adenovirus (PCR) Not Detected (NotDetected) B. pertussis DNA (PCR) Not Detected (NotDetected) B.parapertussis DNA PCR Not Detected (NotDetected) C. pneumoniae DNA (PCR) Not Detected (NotDetected) Coronavirus OC43 (PCR) Not Detected (NotDetected) Coronavirus HKU1 (PCR) Not Detected (NotDetected) Coronavirus 229E (PCR) Not Detected (NotDetected) SARS-CoV-2 (PCR) Not Detected (NotDetected) Coronavirus NL63 (PCR) Not Detected (NotDetected) Human Metapneumovir PCR Not Detected (NotDetected) Influenza Type A (PCR) Not Detected (NotDetected) Influenza Type B (PCR) Not Detected (NotDetected) M. pneumoniae (PCR) Not Detected (NotDetected) Parainfluenza 1 (PCR) Not Detected (NotDetected) Parainfluenza 2 (PCR) Not Detected (NotDetected) Parainfluenza 3 (PCR) Not Detected (NotDetected) Parainfluenza 4 (PCR) Not Detected (NotDetected) RSV (PCR) Not Detected (NotDetected) Entero/Rhino (PCR) Not Detected (NotDetected) Administered Medications Heparin Sodium (Porcine) (Heparin 100 Unit/Ml 5ml Flush) 5 ml FLUSH PRN PRN PRN Reason: Flush Stop: 07/27/24 05:15 Last Admin: 06/27/24 09:37 Dose: 5 ml Documented By: PARKER Cefepime HCl (Maxipime 2000mg) 2,000 mg in 20 mls @ 5 mls/min IV Q12H [facility]; Protocol Stop: 07/07/24 09:59 Last Admin: 06/27/24 09:37 Dose: 5 mls/min Documented By: PARKER Losartan Potassium (Losartan Potassium 50 Mg Tab) 50 mg PO QAM MICHAEL Stop: 07/27/24 08:59 Last Admin: 06/27/24 08:36 Dose: 50 mg Documented By: PARKER Losartan Potassium (Losartan Potassium 25 Mg Tab) 25 mg PO QPM [facility] Stop: 07/27/24 01:39 Last Admin: 06/27/24 02:34 Dose: Not Given Documented By: LINDA Metoprolol Tartrate (Metoprolol Tartrate 25 Mg Tab) 25 mg PO BID [facility] Stop: 07/27/24 01:39 Last Admin: 06/27/24 11:54 Dose: 25 mg Documented By: Admin: 06/27/24 02:34 Dose: Not Given Documented By: LINDA Discontinued Medications Sodium Chloride (Nss) 1,000 mls @ 999 mls/hr IV .Q1H1M ONE Stop: 06/26/24 21:34 Last Infusion: 06/26/24 22:01 Dose: Infused Documented By: Admin: 06/26/24 20:57 Dose: 999 mls/hr Documented By: CASI Magnesium Sulfate/Dextrose (Magnesium Sulfate / D5w) 1 gm in 100 mls @ 100 mls/hr IV NOW STA Stop: 06/26/24 23:29 Last Infusion: 06/27/24 00:09 Dose: Infused Documented By: Admin: 06/26/24 23:09 Dose: 100 mls/hr Documented By: CASI Cefepime HCl (Maxipime 2000mg) 2,000 mg in 20 mls @ 5 mls/min IV NOW STA; Protocol Stop: 06/26/24 22:33 Last Admin: 06/26/24 22:42 Dose: 5 mls/min Documented By: SHAYNE Magnesium Sulfate/Dextrose (Magnesium Sulfate / D5w) 1 gm in 100 mls @ 50 mls/hr IV ONE ONE Stop: 06/27/24 02:44 Last Infusion: 06/27/24 03:00 Dose: Infused Documented By: Admin: 06/27/24 00:58 Dose: 50 mls/hr Documented By: CASI Lactated Ringer's (Lr) 1,000 mls @ 100 mls/hr IV .Q10H MICHAEL Stop: 06/28/24 01:14 Last Infusion: 06/27/24 09:37 Dose: Infused Documented By: Admin: 06/27/24 01:46 Dose: 100 mls/hr Documented By: LINDA Ioversol (Optiray 320 100ml) 100 ml IV ONCE ONE Stop: 06/26/24 23:12 Last Admin: 06/26/24 23:11 Dose: 93 ml Documented By: BRADY Imaging Data Radiologist's Impression: Abdomen/Pelvis CT 06/26/24 22:26 Exam(s): CT ABDOMEN + PELVIS With Contrast IV Amt: 93 ml optiray 320 EXAM: CT Abdomen and Pelvis With Intravenous Contrast CLINICAL HISTORY: Reason for exam: uti, fever. TECHNIQUE: Axial computed tomography images of the abdomen and pelvis with intravenous contrast. CTDI is 22.33 mGy and DLP is 1123.71 mGy-cm. Automated exposure control was utilized for the study. A dose lowering technique was utilized adhering to the principles of ALARA. CONTRAST: Patient received 93 ml optiray 320 of IV contrast COMPARISON: 04/29/24 FINDINGS: There are small focal regions of scarring at the lung bases which are stable from prior exam. Liver, color, spleen, pancreas, and adrenal glands are unremarkable. There are extensive retroperitoneal surgical clips. Urinary bladder and uterus are absent. Patient has undergone surgical urinary diversion with ileal conduit extending to a right lower quadrant urostomy. There is mild right and moderate left hydroureteronephrosis. There is urothelial thickening in the left greater than right renal collecting systems. There is heterogeneous enhancement of the left kidney. Right kidney enhances normally. Aorta is heavily calcified but normal in caliber. There is no lymphadenopathy. There are postoperative changes of the ileum related to ileal conduit creation. There is no mechanical bowel obstruction. Appendix is normal. There is sigmoid diverticulosis. There is lumbar scoliosis and spondylosis. There are osteoarthritic changes in both hips. There are no acute osseous findings. IMPRESSION: 1. Status post cystectomy and surgical urinary diversion. 2. Mild right and moderate left hydroureteronephrosis. The degree of collecting system dilatation is similar to prior CT. 3. Appearance concerning for bilateral ascending urinary tract infections, left worse than right, with left-sided pyelonephritis. Electronically signed by: Lester Murry M.D. 06/26/24 23:50 PM Chest X-Ray 06/26/24 22:26 Exam(s): XR CXR 1 VIEW EXAM: XR Chest, 1 View CLINICAL HISTORY: Reason for exam: cough, fever. TECHNIQUE: Frontal view of the chest. COMPARISON: 03/28/24 FINDINGS: Lungs: Small airspace opacity lateral left lower lung. Lungs appear otherwise clear. Pleural space: No pleural effusion or pneumothorax. Heart: No cardiomegaly or pulmonary vascular congestion. Bones/joints: No acute fracture. No dislocation. Tubes, lines and devices: Right chest wall port catheter with tip in the SVC. IMPRESSION: Small opacity lateral left lower lung, concerning for pneumonia in the appropriate clinical setting. Electronically signed by: Lester Murry M.D. 06/26/24 23:39 PM Discharge Plan Visit Data Chief Complaint: Fever Stated Complaint: FEVER ED Provider: Ramiro Sifuentes Discharge Problem: Pyelonephritis, History of recurrent urinary tract infection, History of urinary diversion procedure, Hypomagnesemia Patient Disposition: Admitted As Inpatient Discharge Instructions Interventions: ED Discharge Assessment Last Done: 06/27/24 01:22
[2024-06-26] MEDS: SODIUM CHLORIDE 0.9% 1,000 ML IV ONE (20:57)
[2024-06-26 21:22] LABS: Albumin Globulin Ratio 1.1 (0.9-2); Albumin Level 3.8 gm/dl (3.4-5.0); BUN Creatinine Ratio 21.3 (10-20); Bilirubin,Total 0.2 mg/dl (0.2-1.0); Calcium 8.7 mg/dl (8.6-10.3); Creatinine Clr Calc Pharmacy 35.3 ml/min; Globulin 3.5 gm/dl (2.5-4.0); Magnesium 1.6 mg/dl (1.7-2.4); Potassium 4.2 mmol/L (3.5-5.1); Total Protein 7.3 gm/dl (6.0-8.3)
[2024-06-26 21:43] LABS: INR 1.1 (0.9-1.1); Prothrombin Time 11.6 Seconds (9.0-12.0)
[2024-06-26 21:44] LABS: Appearance Urine Turbid (Clear); Bacteria Urine Automated 3+ (None Seen); Bilirubin Urine Negative (Negative); Blood Urine 2+ (Negative); Color Urine Yellow; Epithelial Cell Urine Auto 0-2 /hpf (0-2); Glucose Urine UA Negative (Negative); Ketones Urine Negative (Negative); Leukocyte Esterase Urine 3+ (Negative); Nitrite Urine Positive (Negative); Protein Urine 2+ (Negative); Specific Gravity Urine 1.013 (1.000-1.030); Urobilinogen Urine Negative (Negative); WBC Urine Automated >50 /hpf (0-5); pH Urine 6.5 (4.5-7.5)
[2024-06-26 21:59] LABS: Basophils # (auto) 0.03 K/uL (0.00-0.20); Basophils % (auto) 0.4 %; Eosinophils # (auto) 0.07 K/uL (0.00-0.50); Eosinophils % (auto) 0.9 %; Hematocrit (blood only) 31.8 % (37.0-47.0); Hemoglobin 10.7 g/dl (12.0-16.0); Immature Granulocytes # (auto) 0.01 K/uL (0.01-0.20); Immature Granulocytes % (auto) 0.1 %; Lymphocytes % (auto) 22.2 %; Mean Corpuscular Hemoglobin 30.3 pg (25.0-34.0); Mean Corpuscular Hgb Conc 33.6 g/dL (32.0-36.0); Mean Corpuscular Volume 90.1 fL (80.0-100.0); Mean Platelet Volume 10.1 fL (9.4-12.4); Monocytes # (auto) 0.79 K/uL (0.11-0.59); Monocytes % (auto) 9.7 %; Neutrophils # (auto) 5.42 K/uL (1.40-6.50); Neutrophils % (auto) 66.7 %; Platelet Count 195 K/uL (130-400); RDW Coefficient of Variation 15.9 % (11.5-14.5); RDW Standard Deviation 52.9 fL (36.4-46.3); Red Blood Count 3.53 M/uL (4.20-5.40); White Blood Count 8.12 K/ul (4.8-10.8)
[2024-06-26] MEDS: CEFEPIME 2000MG 2,000 MG/20 ML SYR IV STA (22:42)
[2024-06-26] MEDS: MAGNESIUM SULFATE / D5W 1 GM/100 ML BAG IV STA (23:09)
[2024-06-26] MEDS: OPTIRAY 320 100ml IV ONE (23:11)
--- NOTE | 2024-06-26 23:40 | XRay Report ---
Exam(s): XR CXR 1 VIEW EXAM: XR Chest, 1 View CLINICAL HISTORY: Reason for exam: cough, fever. TECHNIQUE: Frontal view of the chest. COMPARISON: 03/28/24 FINDINGS: Lungs: Small airspace opacity lateral left lower lung. Lungs appear otherwise clear. Pleural space: No pleural effusion or pneumothorax. Heart: No cardiomegaly or pulmonary vascular congestion. Bones/joints: No acute fracture. No dislocation. Tubes, lines and devices: Right chest wall port catheter with tip in the SVC. IMPRESSION: Small opacity lateral left lower lung, concerning for pneumonia in the appropriate clinical setting. Electronically signed by: Lester Murry M.D. 06/26/24 23:39 PM
[2024-06-26 23:50] LABS: Adenovirus PCR Not Detected (NotDetected); Bordetella parapertussis PCR Not Detected (NotDetected); Bordetella pertussis PCR Not Detected (NotDetected); Chlamydia pneumoniae PCR Not Detected (NotDetected); Coronavirus 229E PCR Not Detected (NotDetected); Coronavirus CoV-2 (COVID19)PCR Not Detected (NotDetected); Coronavirus HKU1 PCR Not Detected (NotDetected); Coronavirus NL63 PCR Not Detected (NotDetected); Coronavirus OC43PCR Not Detected (NotDetected); Human Metapneumovirus PCR Not Detected (NotDetected); Influenza A PCR Not Detected (NotDetected); Influenza B PCR Not Detected (NotDetected); Mycoplasma pneumoniae PCR Not Detected (NotDetected); Parainfluenza Virus 1 PCR Not Detected (NotDetected); Parainfluenza Virus 2 PCR Not Detected (NotDetected); Parainfluenza Virus 3 PCR Not Detected (NotDetected); Parainfluenza Virus 4 PCR Not Detected (NotDetected); Respiratory Syncytial VirusPCR Not Detected (NotDetected); Rhinovirus/Enterovirus PCR Not Detected (NotDetected)
--- NOTE | 2024-06-26 23:51 | CT Scan Report ---
Exam(s): CT ABDOMEN + PELVIS With Contrast IV Amt: 93 ml optiray 320 EXAM: CT Abdomen and Pelvis With Intravenous Contrast CLINICAL HISTORY: Reason for exam: uti, fever. TECHNIQUE: Axial computed tomography images of the abdomen and pelvis with intravenous contrast. CTDI is 22.33 mGy and DLP is 1123.71 mGy-cm. Automated exposure control was utilized for the study. A dose lowering technique was utilized adhering to the principles of ALARA. CONTRAST: Patient received 93 ml optiray 320 of IV contrast COMPARISON: 04/29/24 FINDINGS: There are small focal regions of scarring at the lung bases which are stable from prior exam. Liver, color, spleen, pancreas, and adrenal glands are unremarkable. There are extensive retroperitoneal surgical clips. Urinary bladder and uterus are absent. Patient has undergone surgical urinary diversion with ileal conduit extending to a right lower quadrant urostomy. There is mild right and moderate left hydroureteronephrosis. There is urothelial thickening in the left greater than right renal collecting systems. There is heterogeneous enhancement of the left kidney. Right kidney enhances normally. Aorta is heavily calcified but normal in caliber. There is no lymphadenopathy. There are postoperative changes of the ileum related to ileal conduit creation. There is no mechanical bowel obstruction. Appendix is normal. There is sigmoid diverticulosis. There is lumbar scoliosis and spondylosis. There are osteoarthritic changes in both hips. There are no acute osseous findings. IMPRESSION: 1. Status post cystectomy and surgical urinary diversion. 2. Mild right and moderate left hydroureteronephrosis. The degree of collecting system dilatation is similar to prior CT. 3. Appearance concerning for bilateral ascending urinary tract infections, left worse than right, with left-sided pyelonephritis. Electronically signed by: Lester Murry M.D. 06/26/24 23:50 PM
--- NOTE | 2024-06-27 00:20 | History & Physical Report ---
Date of Service June 27, 2024 Assessment & Plan (1) Complicated UTI (urinary tract infection): (2) Pyelonephritis of left kidney: (3) Bilateral hydronephrosis: (4) Pneumonia: (5) Hypomagnesemia: Plan Patient is a 79-year-old female with past medical history of A-fib on Eliquis, h ypertension, hyperlipidemia, anxiety, Takotsubo cardiomyopathy, HX adenocarcinoma lung s/p left upper lobe lobectomy 2018. Patient is s/p bladder resection with urostomy status after procedure by Abimbola Esteves in February due to urothelial carcinoma. Patient presented in April of this year, septic, with pyelonephritis, and underwent urologic procedure including bilateral stent placement, left dilation, and left aspiration of urine. Patient presented to the ED 06/26 and was discharged with Cefdinir after being diagnosed with a UTI and given 1x Rocephin. Patient then returned back to the ED later in the evening with reported progressive fever of 102.6F. AP CT revealed bilateral hydronephrosis and bilateral pyelonephritis. She is being admitted for complicated UTI and pyelonephritis requiring IV antibiotics. #complicated UTI/left pyelonephritis/ bilateral hydronephrosis - Complicated given history of urostomy. UA appears infectious positive for nitrates, 3+ LE, >50 WBC, 11-20 hyaline casts, 3+ bacteria. AP CT revealed mild right and moderate left hydronephrosis, bilateral ascending urinary tract infections, left pyelonephritis. Previous cultures have grown Klebsiella resistant to ampicillin and cefazolin and Pseudomonas. Responded well to cefepime during recent admission. - urology consulted - Continue cefepime - Follow urine and blood cultures - Will make n.p.o. for potential surgical management with urology, suspect hydronephrosis is residual from April - Eliquis, last dose in a.m./ - mildly dehydrated (mildly elevated CR, elevated BUN/CR, dry MM) LR @ 100 ml/hr - had pyelogram 06/12 with [facility] - [facility] team facilitate receiving records; patient reports no abnormalities - renal function at baseline, CR 1.22 on admission; trend BMP - Nonseptic, VSS, no leukocytosis, Pro-Joseph and lactate negative; trend CBC - fever (reported at home, no recording of elevated temperature in chart) - Tylenol IV prn #PNA - Patient with cough, congestion, sore throat. CXR showing small opacity of left lower lobe. Procalcitonin negative. Nonhypoxic. Bio fire negative. - MRSA swab ordered, will add MRSA coverage if positive - coverage with cefepime for above; defer atypical coverage as not presenting as such - incentive spirometry - Tessalon Perles and Tylenol as needed #hypomagnesemia mag 1.6, 2/2 diarrhea. Other electrolytes stable - 2G IV magnesium ordered - Trend magnesium and BMP - diarrhea resolved at time of admission however if reoccurs and persistent, consider stool cultures #paroxysmal A-fib EKG shows sinus rhythm - Continue metoprolol - Holding Eliquis with possible surgical management, resume when able #anemia - 2/2 chemotherapy, improving. Hgb 10.7. - Trend CBC #HTN - mildly elevated on admission 2/2 missing evening medications - Continue losartan and metoprolol #nonobstructive CAD/ history Takotsubo's cardiomyopathy/ HLD - s/p cardiac cath 2017. Recent echo 03/18/2024 EF 60 to 65%, no wall abnormalities, mild mitral regurg, diastolic dysfunction grade 2 - continue atorvastatin #Anxiety - stable - continue sertraline VTE ppx: SCDs, holding Eliquis with possible surgical management; resume Eliquis when no longer n.p.o. Dispo: med surg Admission and Anticipated Discharge Date Admission Date: 06/27/24 History of Present Illness Chief Complaint: fever Primary Care Provider: Lj Barbosa MD Patient is a 79-year-old female with past medical history of A-fib on Eliquis, hypertension, hyperlipidemia, anxiety. Patient is s/p bladder resection with urostomy status after procedure by Abimbola Esteves in February due to urothelial carcinoma. Patient presented in April of this year, septic, with pyelonephritis, and underwent urologic procedure including bilateral stent placement, left dilation, and left aspiration of urine. Patient presented to the ED 06/26 and was discharged with Cefdinir after being diagnosed with a UTI and given 1x Rocephin. Patient then returned back to the ED later in the evening with reported progressive fever of 102.6F. APCT revealed bilateral hydronephrosis and bilateral pyelonephritis. She is being admitted for complicated UTI and pyelonephritis requiring IV antibiotics. Patient seen at bedside with her and daughter present. She stated she came in this morning due to fever which worsened throughout the day resulting in her returning to the ED. She is otherwise asymptomatic but stated her urine is cloudy. She has no pain of the urostomy site. She stated she also has had flulike symptoms of cough, congestion, rhinorrhea, sore throat that began Monday this week. She denies any sick contacts. CXR did show small opacity of left lower lobe. Remaining ROS negative, denies chills, dizziness, lightheadedness, shortness of breath, chest pain, abdominal pain, nausea, vomiting. She does endorse has had several episodes of diarrhea this morning, resulting in hypoma gnesemia. She is due for her evening medications. She wishes to be DNR/DNI. Allergies Allergy/AdvReac Type Severity Reaction Status Date / Time MONICA Inhibitors AdvReac Intermediate Cough Verified 05/14/24 11:20 diltiazem AdvReac Intermediate Cough Verified 05/14/24 11:20 PABA derivatives Allergy Mild Rash Uncoded 05/14/24 11:20 Home Medications Medication Instructions Recorded Confirmed Type cholecalciferol (vitamin D3) 25 1,000 unit PO QPM 02/21/18 06/26/24 History mcg (1,000 unit) capsule (Vitamin D3) atorvastatin 80 mg tablet 80 mg PO HS #90 tabs 09/14/23 06/26/24 Rx cetirizine 10 mg tablet (Zyrtec) 10 mg PO DAILY 10/09/23 06/26/24 History lorazepam 0.5 mg tablet 0.5 mg PO Q12H PRN anxiety #60 tabs 11/01/23 06/26/24 Rx apixaban 5 mg tablet (Eliquis) 5 mg PO Q12H #180 tabs 01/19/24 06/26/24 Rx sertraline 50 mg tablet 50 mg PO HS #90 tabs 03/14/24 06/26/24 Rx cyanocobalamin (vitamin B-12) 1,000 mcg PO DAILY 04/29/24 06/26/24 History 1,000 mcg tablet (Vitamin B-12) losartan 25 mg tablet 25 mg PO QPM 04/29/24 06/26/24 History losartan 25 mg tablet 50 mg PO QAM 04/29/24 06/26/24 History metoprolol tartrate 25 mg tablet 25 mg PO BID #60 tabs 06/19/24 06/26/24 Rx ciprofloxacin HCl 250 mg tablet 250 mg PO BID 10 days #20 tabs 06/26/24 06/26/24 Rx Past Med/Surg History Problem List Pneumonia Bilateral hydronephrosis Pyelonephritis of left kidney Complicated UTI (urinary tract infection) History of recurrent urinary tract infection (Acute) Pyelonephritis (Acute) Cystitis (Acute) Tiredness Iron deficiency anemia History of atrial fibrillation 2018- post op lung lobectomy - converted with medication - no known recurrence (cardiac event monitor revealed no a fib) - no longer on AC therapy Fever (Acute) History of urostomy (Acute) Leukocytosis (Acute) Acute pyelitis (Acute) History of urinary diversion procedure Emphysematous pyelitis Low hemoglobin Atrial fibrillation Hypomagnesemia Syncope, cardiogenic (Acute) Ureteral stent present H/O transurethral resection of bladder tumor (TURBT) Transurethral Resection of Bladder Tumor (medium)- Asim Reynolds MD s Left Retrograde Pyelogram,Left Ureteral Stent Placement (Left) Urothelial carcinoma of bladder s/p TURBT and following with urology for BCG treatments Health care maintenance Hydronephrosis, left Multiple pulmonary nodules determined by computed tomography of lung Seasonal allergies Status post lobectomy of lung Abdominal aortic atherosclerosis History of colon polyps Impaired glucose metabolism PCP monitoring- A1C 6.6 in 04/2023 Postmenopausal atrophic vaginitis Indeterminate pulmonary nodules Arthritis of knee, degenerative (Chronic) Anxiety (Chronic) Chronic cough (Chronic) Pancreatic cyst (Chronic) Takotsubo cardiomyopathy (Chronic) Dyslipidemia (Chronic) HTN (hypertension) (Chronic) Lung nodule Incidental finding on chest CT during workup for cardiomyopathy. Now for w edge resection. Medical History Non-occlusive coronary artery disease Per 2018 cath per cardio records Hypokalemia Syncope Shortness of breath Elevated troponin Atrial fibrillation with rapid ventricular response Arthritis Bladder cancer current dx>plans for port for chemo tx Restless leg syndrome History of kidney stones Hx of cancer of lung dx 2018 - s/p left upper lobectomy LBBB (left bundle branch block) History of COVID-19 05/2020--mild symptoms, resolved Anxiety Eczema Takotsubo cardiomyopathy Recurrent per records. 04/2017, moderate LV dysfunction, now resolved. Follows with [facility] cardiology. 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 Mild-moderate nonobstructive CAD. No intervention. Family History Sister Family history of colon cancer Colorectal cancer Brother Family history of bladder cancer Unknown Pure hypercholesterolemia Mother Hypertension Father Hypertension Aunt Diabetes Other Allergies Cancer Heart disease No family history of adverse response to anesthesia No family history of bleeding disorder Stroke Denies family history of Ovarian cancer Prostate cancer Myocardial infarction Breast cancer Lung cancer Social History Smoking Status: Never smoker Tobacco Type: Cigarettes Age Started Using Tobacco: 19; Age Quit Using Tobacco: 37; packs per day: 1.5; Cigarettes Per Day: 40; Second Hand Exposure: No; Do You Dip or Chew Tobacco: No; Hx Alcohol Use: Yes Alcohol type: wine Alcohol Intake Frequency: 4 or More x per/Week Alcohol Intake Frequency Comment: one glass a day Hx Substance Use: No Preferred Language: Maori Communication Ability: Effective Visual Impairment: Limited Hearing Ability: Normal Manager Manufacturing Required: No Beliefs That Will Affect Care: None marital status: Current Living Situation: Spouse current occupational status: retired How many Children do You have: 3 Feels Safe at Home: Yes Childhood Exposure to Second-Hand Smoke: Yes Diet: regular caffeine: Yes during the past year weight has: remained stable Dental Care, Regularly: Yes Physical Activity Frequency: Does not Exercise Seatbelt Use: always Sunscreen Use: Yes Assistive Devices: Cane, Contacts and Walker Review of Systems Review of Systems: see HPI Physical Exam Physical Exam: The patient is awake, alert and oriented 3, well developed and well nourished, normocephalic and atraumatic, in no acute distress. Non-toxic appearing. HEENT- EOMI, mucous membranes dry. Hearing grossly intact. Heart-normal S1 and S2. No murmurs, rubs or gallops. Lungs-clear bilaterally, no respiratory distress, no accessory muscle use. Abdomen-normal bowel sounds and soft. No ascites noted. Non-tender. Urostomy site without erythema. Extremities- no clubbing, cyanosis, or edema. Rheumatologic-normal range of motion. Psychiatric-normal affect. Results & Data Results & Data Vital Signs (Past 12 Hours) Vital Signs Temp Pulse Pulse Resp BP BP Pulse Ox 06/26/24 23:10 36.9 C 79 19 171/58 H 97 06/26/24 22:17 77 18 163/67 H 95 06/26/24 21:02 71 06/26/24 20:19 37.2 C 81 18 147/71 H 100 O2 Del Method 06/26/24 23:10 Room Air 06/26/24 22:17 Room Air 06/26/24 21:02 06/26/24 20:19 Room Air Laboratory Results Reviewed CBC, CMP, UA, magnesium, BioFire Diagnostic Findings reviewed CXR and AP CT Medications Administered ED1G IV mag, 1L NSS bolus, cefepime 2G IV ECG Additional Comments: NSR Rate 73 QTc 442 Code Status & VTE Plan Code Status DNR/DNI VTE Prophylaxis Plan VTE Prophylaxis will be ordered: Yes Supervising Physician Co-Signing Physician Notes patient seen and examined, chart reviewed, case discussed with CIRILO [place] and I agree with the assessment and plan as documented above. In brief, patient with history of urothelial carcinoma status post bladder resection, urostomy/ileal conduit in place presenting with fever. Also with cough and congestion Patient did recently have a uroscopy performed at [facility] on and was told that the findings were unremarkable (is able to access these records on her phone On exam she is afebrile, hemodynamically stable, nontoxic Skinwarm, dry, intact HEENTmoist Dukas membranes, neck supple Heart + S1, S2, regular Lungs CTA Abdomen soft, nontender, nondistended, urostomy in place Extremitieswarm, well-perfused Labs and images reviewed Ongoing hydronephrosis UA with possible infection Assessment/plan History cefepime. Patient with history of Pseudomonas in the past Appreciate urology assessment Continue IV fluids Magnesium repletion Remainder of plan as above PG Care Time/CCT Total # of Minutes Spent Total Time Spent with Patient: Total time spent is greater than 50% in coordination of care (as documented) at patient's floor/unit and/or counseling patient: Coding Level of Care Code 35247 INT INP/OBS CARE 375MIN Diagnoses Complicated UTI (urinary tract infection) N39.0 Pyelonephritis of left kidney N12 Bilateral hydronephrosis N13.30 Pneumonia J18.9 Hypomagnesemia E83.42
[2024-06-27] MEDS: MAGNESIUM SULFATE / D5W 1 GM/100 ML BAG IV ONE (00:58)
[2024-06-27] MEDS ORDERED: ACETAMINOPHEN 1,000 MG/100 ML VIAL IV PRN (01:40)
[2024-06-27] MEDS ORDERED: BENZONATATE 100 MG CAPSULE PO PRN (01:40)
[2024-06-27] MEDS ORDERED: MELATONIN 3 MG TAB PO PRN (01:40)
[2024-06-27] MEDS ORDERED: ONDANSETRON INJ 2 MG/ML 2 ML VIAL IV PRN (01:40)
[2024-06-27] MEDS ORDERED: DOCUSATE SODIUM 100 MG CAP PO PRN (01:40)
[2024-06-27] MEDS: LACTATED RINGER'S 1,000 ML IV SCH (01:46)
--- NOTE | 2024-06-27 02:10 | Urology Consultation ---
Date of Consultation June 27, 2024 Assessment & Plan (1) Pyelonephritis of left kidney: Patient has been admitted on the hospitalist service. From a urologic perspective we recommend the following: Patient's febrile episodes could be combination of pneumonia and urinary tract infection/pyelonephritis. Will defer treatment of patient's pneumonia to primary service Concerning patient's possible urinary tract infection pyelonephritis, she has been placed on antibiotics in the form of cefepime which should continue. Appropriate cultures have been sent and can be tailored based on cultures She should be hydrated IV fluids Serial labs to be followed Patient is currently NPO. Will keep her n.p.o. until she can be reevaluated by our dayshift team to determine if patient does require anything such as cystoscopic intervention At the present time the patient is nontoxic-appearing Additional recommendations are forthcoming based on her clinical course as it unfolds History of Present Illness Reason for Consultation: Urinary tract infection Attending Physician: Jules Lewis MD History of Present Illness This is a very pleasant 79-year-old female who has underlying history of bladder cancer and follows with Dr. Reynolds of [facility] u[facility]. Secondary to patient's bladder cancer the patient has had a ileal conduit performed at [facility] in February 2024. Patient notes that since this procedure she has been getting frequent urinary tract infections. She did require procedural intervention most recently by Dr. Garza in April 2024 at which time he did a cystoscopy of patient's ileal conduit and he placed bilateral ureteral stents. Patient notes that proximately 1 month later she followed up with her urologist at [facility] where the stents were removed. Patient notes that she was doing well however yesterday on 06/25/2024 she started to feel somewhat off her baseline with no specific symptomatology but the following day on 06/26/2024 she developed a fever as high as 102. She does note that her ileal conduit is draining appropriately but the urine does appear somewhat cloudy. She specifically denies any hematuria. She denies any abdominal pain. She denies any nausea or vomiting. She denies any back or flank pain. She denies any shakes or chills. Since arrival to the hospital she has had labs and imaging which have been reviewed. Chest x-ray showed small opacity in the left lower lung with the possibility of pneumonia. A CT scan of the abdomen pelvis showed the patient had mild right and moderate left hydronephrosis which appears similar to what was noted on prior CT scans. Patient did have some urothelial thickening concerning for an ascending urinary tract infection with concern for possible left-sided pyelonephritis. Labs included CBC her white blood cell count platelet count were normal. Hemoglobin and hematocrit were 10.7 and 31.8. Coagulation studies were normal. Chemistry profile showed sodium and potassium were normal. Her BUN and creatinine were 26 and 1.2. Urinalysis was positive for nitrites and did have pyuria with greater than 50 white blood cells per high-power field. There is 3+ bacteria and 3+ leukocyte esterase noted on the study. A bio fire study was performed and all viruses tested for were negative. At the time of my interview she was resting comfortably in bed and she was no distress. Allergies Allergy/AdvReac Type Severity Reaction Status Date / Time MONICA Inhibitors AdvReac Intermediate Cough Verified 05/14/24 11:20 diltiazem AdvReac Intermediate Cough Verified 05/14/24 11:20 PABA derivatives Allergy Mild Rash Uncoded 05/14/24 11:20 Home Medications Medication Instructions Recorded Confirmed Type cholecalciferol (vitamin D3) 25 1,000 unit PO QPM 02/21/18 06/26/24 History mcg (1,000 unit) capsule (Vitamin D3) atorvastatin 80 mg tablet 80 mg PO HS #90 tabs 09/14/23 06/26/24 Rx cetirizine 10 mg tablet (Zyrtec) 10 mg PO DAILY 10/09/23 06/26/24 History lorazepam 0.5 mg tablet 0.5 mg PO Q12H PRN anxiety #60 tabs 11/01/23 06/26/24 Rx apixaban 5 mg tablet (Eliquis) 5 mg PO Q12H #180 tabs 01/19/24 06/26/24 Rx sertraline 50 mg tablet 50 mg PO HS #90 tabs 03/14/24 06/26/24 Rx cyanocobalamin (vitamin B-12) 1,000 mcg PO DAILY 04/29/24 06/26/24 History 1,000 mcg tablet (Vitamin B-12) losartan 25 mg tablet 25 mg PO QPM 04/29/24 06/26/24 History losartan 25 mg tablet 50 mg PO QAM 04/29/24 06/26/24 History metoprolol tartrate 25 mg tablet 25 mg PO BID #60 tabs 06/19/24 06/26/24 Rx ciprofloxacin HCl 250 mg tablet 250 mg PO BID 10 days #20 tabs 06/26/24 06/26/24 Rx Patient History Medical History Non-occlusive coronary artery disease Per 2018 cath per cardio records Hypokalemia Syncope Shortness of breath Elevated troponin Atrial fibrillation with rapid ventricular response Arthritis Bladder cancer current dx>plans for port for chemo tx Restless leg syndrome History of kidney stones Hx of cancer of lung dx 2019 - s/p left upper lobectomy LBBB (left bundle branch block) History of COVID-19 05/2020--mild symptoms, resolved Anxiety Eczema Takotsubo cardiomyopathy Recurrent per records. 04/2017, moderate LV dysfunction, now resolved. Follows with [facility] cardiology. Torn rotator cuff RIGHT--per pt "had stem cell injection for this and states it is 99% better" Hyperlipidemia Hypertension Surgical History H/O total cystectomy Port-A-Cath in place (08/09/23) Insertion of Access Port with Fluoroscopy, Right Internal Jugular(Right) - Nick Wood, , FACS H/O transurethral resection of bladder tumor (TURBT) x 3 *last one 06/2023 History of nasal cauterization History of tooth extraction History of cystoscopy History of stem cell transplant 2021 History of lobectomy of lung CARTER History of right cataract extraction History of tubal ligation History of arthroscopy of left knee History of left cataract extraction History of colonoscopy History of cardiac cath 04/2017 for Takotsubo cardiomyopathy. Mild-moderate nonobstructive CAD. No intervention. Family History Sister Family history of colon cancer Colorectal cancer Brother Family history of bladder cancer Unknown Pure hypercholesterolemia Mother Hypertension Father Hypertension Aunt Diabetes Other Allergies Cancer Heart disease No family history of adverse response to anesthesia No family history of bleeding disorder Stroke Denies family history of Ovarian cancer Prostate cancer Myocardial infarction Breast cancer Lung cancer Social History Smoking Status: Never smoker Tobacco Type: Cigarettes Age Started Using Tobacco: 19; Age Quit Using Tobacco: 37; packs per day: 1.5; Cigarettes Per Day: 40; Second Hand Exposure: No; Do You Dip or Chew Tobacco: No; Hx Alcohol Use: Yes Alcohol type: wine Alcohol Intake Frequency: 4 or More x per/Week Alcohol Intake Frequency Comment: one glass a day Hx Substance Use: No Preferred Language: Tam[place] Communication Ability: Effective Visual Impairment: Limited Hearing Ability: Normal Books Binder Required: No Beliefs That Will Affect Care: None marital status: Current Living Situation: Spouse current occupational status: retired How many Children do You have: 3 Feels Safe at Home: Yes Childhood Exposure to Second-Hand Smoke: Yes Diet: regular caffeine: Yes during the past year weight has: remained stable Dental Care, Regularly: Yes Physical Activity Frequency: Does not Exercise Seatbelt Use: always Sunscreen Use: Yes Assistive Devices: Cane, Contacts and Walker Review of Systems Review of Systems: All systems reviewed & are unremarkable except as noted in HPI & below Physical Exam Constitutional: WD/WN, vitals as above Eyes: no conjunctival abnormality ENMT: Ears: no hearing impairment and no external ear abnormality Mouth: no oropharynx abnormality Neck: trachea midline Respiratory: normal respiratory effort; no respiratory distress and no labored breathing Cardiovascular: Rate/Rhythm: regular rate and regular rhythm Gastrointestinal (Abdomen): Abdomen is soft without distention. There is no pain with palpation. The patient had a stoma consistent with her previous ileal conduit. Stoma itself appeared pink and viable and was draining yellow urine that was somewhat cloudy. Musculoskeletal: No calf tenderness Skin: no rashes Neurologic: moves all extremities Psychiatric: A+Ox3, euthymic affect Genitourinary: No CVA tenderness with percussion bilaterally Results & Data Vital Signs (Past 12 Hours) Vital Signs Temp Pulse Pulse Resp BP BP Pulse Ox 06/27/24 01:22 36.7 C 101 H 18 125/88 95 06/27/24 01:00 70 19 150/57 H 96 06/26/24 23:10 36.9 C 79 19 171/58 H 97 06/26/24 22:17 77 18 163/67 H 95 06/26/24 21:02 71 06/26/24 20:19 37.2 C 81 18 147/71 H 100 O2 Del Method 06/27/24 01:22 Room Air 06/27/24 01:00 Room Air 06/26/24 23:10 Room Air 06/26/24 22:17 Room Air 06/26/24 21:02 06/26/24 20:19 Room Air PG Care Time/CCT Total # of Minutes Spent Total Time Spent with Patient: Total time spent is greater than 50% in coordination of care (as documented) at patient's floor/unit and/or counseling patient: Coding Level of Care Code 73882 INT INP/OBS CARE 375MIN Diagnoses Pyelonephritis of left kidney N12
[2024-06-27] MEDS: METOPROLOL TARTRATE 25 MG TAB PO SCH (02:34)
[2024-06-27] MEDS: LOSARTAN POTASSIUM 25 MG TAB PO SCH (02:34)
[2024-06-27] MEDS: LOSARTAN POTASSIUM 50 MG TAB PO SCH (08:36)
--- NOTE | 2024-06-27 09:05 | Urology Progress Note ---
<Statement entered by Asim Reynolds MD - 06/27/24 14:03> 79 yo female s/p radical cystectomy and ileal conduit formation at outside facility. Urine draining well from urostomy. Imaging showing bilateral hydronephrosis, however there can normally be some reflux of urine from a conduit up to the kidneys. Since she is feeling better with antibiotics and supportive care, would hold off surgical intervention at this point. She may require further evaluation to rule out stenosis of the uretero-ileal conduit anastomosis, although I would recommend this be done outpatient at the facility where she had the cystectomy. Date of Service June 27, 2024 Assessment & Plan (1) Bilateral hydronephrosis: (2) Cystitis: Plan 79-year-old female with history of muscle invasive bladder cancer status post radical cystectomy with ileal conduit admitted for UTI and pneumonia. Patient follows with [facility] and had appointment on 06/12 which recent stents placed 04/29 when removed. Patient feeling well without fevers or flank pain-nontoxic appearing No labs have resulted yet this morning Afebrile, hemodynamically stable Urine culture and blood cultures pending-currently on cefepime, trend according to culture data Urostomy draining appropriately No urological surgical intervention today, patient may resume diet Due to recurrent UTIs, patient may need further studies with possible revision of ileal conduit pending study results-will defer to [facility] Continue supportive care, antibiotics and medical management per hospital medicine will sign out, please contact our service with questions, concerns or changes to clinical status Admission and Anticipated Discharge Date Admission Date: June 27, 2024 Subjective Patient resting comfortably in bed Denies fevers, chills, nausea, vomiting overnight Denies flank or abdominal pain Recently saw Abimbola Esteves on June 12, stents were removed at this visit Ileal conduit draining without gross hematuria, noticed cloudiness last couple days prior to coming into the hospital Review of Systems Constitutional: as per Subjective / HPI Genitourinary: as per Subjective / HPI Physical Exam Constitutional: no acute distress Chronically ill-appearing Respiratory: normal respiratory effort and able to speak in complete sentences Musculoskeletal: Extremities: extremities normal to inspection Psychiatric: Orientation: alert and oriented x 3 Genitourinary: Ileal conduit draining clear yellow, small amount of mucus noted Results & Data Vital Signs (Past 12 Hours) Vital Signs Temp Pulse Pulse Resp BP BP Pulse Ox 06/27/24 07:42 36.6 C 71 16 118/52 L 96 06/27/24 01:35 06/27/24 01:35 36.5 C 75 19 137/68 97 06/27/24 01:22 36.7 C 101 H 18 125/88 95 06/27/24 01:00 70 19 150/57 H 96 06/26/24 23:10 36.9 C 79 19 171/58 H 97 06/26/24 22:17 77 18 163/67 H 95 06/26/24 21:02 71 O2 Del Method 06/27/24 07:42 Room Air 06/27/24 01:35 Room Air 06/27/24 01:35 Room Air 06/27/24 01:22 Room Air 06/27/24 01:00 Room Air 06/26/24 23:10 Room Air 06/26/24 22:17 Room Air 06/26/24 21:02 PG Care Time/CCT Total # of Minutes Spent Total Time Spent with Patient: Total time spent is greater than 50% in coordination of care (as documented) at patient's floor/unit and/or counseling patient: Coding Level of Care Code None Diagnoses Bilateral hydronephrosis N13.30 Cystitis N30.90
[2024-06-27 09:13] LABS: Basophils # (auto) 0.02 K/uL (0.00-0.20); Basophils % (auto) 0.3 %; Eosinophils # (auto) 0.09 K/uL (0.00-0.50); Eosinophils % (auto) 1.4 %; Hematocrit (blood only) 28.4 % (37.0-47.0); Hemoglobin 9.5 g/dl (12.0-16.0); Immature Granulocytes # (auto) 0.02 K/uL (0.01-0.20); Immature Granulocytes % (auto) 0.3 %; Lymphocytes # (auto) 1.54 K/uL (1.20-3.40); Lymphocytes % (auto) 24.5 %; Mean Corpuscular Hemoglobin 30.5 pg (25.0-34.0); Mean Corpuscular Hgb Conc 33.5 g/dL (32.0-36.0); Mean Corpuscular Volume 91.3 fL (80.0-100.0); Mean Platelet Volume 10.1 fL (9.4-12.4); Monocytes % (auto) 12.7 %; Neutrophils # (auto) 3.81 K/uL (1.40-6.50); Neutrophils % (auto) 60.8 %; Platelet Count 160 K/uL (130-400); RDW Coefficient of Variation 15.9 % (11.5-14.5); RDW Standard Deviation 52.3 fL (36.4-46.3); Red Blood Count 3.11 M/uL (4.20-5.40); White Blood Count 6.28 K/ul (4.8-10.8)
[2024-06-27] MEDS: CEFEPIME 2000MG 2,000 MG/20 ML SYR IV SCH (09:37)
[2024-06-27] MEDS: HEPARIN 100 UNIT/ML 5ML FLUSH FLUSH PRN (09:37)
[2024-06-27 09:53] LABS: Calcium 8.4 mg/dl (8.6-10.3); Potassium 4.2 mmol/L (3.5-5.1)
[2024-06-27 09:59] LABS: BUN Creatinine Ratio 19.4 (10-20)
--- NOTE | 2024-06-27 10:44 | Electrocardiogram Report ---
Test Reason : Blood Pressure : */* mmHG Vent. Rate : 73 BPM Atrial Rate : 73 BPM P-R Int : 138 ms QRS Dur : 118 ms QT Int : 402 ms P-R-T Axes : 84 60 126 degrees QTcB Int : 442 ms Normal sinus rhythm Left bundle branch block Abnormal ECG When compared with ECG of 18-Feb-2024 01:03, No significant change was found Confirmed by Les Maradiaga ([id number]) on 06/27/2024 10:44:48 AM Referred By: REFERRED SELF Confirmed By: eLs Maradiaga
--- NOTE | 2024-06-27 17:16 | Hospitalist Progress Note ---
Date of Service June 27, 2024 Assessment & Plan (1) Complicated UTI (urinary tract infection): (2) Pyelonephritis of left kidney: (3) Bilateral hydronephrosis: (4) Pneumonia: (5) Hypomagnesemia: Plan Patient is a 79-year-old female with past medical history of A-fib on Eliquis, h ypertension, hyperlipidemia, anxiety, Takotsubo cardiomyopathy, HX adenocarcinoma lung s/p left upper lobe lobectomy 2018. Patient is s/p bladder resection with urostomy status after procedure by Abimbola Esteves in February due to urothelial carcinoma. Patient presented in April of this year, septic, with pyelonephritis, and underwent urologic procedure including bilateral stent placement, left dilation, and left aspiration of urine. Patient presented to the ED 06/26 and was discharged with Cefdinir after being diagnosed with a UTI and given 1x Rocephin. Patient then returned back to the ED later in the evening with reported progressive fever of 102.6F. AP CT revealed bilateral hydronephrosis and bilateral pyelonephritis. She is being admitted for complicated UTI and pyelonephritis requiring IV antibiotics. #complicated UTI/left pyelonephritis/ bilateral hydronephrosis - UA infected appearing UCx pending - Urology consulted. No surgical intervention anticipated at this time. [facility] records resolved. Urostomy draining appropriately. - Continue cefepime Given history of pseudomonal infections will follow for speciation/sensitivities to determine if she has an appropriate oral agent for discharge. Has had Cipro sensitive Pseudomonas in the past, and some Klebsiella beta-lactam resistant infections Likely improved at bedside/24 No surgical intervention anticipated, Eliquis resumed #PNA - Patient with cough, congestion, sore throat. CXR showing small opacity of left lower lobe. Procalcitonin negative. Nonhypoxic. Bio fire negative. - MRSA swab ordered, will add MRSA coverage if positive - coverage with cefepime for above; defer atypical coverage as not presenting as such. She is stable from the standpoint can narrow antibiotics as indicated from UTI and follow #hypomagnesemia Denies recurrent diarrhea Had repletion Trend periodic #paroxysmal A-fib EKG sinus on admission - Continue metoprolol -Eliquis resumed #anemia Due to chemotherapy Hemoglobin stable, no active bleeding Trend CBC #HTNimproved with home antihypertensives. Continue losartan and metoprolol #nonobstructive CAD/ history Takotsubo's cardiomyopathy/ HLD - s/p cardiac cath 2018. Recent echo 03/18/2024 EF 60 to 65%, no wall abnormalities, mild mitral regurg, diastolic dysfunction grade 2 - continue atorvastatin No active chest pain No evidence of acute ischemia #Anxiety - stable - continue sertraline VTE ppx: Eliquis Dispo: med surg Admission and Anticipated Discharge Date Admission Date: June 27, 2024 Subjective Seen at the bedside this morning. Resting comfortably, doing well. No fevers chills or sweats overnight. No fever Reviewed [facility] records with patient at bedside. Photos taken from her pyelogram which were forwarded to urology as well. Feels well and safe for discharge. Does have a history of Pseudomonas infection and is pending initial urine culture and speciation. Physical Exam Physical Exam: General: A&Ox3. NAD. Cooperative. HEENT: Atraumatic, normocephalic. Vision and hearing grossly intact Pulm: CTAB A&P. -wheezes, -rales, -rhonchi. Symmetrical chest rise. No increase in work of breathing. No respiratory distress. Cardiac: RRR, -mrg. Radial pulses intact and symmetrical. Abdominal: Nontender, nondistended, soft. BS present. Urostomy is in place, bag in place draining light yellow urine Results & Data Results & Data Vital Signs (Past 12 Hours) Vital Signs Temp Pulse Resp BP BP Pulse Ox O2 Del Method 06/27/24 15:34 36.6 C 63 20 136/67 97 Room Air 06/27/24 11:53 63 16 126/59 L 98 Room Air 06/27/24 07:42 36.6 C 71 16 118/52 L 96 Room Air PG Care Time/CCT Total # of Minutes Spent Total Time Spent with Patient: Total time spent is greater than 50% in coordination of care (as documented) at patient's floor/unit and/or counseling patient: Coding Level of Care Code 58739 SUB INP/OBS CARE 3/50MIN Diagnoses Complicated UTI (urinary tract infection) N39.0 Pyelonephritis of left kidney N12 Bilateral hydronephrosis N13.30 Pneumonia J18.9 Hypomagnesemia E83.42
[2024-06-27 19:37] VITALS: RESP 16
[2024-06-27] MEDS: ATORVASTATIN 40 MG TAB PO SCH (21:31)
[2024-06-27] MEDS: LORazepam 0.5 MG TAB PO PRN (21:31)
[2024-06-27] MEDS: SERTRALINE HCL 50 MG TABLET PO SCH (21:32)
[2024-06-27] MEDS: APIXABAN 5 MG TABLET PO SCH (21:32)
[2024-06-28 06:52] LABS: Basophils # (auto) 0.02 K/uL (0.00-0.20); Basophils % (auto) 0.4 %; Eosinophils # (auto) 0.12 K/uL (0.00-0.50); Eosinophils % (auto) 2.3 %; Hemoglobin 10.1 g/dl (12.0-16.0); Immature Granulocytes # (auto) 0.01 K/uL (0.01-0.20); Immature Granulocytes % (auto) 0.2 %; Lymphocytes # (auto) 1.57 K/uL (1.20-3.40); Lymphocytes % (auto) 30.3 %; Mean Corpuscular Hemoglobin 30.4 pg (25.0-34.0); Mean Corpuscular Hgb Conc 33.7 g/dL (32.0-36.0); Mean Corpuscular Volume 90.4 fL (80.0-100.0); Mean Platelet Volume 9.9 fL (9.4-12.4); Monocytes % (auto) 11.6 %; Neutrophils # (auto) 2.87 K/uL (1.40-6.50); Neutrophils % (auto) 55.2 %; Platelet Count 167 K/uL (130-400); RDW Coefficient of Variation 15.8 % (11.5-14.5); RDW Standard Deviation 52.4 fL (36.4-46.3); Red Blood Count 3.32 M/uL (4.20-5.40); White Blood Count 5.19 K/ul (4.8-10.8)
[2024-06-28 07:09] LABS: BUN Creatinine Ratio 22.2 (10-20); Calcium 8.9 mg/dl (8.6-10.3); Creatinine Clr Calc Pharmacy 36.8 ml/min; Magnesium 1.9 mg/dl (1.7-2.4); Potassium 4.5 mmol/L (3.5-5.1)
--- NOTE | 2024-06-28 07:25 | Discharge Summary ---
Discharge Summary Date of Service June 28, 2024 Principal Dx & Hospital Course #1 = Principal Diagnosis (1) Complicated UTI (urinary tract infection): (2) Pyelonephritis of left kidney: (3) Bilateral hydronephrosis: (4) Pneumonia: (5) Hypomagnesemia: Plan Patient is a 79-year-old female with past medical history of A-fib on Eliquis, hypertension, hyperlipidemia, anxiety, Takotsubo cardiomyopathy, HX adenocarcinoma lung s/p left upper lobe lobectomy 2018. Patient is s/p bladder resection with urostomy status after procedure by Abimbola Esteves in February due to urothelial carcinoma. Patient presented in April of this year, septic, with pyelonephritis, and underwent urologic procedure including bilateral stent placement, left dilation, and left aspiration of urine. Patient presented to the ED 06/26 and was discharged with Cefdinir after being diagnosed with a UTI and given 1x Rocephin. Patient then returned back to the ED later in the evening with reported progressive fever of 102.6F. AP CT revealed bilateral hydronephrosis and bilateral pyelonephritis. She is being admitted for complicated UTI and pyelonephritis requiring IV antibiotics. #complicated UTI/left pyelonephritis/ bilateral hydronephrosis - UA infected appearing. On admission. UCX with minimal growth, final culture pending Patient s/p bladder resection, pyelonephritis earlier in the year, and return to the ER with progressive fever and CTA/P showing bilateral hydronephrosis and evidence of pyelonephritis. During admission she also showed evidence of pneumonia, and some of her urologic findings may be chronic/subacute however she was admitted and treated for both pyelonephritis and pneumonia. She clinically recovered and was clinically well with no ongoing pain discomfort or fevers at time of discharge - Urology consulted. No surgical intervention anticipated at this time. [facility] records reviewed. Urostomy draining appropriately. -Patient has a history of pseudomonal infections, fluoroquinolone sensitive. She presented with complicated UTI and evidence of pyleo n CT with urine cultures having a low counts without speciation. She is stable for discharge. Given complicated UTI with pseudomonal cultures in the last 4 months would cover for this. She has concurrent pneumonia, was discharged to complete a total of 7 days of abx w/ Levaquin #PNA - Patient with cough, congestion, sore throat. CXR showing small opacity of left lower lobe. Procalcitonin negative. Nonhypoxic. Bio fire negative. - MRSA swab negative Levaquin 750 mg daily x6 days prescribed on d/c No ongoing respiratory symptoms, fevers resolved, saturating normally on room air at time of discharge #paroxysmal A-fib EKG sinus on admission - Continue metoprolol Continue Eliquis #anemia Due to chemotherapy Hemoglobin stable, no active bleeding #HTN Continue losartan and metoprolol #nonobstructive CAD/ history Takotsubo's cardiomyopathy/ HLD - s/p cardiac cath 2017. Recent echo 03/18/2024 EF 60 to 65%, no wall abnormalities, mild mitral regurg, diastolic dysfunction grade 2 - continue atorvastatin No active chest pain No evidence of acute ischemia #Anxiety - stable - continue sertraline Admission HPI Per Admitting Provider Patient is a 79-year-old female with past medical history of A-fib on Eliquis, hypertension, hyperlipidemia, anxiety. Patient is s/p bladder resection with urostomy status after procedure by bAimbola Esteves in February due to urothelial carcinoma. Patient presented in April of this year, septic, with pyelonephritis, and underwent urologic procedure including bilateral stent placement, left dilation, and left aspiration of urine. Patient presented to the ED 06/26 and was discharged with Cefdinir after being diagnosed with a UTI and given 1x Rocephin. Patient then returned back to the ED later in the evening with reported progressive fever of 102.6F. APCT revealed bilateral hydronephrosis and bilateral pyelonephritis. She is being admitted for c omplicated UTI and pyelonephritis requiring IV antibiotics. Patient seen at bedside with her and daughter present. She stated she came in this morning due to fever which worsened throughout the day resulting in her returning to the ED. She is otherwise asymptomatic but stated her urine is cloudy. She has no pain of the urostomy site. She stated she also has had flulike symptoms of cough, congestion, rhinorrhea, sore throat that began Monday this week. She denies any sick contacts. CXR did show small opacity of left lower lobe. Remaining ROS negative, denies chills, dizziness, lightheadedness, shortness of breath, chest pain, abdominal pain, nausea, vomiting. She does endorse has had several episodes of diarrhea this morning, resulting in hypomagnesemia. She is due for her evening medications. She wishes to be DNR/DNI. Discharge Exam General: A&Ox3. NAD. Cooperative. HEENT: Atraumatic, normocephalic. Vision and hearing grossly intact Pulm: CTAB A&P. -wheezes, -rales, -rhonchi. Symmetrical chest rise. No increase in work of breathing. No respiratory distress. Cardiac: RRR, -mrg. Radial pulses intact and symmetrical. Abdominal: Nontender, nondistended, soft. BS present. Urostomy is in place, bag in place draining light yellow urine Extremities: Warm, dry Discharge Plan Discharge Items Patient Disposition: Home - Self-Care Reason For Visit: UTI, PYELONEPHRITIS Discharge Diagnosis: UTI, pneumonia Activity: Resume your previous activity Non-emergency contact: Primary Care Provider and Urologist Call non-emergency contact if: you have any medication questions and your symptoms worsen Follow-up/Referrals: Lj Barbosa MD [Primary Care Provider] - 07/05/24 8:30 am Diet: Heart Healthy Addtl Attending Provider Instructions: You were seen in the hospital for complicated UTI. You were also suspected to have left lower lobe pneumonia. You are treated with antibiotics as below. You had a recent urine cultures which were positive in February for a bacteria called Pseudomonas, which is resistant to multiple antibiotics. Your urine cultures during this admission did not grow out a specific organism however due to your infected appearing urinalysis, clinical symptoms, and suspected left pyelonephritis antibiotic treatment including coverage for Pseudomonas was recommended. The antibiotics to cover for this complicated urinary tract infection will also cover for your left lower lobe pneumonia. You have been prescribed Levaquin. Please take Levaquin (levofloxacin) 750 mg daily for 6 days. If you develop any new or worsening symptoms including fever, chills, sweats, chest pain, chest pressure, difficulty breathing, uncontrolled nausea/vomiting, rash, wheezing, passing out or nearly passing out, bleeding, black/bloody bowel movements, or other new or concerning symptoms please call your primary care physician, or call 911 for re-evaluation in the emergency department if you are very concerned. Pending Studies at Discharge: No Stand-Alone Forms: My [facility] [place], Smoking Cessation Medications and DC Order Prescriptions: New levofloxacin 750 mg tablet 750 mg PO DAILY 6 Days Qty: 6 0RF Continued atorvastatin 80 mg tablet 80 mg PO HS Qty: 90 3RF Rx Instructions: TAKE 1 TABLET BY MOUTH EVERY DAY Eliquis 5 mg tablet 5 mg PO Q12H Qty: 180 3RF sertraline 50 mg tablet 50 mg PO HS Qty: 90 3RF metoprolol tartrate 25 mg tablet 25 mg PO BID Qty: 60 3RF lorazepam 0.5 mg tablet 0.5 mg PO Q12H PRN (Reason: anxiety) Qty: 60 1RF cholecalciferol (vitamin D3) [Vitamin D3] 1,000 unit Capsule 1,000 unit PO QPM losartan 25 mg tablet 50 mg PO QAM losartan 25 mg tablet 25 mg PO QPM cyanocobalamin (vitamin B-12) [Vitamin B-12] 1,000 mcg Tablet 1,000 mcg PO DAILY cetirizine [Zyrtec] 10 mg Tablet 10 mg PO DAILY Discontinued ciprofloxacin HCl 250 mg tablet 250 mg PO BID 10 Days Qty: 20 0RF Discharge Orders: Discharge Order (Routine); Ordered 06/28/24 Ordered By: Jules Lewis Admission Data Admit Date/Time: 06/27/24 00:53 Attending Provider: Jules Lewis Admit Provider: Elvia Eastman Primary Care Provider: Lj Barbosa V. Other Providers: Elvia Eastman; Andrei Berrios Other Interventions: Discharge Summary Assessment (RN) Last Done: 06/28/24 11:11 Hospital Stay Data Consultations 06/27/24 00:19 ED Decision to Admit Stat 06/27/24 01:40 Consult Urology Routine Diagnostic Imagining Performed 06/26/24 22:26 CT abd pelvis IV con only Stat Discharge Instructions Given to Patient (Per Discharging Provider) You were seen in the hospital for complicated UTI. You were also suspected to have left lower lobe pneumonia. You are treated with antibiotics as below. You had a recent urine cultures which were positive in February for a bacteria called Pseudomonas, which is resistant to multiple antibiotics. Your urine cultures during this admission did not grow out a specific organism however due to your infected appearing urinalysis, clinical symptoms, and suspected left pyelonephritis antibiotic treatment including coverage for Pseudomonas was recommended. The antibiotics to cover for this complicated urinary tract infection will also cover for your left lower lobe pneumonia. You have been prescribed Levaquin. Please take Levaquin (levofloxacin) 750 mg daily for 6 days. If you develop any new or worsening symptoms including fever, chills, sweats, chest pain, chest pressure, difficulty breathing, uncontrolled nausea/vomiting, rash, wheezing, passing out or nearly passing out, bleeding, black/bloody bowel movements, or other new or concerning symptoms please call your primary care physician, or call 911 for re-evaluation in the emergency department if you are very concerned. Total Time Total Time Spent Total Time Spent (In Minutes): Time spend day of discharge 35 minutes including direct patient care, docume ntation, review of labs and images, and coordination of care. Coding Level of Care Code 68354 INP/OBS DISCH >30 MIN Diagnoses Complicated UTI (urinary tract infection) N39.0 Pyelonephritis of left kidney N12 Bilateral hydronephrosis N13.30 Pneumonia J18.9 Hypomagnesemia E83.42
[2024-06-28 07:38] VITALS: BP 122/60; TEMP 97.7; O2SAT 97
[2024-06-28 07:52] VITALS: PULSE 56
== END 2024-06-28 12:54 | disposition home or self-care (01) ==
LOC: 3N 20:16 → ED 20:16 → SUATTDRO 06-27 00:53 → 3N 06-27 01:22
DX: I25.10 Atherosclerotic heart disease of native coronary artery without angina pectoris; I10 Essential (primary) hypertension; Z88.8 Allergy status to other drugs, medicaments and biological substances; D64.81 Anemia due to antineoplastic chemotherapy; Z87.891 Personal history of nicotine dependence; N39.0 Urinary tract infection, site not specified; Z90.6 Acquired absence of other parts of urinary tract; N13.30 Unspecified hydronephrosis; J18.9 Pneumonia, unspecified organism; E83.42 Hypomagnesemia; N30.90 Cystitis, unspecified without hematuria; Z98.890 Other specified postprocedural states; N12 Tubulo-interstitial nephritis, not specified as acute or chronic; I48.0 Paroxysmal atrial fibrillation; Z79.899 Other long term (current) drug therapy; Z79.01 Long term (current) use of anticoagulants